=== PATIENT | female | born 1975 | race Caucasian/White ===

== ENCOUNTER 2017-08-27 07:41 | Emergency (ER) | payer SELFPAY ==
--- NOTE | 2017-08-27 08:01 | EDPHYS ---
Physician Documentation [facility] Name: Jessica Kim Age: 41 yrs Sex: Female : 1975 Arrival Date: 08/27/2017 Time: 07:44 Bed 15 Private MD: JOLANTA NAIR ED Physician Pranay Lakhani HPI: 08/27 07:57 This 41 yrs old Female presents to ER via Unassigned with complaints of Leg gs Pain, back pain. 07:57 The patient presents with pain that is acute. The symptoms are located in the low back. gs Onset: The symptoms/episode began/occurred 1 month(s) ago, and became persistent. The pain radiates to the left quadriceps. Associated signs and symptoms: Pertinent negatives: incontinence, numbness, urinary retention. Modifying factors: the patient symptoms are aggravated by any movement, bending. Severity of symptoms: At their worst the symptoms were moderate, in the emergency department the symptoms are unchanged. The patient has experienced similar episodes in the past, a few times. The patient has been recently seen by a physician: with similar presenting complaints, was given a prescription for pain medications. RAMP JOCKEY: 07:59 LMP 08/02/2017 rb1 Historical: - PMHx: 07:59 Depression; gs - Immunization history:: Adult Immunizations up to date. - Social history:: The patient lives at home, Smoking status: Patient uses tobacco products, smokes one pack cigarettes per day. - Ebola Screening: : Patient negative for fever greater than or equal to 101.5 degrees Fahrenheit, and additional compatible Ebola Virus Disease symptoms. ROS: 07:59 All other systems are negative. gs Exam: 07:59 Head/Face: Normocephalic, atraumatic. Eyes: Pupils equal round and reactive to light, gs extra-ocular motions intact. Lids and lashes normal. Conjunctiva and sclera are non-icteric and not injected. Cornea within normal limits. Periorbital areas with no swelling, redness, or edema. ENT: Nares patent. No nasal discharge, no septal abnormalities noted. Tympanic membranes are normal and external auditory canals are clear. Oropharynx with no redness, swelling, or masses, exudates, or evidence of obstruction, uvula midline. Mucous membranes moist. Neck: Trachea midline, no thyromegaly or masses palpated, and no cervical lymphadenopathy. Supple, full range of motion without nuchal rigidity, or vertebral point tenderness. No Meningismus. Chest/axilla: Normal chest wall appearance and motion. Nontender with no deformity. No lesions are appreciated. Cardiovascular: Regular rate and rhythm with a normal S1 and S2. No gallops, murmurs, or rubs. Normal PMI, no JVD. No pulse deficits. Respiratory: Lungs have equal breath sounds bilaterally, clear to auscultation and percussion. No rales, rhonchi or wheezes noted. No increased work of breathing, no retractions or nasal flaring. Abdomen/GI: Soft, non-tender, with normal bowel sounds. No distension or tympany. No guarding or rebound. No evidence of tenderness throughout. Skin: Warm, dry with normal turgor. Normal color with no rashes, no lesions, and no evidence of cellulitis. MS/ Extremity: Pulses equal, no cyanosis. Neurovascular intact. Full, normal range of motion. Neuro: Awake and alert, GCS 15, oriented to person, place, time, and situation. Cranial nerves II-XII grossly intact. Motor strength 5/5 in all extremities. Sensory grossly intact. Cerebellar exam normal. Normal gait. 07:59 Constitutional: The patient appears alert, awake. 07:59 Back: CVA tenderness, is absent, vertebral tenderness, is not appreciated, Straight leg raises: left lower extremity illicits pain, at 30 degrees. Vital Signs: 07:59 BP 125 / 90; Pulse 95; Resp 20; Temp 97.8(O); Pulse Ox 100% on R/A; Weight 92.99 kg rb1 (R); Height 5 ft. 2 in. (157.48 cm) (R); Pain 10/10; 07:59 Body Mass Index 37.49 (92.99 kg, 157.48 cm) rb1 MDM: 07:53 Patient medically screened. snw 07:59 Differential diagnosis: Ligament Injury ruptured disc, sprain. Data reviewed: vital gs signs, nurses notes. Response to treatment: There is no appreciated change of the patient's symptoms at this time, and as a result, I will discharge patient. Administered Medications: No medications were administered Disposition: 08/27/17 08:00 Discharged to Home. Impression: Lumbago with sciatica, left side. - Condition is Stable. - Discharge Instructions: Chronic Back Pain, Back Exercises, [id number]. - Prescriptions for Prednisone 20 mg Oral Tablet - take 1 tablet by ORAL route once daily for 5 days; 5 tablet. Tylenol- Codeine #4 300-60 mg Oral Tablet - take 1 tablet by ORAL route every 6 hours As needed; 6 tablet. Pepcid 20 mg Oral Tablet - take 1 tablet by ORAL route every 12 hours for 10 days; 20 tablet. - Medication Reconciliation Form, Thank You Letter, Antibiotic Education, Prescription Opioid Use form. - Follow up: Private Physician; When: 2 - 3 days; Reason: Re-evaluation by your physician. Signatures: Crystal Sams, ANA CRISTINA-C CONSTRUCTION TEACHER-Csnw Martita Arboleda, RN RN rb1 Pranay Lakhani MD MD gs Corrections: (The following items were deleted from the chart) 08:25 08:00 08/27/2017 08:00 Discharged to Home. Impression: Lumbago with sciatica, left rb1 side. Condition is Stable. Forms are Medication Reconciliation Form, Thank You Letter, Antibiotic Education, Prescription Opioid Use. Follow up: Private Physician; When: 2 - 3 days; Reason: Re-evaluation by your physician. gs
--- NOTE | 2017-08-27 08:25 | ER ---
Nurse's Notes [facility] Name: Jessica Kim Age: 41 yrs Sex: Female : 1975 Arrival Date: 08/27/2017 Time: 07:44 Bed 15 Private MD: JOLANTA NAIR Diagnosis: Lumbago with sciatica, left side Presentation: 08/27 07:59 Presenting complaint: Patient states: pt. c/o of lower back pain that radiates down her rb1 left leg. Transition of care: patient was not received from another setting of care. Onset of symptoms was August 26, 2017. Risk Assessment: Do you want to hurt yourself or someone else? Patient reports no desire to harm self or others. Initial Sepsis Screen: Does the patient meet any 2 criteria? No. Patient's initial sepsis screen is negative. Does the patient have a suspected source of infection? No. Patient's initial sepsis screen is negative. Care prior to arrival: None. 07:59 Method Of Arrival: Wheelchair rb1 07:59 Acuity: HOWARD 3 rb1 Triage Assessment: 07:59 General: Appears uncomfortable, Behavior is calm, cooperative, Denies fever. Pain: rb1 Complains of pain in left low back Pain radiates to left leg Pain currently is 10 out of 10 on a pain scale. Pain began 1 day ago. Neuro: Level of Consciousness is awake, alert, obeys commands, Oriented to person, place, time, situation. Cardiovascular: Capillary refill < 3 seconds is brisk in bilateral fingers. Respiratory: Airway is patent Respiratory effort is even, unlabored, Respiratory pattern is regular, symmetrical. GI: Reports nausea. : No signs and/or symptoms were reported regarding the genitourinary system. Derm: Skin is pink, warm \T\ dry. Musculoskeletal: Range of motion: intact in all extremities. WAGE HAND: 07:59 LMP 08/02/2017 rb1 Historical: - PMHx: 07:59 Depression; gs - Immunization history:: Adult Immunizations up to date. - Social history:: The patient lives at home, Smoking status: Patient uses tobacco products, smokes one pack cigarettes per day. - Ebola Screening: : Patient negative for fever greater than or equal to 101.5 degrees Fahrenheit, and additional compatible Ebola Virus Disease symptoms. Screenin:59 Abuse screen: Denies threats or abuse. Nutritional screening: No deficits noted. rb1 Tuberculosis screening: No symptoms or risk factors identified. Fall Risk None identified. Assessment: 07:59 General: See triage assessment.. rb1 Vital Signs: 07:59 BP 125 / 90; Pulse 95; Resp 20; Temp 97.8(O); Pulse Ox 100% on R/A; Weight 92.99 kg rb1 (R); Height 5 ft. 2 in. (157.48 cm) (R); Pain 10/10; 07:59 Body Mass Index 37.49 (92.99 kg, 157.48 cm) rb1 ED Course: 07:44 Patient arrived in ED. sb2 07:45 JOLANTA NAIR is Private Physician. sb2 07:45 Martita Arboleda, RN is Primary Nurse. rb1 07:53 Crystal Sams FNP-C [facility]. snw 07:53 Pranay Lakhani MD is Attending Physician. snw 07:59 Arm band placed on. rb1 07:59 Patient has correct armband on for positive identification. Bed in low position. Call rb1 light in reach. Side rails up X 1. Pulse ox on. NIBP on. 08:01 Triage completed. rb1 08:22 No provider procedures requiring assistance completed. Patient did not have IV access rb1 during this emergency room visit. Administered Medications: No medications were administered Outcome: 08:00 Discharge ordered by . 08:22 Discharged to home via wheelchair, with family. rb1 08:22 Condition: stable 08:22 Discharge instructions given to patient, Instructed on discharge instructions, follow up and referral plans. medication usage, Demonstrated understanding of instructions, follow-up care, medications, Prescriptions given X 3. 08:25 Patient left the ED. rb1 Signatures: Crystal Sams FNP-C DAYCARE MANAGER-Csnw Martita Arboleda, RN RN rb1 Pranay Lakhani MD MD Rufina Wen sb2
[2017-08-27 08:28] VITALS: BP 125/90; TEMP 97.8; O2SAT 100
== END 2017-08-27 08:25 | disposition home or self-care (01) ==
LOC: ER 07:41
DX: M54.42 Lumbago with sciatica, left side (principal); F17.210 Nicotine dependence, cigarettes, uncomplicated
CPT/HCPCS: 99283

== ENCOUNTER 2018-01-01 17:37 | Emergency (ER) | payer SELFPAY ==
[2018-01-01] MEDS ORDERED: PHENAZOPYRIDINE 100MG TAB PO ONE (18:08)
[2018-01-01] MEDS ORDERED: TRAMADOL HCL 50 MG TAB ONE ×2 (18:08→19:27)
[2018-01-01 18:26] LABS: Urine Bacteria 20-50 /HPF (<20); Urine Culture Reflex Order NOT NEEDED; Urine Mucus 2+ /HPF (NONE SEEN); Urine RBC 20-50 /HPF (NONE SEEN)
[2018-01-01 18:27] LABS: Urine Blood 3+ (NEG); Urine Glucose NEGATIVE (NEG); Urine Protein 2+ (NEG); Urine Specific Gravity 1.015 (1.005-1.030)
--- NOTE | 2018-01-01 18:33 | EDPHYS ---
Physician Documentation [facility] Name: Jessica Kim Age: 42 yrs Sex: Female : 1975 Arrival Date: 01/01/2018 Time: 17:39 Bed 6 Private MD: ED Physician Karlos Barth HPI: 01/01 18:20 This 42 yrs old Female presents to ER via Ambulatory with complaints of snw Urinary Problem. 18:20 Onset: The symptoms/episode began/occurred suddenly, yesterday. Associated signs and snw symptoms: Pertinent positives: dysuria. Modifying factors: The patient symptoms are alleviated by nothing, the patient symptoms are aggravated by urinating. The patient has experienced similar episodes in the past. The patient has not recently seen a physician. 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 - Social history:: Smoking status: Patient uses tobacco products, smokes one pack cigarettes per day. - Ebola Screening: : Patient negative for fever greater than or equal to 101.5 degrees Fahrenheit, and additional compatible Ebola Virus Disease symptoms Patient denies exposure to infectious person Patient denies travel to an Ebola-affected area in the 21 days before illness onset No symptoms or risks identified at this time. ROS: 18:18 Constitutional: Negative for fever, chills, and weight loss, Eyes: Negative for injury, snw pain, redness, and discharge, ENT: Negative for injury, pain, and discharge, Neck: Negative for injury, pain, and swelling, Cardiovascular: Negative for chest pain, palpitations, and edema, Respiratory: Negative for shortness of breath, cough, wheezing, and pleuritic chest pain, Abdomen/GI: Negative for abdominal pain, nausea, vomiting, diarrhea, and constipation, Back: Negative for injury and pain, MS/Extremity: Negative for injury and deformity, Skin: Negative for injury, rash, and discoloration, Neuro: Negative for headache, weakness, numbness, tingling, and seizure. 18:18 : Positive for urinary symptoms, small amounts, hematuria, burning with urination. Exam: 18:18 Constitutional: This is a well developed, well nourished patient who is awake, alert, snw and in no acute distress. Head/Face: Normocephalic, atraumatic. Eyes: Pupils equal round and reactive to light, extra-ocular motions intact. Lids and lashes normal. Conjunctiva and sclera are non-icteric and not injected. Cornea within normal limits. Periorbital areas with no swelling, redness, or edema. ENT: Nares patent. No nasal discharge, no septal abnormalities noted. Tympanic membranes are normal and external auditory canals are clear. Oropharynx with no redness, swelling, or masses, exudates, or evidence of obstruction, uvula midline. Mucous membranes moist. Neck: Trachea midline, no thyromegaly or masses palpated, and no cervical lymphadenopathy. Supple, full range of motion without nuchal rigidity, or vertebral point tenderness. No Meningismus. Chest/axilla: Normal chest wall appearance and motion. Nontender with no deformity. No lesions are appreciated. Cardiovascular: Regular rate and rhythm with a normal S1 and S2. No gallops, murmurs, or rubs. Normal PMI, no JVD. No pulse deficits. Respiratory: Lungs have equal breath sounds bilaterally, clear to auscultation and percussion. No rales, rhonchi or wheezes noted. No increased work of breathing, no retractions or nasal flaring. Abdomen/GI: Soft, non-tender, with normal bowel sounds. No distension or tympany. No guarding or rebound. No evidence of tenderness throughout. Back: No spinal tenderness. No costovertebral tenderness. Full range of motion. Skin: Warm, dry with normal turgor. Normal color with no rashes, no lesions, and no evidence of cellulitis. MS/ Extremity: Pulses equal, no cyanosis. Neurovascular intact. Full, normal range of motion. Neuro: Awake and alert, GCS 15, oriented to person, place, time, and situation. Cranial nerves II-XII grossly intact. Motor strength 5/5 in all extremities. Sensory grossly intact. Cerebellar exam normal. Normal gait. Vital Signs: 17:47 BP 154 / 88; Pulse 106; Resp 20; Temp 97.3; Pulse Ox 100% on R/A; Weight 94.8 kg; aj Height 5 ft. 2 in. (157.48 cm); 18:30 BP 146 / 78; Pulse 88; Resp 15; Pulse Ox 100% on R/A; hb 19:25 BP 139 / 77; Pulse 82; Resp 16; Pulse Ox 99% on R/A; aa1 17:47 Body Mass Index 38.23 (94.80 kg, 157.48 cm) aj MDM: 17:53 Patient medically screened. snw 18:36 Data reviewed: vital signs, nurses notes, lab test result(s), radiologic studies. Data snw interpreted: Pulse oximetry: on room air is 100 %. Interpretation: normal. Counseling: I had a detailed discussion with the patient and/or guardian regarding: the historical points, exam findings, and any diagnostic results supporting the discharge/admit diagnosis, the presence of at least one elevated blood pressure reading (>120/80) during this emergency department visit, lab results, radiology results, the need for outpatient follow up, to return to the emergency department if symptoms worsen or persist or if there are any questions or concerns that arise at home. Special discussion: Based on the patient's Hx, exam, and Dx evaluation, there is no indication for emergent surgery or inpatient Tx. It is understood by the patient/guardian that if the Sx's persist or worsen they need to return immediately for re-evaluation. I have referred the patient to see his PCP for further evaluation of high blood pressure. Based on the history and exam findings, there is no indication for further emergent testing or inpatient evaluation. I discussed with the patient/guardian the need to see the primary care provider for further evaluation of the symptoms. 01/01 17:52 Order name: Urine Culture snw 01/01 17:52 Order name: Urine Microscopic Only; Complete Time: 18:31 snw 01/01 18:16 Order name: Urine Dipstick--Ancillary (enter results); Complete Time: 18:31 bd 01/01 18:16 Order name: Urine --Ancillary (enter results); Complete Time: 18:31 bd 01/01 17:52 Order name: Urine Dipstick-Ancillary (obtain specimen); Complete Time: 18:00 snw 01/01 17:55 Order name: Urine Test (obtain specimen); Complete Time: 18:01 snw Administered Medications: 18:07 Drug: Pyridium 200 mg Route: PO; hb 19:24 Follow up: Response: No adverse reaction aa1 18:07 Drug: UltRAM 25 mg Route: PO; hb 19:17 Follow up: Response: No adverse reaction; Pain is unchanged, physician notified aa1 19:05 Drug: Rocephin (cefTRIAXone) 1 grams Route: IM; Site: right gluteus; ea 19:24 Follow up: Response: No adverse reaction aa1 19:22 Drug: UltRAM 25 mg Route: PO; aa1 19:24 Follow up: Response: No adverse reaction; Medication administered at discharge. aa1 Disposition: 01/02 07:03 Co-signature as Attending Physician, Karlos Barth MD. rn Disposition: 01/01/18 18:32 Discharged to Home. Impression: Dysuria, Urinary tract infection, site not specified. - Condition is Stable. - Discharge Instructions: Back Pain, Adult, Dysuria, Hypertension, Urinary Tract Infection, Adult, Rehydration, Adult. - Prescriptions for Pyridium 200 mg Oral Tablet - take 1 tablet by ORAL route every 8 hours for 3 days; 9 tablet. Macrobid 100 mg Oral Capsule - take 1 capsule by ORAL route every 12 hours for 10 days; 20 capsule. Diclofenac Sodium 75 mg Oral Tablet Sustained Release - take 1 tablet by ORAL route 2 times per day; 30 tablet. - Medication Reconciliation Form, Thank You Letter, Antibiotic Education, Prescription Opioid Use form. - Follow up: Private Physician; When: 2 - 3 days; Reason: Recheck today's complaints, Continuance of care, Re-evaluation by your physician. Follow up: Emergency Department; When: As needed; Reason: Worsening of condition. Signatures: Dispatcher MedHo Nneka Magaña RN RN aa1 Karmen Flores RN RN Crystal No, FAMILY AND CONSUMER SCIENCES PROFESSOR-C FAMILY AND CONSUMER SCIENCES PROFESSOR-Csnw Karlos Barth MD MD rn Baxter, Heather, RN RN hb Antunez, Elena, RN RN ea Corrections: (The following items were deleted from the chart) 01/01 19:26 18:32 01/01/2018 18:32 Discharged to Home. Impression: Dysuria; Urinary tract aa1 infection, site not specified. Condition is Stable. Forms are Medication Reconciliation Form, Thank You Letter, Antibiotic Education, Prescription Opioid Use. Follow up: Private Physician; When: 2 - 3 days; Reason: Recheck today's complaints, Continuance of care, Re-evaluation by your physician. Follow up: Emergency Department; When: As needed; Reason: Worsening of condition. snw
--- NOTE | 2018-01-01 18:33 | ER ---
Nurse's Notes [facility] Name: Jessica Kim Age: 42 yrs Sex: Female : 1975 Arrival Date: 01/01/2018 Time: 17:39 Bed 6 Private MD: Diagnosis: Dysuria;Urinary tract infection, site not specified Presentation: 01/01 17:46 Presenting complaint: Patient states: Burning with urination and blood in urine since aj yesterday. Transition of care: patient was not received from another setting of care. Onset of symptoms was December 31, 2017. Risk Assessment: Do you want to hurt yourself or someone else? Patient reports no desire to harm self or others. Initial Sepsis Screen: Does the patient meet any 2 criteria? No. Patient's initial sepsis screen is negative. Does the patient have a suspected source of infection? No. Patient's initial sepsis screen is negative. Care prior to arrival: None. 17:46 Method Of Arrival: Ambulatory aj 17:46 Acuity: HOWARD 3 aj Triage Assessment: 17:47 General: Appears in no apparent distress. comfortable, Behavior is calm, cooperative, aj appropriate for age. Pain: Complains of pain in pelvis. Neuro: Level of Consciousness is awake, alert, obeys commands, Oriented to person, place, time, situation, Appropriate for age. Respiratory: Airway is patent Respiratory effort is even, unlabored, Respiratory pattern is regular, symmetrical. : Reports burning with urination. Derm: Skin is intact, is healthy with good turgor, Skin is pink, warm \T\ dry. normal. 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 - Social history:: Smoking status: Patient uses tobacco products, smokes one pack cigarettes per day. - Ebola Screening: : Patient negative for fever greater than or equal to 101.5 degrees Fahrenheit, and additional compatible Ebola Virus Disease symptoms Patient denies exposure to infectious person Patient denies travel to an Ebola-affected area in the 21 days before illness onset No symptoms or risks identified at this time. Screenin:02 Abuse screen: Denies threats or abuse. Denies injuries from another. Nutritional hb screening: No deficits noted. Tuberculosis screening: No symptoms or risk factors identified. Fall Risk None identified. Assessment: 18:02 General: Appears in no apparent distress. uncomfortable, Behavior is calm, cooperative. hb Pain: Pain currently is 4 out of 10 on a pain scale. Neuro: Level of Consciousness is awake, alert, obeys commands, Oriented to person, place, time, situation. Cardiovascular: Capillary refill < 3 seconds Patient's skin is warm and dry. Respiratory: Airway is patent Respiratory effort is even, unlabored, Respiratory pattern is regular, symmetrical. GI: No signs and/or symptoms were reported involving the gastrointestinal system. : Reports burning with urination, urgency, urinary frequency. EENT: No signs and/or symptoms were reported regarding the EENT system. Derm: Skin is intact, is healthy with good turgor, Skin is pink, warm \T\ dry. Musculoskeletal: No signs and/or symptoms reported regarding the musculoskeletal system. 19:00 General: Appears uncomfortable, Behavior is calm, cooperative. Pain: Pain currently is ea 4 out of 10 on a pain scale. Neuro: Level of Consciousness is awake, alert, obeys commands, Oriented to person, place, time, situation. Cardiovascular: Patient's skin is warm and dry. Respiratory: Airway is patent Respiratory effort is even, unlabored, Respiratory pattern is regular, symmetrical. : Reports burning with urination, urgency, urinary frequency. 19:00 Derm: Skin is pink, warm \T\ dry. ea 19:25 Reassessment: Patient appears in no apparent distress at this time. Patient is alert, aa1 oriented x 3, equal unlabored respirations, skin warm/dry/pink. Discussed d/c \T\ f/u instructions with pt; denies questions or concerns at this time. Vital Signs: 17:47 BP 154 / 88; Pulse 106; Resp 20; Temp 97.3; Pulse Ox 100% on R/A; Weight 94.8 kg; aj Height 5 ft. 2 in. (157.48 cm); 18:30 BP 146 / 78; Pulse 88; Resp 15; Pulse Ox 100% on R/A; hb 19:25 BP 139 / 77; Pulse 82; Resp 16; Pulse Ox 99% on R/A; aa1 17:47 Body Mass Index 38.23 (94.80 kg, 157.48 cm) ED Course: 17:39 Patient arrived in ED. mr 17:43 Crystal Sams, ANA CRISTINA-C [facility]. snw 17:43 Karlos Barth MD is Attending Physician. snw 17:47 Triage completed. aj 17:47 Arm band placed on right wrist. Patient placed in an exam room. aj 18:01 Acacia Brizuela, RN is Primary Nurse. hb 18:02 Patient has correct armband on for positive identification. Bed in low position. Call hb light in reach. Side rails up X 1. 19:17 No provider procedures requiring assistance completed. Patient did not have IV access ea during this emergency room visit. Administered Medications: 18:07 Drug: Pyridium 200 mg Route: PO; hb 19:24 Follow up: Response: No adverse reaction aa1 18:07 Drug: UltRAM 25 mg Route: PO; hb 19:17 Follow up: Response: No adverse reaction; Pain is unchanged, physician notified aa1 19:05 Drug: Rocephin (cefTRIAXone) 1 grams Route: IM; Site: right gluteus; ea 19:24 Follow up: Response: No adverse reaction aa1 19:22 Drug: UltRAM 25 mg Route: PO; aa1 19:24 Follow up: Response: No adverse reaction; Medication administered at discharge. aa1 Outcome: 18:32 Discharge ordered by MD. snw 19:25 Discharged to home ambulatory. aa1 19:25 Condition: good 19:25 Discharge instructions given to patient, Instructed on discharge instructions, follow up and referral plans. medication usage, Demonstrated understanding of instructions, follow-up care, medications, Prescriptions given X 3. 19:26 Patient left the ED. aa1 Addendum: 01/04/2018 10:05 Addendum: Culture Results: Positive urine culture. No further action required. Bacteria h b sensitive to prescribed antibiotic. Signatures: Nneka Plascencia RN RN aa1 Karmen Flores RN RN Crystal Sams, ANA CRISTINA-C POLICE CHIEF DEPUTY-Csn Malinda Tran mr Acacia Brizuela, RN RICKY Washington, Aileen, RN RN ea
[2018-01-01] MEDS ORDERED: CEFTRIAXONE 1000 MG/VIAL ONE (19:02)
[2018-01-01 19:59] VITALS: TEMP 97.3
[2018-01-01 20:02] VITALS: BP 139/77; O2SAT 99
== END 2018-01-01 19:26 | disposition home or self-care (01) ==
LOC: ER 17:37
DX: N39.0 Urinary tract infection, site not specified (principal); F32.9 Major depressive disorder, single episode, unspecified; F41.9 Anxiety disorder, unspecified; F17.210 Nicotine dependence, cigarettes, uncomplicated; Z79.899 Other long term (current) drug therapy; Z79.3 Long term (current) use of hormonal contraceptives
CPT/HCPCS: 81003; 81015; 81025; 87077; 87086; 87088; 87186; 96372; 99283

== ENCOUNTER 2018-02-08 16:30 | Emergency (ER) | payer SELFPAY ==
[2018-02-08 17:24] LABS: Absolute Monocytes 0.8 K/uL (0.1-1.3); Absolute Neutrophil 7.4 K/uL (1.8-8.0); Basophils % 0.6 % (0-1.3); Hematocrit 38.5 % (36.0-45.0); Lymphocytes % 26.2 % (15.3-44.8); MCH 31.5 pg (27.0-35.0); MCV 93.4 fL (80-100); MPV 7.1 fL (7.6-11.3); Monocytes % 7.3 % (3.3-12.3); RBC Red Blood Cell Count 4.12 M/uL (3.86-4.86)
[2018-02-08] MEDS ORDERED: ONDANSETRON 4 MG/2 ML VIAL ONE ×2 (17:29→18:20)
[2018-02-08] MEDS ORDERED: MORPHINE 4 MG/ML SYR ONE (17:29)
[2018-02-08] MEDS ORDERED: NA CHLORIDE 0.9% 1,000 ML ONE (17:29)
[2018-02-08 17:42] LABS: ALT/SGPT 21 U/L (12-78); AST/SGOT 12 U/L (15-37); Albumin 3.3 g/dL (3.4-5.0); Alkaline Phosphatase 55 U/L (45-117); BUN Blood Urea Nitrogen 3 mg/dL (7-18); Bicarbonate 26 mmol/L (21-32); Bilirubin Direct 0.1 mg/dL (0-0.2); Bilirubin Total 0.4 mg/dL (0.2-1.0); Glucose Level 84 mg/dL (74-106); Lipase 65 U/L (73-393); Potassium 3.5 mmol/L (3.5-5.1); Protein, Total 7.1 g/dL (6.4-8.2); Sodium Level 140 mmol/L (136-145)
--- NOTE | 2018-02-08 18:12 | RAD REPORT ---
EXAM DESCRIPTION: CT - Abdomen Pelvis W Contrast - 02/08/2018 6:03 pm CLINICAL HISTORY: Abdominal pain, right lower quadrant pain COMPARISON: CT September 2015 TECHNIQUE: Biphasic, helical CT imaging of the abdomen and pelvis was performed following 100 ml non -ionic IV contrast. Oral contrast was given. All CT scans are performed using dose optimization technique as appropriate and may include automated exposure control or mA/KV adjustment according to patient size. FINDINGS: No suspicious findings in the lung bases. The liver, spleen, and pancreas show no suspicious findings. Cholecystectomy clips are present. No bi liary tree dilatation. Symmetric renal function is seen with no hydronephrosis or suspicious renal mass. No pyelonephritis o r acute renal parenchymal process. No adrenal gland abnormality. Contracted urinary bladder shows no suspicious findings. Small ovarian cysts are present. No cyst rupture or hemorrhage identifiable. No uterine abnormality seen. No dilated bowel loops or bowel wall thickening. Appendix is normal. The pancolitis findings of 2016 are not evident on the current study. No free air, free fluid or inflammatory stranding. No hernia, mass or bulky lymphadenopathy. The uri nary bladder is without significant finding. No adrenal abnormality. No suspicious bony findings. IMPRESSION: Contrast enhanced CT abdomen and pelvis showing no significant or suspicious finding.
--- NOTE | 2018-02-08 18:57 | ER ---
Nurse's Notes [facility] Name: Jessica Kim Age: 42 yrs Sex: Female : 1975 Arrival Date: 02/08/2018 Time: 16:33 Bed 23 Private MD: Jeramy Chau E Diagnosis: Vomiting;Diarrhea, unspecified;Unspecified abdominal pain;Viral gastroenteritis Presentation: 02/08 16:34 Presenting complaint: Patient states: i have this pain on my lower abdomen just on my hj bladder area and pain on my R lower abd for about a week now; reports diarrhea, nausea; reports chills; pain 9/10;. Transition of care: patient was not received from another setting of care. Onset of symptoms was February 08, 2018. Risk Assessment: Do you want to hurt yourself or someone else? Patient reports no desire to harm self or others. Initial Sepsis Screen: Does the patient meet any 2 criteria? No. Patient's initial sepsis screen is negative. Does the patient have a suspected source of infection? No. Patient's initial sepsis screen is negative. Care prior to arrival: None. 16:34 Method Of Arrival: Ambulatory 16:34 Acuity: HOWARD 3 Triage Assessment: 16:37 General: Appears in no apparent distress. uncomfortable, Behavior is calm, cooperative, hj appropriate for age. Pain: Complains of pain in abdomen Pain currently is 9 out of 10 on a pain scale. GI: Reports lower abdominal pain, diarrhea, nausea. 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 - Social history:: Smoking status: Patient uses tobacco products, Patient/guardian denies using alcohol. - Ebola Screening: : Patient negative for fever greater than or equal to 101.5 degrees Fahrenheit, and additional compatible Ebola Virus Disease symptoms Patient denies exposure to infectious person Patient denies travel to an Ebola-affected area in the 21 days before illness onset. Screenin:36 Abuse screen: Denies threats or abuse. Denies injuries from another. Nutritional hj screening: No deficits noted. Tuberculosis screening: No symptoms or risk factors identified. Fall Risk None identified. Assessment: 16:37 GI: Bowel sounds present X 4 quads. Abd is soft and non tender. hj 17:06 General: Appears uncomfortable, well groomed, well developed, well nourished, Behavior tl3 is calm, cooperative, appropriate for age. Pain: Complains of pain in right low back and abdomen. Neuro: No deficits noted. Level of Consciousness is awake, alert, obeys commands, Oriented to person, place, time, situation, Appropriate for age. Cardiovascular: Patient's skin is warm and dry. Respiratory: Airway is patent Respiratory effort is even, unlabored, Respiratory pattern is regular, symmetrical. : Urine is clear. EENT: No deficits noted. No signs and/or symptoms were reported regarding the EENT system. Derm: No deficits noted. No signs and/or symptoms reported regarding the dermatologic system. 19:59 Reassessment: Patient appears in no apparent distress at this time. No changes from tl3 previously documented assessment. Patient and/or family updated on plan of care and expected duration. Pain level reassessed. Patient is alert, oriented x 3, equal unlabored respirations, skin warm/dry/pink. Vital Signs: 16:37 BP 115 / 92; Pulse 95; Resp 18; Temp 97.8(TE); Pulse Ox 99% on R/A; Weight 94.8 kg; hj Height 5 ft. 2 in. (157.48 cm); Pain 9/10; 17:06 BP 158 / 108; Pulse 101; Resp 18; Pulse Ox 100% on R/A; tl3 18:13 BP 137 / 81; Pulse 92; Resp 18; Pulse Ox 98% on R/A; Pain 4/10; mg2 19:59 BP 122 / 76; Pulse 81; Resp 18; Pulse Ox 97% on R/A; tl3 16:37 Body Mass Index 38.23 (94.80 kg, 157.48 cm) ED Course: 16:33 Patient arrived in ED. mr 16:33 JOLANTA NAIR is Private Physician. mr 16:33 Jeramy Chau MD is Private Physician. mr 16:36 Triage completed. hj 16:37 Arm band placed on right wrist. 16:38 Patient has correct armband on for positive identification. Placed in gown. Bed in low hj position. Call light in reach. Side rails up X 1. Adult w/ patient. 16:59 Cherelle Jolly, RICKY is Primary Nurse. tl3 17:03 Carlos Nolan NP is PHCP. pm1 17:03 Jesus López MD is Attending Physician. pm1 17:06 No provider procedures requiring assistance completed. tl3 17:14 Radiology exam delayed due to lab results not completed at this time. (BUN/Creatinine). nj 17:26 Inserted saline lock: 20 gauge in right antecubital area, using aseptic technique. mg2 Blood collected. 17:[address] via wheelchair. vm2 18:03 CT Abd/Pelvis - W/Contrast: IV contrast only In Process Unspecified. EDMS 18:13 CT completed. Patient tolerated procedure well. Patient moved back from CT. nj 18:55 Jeramy Chau MD is Referral Physician. pm1 19:59 IV discontinued, intact, bleeding controlled, No redness/swelling at site. Pressure tl3 dressing applied. Administered Medications: 17:25 Drug: NS 0.9% 1000 ml Route: IV; Rate: 1000 ml; Site: right forearm; mg2 17:25 Drug: morphine 4 mg Route: IVP; Site: right forearm; mg2 18:12 Follow up: Response: No adverse reaction; Marked relief of symptoms mg2 17:25 Drug: Zofran 4 mg Route: IVP; Site: right forearm; mg2 18:12 Follow up: Response: No adverse reaction; No change in condition mg2 18:13 Drug: Zofran 4 mg Route: IVP; Site: right antecubital; mg2 19:16 Follow up: Response: No adverse reaction tl3 19:15 Drug: Phenergan 12.5 mg Route: IVP; Infused Over: 3 mins; Site: right antecubital; tl3 20:02 Follow up: Response: No adverse reaction; Nausea is decreased tl3 19:15 Drug: morphine 2 mg Route: IVP; Infused Over: 2 mins; Site: right antecubital; tl3 20:02 Follow up: Response: No adverse reaction tl3 Outcome: 18:56 Discharge ordered by . pm1 19:59 Discharged to home ambulatory. tl3 19:59 Condition: stable 19:59 Discharge instructions given to patient, family, Instructed on discharge instructions, follow up and referral plans. medication usage, Demonstrated understanding of instructions, follow-up care, medications, Prescriptions given X 2. 20:00 Patient left the ED. tl3 Signatures: Dispatcher [employer] Malinda SotoJohn, RN RN hj Carlos Nolan NP CRIPPLE CHASER pm1 Richard Prakash Victoria 2 Cherelle Jolly RN RN tl3 Keanu Blakely RN RN mg2 Corrections: (The following items were deleted from the chart) 16:39 16:37 Pulse 95bpm; Resp 18bpm; Pulse Ox 99% RA; Temp 97.8F Temporal; 94.8 kg; Height 5 hj ft. 2 in.; BMI: 38.2; Pain 9/10; hj
--- NOTE | 2018-02-08 18:57 | EDPHYS ---
Physician Documentation [facility] Name: Jessica Kim Age: 42 yrs Sex: Female : 1975 Arrival Date: 02/08/2018 Time: 16:33 Bed 23 Private MD: Jeramy Chau E ED Physician Jesus López HPI: 02/08 17:30 This 42 yrs old Female presents to ER via Ambulatory with complaints of pm1 Abdominal Pain. 17:30 The patient presents with abdominal pain in the lower abdomen, right flank. Onset: The pm1 symptoms/episode began/occurred 1 week(s) ago. The symptoms do not radiate. Associated signs and symptoms: Pertinent positives: nausea, vomiting, and diarrhea, Pertinent negatives: chest pain, dysuria, fever, shortness of breath. The symptoms are described as crampy. Modifying factors: The symptoms are alleviated by nothing, the symptoms are aggravated by nothing. The patient has not recently seen a physician. 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 - Social history:: Smoking status: Patient uses tobacco products, Patient/guardian denies using alcohol. - Ebola Screening: : Patient negative for fever greater than or equal to 101.5 degrees Fahrenheit, and additional compatible Ebola Virus Disease symptoms Patient denies exposure to infectious person Patient denies travel to an Ebola-affected area in the 21 days before illness onset. ROS: 17:30 Eyes: Negative for injury, pain, redness, and discharge, ENT: Negative for injury, pm1 pain, and discharge, Neck: Negative for injury, pain, and swelling, Cardiovascular: Negative for chest pain, palpitations, and edema, Respiratory: Negative for shortness of breath, cough, wheezing, and pleuritic chest pain. 17:30 Back: Negative for injury and pain, : Negative for injury, bleeding, discharge, and swelling, MS/Extremity: Negative for injury and deformity, Skin: Negative for injury, rash, and discoloration, Neuro: Negative for headache, weakness, numbness, tingling, and seizure. 17:30 Constitutional: Positive for chills, Negative for body aches, fever, poor PO intake. 17:30 Abdomen/GI: Positive for abdominal pain, nausea, vomiting, and diarrhea. Exam: 17:30 Constitutional: This is a well developed, well nourished patient who is awake, alert, pm1 and in no acute distress. Head/Face: Normocephalic, atraumatic. Eyes: Pupils equal round and reactive to light, extra-ocular motions intact. Lids and lashes normal. Conjunctiva and sclera are non-icteric and not injected. Cornea within normal limits. Periorbital areas with no swelling, redness, or edema. ENT: Nares patent. No nasal discharge, no septal abnormalities noted. Tympanic membranes are normal and external auditory canals are clear. Oropharynx with no redness, swelling, or masses, exudates, or evidence of obstruction, uvula midline. Mucous membranes moist. Neck: Trachea midline, no thyromegaly or masses palpated, and no cervical lymphadenopathy. Supple, full range of motion without nuchal rigidity, or vertebral point tenderness. No Meningismus. Chest/axilla: Normal chest wall appearance and motion. Nontender with no deformity. No lesions are appreciated. Cardiovascular: Regular rate and rhythm with a normal S1 and S2. No gallops, murmurs, or rubs. Normal PMI, no JVD. No pulse deficits. Respiratory: Lungs have equal breath sounds bilaterally, clear to auscultation and percussion. No rales, rhonchi or wheezes noted. No increased work of breathing, no retractions or nasal flaring. 17:30 Skin: Warm, dry with normal turgor. Normal color with no rashes, no lesions, and no evidence of cellulitis. MS/ Extremity: Pulses equal, no cyanosis. Neurovascular intact. Full, normal range of motion. 17:30 Abdomen/GI: Inspection: abdomen appears normal, Bowel sounds: normal, Palpation: abdomen is soft and non-tender. 17:30 Back: pain, that is mild, of the right mid back, normal spinal alignment noted, vertebral tenderness, is not appreciated. 17:30 Neuro: Orientation: is normal, Motor: is normal, moves all fours. Vital Signs: 16:37 BP 115 / 92; Pulse 95; Resp 18; Temp 97.8(TE); Pulse Ox 99% on R/A; Weight 94.8 kg; hj Height 5 ft. 2 in. (157.48 cm); Pain 9/10; 17:06 BP 158 / 108; Pulse 101; Resp 18; Pulse Ox 100% on R/A; tl3 18:13 BP 137 / 81; Pulse 92; Resp 18; Pulse Ox 98% on R/A; Pain 4/10; mg2 19:59 BP 122 / 76; Pulse 81; Resp 18; Pulse Ox 97% on R/A; tl3 16:37 Body Mass Index 38.23 (94.80 kg, 157.48 cm) hj MDM: 17:04 Patient medically screened. pm1 18:55 Data reviewed: vital signs. Data interpreted: Pulse oximetry: on room air is 98 %. pm1 Interpretation: normal. Counseling: I had a detailed discussion with the patient and/or guardian regarding: the historical points, exam findings, and any diagnostic results supporting the discharge/admit diagnosis, lab results, radiology results, the need for outpatient follow up, to return to the emergency department if symptoms worsen or persist or if there are any questions or concerns that arise at home. 02/08 17:08 Order name: Basic Metabolic Panel; Complete Time: 17:47 pm1 02/08 17:08 Order name: CBC with Diff; Complete Time: 17:47 pm1 02/08 17:08 Order name: Creatinine for Radiology; Complete Time: 17:47 pm1 02/08 17:08 Order name: Hepatic Function; Complete Time: 17:47 pm1 02/08 17:08 Order name: Lipase; Complete Time: 17:47 pm1 02/08 17:36 Order name: Urine Dipstick--Ancillary (enter results); Complete Time: 19:04 02/08 17:08 Order name: CT Abd/Pelvis - W/Contrast: IV contrast only; Complete Time: 18:29 pm1 02/08 17:36 Order name: Urine --Ancillary (enter results); Complete Time: 19:04 02/08 16:40 Order name: Urine Dipstick-Ancillary (obtain specimen); Complete Time: 17:25 02/08 16:40 Order name: Urine Test (obtain specimen); Complete Time: 17:25 hj 02/08 17:08 Order name: IV Saline Lock; Complete Time: 17:25 pm1 02/08 17:08 Order name: Labs collected and sent; Complete Time: 17:25 pm1 Administered Medications: 17:25 Drug: NS 0.9% 1000 ml Route: IV; Rate: 1000 ml; Site: right forearm; mg2 17:25 Drug: morphine 4 mg Route: IVP; Site: right forearm; mg2 18:12 Follow up: Response: No adverse reaction; Marked relief of symptoms mg2 17:25 Drug: Zofran 4 mg Route: IVP; Site: right forearm; mg2 18:12 Follow up: Response: No adverse reaction; No change in condition mg2 18:13 Drug: Zofran 4 mg Route: IVP; Site: right antecubital; mg2 19:16 Follow up: Response: No adverse reaction tl3 19:15 Drug: Phenergan 12.5 mg Route: IVP; Infused Over: 3 mins; Site: right antecubital; tl3 20:02 Follow up: Response: No adverse reaction; Nausea is decreased tl3 19:15 Drug: morphine 2 mg Route: IVP; Infused Over: 2 mins; Site: right antecubital; tl3 20:02 Follow up: Response: No adverse reaction tl3 Disposition: 02/08/18 18:56 Discharged to Home. Impression: Vomiting, Diarrhea, unspecified, Unspecified abdominal pain, Viral gastroenteritis. - Condition is Stable. - Discharge Instructions: Abdominal Pain, Adult, Food Choices to Help Relieve Diarrhea, Adult, Diarrhea, Adult, Nausea and Vomiting, Adult, Viral Gastroenteritis, Adult. - Prescriptions for Bentyl 20 mg Oral Tablet - take 1 tablet by ORAL route every 6 hours As needed; 20 tablet. promethazine 25 mg Oral Tablet - take 1 tablet by ORAL route every 6 hours As needed; 20 tablet. - Medication Reconciliation Form, Thank You Letter, Antibiotic Education, Prescription Opioid Use form. - Follow up: Emergency Department; When: As needed; Reason: Worsening of condition. Follow up: Jeramy Chau MD; When: 2 - 3 days; Reason: Recheck today's complaints, Continuance of care, Re-evaluation by your physician. - Problem is new. - Symptoms have improved. Signatures: Dispatcher [employer] EDMS John Padilla RN RN Carlos Rodrigues NP COKE STILL CLEANER pm1 Cherelle Jolly, RICKY RN tl3 Keanu Blakely, RN RN mg2 Corrections: (The following items were deleted from the chart) 20:00 18:56 02/08/2018 18:56 Discharged to Home. Impression: Vomiting; Diarrhea, unspecified; tl3 Unspecified abdominal pain; Viral gastroenteritis. Condition is Stable. Forms are Medication Reconciliation Form, Thank You Letter, Antibiotic Education, Prescription Opioid Use. Follow up: Emergency Department; When: As needed; Reason: Worsening of condition. Follow up: Jeramy Chau; When: 2 - 3 days; Reason: Recheck today's complaints, Continuance of care, Re-evaluation by your physician. Problem is new. Symptoms have improved. pm1
[2018-02-08 19:03] LABS: Urine Blood 3+ (NEG); Urine Glucose NEGATIVE (NEG); Urine Protein 2+ (NEG)
[2018-02-08] MEDS ORDERED: MORPHINE 2 MG/ML SYR ONE (19:18)
[2018-02-08] MEDS ORDERED: PROMETHAZINE 25 MG/ML VIAL ONE (19:18)
[2018-02-08 20:13] VITALS: TEMP 97.8
[2018-02-08 20:17] VITALS: BP 122/76; O2SAT 97
== END 2018-02-08 20:00 | disposition home or self-care (01) ==
LOC: ER 16:30
DX: A08.4 Viral intestinal infection, unspecified (principal); R11.10 Vomiting, unspecified; F41.9 Anxiety disorder, unspecified; F32.9 Major depressive disorder, single episode, unspecified; Z72.0 Tobacco use
CPT/HCPCS: 36415; 74177; 80048; 80076; 81003; 81025; 83690; 85025; 99284; J2270; J2405; J2550; J7030; Q9967

== ENCOUNTER 2018-05-26 14:56 | Emergency (ER) | payer SELFPAY ==
--- NOTE | 2018-05-26 15:17 | EDPHYS ---
Physician Documentation [facility] Name: Jessica Kim Age: 42 yrs Sex: Female : 1975 Arrival Date: 05/26/2018 Time: 14:58 Bed 20 Private MD: Jeramy Chau E ED Physician Karlos Barth HPI: 05/26 15:31 This 42 yrs old Female presents to ER via Ambulatory with complaints of Ear snw Pain. 15:31 The patient presents with pain, that is acute. The complaints affect the right ear. snw Onset: The symptoms/episode began/occurred suddenly, 1 day(s) ago, and became worse and became persistent. Associated signs and symptoms: The patient has no apparent associated signs or symptoms. Severity of symptoms: At their worst the symptoms were moderate in the emergency department the symptoms are unchanged. The patient has not experienced similar symptoms in the past. The patient has been recently seen by a physician:. just finished oral abx for tooth pain. Historical: - Allergies: 15:08 No Known Allergies; la1 - PMHx: 15:08 Anxiety; Depression; la1 - Immunization history:: Adult Immunizations up to date. - Social history:: Smoking status: Patient/guardian denies using tobacco. - Ebola Screening: : No symptoms or risks identified at this time. ROS: 15:31 Constitutional: Negative for fever, chills, and weight loss, Eyes: Negative for injury, snw pain, redness, and discharge, Neck: Negative for injury, pain, and swelling, Cardiovascular: Negative for chest pain, palpitations, and edema, Respiratory: Negative for shortness of breath, cough, wheezing, and pleuritic chest pain, Abdomen/GI: Negative for abdominal pain, nausea, vomiting, diarrhea, and constipation, Back: Negative for injury and pain, : Negative for injury, bleeding, discharge, and swelling, MS/Extremity: Negative for injury and deformity, Skin: Negative for injury, rash, and discoloration, Neuro: Negative for headache, weakness, numbness, tingling, and seizure. 15:31 ENT: Positive for ear pain. Exam: 15:30 Constitutional: This is a well developed, well nourished patient who is awake, alert, snw and in no acute distress. Head/Face: Normocephalic, atraumatic. Eyes: Pupils equal round and reactive to light, extra-ocular motions intact. Lids and lashes normal. Conjunctiva and sclera are non-icteric and not injected. Cornea within normal limits. Periorbital areas with no swelling, redness, or edema. Neck: Trachea midline, no thyromegaly or masses palpated, and no cervical lymphadenopathy. Supple, full range of motion without nuchal rigidity, or vertebral point tenderness. No Meningismus. Chest/axilla: Normal chest wall appearance and motion. Nontender with no deformity. No lesions are appreciated. Cardiovascular: Regular rate and rhythm with a normal S1 and S2. No gallops, murmurs, or rubs. Normal PMI, no JVD. No pulse deficits. Respiratory: Lungs have equal breath sounds bilaterally, clear to auscultation and percussion. No rales, rhonchi or wheezes noted. No increased work of breathing, no retractions or nasal flaring. Abdomen/GI: Soft, non-tender, with normal bowel sounds. No distension or tympany. No guarding or rebound. No evidence of tenderness throughout. Back: No spinal tenderness. No costovertebral tenderness. Full range of motion. Skin: Warm, dry with normal turgor. Normal color with no rashes, no lesions, and no evidence of cellulitis. MS/ Extremity: Pulses equal, no cyanosis. Neurovascular intact. Full, normal range of motion. Neuro: Awake and alert, GCS 15, oriented to person, place, time, and situation. Cranial nerves II-XII grossly intact. Motor strength 5/5 in all extremities. Sensory grossly intact. Cerebellar exam normal. Normal gait. 15:30 ENT: External ear(s): no acute changes, Ear canal(s): purulent discharge, that is moderate, in the right canal, TM's: not visable, because of discharge, Examination of the other ear shows no obvious abnormality, Nose: is normal, Mouth: is normal, Posterior pharynx: is normal, Voice: is normal. Vital Signs: 15:08 BP 146 / 97; Pulse 67; Resp 18; Temp 98.0; Pulse Ox 98% on R/A; Weight 99.34 kg; Height la1 5 ft. 2 in. (157.48 cm); 15:08 Body Mass Index 40.06 (99.34 kg, 157.48 cm) la1 MDM: 15:09 Patient medically screened. snw 15:29 Data reviewed: vital signs, nurses notes. Data interpreted: Pulse oximetry: on room air snw is 98 %. Interpretation: normal. Counseling: I had a detailed discussion with the patient and/or guardian regarding: the historical points, exam findings, and any diagnostic results supporting the discharge/admit diagnosis, the presence of at least one elevated blood pressure reading (>120/80) during this emergency department visit, radiology results, the need for outpatient follow up, for definitive care, to return to the emergency department if symptoms worsen or persist or if there are any questions or concerns that arise at home, smoking cessation. Special discussion: Based on the history and exam findings, there is no indication for further emergent testing or inpatient evaluation. I discussed with the patient/guardian the need to see the ENT specialist for further evaluation of the symptoms. I discussed with the patient/guardian the need to see the primary care provider for further evaluation of the symptoms. risks of OCP, smoking, and age discussed with patient.. Administered Medications: 15:31 Drug: Cortisporin Drops 4 drops Route: Otic; Site: right ear; em 15:32 Drug: Argyle 5 mg-325 mg 1 tabs Route: PO; em Disposition: 17:13 Co-signature as Attending Physician, Karlos Barth MD. rn Disposition: 05/26/18 15:17 Discharged to Home. Impression: Acute contact otitis externa. - Condition is Stable. - Discharge Instructions: Otitis Externa, Heat Therapy. - Prescriptions for Diclofenac Sodium 75 mg Oral Tablet Sustained Release - take 1 tablet by ORAL route 2 times per day; 30 tablet. Ciprodex 0.3- 0.1 % Otic Drops, Suspension - instill 4 drop by OTIC route every 12 hours for 7 days , for ears ONLY; 1 Container. - Medication Reconciliation Form, Thank You Letter, Antibiotic Education, Prescription Opioid Use form. - Follow up: Jeramy Chau MD; When: 2 - 3 days; Reason: Recheck today's complaints, Continuance of care, Re-evaluation by your physician. Follow up: Emergency Department; When: As needed; Reason: Worsening of condition. - Problem is new. - Symptoms are unchanged. Signatures: Crystal Sams, METER READER INSPECTOR-C METER READER INSPECTOR-Csnw Romain Loo, DEPARTMENTAL SHIPPING CLERK DEPARTMENTAL SHIPPING CLERK em Karlos Barth MD MD rn Attema, Lee, RN RN la1 Corrections: (The following items were deleted from the chart) 15:17 15:17 05/26/2018 15:17 Discharged to Home. Impression: Acute contact otitis externa. snw Condition is Stable. Forms are Medication Reconciliation Form, Thank You Letter, Antibiotic Education, Prescription Opioid Use. Follow up: Jeramy Chau; When: 2 - 3 days; Reason: Recheck today's complaints, Continuance of care, Re-evaluation by your physician. Follow up: Emergency Department; When: As needed; Reason: Worsening of condition. snw 15:40 15:17 05/26/2018 15:17 Discharged to Home. Impression: Acute contact otitis externa. em Condition is Stable. Forms are Medication Reconciliation Form, Thank You Letter, Antibiotic Education, Prescription Opioid Use. Follow up: Jeramy Chau; When: 2 - 3 days; Reason: Recheck today's complaints, Continuance of care, Re-evaluation by your physician. Follow up: Emergency Department; When: As needed; Reason: Worsening of condition. Problem is new. Symptoms are unchanged. snw
--- NOTE | 2018-05-26 15:17 | ER ---
Nurse's Notes [facility] Name: Jessica Kim Age: 42 yrs Sex: Female : 1975 Arrival Date: 05/26/2018 Time: 14:58 Bed 20 Private MD: Jeramy Chau E Diagnosis: Acute contact otitis externa Presentation: 05/26 15:08 Presenting complaint: Patient states: right ear pain for one day. Transition of care: la1 patient was not received from another setting of care. Onset of symptoms was May 26, 2018. Risk Assessment: Do you want to hurt yourself or someone else? Patient reports no desire to harm self or others. Initial Sepsis Screen: Does the patient meet any 2 criteria? No. Patient's initial sepsis screen is negative. Does the patient have a suspected source of infection? No. Patient's initial sepsis screen is negative. Care prior to arrival: None. 15:08 Method Of Arrival: Ambulatory la1 15:08 Acuity: HOWARD 5 la1 Historical: - Allergies: 15:08 No Known Allergies; la1 - PMHx: 15:08 Anxiety; Depression; la1 - Immunization history:: Adult Immunizations up to date. - Social history:: Smoking status: Patient/guardian denies using tobacco. - Ebola Screening: : No symptoms or risks identified at this time. Screenin:17 Abuse screen: Denies threats or abuse. Nutritional screening: No deficits noted. em Tuberculosis screening: No symptoms or risk factors identified. Fall Risk None identified. Assessment: 15:19 General: Appears in no apparent distress. uncomfortable, Behavior is calm, cooperative, em Denies fever. Pain: Complains of pain in right ear Pain currently is 9 out of 10 on a pain scale. Pain began 1 day ago. Neuro: Level of Consciousness is awake, alert, obeys commands, Oriented to person, place, time, situation. Cardiovascular: Capillary refill < 3 seconds Patient's skin is warm and dry. Respiratory: Airway is patent Respiratory effort is even, unlabored, Respiratory pattern is regular, symmetrical, Breath sounds are clear bilaterally. Denies cough. GI: Abdomen is flat, Patient currently denies nausea, vomiting. : No signs and/or symptoms were reported regarding the genitourinary system. EENT: Reports pain in right ear Denies decreased hearing in right ear. Derm: Skin is intact, is healthy with good turgor, Skin is pink, warm \T\ dry. Musculoskeletal: Capillary refill < 3 seconds, Range of motion: intact in all extremities. Vital Signs: 15:08 BP 146 / 97; Pulse 67; Resp 18; Temp 98.0; Pulse Ox 98% on R/A; Weight 99.34 kg; Height la1 5 ft. 2 in. (157.48 cm); 15:08 Body Mass Index 40.06 (99.34 kg, 157.48 cm) la1 ED Course: 14:58 Patient arrived in ED. mr 14:59 Jeramy Chau MD is Private Physician. mr 15:06 [facility]. snw 15:06 Karlos Barth MD is Attending Physician. snw 15:08 Triage completed. la1 15:09 Arm band placed on left wrist. la1 15:14 Romain Loo LVN is Primary Nurse. em 15:16 Jeramy Chau MD is Referral Physician. snw 15:17 Patient has correct armband on for positive identification. Bed in low position. Call em light in reach. 15:38 No provider procedures requiring assistance completed. Patient did not have IV access em during this emergency room visit. Administered Medications: 15:31 Drug: Cortisporin Drops 4 drops Route: Otic; Site: right ear; em 15:32 Drug: [place] 5 mg-325 mg 1 tabs Route: PO; em Outcome: 15:17 Discharge ordered by MD. snw 15:38 Discharged to home ambulatory. em 15:38 Condition: good 15:38 Discharge instructions given to patient, Instructed on discharge instructions, follow up and referral plans. medication usage, Demonstrated understanding of instructions, follow-up care, medications, Prescriptions given X 2. 15:40 Patient left the ED. em Signatures: Crystal Sams FNP-C FNP-Darryl LaddaMalinda mr Romain Loo LVN LVN em Nicola Gutierrez RN RN la1
[2018-05-26] MEDS ORDERED: HYDROCODONE/APAP 5/325 MG TAB ONE (15:33)
[2018-05-26] MEDS ORDERED: NEOMY/POLY/HC 1% OTIC DROPS ONE (15:34)
[2018-05-26 16:36] VITALS: BP 146/97; TEMP 98; O2SAT 98
== END 2018-05-26 15:40 | disposition home or self-care (01) ==
LOC: ER 14:56
DX: H60.531 Acute contact otitis externa, right ear (principal)
CPT/HCPCS: 99283

== ENCOUNTER 2018-06-04 03:03 | Emergency (ER) | payer SELFPAY ==
--- NOTE | 2018-06-04 03:38 | ER ---
Nurse's Notes [facility] Name: Jessica Kim Age: 42 yrs Sex: Female : 1975 Arrival Date: 06/04/2018 Time: 03:05 Bed 13 Private MD: JOLANTA NAIR Diagnosis: Encounter for screening, unspecified Presentation: 06/04 03:06 Presenting complaint: Patient states: I have had a tooth ache on the left upper side of jb4 my mouth for the past 2 days. 03:06 Transition of care: patient was not received from another setting of care. Onset of jb4 symptoms was June 02, 2018. Risk Assessment: Do you want to hurt yourself or someone else? Patient reports no desire to harm self or others. Initial Sepsis Screen: Does the patient meet any 2 criteria? HR > 90 bpm. Yes Does the patient have a suspected source of infection? No. Patient's initial sepsis screen is negative. Care prior to arrival: None. 03:06 Method Of Arrival: Ambulatory jb4 03:06 Acuity: HOWARD 4 jb4 Historical: - Allergies: 03:06 NSAIDS; jb4 - Home Meds: 03:06 control [Active]; Clonazepam Oral [Active]; Xanax Oral [Active]; jb4 - PMHx: 03:06 Anxiety; Depression; jb4 - PSHx: 03:06 Cholecystectomy; ; depression; jb4 - Immunization history:: Adult Immunizations up to date. - Social history:: Smoking status: Patient uses tobacco products, smokes one pack cigarettes per day. Patient/guardian denies using alcohol. - Ebola Screening: : No symptoms or risks identified at this time. Screenin:06 Abuse screen: Denies threats or abuse. Nutritional screening: No deficits noted. jb4 Tuberculosis screening: No symptoms or risk factors identified. Fall Risk None identified. Assessment: 03:06 General: Appears in no apparent distress. uncomfortable, Behavior is calm, cooperative, jb4 appropriate for age. Pain: Complains of pain in upper left first molar (#14) Pain radiates to headache Pain currently is 10 out of 10 on a pain scale. Neuro: Level of Consciousness is awake, alert, obeys commands, Oriented to person, place, time, situation. Cardiovascular: Patient's skin is warm and dry. Respiratory: Airway is patent Respiratory effort is even, unlabored, Respiratory pattern is regular, symmetrical. GI: No signs and/or symptoms were reported involving the gastrointestinal system. : No signs and/or symptoms were reported regarding the genitourinary system. EENT: Dental carries noted.. Derm: Skin is intact, Skin is pink, warm \T\ dry. Musculoskeletal: No signs and/or symptoms reported regarding the musculoskeletal system. Vital Signs: 03:06 BP 150 / 85; Pulse 106; Resp 16; Temp 97.6(O); Pulse Ox 99% on R/A; Weight 99.34 kg jb4 (R); Height 5 ft. 2 in. (157.48 cm) (R); Pain 10/10; 03:06 Body Mass Index 40.06 (99.34 kg, 157.48 cm) jb4 ED Course: 03:05 Patient arrived in ED. es 03:06 JOLANTA NAIR is Private Physician. 03:06 Gabino Yates, RN is Primary Nurse. jb4 03:06 Arm band placed on left wrist. jb4 03:06 Patient has correct armband on for positive identification. Bed in low position. Call jb4 light in reach. Side rails up X 1. Pulse ox on. NIBP on. 03:15 Pranay Lakhani MD is Attending Physician. 03:17 Triage completed. jb4 03:41 No provider procedures requiring assistance completed. Patient did not have IV access jb4 during this emergency room visit. Administered Medications: No medications were administered Outcome: 03:37 Discharge ordered by . 03:41 Discharged to home ambulatory. jb4 03:41 Condition: stable 03:41 Following a medical screening exam, the patient was provided information regarding alternative care sites and resources available per registration personnel. 03:41 Patient left the ED. jb4 Signatures: Carolina Carl James, RN RN jb4 Pranay Lakhani MD MD
--- NOTE | 2018-06-04 03:38 | EDPHYS ---
Physician Documentation [facility] Name: Jessica Kim Age: 42 yrs Sex: Female : 1975 Arrival Date: 06/04/2018 Time: 03:05 Bed 13 Private MD: JOLANTA NAIR ED Physician Pranay Lakhani HPI: 06/04 03:28 This 42 yrs old Female presents to ER via Ambulatory with complaints of gs Toothache. 03:28 The patient presents with broken tooth/teeth, pain. The problem is located in the upper gs left first molar. Onset: The symptoms/episode began/occurred gradually, 1 month(s) ago. Duration: The symptoms are intermittent. Associated signs and symptoms: Pertinent negatives: fever, nausea, swelling. Severity of symptoms: At their worst the symptoms were moderate, in the emergency department the symptoms are unchanged. The patient has experienced similar episodes in the past, multiple times. Historical: - Allergies: 03:06 NSAIDS; jb4 - Home Meds: 03:06 control [Active]; Clonazepam Oral [Active]; Xanax Oral [Active]; jb4 - PMHx: 03:06 Anxiety; Depression; jb4 - PSHx: 03:06 Cholecystectomy; ; depression; jb4 - Immunization history:: Adult Immunizations up to date. - Social history:: Smoking status: Patient uses tobacco products, smokes one pack cigarettes per day. Patient/guardian denies using alcohol. - Ebola Screening: : No symptoms or risks identified at this time. ROS: 03:33 All other systems are negative. gs Exam: 03:33 Head/Face: Normocephalic, atraumatic. Eyes: Pupils equal round and reactive to light, gs extra-ocular motions intact. Lids and lashes normal. Conjunctiva and sclera are non-icteric and not injected. Cornea within normal limits. Periorbital areas with no swelling, redness, or edema. Neck: Trachea midline, no thyromegaly or masses palpated, and no cervical lymphadenopathy. Supple, full range of motion without nuchal rigidity, or vertebral point tenderness. No Meningismus. Cardiovascular: Regular rate and rhythm with a normal S1 and S2. No gallops, murmurs, or rubs. Normal PMI, no JVD. No pulse deficits. Respiratory: Lungs have equal breath sounds bilaterally, clear to auscultation and percussion. No rales, rhonchi or wheezes noted. No increased work of breathing, no retractions or nasal flaring. Abdomen/GI: Soft, non-tender, with normal bowel sounds. No distension or tympany. No guarding or rebound. No evidence of tenderness throughout. Back: No spinal tenderness. No costovertebral tenderness. Full range of motion. Skin: Warm, dry with normal turgor. Normal color with no rashes, no lesions, and no evidence of cellulitis. MS/ Extremity: Pulses equal, no cyanosis. Neurovascular intact. Full, normal range of motion. 03:33 Constitutional: The patient appears alert, awake. 03:33 ENT: Dental exam: dental caries, fractured teeth are noted, specifically the upper left first molar (#14). 03:33 ENT: Dental exam: gum swelling, not appreciated. Vital Signs: 03:06 BP 150 / 85; Pulse 106; Resp 16; Temp 97.6(O); Pulse Ox 99% on R/A; Weight 99.34 kg jb4 (R); Height 5 ft. 2 in. (157.48 cm) (R); Pain 10/10; 03:06 Body Mass Index 40.06 (99.34 kg, 157.48 cm) jb4 MDM: 03:15 Patient medically screened. gs 03:33 Differential diagnosis: dental caries. Data reviewed: vital signs, nurses notes. gs Administered Medications: No medications were administered Disposition: 06/04/18 03:37 Discharged to Home. Impression: Encounter for screening, unspecified. - Condition is Stable. - Medication Reconciliation Form, Thank You Letter, Antibiotic Education, Prescription Opioid Use form. - Follow up: Private Physician; When: 2 - 3 days; Reason: Re-evaluation by your physician. Signatures: Gabino Yates RN RN jb4 Pranay Lakhani MD MD gs Corrections: (The following items were deleted from the chart) 03:41 03:37 06/04/2018 03:37 Discharged to Home. Impression: Encounter for screening, jb4 unspecified. Condition is Stable. Forms are Medication Reconciliation Form, Thank You Letter, Antibiotic Education, Prescription Opioid Use. Follow up: Private Physician; When: 2 - 3 days; Reason: Re-evaluation by your physician. gs
[2018-06-04 05:46] VITALS: BP 150/85; TEMP 97.6; O2SAT 99
== END 2018-06-04 03:41 | disposition home or self-care (01) ==
LOC: ER 03:03
DX: Z13.9 Encounter for screening, unspecified (principal); K02.9 Dental caries, unspecified; F41.9 Anxiety disorder, unspecified; F32.9 Major depressive disorder, single episode, unspecified; F17.210 Nicotine dependence, cigarettes, uncomplicated; Z88.6 Allergy status to analgesic agent
CPT/HCPCS: 99282

== ENCOUNTER 2018-06-24 20:48 | Emergency (ER) | payer SELFPAY ==
[2018-06-24 21:48] LABS: Urine Blood NEGATIVE (NEG); Urine Glucose NEGATIVE (NEG); Urine Protein NEGATIVE (NEG); Urine Specific Gravity >1.030 (1.005-1.030); Urine pH 5.5 (5.0-7.0)
[2018-06-24 21:58] LABS: Absolute Lymphocytes (CBC) 3.1 K/uL (0.7-4.9); Absolute Monocytes 1.3 K/uL (0.1-1.3); Basophils % 0.4 % (0-1.3); Eosinophils % 0.8 % (0-4.4); Hematocrit 37.5 % (36.0-45.0); Lymphocytes % 24.4 % (15.3-44.8); MPV 7.1 fL (7.6-11.3); Monocytes % 10.4 % (3.3-12.3); RBC Red Blood Cell Count 3.98 M/uL (3.86-4.86)
[2018-06-24] MEDS ORDERED: MORPHINE 4 MG/ML SYR ONE ×2 (22:00→23:24)
[2018-06-24] MEDS ORDERED: NA CHLORIDE 0.9% 1,000 ML ONE (22:00)
[2018-06-24] MEDS ORDERED: ONDANSETRON 4 MG/2 ML VIAL ONE (22:00)
[2018-06-24 22:17] LABS: ALT/SGPT 17 U/L (12-78); AST/SGOT 11 U/L (15-37); Albumin 3.4 g/dL (3.4-5.0); Alkaline Phosphatase 44 U/L (45-117); BUN Blood Urea Nitrogen 13 mg/dL (7-18); Bicarbonate 25 mmol/L (21-32); Bilirubin Direct < 0.1 mg/dL (0-0.2); Bilirubin Total 0.2 mg/dL (0.2-1.0); Glucose Level 85 mg/dL (74-106); Lipase 42 U/L (73-393); Potassium 3.6 mmol/L (3.5-5.1); Protein, Total 7.2 g/dL (6.4-8.2); Sodium Level 140 mmol/L (136-145)
--- NOTE | 2018-06-24 23:05 | RAD REPORT ---
EXAM DESCRIPTION: RAD - Chest Pa And Lat (2 Views) - 06/24/2018 9:52 pm CLINICAL HISTORY: COUGH Chest pain. COMPARISON: Chest Single View dated 03/26/2017; Chest Single View dated 09/08/2016 FINDINGS: The lungs are clear. The heart is normal in size. No displaced fractures. IMPRESSION: No acute or concerning finding suspected.
--- NOTE | 2018-06-24 23:51 | ER ---
Nurse's Notes [facility] Name: Jessica Kim Age: 42 yrs Sex: Female : 1975 Arrival Date: 06/24/2018 Time: 20:49 Bed 13 Private MD: Jeramy Chau E Diagnosis: Low back pain Presentation: 06/24 20:53 Presenting complaint: Patient states: left sided back pain that started today that has la1 gotten worse and is exacerbated with deep breaths. Transition of care: patient was not received from another setting of care. Onset of symptoms was June 24, 2018. Risk Assessment: Do you want to hurt yourself or someone else? Patient reports no desire to harm self or others. Initial Sepsis Screen: Does the patient meet any 2 criteria? No. Patient's initial sepsis screen is negative. Does the patient have a suspected source of infection? No. Patient's initial sepsis screen is negative. Care prior to arrival: None. 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 - Social history:: Smoking status: Patient uses tobacco products, smokes one pack cigarettes per day. - Ebola Screening: : No symptoms or risks identified at this time. Screenin/28 21:18 Abuse screen: Denies threats or abuse. Nutritional screening: No deficits noted. jd3 Tuberculosis screening: No symptoms or risk factors identified. Fall Risk Ambulatory Aid- None/Bed Rest/Nurse Assist (0 pts). Gait- Normal/Bed Rest/Wheelchair (0 pts) Mental Status- Oriented to own ability (0 pts). Total Gonzalez Fall Scale indicates No Risk (0-24 pts). Assessment: 21:16 General: Appears in no apparent distress. uncomfortable, Behavior is calm, cooperative, jd3 appropriate for age. Pain: Complains of pain in low back area and mid back area Quality of pain is described as aching, tender. Neuro: Level of Consciousness is awake, alert, obeys commands, Oriented to person, place, time, situation, Appropriate for age. Cardiovascular: Denies chest pain, Capillary refill < 3 seconds Patient's skin is warm and dry. Respiratory: Reports pain with respiration Airway is patent Respiratory effort is even, unlabored, Respiratory pattern is regular, symmetrical, Breath sounds are clear bilaterally. GI: No signs and/or symptoms were reported involving the gastrointestinal system. : No signs and/or symptoms were reported regarding the genitourinary system. EENT: No signs and/or symptoms were reported regarding the EENT system. Derm: Skin is intact, Skin is dry, Skin is normal, Skin temperature is warm. Musculoskeletal: Circulation, motion, and sensation intact. Range of motion: intact in all extremities. 22:34 Reassessment: Patient appears in no apparent distress at this time. Patient and/or jd3 family updated on plan of care and expected duration. Pain level reassessed. Patient is alert, oriented x 3, equal unlabored respirations, skin warm/dry/pink. awaiting CT results. 23:15 Reassessment: Patient appears in no apparent distress at this time. Patient and/or jd3 family updated on plan of care and expected duration. Pain level reassessed. Patient is alert, oriented x 3, equal unlabored respirations, skin warm/dry/pink. 06/25 00:06 Reassessment: Patient appears in no apparent distress at this time. Patient and/or jd3 family updated on plan of care and expected duration. Pain level reassessed. Patient is alert, oriented x 3, equal unlabored respirations, skin warm/dry/pink. Vital Signs: 06/24 20:53 BP 117 / 91; Pulse 111; Resp 16; Temp 97.8; Pulse Ox 100% on R/A; Weight 89.36 kg; la1 Height 5 ft. 2 in. (157.48 cm); 22:33 BP 96 / 78; Pulse 93; Resp 17 S; Pulse Ox 100% on R/A; jd3 23:15 BP 112 / 79; Pulse 90; Resp 18 S; Pulse Ox 98% on R/A; jd3 06/25 00:05 BP 112 / 68; Pulse 89; Resp 17 S; Pulse Ox 97% on R/A; jd3 06/24 20:53 Body Mass Index 36.03 (89.36 kg, 157.48 cm) la1 ED Course: 06/24 20:49 Patient arrived in ED. am2 20:49 Jeramy Chau MD is Private Physician. am2 20:53 Triage completed. la1 20:54 Arm band placed on right wrist. la1 21:01 Carlos Nolan NP is PHCP. pm1 21:01 Osei Vinson MD is Attending Physician. pm1 21:13 Garth Brand RN is Primary Nurse. jd3 21:18 Patient has correct armband on for positive identification. Bed in low position. Call jd3 light in reach. Side rails up X 1. 21:40 Inserted saline lock: 20 gauge in right antecubital area, using aseptic technique. jd3 Blood collected. 21:52 Chest Pa And Lat (2 Views) XRAY In Process Unspecified. EDMS 22:47 CT Abd/Pelvis - W/Contrast: IV contrast only In Process Unspecified. EDMS 06/25 00:04 No provider procedures requiring assistance completed. IV discontinued, intact, jd3 bleeding controlled, No redness/swelling at site. Pressure dressing applied. Administered Medications: 06/24 22:04 Drug: NS 0.9% 1000 ml Route: IV; Rate: 1000 ml; Site: right antecubital; jd3 23:00 Follow up: Response: No adverse reaction; IV Status: Completed infusion; IV Intake: jd3 1000ml 22:04 Drug: Zofran 4 mg Route: IVP; Site: right antecubital; jd3 23:00 Follow up: Response: No adverse reaction jd3 22:05 Drug: morphine 4 mg Route: IVP; Site: right antecubital; jd3 23:05 Follow up: Response: No adverse reaction jd3 23:14 Drug: morphine 4 mg Route: IVP; Site: right antecubital; jd3 06/25 00:10 Follow up: Response: No adverse reaction jd3 Intake: 06/24 23:00 IV: 1000ml; Total: 1000ml. jd3 Outcome: 23:51 Discharge ordered by . pm1 06/25 00:04 Discharged to home ambulatory, with family. jd3 Condition: stable Discharge instructions given to patient, family, Instructed on discharge instructions, follow up and referral plans. medication usage, Demonstrated understanding of instructions, follow-up care, medications, Prescriptions given X 2. 00:11 Patient left the ED. jd3 Signatures: Dispatcher [employer] EDMS Nicola Gutierrez RN RN la1 Carlos Nolan, ESSIE [employer]ER pm1 Karmen Hay am2 Garth Brand RN RN jd3
--- NOTE | 2018-06-24 23:51 | EDPHYS ---
Physician Documentation [facility] Name: Jessica Kim Age: 42 yrs Sex: Female : 1975 Arrival Date: 06/24/2018 Time: 20:49 Bed 13 Private MD: Jeramy Chau E ED Physician Osei Vinson HPI: 06/24 22:05 This 42 yrs old Female presents to ER via Ambulatory with complaints of Back pm1 Pain - when taking a deep breath. 22:05 The patient presents with pain. The symptoms are located in the left low back. Onset: pm1 The symptoms/episode began/occurred yesterday. The pain does not radiate. Associated signs and symptoms: Pertinent positives: cough, Pertinent negatives: abdominal pain, chest pain, dysuria, fever, nausea, numbness, tingling, vomiting. The problem was sustained from unknown cause. Modifying factors: The patient symptoms are alleviated by nothing, the patient symptoms are aggravated by coughing, movement, deep breathing. Severity of symptoms: in the emergency department the symptoms are actually worse. The patient has experienced similar episodes in the past, a few times, UTIs in the past. The patient has not recently seen a physician. 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 - Social history:: Smoking status: Patient uses tobacco products, smokes one pack cigarettes per day. - Ebola Screening: : No symptoms or risks identified at this time. ROS: 06/24 22:05 Constitutional: Negative for fever, chills, and weight loss, Eyes: Negative for injury, pm1 pain, redness, and discharge, ENT: Negative for injury, pain, and discharge, Neck: Negative for injury, pain, and swelling, Cardiovascular: Negative for chest pain, palpitations, and edema. Abdomen/GI: Negative for abdominal pain, nausea, vomiting, diarrhea, and constipation. : Negative for injury, bleeding, discharge, and swelling, MS/Extremity: Negative for injury and deformity, Skin: Negative for injury, rash, and discoloration, Neuro: Negative for headache, weakness, numbness, tingling, and seizure. Respiratory: Positive for cough, Negative for shortness of breath, sputum production, wheezing. Back: Positive for flank pain, on the left. Exam: 22:05 Constitutional: This is a well developed, well nourished patient who is awake, alert, pm1 and in no acute distress. Head/Face: Normocephalic, atraumatic. Eyes: Pupils equal round and reactive to light, extra-ocular motions intact. Lids and lashes normal. Conjunctiva and sclera are non-icteric and not injected. Cornea within normal limits. Periorbital areas with no swelling, redness, or edema. ENT: Nares patent. No nasal discharge, no septal abnormalities noted. Tympanic membranes are normal and external auditory canals are clear. Oropharynx with no redness, swelling, or masses, exudates, or evidence of obstruction, uvula midline. Mucous membranes moist. Neck: Trachea midline, no thyromegaly or masses palpated, and no cervical lymphadenopathy. Supple, full range of motion without nuchal rigidity, or vertebral point tenderness. No Meningismus. Chest/axilla: Normal chest wall appearance and motion. Nontender with no deformity. No lesions are appreciated. Cardiovascular: Regular rate and rhythm with a normal S1 and S2. No gallops, murmurs, or rubs. Normal PMI, no JVD. No pulse deficits. Respiratory: Lungs have equal breath sounds bilaterally, clear to auscultation and percussion. No rales, rhonchi or wheezes noted. No increased work of breathing, no retractions or nasal flaring. Abdomen/GI: Soft, non-tender, with normal bowel sounds. No distension or tympany. No guarding or rebound. No evidence of tenderness throughout. 22:05 Skin: Warm, dry with normal turgor. Normal color with no rashes, no lesions, and no evidence of cellulitis. MS/ Extremity: Pulses equal, no cyanosis. Neurovascular intact. Full, normal range of motion. 22:05 Back: pain, of the lumbar area and left low back, normal spinal alignment noted, vertebral tenderness, is appreciated at L5. 22:05 Neuro: Orientation: is normal, Motor: is normal, moves all fours. Vital Signs: 20:53 BP 117 / 91; Pulse 111; Resp 16; Temp 97.8; Pulse Ox 100% on R/A; Weight 89.36 kg; la1 Height 5 ft. 2 in. (157.48 cm); 22:33 BP 96 / 78; Pulse 93; Resp 17 S; Pulse Ox 100% on R/A; jd3 23:15 BP 112 / 79; Pulse 90; Resp 18 S; Pulse Ox 98% on R/A; jd3 06/25 00:05 BP 112 / 68; Pulse 89; Resp 17 S; Pulse Ox 97% on R/A; jd3 06/24 20:53 Body Mass Index 36.03 (89.36 kg, 157.48 cm) la1 MDM: 06/24 21:02 [facility]. [facility] 23:50 Data reviewed: vital signs. Data interpreted: Pulse oximetry: on room air is 98 %. pm1 Interpretation: normal. Counseling: I had a detailed discussion with the patient and/or guardian regarding: the historical points, exam findings, and any diagnostic results supporting the discharge/admit diagnosis, lab results, radiology results, the need for outpatient follow up, to return to the emergency department if symptoms worsen or persist or if there are any questions or concerns that arise at home. 06/25 00:00 ED course: significant other reports that the patient was moving furniture two days pm1 ago. Likely cause for her current back pain. 06/24 21:14 Order name: Urine Dipstick--Ancillary (enter results); Complete Time: 21:50 [facility] 06/24 21:14 Order name: Urine --Ancillary (enter results); Complete Time: 21:50 [facility] 06/24 21:33 Order name: Basic Metabolic Panel; Complete Time: 22:25 pm06/24 21:33 Order name: CBC with Diff; Complete Time: 22:05 pm06/24 21:33 Order name: Creatinine for Radiology; Complete Time: 22:25 pm06/24 21:33 Order name: Hepatic Function; Complete Time: 22:25 pm06/24 21:33 Order name: Lipase; Complete Time: 22:25 pm1 06/24 21:33 Order name: IV Saline Lock; Complete Time: 21:45 pm1 06/24 21:33 Order name: CT Abd/Pelvis - W/Contrast: IV contrast only pm1 06/24 21:33 Order name: Chest Pa And Lat (2 Views) XRAY; Complete Time: 23:07 pm1 06/24 21:33 Order name: Labs collected and sent; Complete Time: 21:45 pm1 Administered Medications: 06/24 22:04 Drug: NS 0.9% 1000 ml Route: IV; Rate: 1000 ml; Site: right antecubital; jd3 23:00 Follow up: Response: No adverse reaction; IV Status: Completed infusion; IV Intake: jd3 1000ml 22:04 Drug: Zofran 4 mg Route: IVP; Site: right antecubital; jd3 23:00 Follow up: Response: No adverse reaction jd3 22:05 Drug: morphine 4 mg Route: IVP; Site: right antecubital; jd3 23:05 Follow up: Response: No adverse reaction jd3 23:14 Drug: morphine 4 mg Route: IVP; Site: right antecubital; jd3 06/25 00:10 Follow up: Response: No adverse reaction jd3 Disposition: 06/24/18 23:51 Discharged to Home. Impression: Low back pain. - Condition is Stable. - Discharge Instructions: Back Pain, Adult, Musculoskeletal Pain. - Prescriptions for Tylenol- Codeine #3 300-30 mg Oral Tablet - take 2 tablets by ORAL route every 6 hours As needed; 20 tablet. Cyclobenzaprine 10 mg Oral Tablet - take 1 tablet by ORAL route every 8 hours As needed; 30 tablet. - Medication Reconciliation Form, Thank You Letter, Antibiotic Education, Prescription Opioid Use form. - Follow up: Emergency Department; When: As needed; Reason: Worsening of condition. Follow up: Private Physician; When: 2 - 3 days; Reason: Recheck today's complaints, Continuance of care, Re-evaluation by your physician. - Problem is new. - Symptoms have improved. Addendum: 06/26/2018 11:18 Co-signature as Attending Physician, Osei Vinson MD I agree with the assessment and c macedo plan of care. Signatures: Dispatcher [employer] Osei Hernandez MD MD cha Attema, Lee, RN RN la1 Calros Nolan, BASE FILLER OPERATOR BASE FILLER OPERATOR pm1 Garth Brand, RN RN jd3 Corrections: (The following items were deleted from the chart) 06/25 00:11 06/24 23:51 06/24/2018 23:51 Discharged to Home. Impression: Low back pain. Condition jd3 is Stable. Forms are Medication Reconciliation Form, Thank You Letter, Antibiotic Education, Prescription Opioid Use. Follow up: Emergency Department; When: As needed; Reason: Worsening of condition. Follow up: Private Physician; When: 2 - 3 days; Reason: Recheck today's complaints, Continuance of care, Re-evaluation by your physician. Problem is new. Symptoms have improved. pm1
[2018-06-25 00:53] VITALS: TEMP 97.8
[2018-06-25 00:55] VITALS: BP 112/68; O2SAT 97
--- NOTE | 2018-06-25 10:37 | RAD REPORT ---
EXAM DESCRIPTION: Stone Protocol CLINICAL HISTORY: 46 years Male Flank pain;Abd pain COMPARISON: June 24, 2018. TECHNIQUE: Images were obtained in axial, sagittal, and coronal planes. No intravenous contrast was administered. This exam was performed according to our departmental dose-optimization program which includes use of Automated Exposure Control, adjustment of the mA and/or kV according to patient size and/or use of i terative reconstruction technique. FINDINGS: Fatty change involving the liver. Spleen is enlarged measuring 15.6 cm in greatest dimensi on. Suspected varices left upper abdomen. Surgical clips in region of body of pancreas. 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 Mildly contracted gallbladder. No obstructing renal calcifications bilaterally. Atrophic change right kidney. Compensatory enlargeme nt left kidney. Punctate nonobstructing calcification and renal parenchymal scarring again noted on r ight. Mild left hydronephrosis. Peripelvic cysts not excluded. Mucosal thickening involving the bladd er with incomplete distention. Penile pump present with pump reservoir right lower pelvis. Appendix not well identified however no secondary signs for appendicitis. No bowel obstruction, perfo ration, or inflammation. Midline ventral hernia again noted which contains nondilated bowel loops. Ad ditional small periumbilical hernia containing only fatty mesentery. No acute osseous abnormality. Atelectatic change lower lungs bilaterally. IMPRESSION: No obstructing renal calcifications bilaterally. Punctate nonobstructing calcifications right kidney again seen with parenchymal scarring and atrophic change right kidney. Compensatory enlargement left kidney with suspected mild left hydronephrosis and perinephric strandin g. Mucosal thickening involving the bladder. Consider inflammatory process or cystitis/pyelonephritis . Superimposed peripelvic cysts not excluded. Fatty change involving the liver. Enlarged spleen. Electronically signed by: Suzette Rondon MD 06/24/2018 10:40 PM CDT Due to temporary technical issues with the PACS/Fluency reporting system, reports are being signed by the in house radiologist as a courtesy to ensure prompt reporting. The interpreting radiologist is f burtly responsible for the content of the report.
== END 2018-06-25 00:11 | disposition home or self-care (01) ==
LOC: ER 20:48
DX: M54.5 Low back pain (principal); F17.210 Nicotine dependence, cigarettes, uncomplicated; Z88.6 Allergy status to analgesic agent
CPT/HCPCS: 36415; 71046; 74177; 80048; 80076; 81003; 81025; 83690; 85025; J2405; J7030; Q9967

== ENCOUNTER 2018-11-04 19:40 | Emergency (ER) | payer SELFPAY ==
[2018-11-04] MEDS ORDERED: TETANUS & DIPHTHERIA TOX,ADULT 0.5 ML VIAL ONE (21:16)
[2018-11-04] MEDS ORDERED: HYDROCODONE/APAP 7.5/325 MG TAB ONE (21:16)
--- NOTE | 2018-11-04 21:49 | EDPHYS ---
Physician Documentation [facility] Name: Jessica Kim Age: 42 yrs Sex: Female : 1975 Arrival Date: 11/04/2018 Time: 19:44 Bed 17 Private MD: Jeramy Chau E ED Physician Pranay Lakhani HPI: 11/04 22:42 This 42 yrs old Female presents to ER via Wheelchair with complaints of Fall snw Injury, Ankle Injury. 22:42 Details of fall: The patient fell from an upright position, while walking. Onset: The snw symptoms/episode began/occurred acutely, suddenly. Associated injuries: The patient sustained right ankle, abrasion, contusion, painful injury, swelling. Severity of symptoms: At their worst the symptoms were moderate, in the emergency department the symptoms are unchanged. The patient has not experienced similar symptoms in the past. It is unknown whether or not the patient has recently seen a physician. 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 - Social history:: Smoking status: Patient uses tobacco products, smokes one pack cigarettes per day. Patient/guardian denies using alcohol, street drugs. - Ebola Screening: : Patient negative for fever greater than or equal to 101.5 degrees Fahrenheit, and additional compatible Ebola Virus Disease symptoms Patient denies exposure to infectious person Patient denies travel to an Ebola-affected area in the 21 days before illness onset. ROS: 22:42 Constitutional: Negative for fever, chills, and weight loss, Eyes: Negative for injury, snw pain, redness, and discharge, ENT: Negative for injury, pain, and discharge, Neck: Negative for injury, pain, and swelling, Cardiovascular: Negative for chest pain, palpitations, and edema, Respiratory: Negative for shortness of breath, cough, wheezing, and pleuritic chest pain, Abdomen/GI: Negative for abdominal pain, nausea, vomiting, diarrhea, and constipation, Back: Negative for injury and pain, : Negative for injury, bleeding, discharge, and swelling, Skin: Negative for injury, rash, and discoloration, Neuro: Negative for headache, weakness, numbness, tingling, and seizure, Psych: Negative for depression, anxiety, suicide ideation, homicidal ideation, and hallucinations. 22:42 MS/extremity: Positive for injury or acute deformity, abrasion, contusion, pain, swelling, tenderness, of the right ankle. Exam: 22:13 Constitutional: This is a well developed, well nourished patient who is awake, alert, snw and in no acute distress. Head/Face: Normocephalic, atraumatic. Eyes: Pupils equal round and reactive to light, extra-ocular motions intact. Lids and lashes normal. Conjunctiva and sclera are non-icteric and not injected. Cornea within normal limits. Periorbital areas with no swelling, redness, or edema. ENT: Nares patent. No nasal discharge, no septal abnormalities noted. Tympanic membranes are normal and external auditory canals are clear. Oropharynx with no redness, swelling, or masses, exudates, or evidence of obstruction, uvula midline. Mucous membranes moist. Neck: Trachea midline, no thyromegaly or masses palpated, and no cervical lymphadenopathy. Supple, full range of motion without nuchal rigidity, or vertebral point tenderness. No Meningismus. Chest/axilla: Normal chest wall appearance and motion. Nontender with no deformity. No lesions are appreciated. Cardiovascular: Regular rate and rhythm with a normal S1 and S2. No gallops, murmurs, or rubs. Normal PMI, no JVD. No pulse deficits. Respiratory: Lungs have equal breath sounds bilaterally, clear to auscultation and percussion. No rales, rhonchi or wheezes noted. No increased work of breathing, no retractions or nasal flaring. Abdomen/GI: Soft, non-tender, with normal bowel sounds. No distension or tympany. No guarding or rebound. No evidence of tenderness throughout. Back: No spinal tenderness. No costovertebral tenderness. Full range of motion. Neuro: Awake and alert, GCS 15, oriented to person, place, time, and situation. Cranial nerves II-XII grossly intact. Motor strength 5/5 in all extremities. Sensory grossly intact. Cerebellar exam normal. Normal gait. Psych: Awake, alert, with orientation to person, place and time. Behavior, mood, and affect are within normal limits. 22:13 Skin: Appearance: normal except for affected area, injury, abrasion(s), small abrasion noted, of the lateral aspect of right calf and right ankle, contusion(s), that are deep, of the right ankle. Vital Signs: 20:32 BP 134 / 85 LA (auto/lg); Pulse 110; Resp 18; Temp 98.1(O); Pulse Ox 100% on R/A; jp3 Weight 90.72 kg (R); Height 5 ft. 2 in. (157.48 cm) (R); Pain 9/10; 21:15 BP 125 / 79; Pulse 99; Resp 17; Pulse Ox 98% ; rr5 22:00 BP 130 / 75; Pulse 95; Resp 17; Pulse Ox 99% ; rr5 20:32 Body Mass Index 36.58 (90.72 kg, 157.48 cm) jp3 MDM: 20:53 Patient medically screened. snw 22:14 Data reviewed: vital signs, nurses notes, radiologic studies, plain films. Data snw interpreted: Pulse oximetry: on room air is 100 %. Interpretation: normal. Counseling: I had a detailed discussion with the patient and/or guardian regarding: the historical points, exam findings, and any diagnostic results supporting the discharge/admit diagnosis, the presence of at least one elevated blood pressure reading (>120/80) during this emergency department visit, radiology results, the need for outpatient follow up, to return to the emergency department if symptoms worsen or persist or if there are any questions or concerns that arise at home. Special discussion: I have referred the patient to see his PCP for further evaluation of high blood pressure. Based on the history and exam findings, there is no indication for further emergent testing or inpatient evaluation. I discussed with the patient/guardian the need to see the orthopedic surgeon for further evaluation of the symptoms. I discussed with the patient/guardian the need to see the primary care provider for further evaluation of the symptoms. 11/04 20:56 Order name: Ankle Right 3 View XRAY; Complete Time: 22:04 snw 11/04 21:47 Order name: Walking boot; Complete Time: 22:14 snw Administered Medications: 21:25 Drug: Tetanus-Diphtheria Toxoid Adult 0.5 ml {Commissioner Conservation Of Resources: [employer]. Exp: rr5 05/19/2020. Lot #: [id number]. } Route: IM; Site: left deltoid; 22:15 Follow up: Response: No adverse reaction rr5 21:30 Drug: Morton (7.5 mg-325 mg) 1 tabs {Note: rass 0.} Route: PO; rr5 22:15 Follow up: Response: No adverse reaction; RASS: Alert and Calm (0) rr5 21:33 Drug: Hibiclens 4 % 1 application Route: Topical; Site: wound; rr5 22:15 Follow up: Response: No adverse reaction rr5 Disposition: 11/04/18 21:48 Discharged to Home. Impression: Sprain of ankle. - Condition is Stable. - Discharge Instructions: Elastic Bandage and RICE, Ankle Sprain, VIS, Tetanus, Diphtheria (Td) - CDC, Cryotherapy, Heat Therapy, Walking Boot. - Prescriptions for Tylenol- Codeine #3 300-30 mg Oral Tablet - take 2 tablets by ORAL route every 6 hours As needed; 12 tablet. - Work release form, Medication Reconciliation Form, Thank You Letter, Antibiotic Education, Prescription Opioid Use form. - Follow up: Shan Flanagan MD; When: 2 - 3 days; Reason: Recheck today's complaints, Continuance of care, Re-evaluation by your physician. Follow up: Emergency Department; When: As needed; Reason: Worsening of condition. Signatures: Dispatcher [employer] [facility] Crystal Sams, HUMAN RESOURCES EXECUTIVE-C HUMAN RESOURCES EXECUTIVE-Csnw Fahad Bautista, RN RN rr5 Corrections: (The following items were deleted from the chart) 22:16 21:48 11/04/2018 21:48 Discharged to Home. Impression: Sprain of ankle. Condition is rr5 Stable. Forms are Medication Reconciliation Form, Thank You Letter, Antibiotic Education, Prescription Opioid Use. Follow up: Shan Flanagan; When: 2 - 3 days; Reason: Recheck today's complaints, Continuance of care, Re-evaluation by your physician. Follow up: Emergency Department; When: As needed; Reason: Worsening of condition. snw
--- NOTE | 2018-11-04 21:49 | ER ---
Nurse's Notes [facility] Name: Jessica Kim Age: 42 yrs Sex: Female : 1975 Arrival Date: 11/04/2018 Time: 19:44 Bed 17 Private MD: Jeramy Chau E Diagnosis: Sprain of ankle Presentation: 11/04 20:39 Presenting complaint: Patient states: while we were playing softball I got tripped and rr5 fell down twisted my right ankle. now it gets swollen and having pain, pain score 9/10. denies LOC not on blood thinners. Transition of care: patient was not received from another setting of care. Onset of symptoms was November 04, 2018 at 16:00. Risk Assessment: Do you want to hurt yourself or someone else? Patient reports no desire to harm self or others. Initial Sepsis Screen: Does the patient meet any 2 criteria? No. Patient's initial sepsis screen is negative. Does the patient have a suspected source of infection? No. Patient's initial sepsis screen is negative. Care prior to arrival: None. 20:39 Method Of Arrival: Wheelchair rr5 20:39 Acuity: HOWARD 3 rr5 Triage Assessment: 20:35 General: Appears in no apparent distress. uncomfortable, Behavior is calm, cooperative, rr5 appropriate for age. 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 - Social history:: Smoking status: Patient uses tobacco products, smokes one pack cigarettes per day. Patient/guardian denies using alcohol, street drugs. - Ebola Screening: : Patient negative for fever greater than or equal to 101.5 degrees Fahrenheit, and additional compatible Ebola Virus Disease symptoms Patient denies exposure to infectious person Patient denies travel to an Ebola-affected area in the 21 days before illness onset. Screenin:45 Abuse screen: Denies threats or abuse. Denies injuries from another. Nutritional rr5 screening: No deficits noted. Tuberculosis screening: No symptoms or risk factors identified. Fall Risk Fall in past 12 months (25 points). Gait- Impaired (20 pts.). Total Gonzalez Fall Scale indicates Low Risk Score (25-44 pts). Fall prevention measures have been instituted. Side Rails Up X 2 Placed close to Nursing Station Frequent Obs/Assesments occuring As available Patient and Family Educated on Fall Prevention Program and strategies. Assessment: 20:35 General: Appears in no apparent distress. uncomfortable, Behavior is calm, cooperative, rr5 appropriate for age. 20:35 Pain: Complains of pain in right ankle Pain radiates to right leg Pain currently is 9 rr5 out of 10 on a pain scale. Quality of pain is described as aching, Pain began suddenly, Is intermittent. Neuro: Level of Consciousness is awake, alert, obeys commands, Oriented to person, place, time, situation, Appropriate for age. Cardiovascular: Capillary refill < 3 seconds Patient's skin is warm and dry. Respiratory: Airway is patent Respiratory effort is even, unlabored, Respiratory pattern is regular, symmetrical. GI: No signs and/or symptoms were reported involving the gastrointestinal system. : No signs and/or symptoms were reported regarding the genitourinary system. EENT: No signs and/or symptoms were reported regarding the EENT system. Derm: Wound noted right leg Wound is abrasion. Musculoskeletal: Circulation, motion, and sensation intact. Capillary refill < 3 seconds, Swelling present in right ankle Reports pain in right ankle. 21:15 Reassessment: Patient appears in no apparent distress at this time. Patient and/or rr5 family updated on plan of care and expected duration. Pain level reassessed. Patient is alert, oriented x 3, equal unlabored respirations, skin warm/dry/pink. awaiting for result. 22:15 Reassessment: Patient appears in no apparent distress at this time. Patient is alert, rr5 oriented x 3, equal unlabored respirations, skin warm/dry/pink. discharge instruction given and explained without complaints made. Patient states feeling better. Patient states symptoms have improved. Vital Signs: 20:32 BP 134 / 85 LA (auto/lg); Pulse 110; Resp 18; Temp 98.1(O); Pulse Ox 100% on R/A; jp3 Weight 90.72 kg (R); Height 5 ft. 2 in. (157.48 cm) (R); Pain 9/10; 21:15 BP 125 / 79; Pulse 99; Resp 17; Pulse Ox 98% ; rr5 22:00 BP 130 / 75; Pulse 95; Resp 17; Pulse Ox 99% ; rr5 20:32 Body Mass Index 36.58 (90.72 kg, 157.48 cm) 3 ED Course: 19:44 Patient arrived in ED. mr 19:45 Jeraym Chau MD is Private Physician. mr 20:11 [facility] snw 20:11 Pranay Lakhani MD is Attending Physician. snw 20:33 Patient maintains SpO2 saturation greater than 95% on room air. jp3 20:33 Bed in low position. Call light in reach. Side rails up X 1. Warm blanket given. Ice jp3 pack to injury. Verbal reassurance given. Pulse ox on. NIBP on. 20:34 Fahad Bautista, RICKY is Primary Nurse. rr5 20:35 Arm band placed on right wrist. rr5 20:41 Triage completed. rr5 21:09 Ankle Right 3 View XRAY In Process Unspecified. EDMS 21:40 Wound care: to abrasion, located on right leg was cleaned with Hibiclens, ice pack rr5 applied. Patient tolerated well. 21:48 Shan Flanagan MD is Referral Physician. snw 22:10 No provider procedures requiring assistance completed. rr5 22:10 Patient did not have IV access during this emergency room visit. air walk boots right rr5 foot. 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 Exp: rr5 05/19/2020. Lot #: [id number]. } Route: IM; Site: left deltoid; 22:15 Follow up: Response: No adverse reaction rr5 21:30 Drug: Bond (7.5 mg-325 mg) 1 tabs {Note: rass 0.} Route: PO; rr5 22:15 Follow up: Response: No adverse reaction; RASS: Alert and Calm (0) rr5 21:33 Drug: Hibiclens 4 % 1 application Route: Topical; Site: wound; rr5 22:15 Follow up: Response: No adverse reaction rr5 Outcome: 21:48 Discharge ordered by . marika 22:15 Discharged to home ambulatory, with family, on ortho boots. rr5 22:15 Condition: stable 22:15 Discharge instructions given to patient, Instructed on discharge instructions, follow up and referral plans. medication usage, Demonstrated understanding of instructions, follow-up care, medications, Prescriptions given X 1. 22:16 Patient left the ED. rr5 Signatures: Dispatcher [employer] EDMS Crystal Sams, OFFICIAL COURT INTERPRETER-C OFFICIAL COURT INTERPRETER-Vancew Malinda Tran Jacob jp3 Fahad Bautista, RN RN rr5
--- NOTE | 2018-11-04 21:59 | RAD REPORT ---
EXAM DESCRIPTION: RAD - Ankle Right 3 View - 11/04/2018 9:09 pm CLINICAL HISTORY: Pain;Swelling COMPARISON: Ankle Right 3 View dated 04/14/2016 FINDINGS: Mild soft tissue swelling is present. No acute fracture or dislocation. Small calcaneal sp urs.
[2018-11-05 05:53] VITALS: BP 134/85; TEMP 98.1; O2SAT 100
== END 2018-11-04 22:16 | disposition home or self-care (01) ==
LOC: ER 19:40
DX: S93.401A Sprain of unspecified ligament of right ankle, initial encounter (principal); W19.XXXA Unspecified fall, initial encounter; Y93.01 Activity, walking, marching and hiking; Y92.9 Unspecified place or not applicable; Z23 Encounter for immunization; Z88.6 Allergy status to analgesic agent; F41.9 Anxiety disorder, unspecified; F32.9 Major depressive disorder, single episode, unspecified; F17.210 Nicotine dependence, cigarettes, uncomplicated
CPT/HCPCS: 90471; 90714; 99284

== ENCOUNTER 2019-01-14 04:59 | Emergency (ER) | payer SELFPAY ==
--- OUTSIDE RECORDS SUMMARY | 2019-01-14 05:01 | XMS REPORT ---
:1975 [facility] [address] [place] [address] [address] [place] [address] Care Team Providers Name Role Phone Unavailable Unavailable Unavailable Problems This patient has no known problems. Allergies, Adverse Reactions, Alerts This patient has no known allergies or adverse reactions. Medications This patient has no known medications.
[2019-01-14 06:15] LABS: Urine Bacteria <20 /HPF (<20); Urine Culture Reflex Order REFLEXED; Urine RBC <5 /HPF (NONE SEEN)
[2019-01-14] MEDS ORDERED: MORPHINE 4 MG/ML SYR ONE ×2 (06:22→07:13)
[2019-01-14] MEDS ORDERED: NA CHLORIDE 0.9% 1,000 ML ONE (06:23)
[2019-01-14] MEDS ORDERED: ONDANSETRON 4 MG/2 ML VIAL ONE ×2 (06:23→07:13)
[2019-01-14 06:30] LABS: Urine Blood TRACE (NEG); Urine Glucose NEGATIVE (NEG); Urine Protein NEGATIVE (NEG); Urine pH 6.5 (5.0-7.0)
[2019-01-14 06:45] LABS: ALT/SGPT 27 U/L (12-78); AST/SGOT 20 U/L (15-37); Albumin 3.6 g/dL (3.4-5.0); Alkaline Phosphatase 48 U/L (45-117); BUN Blood Urea Nitrogen 10 mg/dL (7-18); Bicarbonate 27 mmol/L (21-32); Bilirubin Direct < 0.1 mg/dL (0-0.2); Bilirubin Total 0.2 mg/dL (0.2-1.0); Glucose Level 106 mg/dL (74-106); Lipase 80 U/L (73-393); Potassium 3.6 mmol/L (3.5-5.1); Protein, Total 7.5 g/dL (6.4-8.2); Sodium Level 140 mmol/L (136-145)
[2019-01-14 06:46] LABS: Absolute Lymphocytes (CBC) 4.4 K/uL (0.7-4.9); Basophils % 0.5 % (0-1.3); Hematocrit 37.6 % (36.0-45.0); Lymphocytes % 33.6 % (15.3-44.8); MPV 7.5 fL (7.6-11.3)
--- NOTE | 2019-01-14 07:23 | RAD REPORT ---
EXAM DESCRIPTION: CT - Abdomen Pelvis W Contrast - 01/14/2019 7:07 am CLINICAL HISTORY: Dysuria;Flank pain COMPARISON: None. TECHNIQUE: Biphasic, helical CT imaging of the abdomen and pelvis was performed following 100 ml non -ionic IV contrast. Oral contrast was given. All CT scans are performed using dose optimization technique as appropriate and may include automated exposure control or mA/KV adjustment according to patient size. FINDINGS: No suspicious findings in the lung bases. The liver, spleen, and pancreas show no suspicious findings. Cholecystectomy clips are present. Bilia ry tree within normal limits. Symmetric renal function is seen with no hydronephrosis or suspicious renal mass. Renal parenchymal e nhancement pattern is not suspicious for pyelonephritis. No abnormal thickening or enhancement of the ureter horne. Bladder horne are mildly prominent for the amount of distention. Cystitis is possible and can be correlated with UA findings. No adrenal abnormalities. Uterus and ovaries show no suspicio us findings. No dilated bowel loops or bowel wall thickening. No appendicitis findings. No free air or pneumatosis . Trace free fluid is well within physiologic limits. No hernia, mass or bulky lymphadenopathy. No suspicious bony findings. Advanced for age degenerative change present at the L5-S1 disc level. Th ere is a questionable small herniation midline and left-side. IMPRESSION: No pyelonephritis findings are seen. Urinary bladder wall thickness may indicate cystiti s and can be correlated with clinical presentation and UA findings. No appendicitis or acute GI finding. 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 Cholecystectomy changes with no biliary tree or pancreatic abnormality. Advanced for age degenerative change at L5-S1 disc level with suspected disc herniation or prominent disc protrusion. Outpatient follow-up MRI imaging can be performed as patient's symptoms warrant.
[2019-01-14] MEDS ORDERED: CEFTRIAXONE/SWI 1gm 1 GM/10 ML SYR ONE (07:29)
--- NOTE | 2019-01-14 07:30 | EDPHYS ---
Physician Documentation [facility] Name: Jessica Kim Age: 43 yrs Sex: Female : 1975 Arrival Date: 01/14/2019 Time: 05:00 Bed 6 Private MD: ED Physician Héctor Abad HPI: 01/14 07:09 This 43 yrs old Female presents to ER via Unassigned with complaints of Pain pm1 With Urination, Sore Throat, Vomiting. 07:09 The patient presents with flank pain, on the right, urinary symptoms, dysuria, pm1 hematuria. Onset: The symptoms/episode began/occurred 1 week(s) ago. Modifying factors: The symptoms are alleviated by nothing, the symptoms are aggravated by urinating. Associated signs and symptoms: Pertinent positives: hematuria, nausea, vomiting, Pertinent negatives: constipation, diarrhea, fever. Severity of symptoms: in the emergency department the symptoms are actually worse. The patient has experienced similar episodes in the past, multiple times, and the symptoms today are exactly the same, to previous UTI. Attempted to treat with cranberry juice at home without improvement. The patient has not recently seen a physician. 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 - Social history:: Smoking status: Patient uses tobacco products, smokes one-half pack cigarettes per day. - Ebola Screening: : Patient negative for fever greater than or equal to 101.5 degrees Fahrenheit, and additional compatible Ebola Virus Disease symptoms Patient denies exposure to infectious person. ROS: 07:09 Positive for flank pain, burning with urination. pm1 07:09 Constitutional: Negative for fever, chills, and weight loss, Eyes: Negative for injury, pain, redness, and discharge. 07:09 ENT: Positive for sore throat. 07:13 Neck: Negative for injury, pain, and swelling, Cardiovascular: Negative for chest pain, pm1 palpitations, and edema. 07:13 Abdomen/GI: Negative for abdominal pain, nausea, vomiting, diarrhea, and constipation, Back: Negative for injury and pain, MS/Extremity: Negative for injury and deformity, Skin: Negative for injury, rash, and discoloration, Neuro: Negative for headache, weakness, numbness, tingling, and seizure. 07:13 Respiratory: Positive for cough, Negative for dyspnea on exertion, shortness of breath, wheezing. Exam: 07:13 Constitutional: This is a well developed, well nourished patient who is awake, alert, pm1 and in no acute distress. Head/Face: Normocephalic, atraumatic. Eyes: Pupils equal round and reactive to light, extra-ocular motions intact. Lids and lashes normal. Conjunctiva and sclera are non-icteric and not injected. Cornea within normal limits. Periorbital areas with no swelling, redness, or edema. ENT: Nares patent. No nasal discharge, no septal abnormalities noted. Tympanic membranes are normal and external auditory canals are clear. Oropharynx with no redness, swelling, or masses, exudates, or evidence of obstruction, uvula midline. Mucous membranes moist. Neck: Trachea midline, no thyromegaly or masses palpated, and no cervical lymphadenopathy. Supple, full range of motion without nuchal rigidity, or vertebral point tenderness. No Meningismus. Chest/axilla: Normal chest wall appearance and motion. Nontender with no deformity. No lesions are appreciated. Cardiovascular: Regular rate and rhythm with a normal S1 and S2. No gallops, murmurs, or rubs. Normal PMI, no JVD. No pulse deficits. Respiratory: Lungs have equal breath sounds bilaterally, clear to auscultation and percussion. No rales, rhonchi or wheezes noted. No increased work of breathing, no retractions or nasal flaring. 07:13 Skin: Warm, dry with normal turgor. Normal color with no rashes, no lesions, and no evidence of cellulitis. MS/ Extremity: Pulses equal, no cyanosis. Neurovascular intact. Full, normal range of motion. 07:13 Abdomen/GI: Inspection: abdomen appears normal, Bowel sounds: normal, Palpation: abdomen is soft and non-tender, in all quadrants. 07:13 Back: CVA tenderness, that is mild, is noted on the right, vertebral tenderness, is not appreciated. 07:13 Neuro: Orientation: is normal, Motor: is normal, moves all fours, Sensation: is normal, no obvious gross deficits. Vital Signs: 05:44 BP 118 / 77 LA Sitting (auto/reg); Pulse 112 MON; Resp 18; Temp 98.4(O); Pulse Ox 98% ds4 on R/A; 07:56 BP 123 / 67; Pulse 86; Resp 17; Pulse Ox 98% on R/A; tw2 MDM: 06:04 Patient medically screened. pm1 07:14 Data reviewed: vital signs. Data interpreted: Pulse oximetry: on room air is 98 %. pm1 Interpretation: normal. 07:26 Counseling: I had a detailed discussion with the patient and/or guardian regarding: the pm1 historical points, exam findings, and any diagnostic results supporting the discharge/admit diagnosis, lab results, radiology results, the need for outpatient follow up, to return to the emergency department if symptoms worsen or persist or if there are any questions or concerns that arise at home. 01/14 05:55 Order name: Urine Dipstick--Ancillary (enter results) ds4 01/14 05:56 Order name: Urine --Ancillary (enter results); Complete Time: 06:55 ds4 01/14 05:56 Order name: Urine Dipstick-Ancillary; Complete Time: 06:55 EDMS 01/14 05:56 Order name: Urine Microscopic Only; Complete Time: 06:55 ds4 01/14 06:11 Order name: Basic Metabolic Panel; Complete Time: 06:55 pm1 01/14 06:11 Order name: CBC with Diff; Complete Time: 06:55 pm1 01/14 06:11 Order name: Creatinine for Radiology; Complete Time: 06:55 pm1 01/14 06:11 Order name: Hepatic Function; Complete Time: 06:55 pm1 01/14 06:11 Order name: Lipase; Complete Time: 06:55 pm1 01/14 06:11 Order name: CT Abd/Pelvis - IV Contrast Only; Complete Time: 07:25 pm1 01/14 06:11 Order name: Strep; Complete Time: 06:55 pm1 01/14 06:11 Order name: Flu; Complete Time: 06:55 pm1 01/14 06:17 Order name: Urine Culture EDMS 01/14 06:39 Order name: Throat Culture [facility] 01/14 06:11 Order name: IV Saline Lock; Complete Time: 06:28 pm1 01/14 06:11 Order name: Labs collected and sent; Complete Time: 06:28 pm1 Administered Medications: 06:22 Drug: NS 0.9% 1000 ml Route: IV; Rate: 1000 ml; Site: right antecubital; 07:56 Follow up: Response: No adverse reaction; IV Status: Completed infusion; IV Intake: tw2 1000ml 06:24 Drug: morphine 4 mg Route: IVP; Site: right antecubital; 07:11 Follow up: Response: No adverse reaction; Pain is unchanged, physician notified; RASS: tw2 Alert and Calm (0) 06:26 Drug: Zofran 4 mg Route: IVP; Site: right antecubital; 07:12 Follow up: Response: No adverse reaction; Nausea unchanged tw2 07:17 Drug: Zofran 4 mg Route: IVP; Site: right antecubital; sg 07:34 Follow up: Response: No adverse reaction; Nausea is decreased sg 07:17 Drug: morphine 4 mg Route: IVP; Site: right antecubital; sg 07:35 Follow up: Response: No adverse reaction; Pain is decreased sg 07:30 Drug: Rocephin 1 grams Route: IV; Rate: calculated rate; Site: right antecubital; sg 07:45 Follow up: Response: No adverse reaction; IV Status: Completed infusion sg 07:42 Drug: Phenergan 12.5 mg Route: IVP; Site: right antecubital; sg 07:55 Follow up: Response: No adverse reaction; Nausea is decreased tw2 Disposition: 01/15 06:58 Co-signature as Attending Physician, Héctor Abad MD Did not see or evaluate patient. ps1 Signing chart for administrative purposes. Not an endorsement of care. . Disposition: 01/14/19 07:29 Discharged to Home. Impression: Cystitis, unspecified. - Condition is Stable. - Discharge Instructions: Urinary Tract Infection, Adult. - Prescriptions for Pyridium 200 mg Oral Tablet - take 1 tablet by ORAL route every 8 hours for 3 days; 9 tablet. Tylenol- Codeine #3 300-30 mg Oral Tablet - take 2 tablets by ORAL route every 6 hours As needed; 20 tablet. Macrobid 100 mg Oral Capsule - take 1 capsule by ORAL route every 12 hours for 10 days; 20 capsule. promethazine 25 mg Oral Tablet - take 1 tablet by ORAL route every 6 hours As needed; 20 tablet. - Medication Reconciliation Form, Thank You Letter, Antibiotic Education, Prescription Opioid Use, Work release form form. - Follow up: Emergency Department; When: As needed; Reason: Worsening of condition. Follow up: Private Physician; When: 2 - 3 days; Reason: Recheck today's complaints, Continuance of care, Re-evaluation by your physician. - Problem is new. - Symptoms have improved. Signatures: Dispatcher [employer] EDMS Ryder Perdomo RN RN sg Carlos Nolan NP SEEDLING SORTER pm1 Sara Pelaez RN RN tw2 David Alan Phillip, MD MD ps1 Corrections: (The following items were deleted from the chart) 01/14 07:57 07:29 01/14/2019 07:29 Discharged to Home. Impression: Cystitis, unspecified. Condition tw2 is Stable. Forms are Work release form, Medication Reconciliation Form, Thank You Letter, Antibiotic Education, Prescription Opioid Use. Follow up: Emergency Department; When: As needed; Reason: Worsening of condition. Follow up: Private Physician; When: 2 - 3 days; Reason: Recheck today's complaints, Continuance of care, Re-evaluation by your physician. Problem is new. Symptoms have improved. pm1
--- NOTE | 2019-01-14 07:30 | ER ---
Nurse's Notes [facility] Name: Jessica Kim Age: 43 yrs Sex: Female : 1975 Arrival Date: 01/14/2019 Time: 05:00 Bed 6 Private MD: Diagnosis: Cystitis, unspecified Presentation: 01/14 05:50 Presenting complaint: Patient states: Pt C/O abdominal pain, nausea and vomiting that wh just started, Pt also C/O pain with urination and sore throat. Transition of care: patient was not received from another setting of care. Onset of symptoms was January 14, 2019. Risk Assessment: Do you want to hurt yourself or someone else? Patient reports no desire to harm self or others. Initial Sepsis Screen: Does the patient meet any 2 criteria? No. Patient's initial sepsis screen is negative. Does the patient have a suspected source of infection? Yes: Acute abdominal pain. Care prior to arrival: None. 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 - Social history:: Smoking status: Patient uses tobacco products, smokes one-half pack cigarettes per day. - Ebola Screening: : Patient negative for fever greater than or equal to 101.5 degrees Fahrenheit, and additional compatible Ebola Virus Disease symptoms Patient denies exposure to infectious person. Screenin:15 Abuse screen: Denies threats or abuse. Nutritional screening: No deficits noted. tw2 Tuberculosis screening: No symptoms or risk factors identified. Fall Risk None identified. Assessment: 06:20 Respiratory: Breath sounds are clear bilaterally. wh 06:25 General: Appears in no apparent distress. Behavior is calm, cooperative, appropriate for age. Pain: Complains of pain in abdomen Pain does not radiate. Pain currently is 8 out of 10 on a pain scale. Quality of pain is described as sharp. Neuro: Level of Consciousness is awake, alert, obeys commands, Oriented to person, place, time, situation, Appropriate for age. Cardiovascular: Heart tones S1 S2. Respiratory: Airway is patent Respiratory effort is even, unlabored, Respiratory pattern is regular, symmetrical. GI: Abdomen is flat, non-distended, Bowel sounds present X 4 quads. Abd is soft and non tender X 4 quads. : Reports burning with urination. EENT: Throat is pink. Derm: Skin is intact, is healthy with good turgor, Skin is pink, warm \T\ dry. normal. Musculoskeletal: Circulation, motion, and sensation intact. 07:39 Reassessment: Patient appears in no apparent distress at this time. awaiting changes to discharge instructions and new prescriptions at this time, will continue to monitor. 07:56 Reassessment: Patient appears in no apparent distress at this time. Patient and/or tw2 family updated on plan of care and expected duration. Pain level reassessed. Patient is alert, oriented x 3, equal unlabored respirations, skin warm/dry/pink. Vital Signs: 05:44 BP 118 / 77 LA Sitting (auto/reg); Pulse 112 MON; Resp 18; Temp 98.4(O); Pulse Ox 98% ds4 on R/A; 07:56 BP 123 / 67; Pulse 86; Resp 17; Pulse Ox 98% on R/A; tw2 ED Course: 05:00 Patient arrived in ED. ds1 06:03 Carlos Nolan NP is PHCP. pm1 06:03 Karlos Barth MD is Attending Physician. pm1 06:10 David Alan is Primary Nurse. wh 06:30 Arm band placed on right wrist. wh 06:30 Patient has correct armband on for positive identification. Placed in gown. Bed in low wh position. Call light in reach. Side rails up X 1. Pulse ox on. NIBP on. 06:30 Inserted saline lock: 22 gauge in right antecubital area, using aseptic technique. wh Blood collected. 06:38 Radiology exam delayed due to lab results not completed at this time. (BUN/Creatinine) kw1 test not completed at this time. 07:07 CT Abd/Pelvis - IV Contrast Only In Process Unspecified. EDMS 07:09 Primary Nurse role handed off by David Alan sg 07:09 Ryder Perdomo, RN is Primary Nurse. sg 07:16 Triage completed. wh 07:35 Awaiting: completion of IV fluids PRIOR to discharge. tw2 07:37 Attending Physician role handed off by Karlos Barth MD ps1 07:37 Héctor Abad MD is Attending Physician. ps1 07:56 No provider procedures requiring assistance completed. IV discontinued, intact, tw2 bleeding controlled, No redness/swelling at site. Pressure dressing applied. Administered Medications: 06:22 Drug: NS 0.9% 1000 ml Route: IV; Rate: 1000 ml; Site: right antecubital; 07:56 Follow up: Response: No adverse reaction; IV Status: Completed infusion; IV Intake: tw2 1000ml 06:24 Drug: morphine 4 mg Route: IVP; Site: right antecubital; wh 07:11 Follow up: Response: No adverse reaction; Pain is unchanged, physician notified; RASS: tw2 Alert and Calm (0) 06:26 Drug: Zofran 4 mg Route: IVP; Site: right antecubital; wh 07:12 Follow up: Response: No adverse reaction; Nausea unchanged tw2 07:17 Drug: Zofran 4 mg Route: IVP; Site: right antecubital; sg 07:34 Follow up: Response: No adverse reaction; Nausea is decreased sg 07:17 Drug: morphine 4 mg Route: IVP; Site: right antecubital; sg 07:35 Follow up: Response: No adverse reaction; Pain is decreased sg 07:30 Drug: Rocephin 1 grams Route: IV; Rate: calculated rate; Site: right antecubital; sg 07:45 Follow up: Response: No adverse reaction; IV Status: Completed infusion sg 07:42 Drug: Phenergan 12.5 mg Route: IVP; Site: right antecubital; sg 07:55 Follow up: Response: No adverse reaction; Nausea is decreased tw2 Intake: 07:56 IV: 1000ml; Total: 1000ml. tw2 Outcome: 07:29 Discharge ordered by . pm1 07:56 Discharged to home ambulatory. tw2 07:56 Condition: stable 07:56 Discharge instructions given to patient, Instructed on discharge instructions, follow up and referral plans. no drinking with medication, no driving heavy equipment, medication usage, Demonstrated understanding of instructions, follow-up care, medications, Prescriptions given X 4. 07:57 Patient left the ED. tw2 Signatures: Dispatcher [employer] EDMS Ryder Perdomo, RN RN Brigitte Mckeon ds1 Americo Momin ds4 Carlos Nolan NP GREASE REMOVER pm1 Sara Pelaez RN RN tw2 David Alan wh Héctor Abad MD MD ps1 Odette Mcgarry kw1 Corrections: (The following items were deleted from the chart) 07:16 05:50 Presenting complaint: Patient states: Pt C/O abdominal pain, nausea and vomiting wh that just started wh
[2019-01-14] MEDS ORDERED: PROMETHAZINE 25 MG/ML VIAL ONE (07:42)
[2019-01-14 08:12] VITALS: BP 123/67; O2SAT 98
[2019-01-14 08:13] VITALS: TEMP 98.4
== END 2019-01-14 07:57 | disposition home or self-care (01) ==
LOC: ER 04:59
DX: N30.90 Cystitis, unspecified without hematuria (principal); F17.210 Nicotine dependence, cigarettes, uncomplicated; F41.9 Anxiety disorder, unspecified; F32.9 Major depressive disorder, single episode, unspecified; Z88.6 Allergy status to analgesic agent
CPT/HCPCS: 36415; 74177; 80048; 80076; 81003; 81015; 81025; 83690; 85025; 87070; 87081; 87086; 87088; 87804; 96361; 96374; 96375; 99284; J0696; J2405; J2550; J7030; Q9967

== ENCOUNTER 2019-01-20 03:42 | Emergency (ER) | payer SELFPAY ==
--- OUTSIDE RECORDS SUMMARY | 2019-01-20 03:45 | XMS REPORT ---
:1975 [facility] Address [address] [place] [address] [address] [place] [address] Care Team Providers Name Role Phone Unavailable Unavailable Unavailable Problems This patient has no known problems. Allergies, Adverse Reactions, Alerts This patient has no known allergies or adverse reactions. Medications This patient has no known medications.
[2019-01-20] MEDS ORDERED: NA CHLORIDE 0.9% 1,000 ML ONE (04:10)
[2019-01-20] MEDS ORDERED: ONDANSETRON 4 MG/2 ML VIAL ONE ×2 (04:22→06:00)
[2019-01-20] MEDS ORDERED: MORPHINE 4 MG/ML SYR ONE ×2 (04:22→05:33)
[2019-01-20 04:39] LABS: Absolute Lymphocytes (CBC) 4.5 K/uL (0.7-4.9); Basophils % 1.1 % (0-1.3); Hematocrit 37.4 % (36.0-45.0); Lymphocytes % 37.1 % (15.3-44.8); RBC Red Blood Cell Count 3.97 M/uL (3.86-4.86)
[2019-01-20 04:45] LABS: Urine Blood NEGATIVE (NEG); Urine Glucose NEGATIVE (NEG); Urine Protein NEGATIVE (NEG); Urine pH 6.5 (5.0-7.0)
[2019-01-20 04:46] LABS: Albumin 3.6 g/dL (3.4-5.0); Bilirubin Total 0.2 mg/dL (0.2-1.0); Potassium 3.4 mmol/L (3.5-5.1)
--- NOTE | 2019-01-20 05:45 | EDPHYS ---
Physician Documentation [facility] Name: Jessica Kim Age: 43 yrs Sex: Female : 1975 Arrival Date: 01/20/2019 Time: 03:46 Bed 5 Private MD: Jeramy Chau E ED Physician Osei Vinson HPI: 01/20 04:03 This 43 yrs old Female presents to ER via Ambulatory with complaints of ekta Headache, Cough, Ear Pain, Shortness Of Breath. 04:03 The patient complains of pain to the top of head, forehead, left frontal area, left ekta side of the back of head, left occipital area, left base of the skull, right frontal area, right side of the back of head, right occipital area and right base of the skull. The patient describes the headache as constant. Onset: The symptoms/episode began/occurred 3 day(s) ago. Associated signs and symptoms: The patient has no apparent associated signs or symptoms. Severity of symptoms: At its worst the pain was moderate, in the emergency department the pain is unchanged. Headache History: Denies prior headaches. The patient has not experienced similar symptoms in the past. 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 - Social history:: Smoking status: Patient uses tobacco products, smokes one pack cigarettes per day. - Ebola Screening: : Patient negative for fever greater than or equal to 101.5 degrees Fahrenheit, and additional compatible Ebola Virus Disease symptoms. - Family history:: not pertinent. ROS: 04:03 Constitutional: Negative for fever, chills, and weight loss, Eyes: Negative for injury, ekta pain, redness, and discharge, Neck: Negative for injury, pain, and swelling, Cardiovascular: Negative for chest pain, palpitations, and edema, Abdomen/GI: Negative for abdominal pain, nausea, vomiting, diarrhea, and constipation, Back: Negative for injury and pain, : Negative for injury, bleeding, discharge, and swelling, MS/Extremity: Negative for injury and deformity, Skin: Negative for injury, rash, and discoloration, Psych: Negative for depression, anxiety, suicide ideation, homicidal ideation, and hallucinations, Allergy/Immunology: Negative for hives, rash, and allergies, Endocrine: Negative for neck swelling, polydipsia, polyuria, polyphagia, and marked weight changes, Hematologic/Lymphatic: Negative for swollen nodes, abnormal bleeding, and unusual bruising. 04:03 ENT: Positive for ear pain. 04:03 Respiratory: Positive for cough, shortness of breath. 04:03 Neuro: Positive for headache. Exam: 04:03 Constitutional: This is a well developed, well nourished patient who is awake, alert, ekta and in no acute distress. Head/Face: Normocephalic, atraumatic. Eyes: Pupils equal round and reactive to light, extra-ocular motions intact. Lids and lashes normal. Conjunctiva and sclera are non-icteric and not injected. Cornea within normal limits. Periorbital areas with no swelling, redness, or edema. ENT: Nares patent. No nasal discharge, no septal abnormalities noted. Tympanic membranes are normal and external auditory canals are clear. Oropharynx with no redness, swelling, or masses, exudates, or evidence of obstruction, uvula midline. Mucous membranes moist. Neck: Trachea midline, no thyromegaly or masses palpated, and no cervical lymphadenopathy. Supple, full range of motion without nuchal rigidity, or vertebral point tenderness. No Meningismus. Chest/axilla: Normal chest wall appearance and motion. Nontender with no deformity. No lesions are appreciated. Cardiovascular: Regular rate and rhythm with a normal S1 and S2. No gallops, murmurs, or rubs. Normal PMI, no JVD. No pulse deficits. Abdomen/GI: Soft, non-tender, with normal bowel sounds. No distension or tympany. No guarding or rebound. No evidence of tenderness throughout. Back: No spinal tenderness. No costovertebral tenderness. Full range of motion. Female : Normal external genitalia. Skin: Warm, dry with normal turgor. Normal color with no rashes, no lesions, and no evidence of cellulitis. MS/ Extremity: Pulses equal, no cyanosis. Neurovascular intact. Full, normal range of motion. Neuro: Awake and alert, GCS 15, oriented to person, place, time, and situation. Cranial nerves II-XII grossly intact. Motor strength 5/5 in all extremities. Sensory grossly intact. Cerebellar exam normal. Normal gait. Psych: Awake, alert, with orientation to person, place and time. Behavior, mood, and affect are within normal limits. 04:03 Neck: ROM/movement: is normal, no acute changes, Meningeal signs: are not present, Kernig's sign is negative, Brudzinski's sign is negative. 04:03 Respiratory: Exam negative for Vital Signs: 04:04 BP 146 / 103; Pulse 118; Resp 19 S; Temp 97.9(O); Pulse Ox 100% on R/A; Weight 90.72 kg jd3 (R); Height 5 ft. 2 in. (157.48 cm) (R); Pain 10/10; 05:10 BP 113 / 83; Pulse 88; Resp 16; Pulse Ox 99% on R/A; rr5 06:10 BP 123 / 80; Pulse 85; Resp 17; Temp 97.5; Pulse Ox 99% ; Pain 8/10; rr5 04:04 Body Mass Index 36.58 (90.72 kg, 157.48 cm) jd3 MDM: 03:55 Patient medically screened. [facility] 04:06 Data reviewed: vital signs, nurses notes, lab test result(s), EKG, radiologic studies, [facility] CT scan, plain films. 01/20 04:03 Order name: CBC with Diff; Complete Time: 05:38 [facility] 01/20 04:03 Order name: Flu; Complete Time: 05:38 [facility] 01/20 04:03 Order name: CT Head Brain wo Cont [facility] 01/20 04:03 Order name: Comprehensive Metabolic Panel; Complete Time: 05:38 [facility] 01/20 04:34 Order name: Urine Dipstick--Ancillary (enter results); Complete Time: 05:38 or 01/20 04:34 Order name: Urine --Ancillary (enter results); Complete Time: 05:38 or 01/20 04:07 Order name: Chest Pa And Lat (2 Views) XRAY [facility] 01/20 04:03 Order name: Urine Dipstick-Ancillary (obtain specimen); Complete Time: 04:43 [facility] 01/20 04:03 Order name: Urine Test (obtain specimen); Complete Time: :43 [facility] Administered Medications: 04:18 Drug: NS 0.9% 1000 ml Route: IV; Rate: 1 bolus; Site: right antecubital; rr5 05:35 Follow up: IV Status: Completed infusion rv 04:20 Drug: Zofran 4 mg Route: IVP; Site: right antecubital; rr5 05:00 Follow up: Response: No adverse reaction rr5 04:22 Drug: morphine 4 mg {Note: rass 0.} Route: IVP; Site: right antecubital; rr5 05:00 Follow up: Response: No adverse reaction; Pain is decreased; RASS: Alert and Calm (0) rr5 05:31 Drug: Zofran 4 mg Route: IVP; Site: right antecubital; rr5 06:17 Follow up: Response: No adverse reaction; Nausea is decreased rr5 05:34 Drug: morphine 4 mg {Note: rass 0.} Route: IVP; Site: right antecubital; rv 06:13 Follow up: Response: No adverse reaction; Pain is decreased; RASS: Alert and Calm (0) rr5 05:34 CANCELLED (Duplicate Order): morphine 4 mg IVP once; RASS on ADMIN: Combtv4, Very rv Agttd3, Agttd2, Rstlss1, AlertClm0, Drwsy-1, Lt Sdtn-2, Mod Sdtn-3, Dp Sdtn-4, UnArsble-5 05:50 Drug: Rocephin 1 grams Route: IV; Rate: per protocol; Site: right antecubital; rr5 06:17 Follow up: Response: No adverse reaction; IV Status: Completed infusion; IV Intake: 77dgws2 05:54 Drug: Potassium Effervescent Tablet 25 mEq Route: PO; rr5 06:17 Follow up: Response: No adverse reaction rr5 Disposition: 01/20/19 05:44 Discharged to Home. Impression: Headache, Cough, Acute upper respiratory infection, unspecified, Hypokalemia. - Condition is Stable. - Discharge Instructions: General Headache Without Cause, Upper Respiratory Infection, Adult, Cool Mist Vaporizer, Upper Respiratory Infection, Adult, Xwvl-ov-Hvek, Cough, Adult, Fudm-lq-Xmkm, General Headache Without Cause, Ejqd-qg-Fljs, Cough, Adult. - Prescriptions for Brenda- D 12 Hour 60-120 mg Oral Tablet Sustained Release 12 hr - take 1 tablet by ORAL route every 12 hours As needed; 20 tablet. Medrol (Adrian) 4 mg Oral Tablets, Dose Pack - take 1 tablet by ORAL route as directed - follow package instructions; 1 packet. Zithromax 500 mg Oral Tablet - take 1 tablet by ORAL route once daily for 5 days; 5 tablet. Zofran 4 mg Oral Tablet - take 1 tablet by ORAL route every 12 hours As needed; 14 tablet. - Medication Reconciliation Form, Thank You Letter, Antibiotic Education, Prescription Opioid Use form. - Follow up: Jeramy Chau; When: 2 - 3 days; Reason: Recheck today's complaints, Continuance of care, Re-evaluation by your physician. - Problem is new. - Symptoms have improved. Signatures: Dispatcher [employer] Osei Fajardo MD MD cha Davies, Jonathon RN RN jd3 Magdi Wilder RN Fahad Ren RN RN rr5 Corrections: (The following items were deleted from the chart) 05:34 05:34 morphine 4 mg IVP once; RASS on ADMIN: Combtv4, Very Agttd3, Agttd2, Rstlss1, rv AlertClm0, Drwsy-1, Lt Sdtn-2, Mod Sdtn-3, Dp Sdtn-4, UnArsble-5 ordered. rv 05:48 05:44 01/20/2019 05:44 Discharged to Home. Impression: Headache; Cough; Acute upper ekta respiratory infection, unspecified. Condition is Stable. Discharge Instructions: General Headache Without Cause, Upper Respiratory Infection, Adult, Ldgv-ae-Dnyj. Prescriptions for Brenda-D 12 Hour 60-120 mg Oral Tablet Sustained Release 12 hr - take 1 tablet by ORAL route every 12 hours As needed; 20 tablet, Medrol (Adrian) 4 mg Oral Tablets, Dose Pack - take 1 tablet by ORAL route as directed - follow package instructions; 1 packet, Zithromax 500 mg Oral Tablet - take 1 tablet by ORAL route once daily for 5 days; 5 tablet. and Forms are Medication Reconciliation Form, Thank You Letter, Antibiotic Education, Prescription Opioid Use. Follow up: Jeramy Chau; When: 2 - 3 days; Reason: Recheck today's complaints, Continuance of care, Re-evaluation by your physician. Problem is new. Symptoms have improved. [facility] 06:17 05:48 01/20/2019 05:44 Discharged to Home. Impression: Headache; Cough; Acute upper rr5 respiratory infection, unspecified; Hypokalemia. Condition is Stable. Discharge Instructions: General Headache Without Cause, Upper Respiratory Infection, Adult, Reih-wz-Laft, Upper Respiratory Infection, Adult, Cool Mist Vaporizer, Cough, Adult, Sotr-rf-Tdsa, General Headache Without Cause, Wqdk-ca-Ojcz, Cough, Adult. Prescriptions for Brenda-D 12 Hour 60-120 mg Oral Tablet Sustained Release 12 hr - take 1 tablet by ORAL route every 12 hours As needed; 20 tablet, Medrol (Adrian) 4 mg Oral Tablets, Dose Pack - take 1 tablet by ORAL route as directed - follow package instructions; 1 packet, Zithromax 500 mg Oral Tablet - take 1 tablet by ORAL route once daily for 5 days; 5 tablet. and Forms are Medication Reconciliation Form, Thank You Letter, Antibiotic Education, Prescription Opioid Use. Follow up: Jeramy Chau; When: 2 - 3 days; Reason: Recheck today's complaints, Continuance of care, Re-evaluation by your physician. Problem is new. Symptoms have improved. [facility]
--- NOTE | 2019-01-20 05:45 | ER ---
Nurse's Notes [facility] Name: Jessica Kim Age: 43 yrs Sex: Female : 1975 Arrival Date: 01/20/2019 Time: 03:46 Bed 5 Private MD: Jeramy Chau E Diagnosis: Headache;Cough;Acute upper respiratory infection, unspecified;Hypokalemia Presentation: 01/20 04:02 Presenting complaint: Patient states: "I have been having a splitting headache. I have jd3 also been cough and having ear pain.". Transition of care: patient was not received from another setting of care. Onset of symptoms was January 20, 2019. Risk Assessment: Do you want to hurt yourself or someone else? Patient reports no desire to harm self or others. Initial Sepsis Screen: Does the patient meet any 2 criteria? No. Patient's initial sepsis screen is negative. Does the patient have a suspected source of infection? No. Patient's initial sepsis screen is negative. Care prior to arrival: None. 04:02 Method Of Arrival: Ambulatory jd3 04:02 Acuity: HOWARD 3 jd3 Triage Assessment: 04:04 Headache History: The patient has had previous headaches and this one is similar to rr5 previous episodes. General: Appears in no apparent distress. uncomfortable. General: Behavior is calm, cooperative, appropriate for age. Pain: Also complains of nausea. 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 - Social history:: Smoking status: Patient uses tobacco products, smokes one pack cigarettes per day. - Ebola Screening: : Patient negative for fever greater than or equal to 101.5 degrees Fahrenheit, and additional compatible Ebola Virus Disease symptoms. - Family history:: not pertinent. Screenin:27 Abuse screen: Denies threats or abuse. Denies injuries from another. Nutritional rr5 screening: No deficits noted. Tuberculosis screening: No symptoms or risk factors identified. Fall Risk IV access (20 points). Total Gonzalez Fall Scale indicates No Risk (0-24 pts). Assessment: 04:10 General: Appears in no apparent distress. uncomfortable, Behavior is calm, cooperative, rr5 appropriate for age. Pain: Complains of pain in head and ear Pain does not radiate. Pain currently is 10 out of 10 on a pain scale. Quality of pain is described as aching, Pain began gradually, Is intermittent. 04:10 Neuro: Level of Consciousness is awake, alert, obeys commands, Oriented to person, rr5 place, time, situation, Reports headache. Cardiovascular: Capillary refill < 3 seconds Patient's skin is warm and dry. Respiratory: Reports shortness of breath cough that is Airway is patent Respiratory effort is even, unlabored, Respiratory pattern is regular, symmetrical. GI: No signs and/or symptoms were reported involving the gastrointestinal system. : No signs and/or symptoms were reported regarding the genitourinary system. EENT: Reports pain in left ear and right ear. Derm: Skin is intact, is healthy with good turgor, Skin temperature is warm. Musculoskeletal: Circulation, motion, and sensation intact. Capillary refill < 3 seconds. 05:00 Reassessment: Patient appears in no apparent distress at this time. Patient is alert, rr5 oriented x 3, equal unlabored respirations, skin warm/dry/pink. resting eyes closed, awaiting for results. Patient states symptoms have improved. 05:30 Reassessment: patient complaints of nausea. ED provider aware with order made and rr5 carried out. 06:11 Reassessment: Patient appears in no apparent distress at this time. Patient is alert, rr5 oriented x 3, equal unlabored respirations, skin warm/dry/pink. discharge instruction given and explained without complaints made, verbalized understanding. Patient states symptoms have improved. Vital Signs: 04:04 BP 146 / 103; Pulse 118; Resp 19 S; Temp 97.9(O); Pulse Ox 100% on R/A; Weight 90.72 kg jd3 (R); Height 5 ft. 2 in. (157.48 cm) (R); Pain 10/10; 05:10 BP 113 / 83; Pulse 88; Resp 16; Pulse Ox 99% on R/A; rr5 06:10 BP 123 / 80; Pulse 85; Resp 17; Temp 97.5; Pulse Ox 99% ; Pain 8/10; rr5 04:04 Body Mass Index 36.58 (90.72 kg, 157.48 cm) j ED Course: 03:46 Patient arrived in ED. es 03:46 Jeramy Chau MD is Private Physician. es 03:55 Osei Vinson MD is Attending Physician. ekta 04:03 Triage completed. jd3 04:04 Fahad Bautista RN is Primary Nurse. rr5 04:05 Arm band placed on. jd3 04:05 Patient has correct armband on for positive identification. Placed in gown. Bed in low rr5 position. Call light in reach. Side rails up X2. Pulse ox on. NIBP on. 04:15 Inserted saline lock: 20 gauge in right antecubital area, using aseptic technique. rr5 ,using aseptic technique. inserted by Critical access hospital tech Blood collected. 04:45 Chest Pa And Lat (2 Views) XRAY In Process Unspecified. EDMS 05:06 CT Head Brain wo Cont In Process Unspecified. EDMS 05:14 No provider procedures requiring assistance completed. rr5 05:43 Jeramy Chau MD is Referral Physician. ekta 06:16 IV discontinued, intact, bleeding controlled, No redness/swelling at site. Pressure rr5 dressing applied. Administered Medications: 04:18 Drug: NS 0.9% 1000 ml Route: IV; Rate: 1 bolus; Site: right antecubital; rr5 05:35 Follow up: IV Status: Completed infusion rv 04:20 Drug: Zofran 4 mg Route: IVP; Site: right antecubital; rr5 05:00 Follow up: Response: No adverse reaction rr5 04:22 Drug: morphine 4 mg {Note: rass 0.} Route: IVP; Site: right antecubital; rr5 05:00 Follow up: Response: No adverse reaction; Pain is decreased; RASS: Alert and Calm (0) rr5 05:31 Drug: Zofran 4 mg Route: IVP; Site: right antecubital; rr5 06:17 Follow up: Response: No adverse reaction; Nausea is decreased rr5 05:34 Drug: morphine 4 mg {Note: rass 0.} Route: IVP; Site: right antecubital; rv 06:13 Follow up: Response: No adverse reaction; Pain is decreased; RASS: Alert and Calm (0) rr5 05:34 CANCELLED (Duplicate Order): morphine 4 mg IVP once; RASS on ADMIN: Combtv4, Very rv Agttd3, Agttd2, Rstlss1, AlertClm0, Drwsy-1, Lt Sdtn-2, Mod Sdtn-3, Dp Sdtn-4, UnArsble-5 05:50 Drug: Rocephin 1 grams Route: IV; Rate: per protocol; Site: right antecubital; rr5 06:17 Follow up: Response: No adverse reaction; IV Status: Completed infusion; IV Intake: [id number] 05:54 Drug: Potassium Effervescent Tablet 25 mEq Route: PO; rr5 06:17 Follow up: Response: No adverse reaction rr5 Intake: 06:17 IV: 10ml; Total: 10ml. rr5 Outcome: 05:44 Discharge ordered by MD. dash 06:16 Discharged to home ambulatory, with family. rr5 06:16 Condition: stable 06:16 Discharge instructions given to patient, Instructed on discharge instructions, follow up and referral plans. medication usage, Demonstrated understanding of instructions, follow-up care, medications, Prescriptions given X 3. 06:17 Patient left the ED. rr5 Signatures: Dispatcher [employer] Osei Fajardo MD MD cha Salyer, Garth Sotomayor RN RN jd3 Magdi Wilder RN RN rv Roque, Raymond, RN RN rr5
[2019-01-20] MEDS ORDERED: CEFTRIAXONE/SWI 1gm 1 GM/10 ML SYR ONE (05:47)
[2019-01-20] MEDS ORDERED: POTASSIUM 25 MEQ EFFERV TAB ONE (05:47)
[2019-01-20 07:07] VITALS: O2SAT 99
[2019-01-20 07:08] VITALS: BP 123/80; TEMP 97.5
--- NOTE | 2019-01-20 08:14 | RAD REPORT ---
EXAM DESCRIPTION: RAD - Chest Pa And Lat (2 Views) - 01/20/2019 4:44 am CLINICAL HISTORY: COUGH COMPARISON: June 24 TECHNIQUE: PA and lateral views of the chest were obtained. FINDINGS: The lungs are clear of focal abnormality. No significant interstitial edema or infiltrate findings. Interstitial pattern matches comparison. Heart size is normal and central vasculature is within normal limits. No pleural effusion or pneumothorax seen. No acute bony finding noted. No ao rtic abnormality. IMPRESSION: No acute cardiopulmonary process.
--- NOTE | 2019-01-21 13:24 | RAD REPORT ---
EXAM DESCRIPTION: CT - Head Brain Wo Cont - 01/20/2019 5:51 am CLINICAL HISTORY: The patient is 43 years old and is Female; Dizziness;Headache TECHNIQUE: Axial computed tomography images of the head/brain without intravenous contrast. Sagitt al and coronal reformatted images were created and reviewed. This CT exam was performed using one o r more of the following dose reduction techniques: automated exposure control, adjustment of the mA and/or kV according to patient size, and/or use of iterative reconstruction technique. COMPARISON: No relevant prior studies available. FINDINGS: BRAIN: Unremarkable. The batista-white matter differentiation is preserved . No hemorrhag e. No significant white matter disease. No edema. No extra-axial fluid collections. VENTRICLES: Unremarkable. No ventriculomegaly. BONES/JOINTS: No acute fracture. SOFT TISSUES: Unremarkable. SINUSES: Unremarkable as visualized. No acute sinusitis. MASTOID AIR CELLS: Unremarkable as visualized. No mastoid effusion. ORBITS: Unremarkable as visualized. IMPRESSION: No acute intracranial findings. 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 The interpreting radiologist is f ully responsible for the content of the report.
== END 2019-01-20 06:17 | disposition home or self-care (01) ==
LOC: ER 03:42
DX: J06.9 Acute upper respiratory infection, unspecified (principal); R05 Cough; E87.6 Hypokalemia; F41.9 Anxiety disorder, unspecified; F32.9 Major depressive disorder, single episode, unspecified; F17.210 Nicotine dependence, cigarettes, uncomplicated; Z88.6 Allergy status to analgesic agent
CPT/HCPCS: 36415; 70450; 71046; 80053; 81003; 81025; 85025; 87804; 96361; 96365; 96375; 99284; J0696; J2405; J7030

== ENCOUNTER 2019-02-21 02:54 | Emergency (ER) | payer SELFPAY ==
--- OUTSIDE RECORDS SUMMARY | 2019-02-21 02:55 | XMS REPORT ---
:1975 [facility] Address [address] [place] [address] [address] [place] [address] Care Team Providers Name Role Phone Unavailable Unavailable Unavailable Problems This patient has no known problems. Allergies, Adverse Reactions, Alerts This patient has no known allergies or adverse reactions. Medications This patient has no known medications.
[2019-02-21] MEDS ORDERED: FAMOTIDINE 20 MG/2 ML VIAL IV ONE (03:57)
[2019-02-21] MEDS ORDERED: NA CHLORIDE 0.9% 1,000 ML ONE (03:57)
[2019-02-21] MEDS ORDERED: MORPHINE 2 MG/ML SYR ONE ×2 (03:57→05:13)
[2019-02-21] MEDS ORDERED: ONDANSETRON 4 MG/2 ML VIAL ONE ×2 (03:58→07:12)
[2019-02-21 04:32] LABS: Absolute Lymphocytes (CBC) 3.9 K/uL (0.7-4.9); Basophils % 0.4 % (0-1.3); Lymphocytes % 32.5 % (15.3-44.8); MPV 7.2 fL (7.6-11.3); RBC Red Blood Cell Count 3.97 M/uL (3.86-4.86)
[2019-02-21 04:33] LABS: Protime INR 1.03
[2019-02-21 05:02] LABS: Urine Blood NEGATIVE (NEG); Urine Glucose NEGATIVE (NEG); Urine Protein NEGATIVE (NEG); Urine Specific Gravity 1.015 (1.005-1.030)
[2019-02-21 05:04] LABS: ALT/SGPT 23 U/L (12-78); AST/SGOT 16 U/L (15-37); Albumin 3.5 g/dL (3.4-5.0); Alkaline Phosphatase 50 U/L (45-117); BUN Blood Urea Nitrogen 7 mg/dL (7-18); Bicarbonate 26 mmol/L (21-32); Bilirubin Direct < 0.1 mg/dL (0-0.2); Bilirubin Total 0.2 mg/dL (0.2-1.0); Glucose Level 87 mg/dL (74-106); Lipase 83 U/L (73-393); NT PRO-BNP 10 pg/mL (<125); Potassium 3.6 mmol/L (3.5-5.1); Protein, Total 7.3 g/dL (6.4-8.2); Sodium Level 142 mmol/L (136-145); Troponin (Emerg Dept Use Only) < 0.02 ng/mL (0.0-0.045)
--- NOTE | 2019-02-21 06:31 | ER ---
Nurse's Notes [facility] Name: Jessica Kim Age: 43 yrs Sex: Female : 1975 Arrival Date: 02/21/2019 Time: 02:55 Bed 4 Private MD: Diagnosis: Abdominal tenderness;Functional dyspepsia;Chest pain, unspecified Presentation: 02/21 03:25 Presenting complaint: Patient states: she has been having generalized abdominal pain bb all day with intermittent flank pain which seems to be getting worse has nausea but denies vomiting, diarrhea, she also has some chest pain. Transition of care: patient was not received from another setting of care. Onset of symptoms was February 20, 2019. Risk Assessment: Do you want to hurt yourself or someone else? Patient reports no desire to harm self or others. Initial Sepsis Screen: Does the patient meet any 2 criteria? No. Patient's initial sepsis screen is negative. Does the patient have a suspected source of infection? No. Patient's initial sepsis screen is negative. Care prior to arrival: None. 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 - Social history:: Smoking status: Patient uses tobacco products, smokes one-half pack cigarettes per day. - Ebola Screening: : No symptoms or risks identified at this time. - Family history:: not pertinent. Screenin:45 Abuse screen: Denies threats or abuse. Denies injuries from another. Nutritional aa1 screening: No deficits noted. Tuberculosis screening: No symptoms or risk factors identified. Fall Risk None identified. Assessment: 03:45 General: Appears in no apparent distress. comfortable, Behavior is calm, cooperative, aa1 appropriate for age. Pain: Complains of pain in abdomen Is continuous. Neuro: Level of Consciousness is awake, alert, obeys commands, Oriented to person, place, time, situation, Moves all extremities. Full function Gait is steady, Speech is normal. Cardiovascular: Reports chest pain, nausea, Denies diaphoresis, palpitations, shortness of breath, Heart tones S1 S2 present Capillary refill < 3 seconds Patient's skin is warm and dry. Rhythm is regular. Respiratory: Airway is patent Respiratory effort is even, unlabored, Respiratory pattern is regular, symmetrical. GI: Abdomen is non-distended, Bowel sounds present X 4 quads. Abd is soft X 4 quads Reports lower abdominal pain, upper abdominal pain, nausea. : No signs and/or symptoms were reported regarding the genitourinary system. EENT: No signs and/or symptoms were reported regarding the EENT system. Derm: Skin is intact, is healthy with good turgor, Skin is pink, warm \T\ dry. Musculoskeletal: Circulation, motion, and sensation intact. Capillary refill < 3 seconds. 05:13 Reassessment: Patient appears in no apparent distress at this time. Patient and/or aa1 family updated on plan of care and expected duration. Pain level reassessed. Patient is alert, oriented x 3, equal unlabored respirations, skin warm/dry/pink. Awaiting CT scan. 06:19 Reassessment: Patient appears in no apparent distress at this time. Patient and/or aa1 family updated on plan of care and expected duration. Pain level reassessed. Patient is alert, oriented x 3, equal unlabored respirations, skin warm/dry/pink. Awaiting CT results. 07:00 Reassessment: Patient is alert, oriented x 3, equal unlabored respirations, skin aa5 warm/dry/pink. Pt c/o pain 8/10 on a pain scale. MD was notified. . 07:04 Reassessment: MD at bedside . aa5 07:10 Reassessment: Patient is alert, oriented x 3, equal unlabored respirations, skin aa5 warm/dry/pink. Pt contacted family for ride home for d/c. . 07:30 Reassessment: Patient is alert, oriented x 3, equal unlabored respirations, skin aa5 warm/dry/pink. Patient states feeling better. Awaiting ride home. . 07:42 Reassessment: Patient is alert, oriented x 3, equal unlabored respirations, skin aa5 warm/dry/pink. Vital Signs: 03:28 BP 151 / 69; Pulse 111; Resp 16 S; Temp 98.4(O); Pulse Ox 98% on R/A; Weight 90.72 kg bb (R); Height 5 ft. 2 in. (157.48 cm) (R); Pain 8/10; 04:16 BP 113 / 80; Pulse 98; Resp 16; Pulse Ox 100% on R/A; aa1 05:13 BP 113 / 72; Pulse 82; Resp 16; Pulse Ox 100% on R/A; aa1 06:19 BP 127 / 81; Pulse 82; Resp 18; Pulse Ox 99% on R/A; aa1 07:00 BP 122 / 80; Pulse 84; Resp 18 S; Temp 98.0(TE); Pulse Ox 98% on R/A; Pain 8/10; aa5 07:30 BP 110 / 75; Pulse 80; Resp 16 S; Pulse Ox 98% on R/A; Pain 5/10; aa5 03:28 Body Mass Index 36.58 (90.72 kg, 157.48 cm) ED Course: 02:55 Patient arrived in ED. ds1 03:19 Osei Vinson MD is Attending Physician. ekta 03:27 Triage completed. bb 03:28 Arm band placed on Patient placed in an exam room, on a stretcher, on pulse oximetry. bb 03:45 Patient has correct armband on for positive identification. Placed in gown. Bed in low aa1 position. Call light in reach. Pulse ox on. NIBP on. Warm blanket given. 04:00 Urine collected: clean catch specimen, cloudy, EKG done, by ED staff, reviewed by Osei Vinson MD. 04:05 Initial lab(s) drawn, by sc, sent to lab. Inserted saline lock: 20 gauge in right aa1 antecubital area, using aseptic technique. Blood collected. 04:12 Nneka Pavon, RICKY is Primary Nurse. aa1 04:25 XRAY Chest (1 view) In Process Unspecified. EDMS 05:32 CT Abd/Pelvis - IV Contrast Only In Process Unspecified. EDMS 06:28 Juan Vo MD is Referral Physician. ekta 06:29 Gianfranco Costa MD is Referral Physician. ekta 07:42 IV discontinued, intact, bleeding controlled, No redness/swelling at site. Pressure aa5 dressing applied. 07:42 No provider procedures requiring assistance completed. aa5 Administered Medications: 04:07 Drug: Zofran 4 mg Route: IVP; Site: right antecubital; aa1 04:07 Drug: NS 0.9% 1000 ml Route: IV; Rate: 1 bolus; Site: right antecubital; aa1 04:09 Drug: Pepcid 20 mg Route: IVP; Site: right antecubital; aa1 04:09 Drug: morphine 2 mg Route: IVP; Site: right antecubital; aa1 05:13 Drug: morphine 2 mg Route: IVP; Site: right antecubital; aa1 07:10 Drug: morphine 4 mg Route: IVP; Site: left antecubital; aa5 07:10 Drug: Zofran 4 mg Route: IVP; Site: left antecubital; aa5 Outcome: 06:29 Discharge ordered by . [facility] 07:43 Discharged to home ambulatory, with family. aa5 07:43 Condition: stable 07:43 Discharge instructions given to patient, Instructed on discharge instructions, follow up and referral plans. medication usage, Demonstrated understanding of instructions, follow-up care, medications, Prescriptions given X 3. 07:44 Patient left the ED. aa5 Signatures: Dispatcher [employer] EDNneka Quinones RN RN aa1 Osei Vinson MD MD cha Sanford, Demi ds1 Fay Lott RN RN bb Calderon, Audri, RN RN aa5
--- NOTE | 2019-02-21 06:31 | EDPHYS ---
Physician Documentation [facility] Name: Jessica Kim Age: 43 yrs Sex: Female : 1975 Arrival Date: 02/21/2019 Time: 02:55 Bed 4 Private MD: ED Physician Osei Vinson HPI: 02/21 03:48 This 43 yrs old Female presents to ER via Ambulatory with complaints of ekta Abdominal Pain, Chest Burning. 03:48 The patient presents with abdominal pain in the epigastric area, in the upper abdomen, ekta abdominal distention in the upper abdomen, in the lower abdomen. Onset: The symptoms/episode began/occurred 1 day(s) ago. The symptoms do not radiate. Associated signs and symptoms: none. Modifying factors: The symptoms are alleviated by nothing, the symptoms are aggravated by. Severity of pain: At its worst the pain was mild moderate in the emergency department the pain is unchanged. 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 - Social history:: Smoking status: Patient uses tobacco products, smokes one-half pack cigarettes per day. - Ebola Screening: : No symptoms or risks identified at this time. - Family history:: not pertinent. ROS: 03:48 Constitutional: Negative for fever, chills, and weight loss, Eyes: Negative for injury, ekta pain, redness, and discharge, ENT: Negative for injury, pain, and discharge, Neck: Negative for injury, pain, and swelling, Respiratory: Negative for shortness of breath, cough, wheezing, and pleuritic chest pain, Back: Negative for injury and pain, : Negative for injury, bleeding, discharge, and swelling, MS/Extremity: Negative for injury and deformity, Skin: Negative for injury, rash, and discoloration, Neuro: Negative for headache, weakness, numbness, tingling, and seizure, Psych: Negative for depression, anxiety, suicide ideation, homicidal ideation, and hallucinations, Allergy/Immunology: Negative for hives, rash, and allergies, Endocrine: Negative for neck swelling, polydipsia, polyuria, polyphagia, and marked weight changes, Hematologic/Lymphatic: Negative for swollen nodes, abnormal bleeding, and unusual bruising. 03:48 Cardiovascular: Positive for 03:48 Abdomen/GI: Positive for abdominal pain, of the right upper quadrant, left upper quadrant, right lower quadrant and left lower quadrant. Exam: 03:48 Constitutional: This is a well developed, well nourished patient who is awake, alert, ekta and in no acute distress. Head/Face: Normocephalic, atraumatic. Eyes: Pupils equal round and reactive to light, extra-ocular motions intact. Lids and lashes normal. Conjunctiva and sclera are non-icteric and not injected. Cornea within normal limits. Periorbital areas with no swelling, redness, or edema. ENT: Nares patent. No nasal discharge, no septal abnormalities noted. Tympanic membranes are normal and external auditory canals are clear. Oropharynx with no redness, swelling, or masses, exudates, or evidence of obstruction, uvula midline. Mucous membranes moist. Neck: Trachea midline, no thyromegaly or masses palpated, and no cervical lymphadenopathy. Supple, full range of motion without nuchal rigidity, or vertebral point tenderness. No Meningismus. Chest/axilla: Normal chest wall appearance and motion. Nontender with no deformity. No lesions are appreciated. Cardiovascular: Regular rate and rhythm with a normal S1 and S2. No gallops, murmurs, or rubs. Normal PMI, no JVD. No pulse deficits. Respiratory: Lungs have equal breath sounds bilaterally, clear to auscultation and percussion. No rales, rhonchi or wheezes noted. No increased work of breathing, no retractions or nasal flaring. Back: No spinal tenderness. No costovertebral tenderness. Full range of motion. Skin: Warm, dry with normal turgor. Normal color with no rashes, no lesions, and no evidence of cellulitis. MS/ Extremity: Pulses equal, no cyanosis. Neurovascular intact. Full, normal range of motion. Neuro: Awake and alert, GCS 15, oriented to person, place, time, and situation. Cranial nerves II-XII grossly intact. Motor strength 5/5 in all extremities. Sensory grossly intact. Cerebellar exam normal. Normal gait. Psych: Awake, alert, with orientation to person, place and time. Behavior, mood, and affect are within normal limits. 03:48 Abdomen/GI: Inspection: distension, Bowel sounds: normal, Palpation: mild abdominal tenderness, in the right upper quadrant, left upper quadrant, right lower quadrant and left lower quadrant, Liver: no appreciated palpable abnormalities, Hernia: not appreciated. Vital Signs: 03:28 BP 151 / 69; Pulse 111; Resp 16 S; Temp 98.4(O); Pulse Ox 98% on R/A; Weight 90.72 kg bb (R); Height 5 ft. 2 in. (157.48 cm) (R); Pain 8/10; 04:16 BP 113 / 80; Pulse 98; Resp 16; Pulse Ox 100% on R/A; aa1 05:13 BP 113 / 72; Pulse 82; Resp 16; Pulse Ox 100% on R/A; aa1 06:19 BP 127 / 81; Pulse 82; Resp 18; Pulse Ox 99% on R/A; aa1 07:00 BP 122 / 80; Pulse 84; Resp 18 S; Temp 98.0(TE); Pulse Ox 98% on R/A; Pain 8/10; aa5 07:30 BP 110 / 75; Pulse 80; Resp 16 S; Pulse Ox 98% on R/A; Pain 5/10; aa5 03:28 Body Mass Index 36.58 (90.72 kg, 157.48 cm) MDM: 03:19 Patient medically screened. [facility] 03:51 Data reviewed: vital signs, nurses notes, lab test result(s), EKG, radiologic studies, [facility] CT scan, plain films. 02/21 03:48 Order name: Basic Metabolic Panel; Complete Time: 05:27 [facility] 02/21 03:48 Order name: CBC with Diff; Complete Time: 04:56 [facility] 02/21 03:48 Order name: LFT's; Complete Time: 05:27 [facility] 02/21 03:48 Order name: Magnesium; Complete Time: 05:27 [facility] 02/21 03:48 Order name: NT PRO-BNP; Complete Time: 05:27 [facility] 02/21 03:48 Order name: PT-INR; Complete Time: 04:56 [facility] 02/21 03:48 Order name: Troponin (emerg Dept Use Only); Complete Time: 05:27 [facility] 02/21 03:48 Order name: XRAY Chest (1 view) [facility] 02/21 03:48 Order name: Lipase; Complete Time: 05:27 [facility] 02/21 03:48 Order name: CT Abd/Pelvis - IV Contrast Only [facility] 02/21 04:09 Order name: Urine Dipstick--Ancillary (enter results); Complete Time: 05:27 [facility] 02/21 04:09 Order name: Urine --Ancillary (enter results); Complete Time: 05:27 [facility] 02/21 03:48 Order name: EKG; Complete Time: 03:50 [facility] 02/21 03:48 Order name: Cardiac monitoring; Complete Time: 04:14 [facility] 02/21 03:48 Order name: EKG - Nurse/Tech; Complete Time: 04:14 [facility] 02/21 03:48 Order name: IV Saline Lock; Complete Time: 04:14 [facility] 02/21 03:48 Order name: Labs collected and sent; Complete Time: 04:14 [facility] 02/21 03:48 Order name: O2 Per Protocol; Complete Time: 04:14 [facility] 02/21 03:48 Order name: O2 Sat Monitoring; Complete Time: 04:20 [facility] 02/21 03:56 Order name: Urine Dipstick-Ancillary (obtain specimen); Complete Time: 04:06 [facility] 02/21 03:56 Order name: Urine Test (obtain specimen); Complete Time: 04:06 [facility] Administered Medications: 04:07 Drug: Zofran 4 mg Route: IVP; Site: right antecubital; aa1 04:07 Drug: NS 0.9% 1000 ml Route: IV; Rate: 1 bolus; Site: right antecubital; aa1 04:09 Drug: Pepcid 20 mg Route: IVP; Site: right antecubital; aa1 04:09 Drug: morphine 2 mg Route: IVP; Site: right antecubital; aa1 05:13 Drug: morphine 2 mg Route: IVP; Site: right antecubital; aa1 07:10 Drug: morphine 4 mg Route: IVP; Site: left antecubital; aa5 07:10 Drug: Zofran 4 mg Route: IVP; Site: left antecubital; aa5 Disposition: 02/21/19 06:29 Discharged to Home. Impression: Abdominal tenderness, Functional dyspepsia, Chest pain, unspecified. - Condition is Stable. - Discharge Instructions: Abdominal Pain, Adult, Abdominal Pain, Adult, [id number], Aspirin and Your Heart. - Prescriptions for Bentyl 20 mg Oral Tablet - take 1 tablet by ORAL route every 6 hours As needed; 20 tablet. Pepcid 20 mg Oral Tablet - take 1 tablet by ORAL route every 12 hours for 10 days; 20 tablet. Zofran 4 mg Oral Tablet - take 1 tablet by ORAL route every 12 hours As needed; 20 tablet. - Medication Reconciliation Form, Thank You Letter, Antibiotic Education, Prescription Opioid Use form. - Follow up: Private Physician; When: 2 - 3 days; Reason: Recheck today's complaints, Continuance of care, Re-evaluation by your physician. Follow up: Juan Vo; When: 2 - 3 days; Reason: Recheck today's complaints, Re-evaluation by your physician. Follow up: Gianfranco Costa MD; When: 2 - 3 days; Reason: Recheck today's complaints, Re-evaluation by your physician. - Problem is new. - Symptoms have improved. Signatures: Dispatcher [employer] EDMS Nneka Pavon RN RN aa1 Osei Vinson MD MD cha Ballard, Brenda, RN RN bb Caren Fletcher RN RN aa5 Corrections: (The following items were deleted from the chart) 07:44 06:29 02/21/2019 06:29 Discharged to Home. Impression: Abdominal tenderness; Functional aa5 dyspepsia; Chest pain, unspecified. Condition is Stable. Discharge Instructions: Abdominal Pain, Adult, Abdominal Pain, Adult, [place], Aspirin and Your Heart. Prescriptions for Bentyl 20 mg Oral Tablet - take 1 tablet by ORAL route every 6 hours As needed; 20 tablet, Pepcid 20 mg Oral Tablet - take 1 tablet by ORAL route every 12 hours for 10 days; 20 tablet, Zofran 4 mg Oral Tablet - take 1 tablet by ORAL route every 12 hours As needed; 20 tablet. and Forms are Medication Reconciliation Form, Thank You Letter, Antibiotic Education, Prescription Opioid Use. Follow up: Private Physician; When: 2 - 3 days; Reason: Recheck today's complaints, Continuance of care, Re-evaluation by your physician. Follow up: Juan Vo; When: 2 - 3 days; Reason: Recheck today's complaints, Re-evaluation by your physician. Follow up: Gianfranco Costa; When: 2 - 3 days; Reason: Recheck today's complaints, Re-evaluation by your physician. Problem is new. Symptoms have improved. ekta
[2019-02-21] MEDS ORDERED: MORPHINE 4 MG/ML SYR ONE (07:11)
[2019-02-21 07:58] VITALS: TEMP 98.4
[2019-02-21 08:01] VITALS: BP 127/81; O2SAT 99
--- NOTE | 2019-02-21 08:09 | EKG ---
Test Date: 2019-02-21 Test Time: 03:57:08 Fudger: VIKI MEASUREMENT RESULTS: Intervals: Rate: 82 ID: [id number] QRSD: 84 QT: 354 QTc: 413 Lorane: P: 60 ID: [id number] QRS: 66 T: 57 INTERPRETIVE STATEMENTS: Normal sinus rhythm with sinus arrhythmia Normal ECG Compared to ECG 09/08/2016 21:22:27 No significant changes Electronically Signed On 02-21-19 08:08:07 INNER TUBE CUTTER by Gianfranco Costa
--- NOTE | 2019-02-21 08:25 | RAD REPORT ---
EXAM DESCRIPTION: RAD - Chest Single View - 02/21/2019 4:24 am CLINICAL HISTORY: Cough;Chest pain;Abdominal distention Chest pain. COMPARISON: Chest Pa And Lat (2 Views) dated 01/20/2019; Chest Pa And Lat (2 Views) dated 06/24/2018; Chest Single View dated 03/26/2017; Chest Single View dated 09/08/2016 FINDINGS: Portable technique limits examination quality. The lungs are grossly clear. The heart is normal in size. No displaced fractures. IMPRESSION: No acute intrathoracic process suspected.
--- NOTE | 2019-02-21 10:17 | RAD REPORT ---
EXAM DESCRIPTION: Abdomen Pelvis W Contrast CLINICAL HISTORY: 43-year-old female with abdominal pain TECHNIQUE: Axial CT imaging of the abdomen and pelvis was performed following the administration of intravenous contrast.. Sagittal and coronal reconstructed images were then performed. The CT stud y is performed according to ALARA (as low as reasonably achievable) or ALARA/IMAGE GENTLY, with autom atic adjustment of mA and/or kV according to patient size. Performed on: 02/21/2019 at 5:32 AM. COMPARISON: Prior CT abdomen and pelvis with contrast performed on 06/24/2018 FINDINGS: Lung bases: The lung bases are clear. Liver: The liver is normal in size and configuration. No focal hepatic abnormalities are identified. Liver attenuation is within normal limits. Spleen: The spleen is normal is size, configuration and attenuation. Gallbladder and bile duct: The gallbladder is surgically absent. There is no biliary ductal dilatat ion. Pancreas: The pancreas is grossly normal in size and configuration. Adrenal Glands: The adrenal glands are normal in size and configuration. Kidneys: The kidneys are normal in size and configuration. There is no evidence of hydronephrosis. Th ere is no evidence of nephrolithiasis. No definite solid or cystic renal mass lesions are identified. Stomach: The stomach is grossly normal. There is no definite hiatal hernia. Bowel: The bowel gas pattern is non specific and non obstructive. Appendix: The appendix is normal. Free air: There is no evidence of free air. Free fluid: There is no evidence of free fluid. Vasculature: The aorta is normal in caliber and contour. The inferior vena cava is grossly unremarkab le. Lymphadenopathy: No pathologic lymphadenopathy is identified. Bladder: The bladder is well distended and smooth in contour. Reproductive: The uterus is grossly within normal limits. Bones: No acute osseous abnormalities are identified. There is moderate degenerative disc disease at L5-S1. Soft tissues: No focal soft tissue abnormalities are identified. IMPRESSION: 1. No evidence of acute intra-abdominal or intrapelvic pathology. 2. No significant interval change when compared to the prior study. Electronically signed by: Karen Hubbard DO 02/21/2019 6:01 AM CHIEF RADIATION THERAPIST Due to temporary technical issues with the PACS/Fluency reporting system, reports are being signed by the in house radiologist as a courtesy to ensure prompt reporting. The interpreting radiologist is f ully responsible for the content of the report.
== END 2019-02-21 07:44 | disposition home or self-care (01) ==
LOC: ER 02:54
DX: K30 Functional dyspepsia (principal); R07.9 Chest pain, unspecified; F41.9 Anxiety disorder, unspecified; F32.9 Major depressive disorder, single episode, unspecified
CPT/HCPCS: 36415; 71045; 74177; 80048; 80076; 81003; 81025; 83690; 83735; 83880; 84484; 85025; 85610; 93005; 99284; J2270; J2405; J7030; Q9967

== ENCOUNTER 2019-08-23 13:10 | Emergency (ER) | payer SELFPAY ==
[2019-08-23 14:10] LABS: Urine Blood NEGATIVE (NEG); Urine Glucose NEGATIVE (NEG)
[2019-08-23 14:11] LABS: Urine Protein NEGATIVE (NEG); Urine pH 6.5 (5.0-7.0)
--- NOTE | 2019-08-23 14:27 | RAD REPORT ---
EXAM DESCRIPTION: CT - Stone Protocol - 08/23/2019 2:05 pm CLINICAL HISTORY: Abdominal pain. COMPARISON: 2018 TECHNIQUE: Computed axial tomography of the abdomen pelvis was obtained without oral or IV contrast. Lack of IV and oral contrast limits evaluation of solid organs, bowel, and vessels. Coronal reformat harley images were obtained and reviewed. All CT scans are performed using dose optimization technique as appropriate and may include automated exposure control or mA/KV adjustment according to patient size. FINDINGS: A renal calculus is not seen. An ureteral calculus is not noted. A bladder calculus is not present. The liver, spleen, pancreas and adrenals appear grossly normal There is no evidence of diverticulitis. The appendix appears normal Cholecystectomy . Calcified granuloma left lower lobe IMPRESSION: Negative for a genitourinary calculus
[2019-08-23 15:03] LABS: Urine Amorphous Sediment 1+ /HPF (NONE SEEN); Urine Bacteria <20 /HPF (<20); Urine Culture Reflex Order NOT NEEDED; Urine Mucus HEAVY /HPF (NONE SEEN); Urine RBC NONE SEEN /HPF (NONE SEEN)
[2019-08-23] MEDS ORDERED: PROMETHAZINE 25 MG TABLET ONE (15:13)
[2019-08-23] MEDS ORDERED: DICYCLOMINE HCL 10 MG CAP ONE (15:13)
--- NOTE | 2019-08-23 15:43 | EDPHYS ---
Physician Documentation [facility] Name: Jessica Kim Age: 43 yrs Sex: Female : 1975 Arrival Date: 08/23/2019 Time: 13:13 Bed 15 Private MD: ED Physician Osei Vinson HPI: 08/22 13:54 This 43 yrs old Female presents to ER via Ambulatory with complaints of snw Decreased Appetite, Diarrhea, Body Aches. 13:54 Onset: The symptoms/episode began/occurred gradually, 2 day(s) ago, and became worse snw and became persistent. Associated signs and symptoms: Pertinent positives: abdominal pain, diarrhea, nausea, malaise. Modifying factors: The patient symptoms are alleviated by nothing, the patient symptoms are aggravated by pressure. The patient has not experienced similar symptoms in the past. It is unknown whether or not the patient has recently seen a physician. 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 - Social history:: Smoking status: Patient reports the use of cigarette tobacco products, smokes one pack cigarettes per day. ROS: 13:50 Constitutional: Negative for fever, chills, and weight loss, Positive for malaise Eyes: snw Negative for injury, pain, redness, and discharge, ENT: Negative for injury, pain, and discharge, Neck: Negative for injury, pain, and swelling, Cardiovascular: Negative for chest pain, palpitations, and edema, Respiratory: Negative for shortness of breath, cough, wheezing, and pleuritic chest pain, Back: Negative for injury and pain. 13:50 : Negative for injury, bleeding, discharge, and swelling, MS/Extremity: Negative for injury and deformity, Skin: Negative for injury, rash, and discoloration, Neuro: Negative for headache, weakness, numbness, tingling, and seizure, Psych: Negative for depression, anxiety, suicide ideation, homicidal ideation, and hallucinations. 13:50 Abdomen/GI: Positive for abdominal pain, nausea and vomiting, diarrhea. Exam: 13:49 Head/Face: Normocephalic, atraumatic. Eyes: Pupils equal round and reactive to light, snw extra-ocular motions intact. Lids and lashes normal. Conjunctiva and sclera are non-icteric and not injected. Cornea within normal limits. Periorbital areas with no swelling, redness, or edema. ENT: Nares patent. No nasal discharge, no septal abnormalities noted. Tympanic membranes are normal and external auditory canals are clear. Oropharynx with no redness, swelling, or masses, exudates, or evidence of obstruction, uvula midline. Mucous membranes moist. Neck: Trachea midline, no thyromegaly or masses palpated, and no cervical lymphadenopathy. Supple, full range of motion without nuchal rigidity, or vertebral point tenderness. No Meningismus. Chest/axilla: Normal chest wall appearance and motion. Nontender with no deformity. No lesions are appreciated. Cardiovascular: Tachycardic rate and rhythm with a normal S1 and S2. No gallops, murmurs, or rubs. Normal PMI, no JVD. No pulse deficits. Respiratory: Lungs have equal breath sounds bilaterally, clear to auscultation and percussion. No rales, rhonchi or wheezes noted. No increased work of breathing, no retractions or nasal flaring. Back: No spinal tenderness. No costovertebral tenderness. Full range of motion. Skin: Warm, dry with normal turgor. Normal color with no rashes, no lesions, and no evidence of cellulitis. MS/ Extremity: Pulses equal, no cyanosis. Neurovascular intact. Full, normal range of motion. Neuro: Awake and alert, GCS 15, oriented to person, place, time, and situation. Cranial nerves II-XII grossly intact. Motor strength 5/5 in all extremities. Sensory grossly intact. Cerebellar exam normal. Normal gait. Psych: Awake, alert, with orientation to person, place and time. Behavior, mood, and affect are within normal limits. 13:49 Constitutional: The patient appears alert, awake, anxious, obese, uncomfortable. 13:49 Abdomen/GI: Inspection: abdomen appears normal, obese Bowel sounds: normal, Palpation: moderate abdominal tenderness, in the suprapubic area, right lower quadrant and left lower quadrant. Vital Signs: 13:16 BP 131 / 90; Pulse 103; Resp 15 S; Temp 98.5(TE); Pulse Ox 97% on R/A; Weight 102.06 kg ca1 (R); Height 5 ft. 2 in. (157.48 cm) (R); 15:59 BP 129 / 83; Pulse 70; Resp 16 S; Pulse Ox 100% on R/A; jl7 13:16 Body Mass Index 41.15 (102.06 kg, 157.48 cm) ca1 MDM: 13:40 Patient medically screened. ekta 15:46 Data reviewed: vital signs, nurses notes. Data interpreted: Pulse oximetry: is not snw applicable for this patient encounter. on room air is 97 %. Interpretation: normal. Counseling: I had a detailed discussion with the patient and/or guardian regarding: the historical points, exam findings, and any diagnostic results supporting the discharge/admit diagnosis, lab results, radiology results, the need for outpatient follow up, to return to the emergency department if symptoms worsen or persist or if there are any questions or concerns that arise at home. Response to treatment: the patient's symptoms have mildly improved after treatment. Special discussion: Based on the patient's Hx, exam, and Dx evaluation, there is no indication for emergent surgery or inpatient Tx. It is understood by the patient/guardian that if the Sx's persist or worsen they need to return immediately for re-evaluation. Based on the history and exam findings, there is no indication for further emergent testing or inpatient evaluation. I discussed with the patient/guardian the need to see the primary care provider for further evaluation of the symptoms. 08/22 13:34 Order name: COVID-[address] [facility] 08/22 13:34 Order name: Flu; Complete Time: 14:[address] [facility] 08/22 13:34 Order name: Strep; Complete Time: 14:[address] [facility] 08/22 13:47 Order name: Urine Microscopic Only; Complete Time: 15:04 snw 08/22 14:02 Order name: Throat Culture [facility] 08/22 14:07 Order name: Urine Dipstick--Ancillary (enter results); Complete Time: 14:13 eb 08/22 13:34 Order name: Droplet/Contact Precautions; Complete Time: 13:[address] [facility] 08/22 13:34 Order name: Labs collected and sent; Complete Time: 14:[address] [facility] 08/22 13:47 Order name: CT Stone Protocol; Complete Time: 14:30 [facility] 08/22 14:07 Order name: Urine --Ancillary (enter results); Complete Time: 14:13 eb 08/22 13:34 Order name: O2 Per Protocol; Complete Time: 13:[address] [facility] 08/22 13:47 Order name: Urine Test (obtain specimen); Complete Time: 14:04 [facility] 08/22 13:47 Order name: Urine Dipstick-Ancillary (obtain specimen); Complete Time: 14:04 snw Administered Medications: 15:07 Drug: Phenergan 25 mg Route: PO; [facility] 15:59 Follow up: Response: Nausea is decreased 15:07 Drug: Bentyl 20 mg Route: PO; 15:59 Follow up: Response: No adverse reaction; Pain is decreased Disposition: 18:47 Co-signature as Attending Physician, Osei Vinson MD I agree with the assessment and ekta plan of care. Disposition: 08/23/19 15:42 Discharged to Home. Impression: Lower abdominal pain, unspecified. - Condition is Stable. - Discharge Instructions: Abdominal Pain, Adult, Rehydration, Adult. - Prescriptions for Bentyl 20 mg Oral Tablet - take 1 tablet by ORAL route every 6 hours As needed; 20 tablet. promethazine 25 mg Oral Tablet - take 1 tablet by ORAL route every 6 hours As needed; 20 tablet. - Medication Reconciliation Form, Thank You Letter, Antibiotic Education, Prescription Opioid Use form. - Follow up: Emergency Department; When: As needed; Reason: Worsening of condition. Follow up: Private Physician; When: 2 - 3 days; Reason: Recheck today's complaints, Continuance of care, Re-evaluation by your physician. - Notes: You will be notified of CoVid 19 results when they return Addendum: 08/25/2019 08:58 Addendum: Contacted pt at [phone], notified of positive COVID test, answered questions, r n told health department will contact them with further instructions, patient feeling better. . Signatures: Dispatcher [employer] Osei Fajardo MD MD cha Therrien, Shelly, SALES REPRESENTATIVES-C SALES REPRESENTATIVES-Csnw Karlos Barth MD MD rn Leal, Jahala, RN RN jl7 Leny Stringer RN RN ca1 Corrections: (The following items were deleted from the chart) 08/22 16:01 15:42 08/23/2019 15:42 Discharged to Home. Impression: Lower abdominal pain, jl7 unspecified. Condition is Stable. Forms are Medication Reconciliation Form, Thank You Letter, Antibiotic Education, Prescription Opioid Use. Follow up: Emergency Department; When: As needed; Reason: Worsening of condition. Follow up: Private Physician; When: 2 - 3 days; Reason: Recheck today's complaints, Continuance of care, Re-evaluation by your physician. snw
--- NOTE | 2019-08-23 15:43 | ER ---
Nurse's Notes [facility] Name: Jessica Kim Age: 43 yrs Sex: Female : 1975 Arrival Date: 08/23/2019 Time: 13:13 Bed 15 Private MD: Diagnosis: Lower abdominal pain, unspecified Presentation: 08/22 13:16 Chief complaint: Patient states: For 2 days, no appetite and body aches. This morning, ca1 woke up with diarrhea and I feel so drained. Denies cough, SOB and fever. Reports chest pressure x 3 days, off and on, non-radiating, last a few seconds. Coronavirus screen: Proceed with normal triage. Patient denies a cough. Patient denies shortness of breath or difficulty breathing. Patient denies measured and/or subjective temperature greater than 100.4F prior to today's visit. Patient denies travel on a cruise ship or to a country the [facility] currently lists as an affected area. Patient denies contact with known and/or suspected case of COVID-19. Ebola Screen: Patient negative for fever greater than or equal to 101.5 degrees Fahrenheit, and additional compatible Ebola Virus Disease symptoms Patient denies exposure to infectious person. Patient denies travel to an Ebola-affected area in the 21 days before illness onset. No symptoms or risks identified at this time. Initial Sepsis Screen: Does the patient meet any 2 criteria? No. Patient's initial sepsis screen is negative. Does the patient have a suspected source of infection? No. Patient's initial sepsis screen is negative. Risk Assessment: Do you want to hurt yourself or someone else? Patient reports no desire to harm self or others. Onset of symptoms was August 23, 2019. 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 - Social history:: Smoking status: Patient reports the use of cigarette tobacco products, smokes one pack cigarettes per day. Screenin:00 Abuse screen: Denies threats or abuse. Denies injuries from another. Nutritional jl7 screening: No deficits noted. Tuberculosis screening: No symptoms or risk factors identified. Fall Risk None identified. Assessment: 13:30 General: Appears in no apparent distress. uncomfortable, Behavior is calm, cooperative, jl7 appropriate for age. Pain: Complains of pain in left lower quadrant and right lower quadrant Pain currently is 8 out of 10 on a pain scale. Quality of pain is described as crampy, Is intermittent. Neuro: Level of Consciousness is awake, alert, obeys commands, Oriented to person, place, time, situation. Cardiovascular: Patient's skin is warm and dry. Respiratory: Airway is patent Respiratory effort is even, unlabored, Respiratory pattern is regular, symmetrical. GI: Reports diarrhea, nausea. Derm: Skin is pink, warm \T\ dry. Vital Signs: 13:16 BP 131 / 90; Pulse 103; Resp 15 S; Temp 98.5(TE); Pulse Ox 97% on R/A; Weight 102.06 kg ca1 (R); Height 5 ft. 2 in. (157.48 cm) (R); 15:59 BP 129 / 83; Pulse 70; Resp 16 S; Pulse Ox 100% on R/A; jl7 13:16 Body Mass Index 41.15 (102.06 kg, 157.48 cm) ca1 ED Course: 13:13 Patient arrived in ED. ag5 13:19 Triage completed. ca1 13:20 Allyson Higgins RN is Primary Nurse. jl7 13:20 Arm band placed on right wrist. ca1 13:26 Crystal Sams [facility]-C [facility]. snw 13:26 Osei Vinson MD is Attending Physician. snw 14:00 Patient has correct armband on for positive identification. Bed in low position. Call jl7 light in reach. Side rails up X 1. 14:00 Flu and/or RSV swab sent to lab. Strep swab sent to lab. COVID-19 swab sent to lab. jl7 14:05 CT Stone Protocol In Process Unspecified. EDMS 14:46 Health Dept notified/ PUI # [id number]/ Roxana from lab notified. eb 16:00 No provider procedures requiring assistance completed. Patient did not have IV access jl7 during this emergency room visit. Administered Medications: 15:07 Drug: Phenergan 25 mg Route: PO; jl7 15:59 Follow up: Response: Nausea is decreased jl7 15:07 Drug: Bentyl 20 mg Route: PO; jl7 15:59 Follow up: Response: No adverse reaction; Pain is decreased jl7 Outcome: 15:42 Discharge ordered by MD. hairston 16:00 Discharged to home ambulatory. jl7 16:00 Condition: stable 16:00 Discharge instructions given to patient, Instructed on discharge instructions, follow up and referral plans. medication usage, Demonstrated understanding of instructions, follow-up care, medications, Prescriptions given X 2. 16:01 Patient left the ED. jl7 Signatures: Dispatcher [employer] EDMS Crystal Sams, [employer]NA[employer]-Allyson Cordova RN RN jl7 Tiffany Gonzalez Cheryl, RN RN [facility] Meng Simon [facility]
[2019-08-23 16:16] VITALS: TEMP 98.5
[2019-08-23 16:25] VITALS: BP 129/83; O2SAT 100
--- OUTSIDE RECORDS SUMMARY | 2019-08-23 17:09 | XMS REPORT | Continuity of Care Document ---
:1975 Author Organization [facility] t Address [address] [place] [address] Care Team Providers Name Role Phone Visit, Nurse Attending Clinician Unavailable Care, 6 Adult Urgent Attending Clinician Unavailable Tate DE LA PAZ, R Attending Clinician Lawrence DE LA PAZ N Attending Clinician Problems This patient has no known problems. Allergies, Adverse Reactions, Alerts This patient has no known allergies or adverse reactions. Medications This patient has no known medications. Procedures This patient has no known procedures. Encounters Start End Encounter Admission Attending Care Care Encounter Source Date/Time Date/Time Type Type Clinicians Facility Department ID 2019-07-11 2019-07-11 Nurse Visit, [facility] [id number] 15:28:40 16:15:25 Visit [facility] LINE DEPARTMENT SUPERVISOR [id number] Nurse [facility] [id number] MATERNAL [phone] & CHILD [address] [place] [address] 2019-05-20 2019-05-20 Telemedici Care, [facility] [id number] 12:50:40 13:05:40 ne Visit Provider 6 SPECIALTY [id number] Adult CARE [id number] Urgent CENTER AT [phone] BRITTANY [address] [place] [address] 2019-04-30 2019-04-30 [facility] [id number] 06:26:00 23:59:00 Encounter Eric Moore SPECIALTY [id number] [facility] [id number] CENTER AT [id number] BRITTANY Abdul [facility] 2019-04-18 2019-04-18 Office CARITO Bravo [id number] 2020 15:20:28 16:14:26 Visit Nallely Espinosa LINE DEPARTMENT SUPERVISOR [id number] REGIONAL [id number] MATERNAL [phone] & CHILD [address] [place] [address] - [place] Results This patient has no known results.
--- OUTSIDE RECORDS SUMMARY | 2019-08-23 17:10 | XMS REPORT | Summary of Care ---
:1975 Author Organization [facility] Address [address] [place] [address] Care Team Providers Name Role Phone Krystyna Garcia Primary Care Provider Reason for Visit Reason Comments DEPO PROVERA Encounter Details Date Type Department Care Team Description 07/11/2019 Nurse Visit [facility] Andrea Prince, [facility] [address] [facility] [place] [address] Encounter for [place] Visit, Merged With [facility] Nurse surveillance of [address] contraceptives, [place] [id number] contraceptive (Primary [phone] Dx) Allergies Active Allergy Reactions Severity Noted Date Comments Nsaids (Non-Steroidal Anti-Inflammatory Drug) Swelling Medium 12/20/2018 documented as of this encounter (statuses as of 07/11/2019) Medications Medication Sig Dispensed Refills Start Date End Date Status ALPRAZolam 2 mg Take 2 mg by mouth 0 Active tabletIndications: at bedtime as Anxiety needed for Sleep. Hospital, Clinic, or Other Ordered Dose Route Frequency Start Date End Date Status Facility Administered Medication medroxyPROGESTERone 150 mg IM [id number] 12/20/2018 0 Active (DEPO-PROVERA) injection 150 mgIndications: Irregular menstrual cycle medroxyPROGESTERone 150 mg IM [id number] 07/11/2019 1 Active (DEPO-PROVERA) injection 150 mg documented as of this encounter (statuses as of 07/11/2019) Active Problems Problem Noted Date Encounter for immunization 12/20/2018 Encounter for surveillance of contraceptives, unspecif ied contraceptive 12/20/2018 History of bilateral tubal ligation 12/20/2018 Tobacco use disorder 12/20/2018 Anxiety 12/20/2018 Depression, unspecified depression type 12/20/2018 Irregular menstrual cycle 12/20/2018 Morbid obesity 12/20/2018 BMI 37.0-37.9, adult 02/04/2016 documented as of this encounter (statuses as of 07/11/2019) Immunizations Name Administration Dates Next Due Influenza Virus Vaccine Quad .5 mL IM 6+ MO 12/20/2018 documented as of this encounter Social History Tobacco Use Types Packs/Day Years Used Date Current Every Day Smoker Cigarettes 1 Sta rted: 12/20/2018 Smokeless Tobacco: Never Used Alcohol Use Drinks/Week oz/Week Comments Not Currently Sex Assigned at Date Recorded Not on file Job Start Date Occupation Industry Not on file Not on file Not on file Travel History Travel Start Travel End No recent travel history available. documented as of this encounter Last Filed Vital Signs Vital Sign Reading Time Taken Comments Blood Pressure - - Pulse - - Temperature - - Respiratory Rate - - Oxygen Saturation - - Inhaled Oxygen Concentration - - Weight 102.3 kg (225 lb 8 oz) 07/11/2019 4:16 PM CDT Height - - Body Mass Index 41.24 04/18/2019 3:44 PM MEDICAL SERVICE REPRESENTATIVE documented in this encounter Patient Instructions Patient InstructionsJennifer Long RN - 07/11/2019 3:30 PM CDT Patient Education Medroxyprogesterone injection [Contraceptive] Brand Names: Depo-Provera, Depo-subQ Provera 104 What is this medicine? MEDROXYPROGESTERONE (me DROX ee proe MORE te hiram) contraceptive injections prevent . They provide effective control for 3 months. Depo-subQ Provera 104 is also used for treating pain related to endometriosis. How should I use this medicine? Depo-Provera Contraceptive injection is given into a muscle. Depo-subQ Provera 104 injection is given under the skin. These injections are given by a health rn critical care. You must not be before getting an injection. The injection is usually given during the first 5 days after the start of a menstrual period or 6 weeks after delivery of a baby. Talk to your scalemaker regarding the use of this medicine in children. Special care may be needed. These injections have been used in female children who have started having menstrual periods. What side effects may I notice from receiving this medicine? Side effects that you should report to your doctor or health rn critical care as soon as possible: allergic reactions like skin rash, itching or hives, swelling of the face, lips, or tongue breast tenderness or discharge breathing problems changes in vision depression feeling faint or lightheaded, falls fever pain in the abdomen, chest, groin, or leg problems with balance, talking, walking unusually weak or tired yellowing of the eyes or skin Side effects that usually do not require medical attention (report to your doctor or health rn critical care if they continue or are bothersome): acne fluid retention and swelling headache irregular periods, spotting, or absent periods temporary pain, itching, or skin reaction at site where injected weight gain What may interact with this medicine? Do not take this medicine with any of the following medications: bosentan This medicine may also interact with the following medications: aminoglutethimide antibiotics or medicines for infections, especially rifampin, rifabutin, rifapentine, and griseofulvin aprepitant barbiturate medicines such as phenobarbital or primidone bexarotene carbamazepine medicines for seizures like ethotoin, felbamate, oxcarbazepine, phenytoin, topiramate modafinil Rik's wort What if I miss a dose? Try not to miss a dose. You must get an injection once every 3 months to maintain control. If you cannot keep an appointment, call and reschedule it. If you wait longer than 13 weeks between Depo-Provera contraceptive injections or longer than 14 weeks between Depo-subQ Provera 104 injections, you could get . Use another method for control if you miss your appointment. You may also need a test before receiving another injection. Where should I keep my medicine? This does not apply. The injection will be given to you by a health rn critical care. What should I tell my health care provider before I take this medicine? They need to know if you have any of these conditions: frequently drink alcohol asthma blood vessel disease or a history of a blood clot in the lungs or legs bone disease such as osteoporosis breast cancer diabetes eating disorder (anorexia nervosa or bulimia) high blood pressure HIV infection or AIDS kidney disease liver disease mental depression migraine seizures (convulsions) stroke tobacco smoker vaginal bleeding an unusual or allergic reaction to medroxyprogesterone, other hormones, medicines, foods, dyes, or preservatives or trying to get breast-feeding What should I watch for while using this medicine? This drug does not protect you against HIV infection (AIDS) or other sexually transmitted diseases. Use of this product may cause you to lose calcium from your bones. Loss of calcium may cause weak bones (osteoporosis). Only use this product for more than 2 years if other forms of control are not right for you. The longer you use this product for control the more likely you will be at risk for weak bones. Ask your health rn critical care how you can keep strong bones. You may have a change in bleeding pattern or irregular periods. Many females stop having periods while taking this drug. If you have received your injections on time, your chance of being is very low. If you think you may be , see your health rn critical care as soon as possible. Tell your health rn critical care if you want to get within the next year. The effect of this medicine may last a long time after you get your last injection. NOTE:This sheet is a summary. It may not cover all possible information. If you have questions aboutthis medicine, talk to your doctor, pharmacist, or health care provider. Copyright 2018 Elsevier documented in this encounter Progress Notes Jennifer Long RN - 07/11/2019 3:30 PM CDTPatient desires to continue with depo provera for contraception. Depo provera was given by drive through method without obtaining vital signs per institutional guidelines for patients with no significant medical history or risk factors due to weather (COVID-19). Patient denies headaches, visual disturbances, or SOB. I have also reviewed use, side effects and effectiveness of this control method. Patient verbalized no side effects at this time and desires to continue with method. Constitutional: Alert and no distress Respiratory: Breathing comfortably Neurology: Answers questions appropriately Psychological: Affect Normal 43 year old female has been identified by and name. Verbal consent has been obtained by patientto have an injection of Depo Provera, as ordered by the provider. Date of last Depo Provera injection: 04/18/2019 Last WWE: 04/18/2019 Encounter Diagnosis: v25.49 The site was cleaned with an alcohol swab and given intramuscularly (IM) in the right deltoid. A band aid dressing was then applied to the injection site. The patient tolerated the procedure well. Advised patient on Calcium intake 500-1200 mg daily. ED warnings given. Patient to return to clinic in 12 weeks for next Depo. Patient verbalized understanding. Jennifer Long RN 07/11/2019 4:17 PM documented in this encounter Plan of Treatment Date Type Specialty Care Team Description 10/03/2019 Nurse Visit OB Satellites Visit, [facility] Nurse Health Maintenance Due Date Last Done Comments Breast Cancer Screening 2015 (MAMMOGRAM) DTaP,Tdap,and Td Vaccines (1 12/21/2019 Pos tponed from - Tdap) 12/27/1986 ([place] Guidelines) PAP SMEAR 12/20/2021 12/20/2018, 10/27/2006, 09/27/2005 INFLUENZA VACCINE Completed 12/20/2018 PNEUMOCOCCAL 0-64 YEARS Discontinued COMBINED SERIES documented as of this encounter Results Not on filedocumented in this encounter Visit Diagnoses Diagnosis Encounter for surveillance of contracept giovanna, unspecified contraceptive - Primary documented in this encounter Administered Medications Medication Order MAR Action Action Date Dose Rate Site medroxyPROGESTERone Given 07/11/2019 4:18 150 mg Right (DEPO-PROVERA) injection 150 PM CDT Deltoid-IM mg 150 mg, Intramuscular, [id number], 3 doses, First dose on Emelia 07/11/19 at 1630, Last dose on Emelia 12/26/19 at 1630, Routine documented in this encounter Insurance Payer Benefit Plan Subscriber ID Effective Phone Address Typ e / Group Dates [facility] xxxxxxxxx 2018-Pres [phone] Medicaid WOMEN [address] [place] [address] documented as of this encounter
== END 2019-08-23 16:01 | disposition home or self-care (01) ==
LOC: ER 13:10
DX: U07.1 COVID-19 (principal); R19.7 Diarrhea, unspecified; F17.210 Nicotine dependence, cigarettes, uncomplicated; F34.1 Dysthymic disorder; Z88.6 Allergy status to analgesic agent
CPT/HCPCS: 74176; 76377; 81003; 81015; 81025; 87070; 87081; 87804; 99284; Q0169; U0001

== ENCOUNTER 2020-01-18 14:27 | Emergency (ER) | payer SELFPAY ==
--- OUTSIDE RECORDS SUMMARY | 2020-01-18 14:30 | XMS REPORT | Continuity of Care Document ---
:1975 Author Organization [facility] t Address [address] [place] [address] Care Team Providers Name Role Phone Visit, Nurse Attending Clinician Unavailable Care, 6 Adult Urgent Attending Clinician Unavailable Tate PRESIDENT & CEO, R Attending Clinician Lawrence PRESIDENT & CEO, N Attending Clinician Problems This patient has no known problems. Allergies, Adverse Reactions, Alerts This patient has no known allergies or adverse reactions. Medications This patient has no known medications. Procedures This patient has no known procedures. Encounters Start End Encounter Admission Attending Care Care Encounter Source Date/Time Date/Time Type Type Clinicians Facility Department ID 2019-10-03 2019-10-03 Nurse Visit, [facility] [id number] 15:41:00 16:02:[facility] ASS[facility] [id number] Nurse [facility] [id number] MATERNAL [id number] & CHILD [address] [facility] 2019-07-11 2019-07-11 Nurse Visit, [facility] [id number] 15:28:40 16:15:25 Visit [facility] HEALTHCARE ADMINISTRATIVE ASSISTANT [id number] Nurse [facility] [id number] MATERNAL [phone] & CHILD 107 [facility] 2019-05-20 2019-05-20 Telemedici Care, [facility] [id number] 12:50:40 13:05:40 ne Visit Provider 6 SPECIALTY [id number] Adult CARE [id number] Urgent CENTER AT [id number] BRITTANY [address] [facility] 2019-04-30 2019-04-30 [facility] [id number] 06:26:00 23:59:00 Encounter Carylrachelesudha Moore SPECIALTY [id number] CARE [id number] CENTER AT [id number] BRITTANY [address] [facility] 2019-04-18 2019-04-18 Office Lawrence [facility] [id number] 2020 15:20:28 16:14:26 Visit Nallely Espinosa HEALTHCARE ADMINISTRATIVE ASSISTANT [id number] REGIONAL [id number] MATERNAL [phone] & CHILD [address] [place] [address] - [place] Results This patient has no known results.
--- NOTE | 2020-01-18 16:26 | RAD REPORT ---
EXAM DESCRIPTION: Bonnie Single View01/18/2020 4:16 pm CLINICAL HISTORY: Chest pain COMPARISON: 2018 FINDINGS: The lungs appear clear of acute infiltrate. The heart is normal size IMPRESSION: No acute abnormalities displayed
--- NOTE | 2020-01-18 16:29 | RAD REPORT ---
EXAM DESCRIPTION: RAD - Humerus Right - 01/18/2020 4:16 pm CLINICAL HISTORY: Right arm pain FINDINGS: No fracture is seen. No bony abnormality noted
[2020-01-18] MEDS ORDERED: FENTANYL CITR 100 MCG/2 ML ONE (16:42)
[2020-01-18] MEDS ORDERED: DIAZEPAM 10 MG/2 ML INJ SYRINGE ONE (16:43)
[2020-01-18 17:32] LABS: Absolute Lymphocytes (CBC) 3.5 K/uL (0.7-4.9); Basophils % 0.8 % (0-1.3); Hematocrit 38.2 % (36.0-45.0); Lymphocytes % 26.9 % (15.3-44.8); RBC Red Blood Cell Count 4.03 M/uL (3.86-4.86)
[2020-01-18 17:33] LABS: Protime INR 0.99
--- NOTE | 2020-01-18 17:34 | RAD REPORT ---
EXAM DESCRIPTION: USExtremity Venous Uni Ltd01/18/2020 5:11 pm CLINICAL HISTORY: Right arm pain COMPARISON: None FINDINGS: The right internal jugular, right subclavian, right cephalic, right axillary, right brach ial, right basilic, veins are generally compressible and demonstrate augmentation. Doppler demonstra fany good flow. IMPRESSION: No evidence of thrombus within the veins of the right upper extremity
[2020-01-18 17:47] LABS: ALT/SGPT 23 U/L (12-78); AST/SGOT 16 U/L (15-37); Albumin 3.7 g/dL (3.4-5.0); Alkaline Phosphatase 57 U/L (45-117); BUN Blood Urea Nitrogen 7 mg/dL (7-18); Bicarbonate 26 mmol/L (21-32); Bilirubin Direct < 0.1 mg/dL (0-0.2); Bilirubin Total 0.3 mg/dL (0.2-1.0); Glucose Level 81 mg/dL (74-106); Magnesium 2.3 mg/dL (1.8-2.4); Potassium 3.7 mmol/L (3.5-5.1); Protein, Total 7.6 g/dL (6.4-8.2); Sodium Level 140 mmol/L (136-145); Troponin (Emerg Dept Use Only) < 0.02 ng/mL (0.0-0.045)
--- NOTE | 2020-01-18 18:30 | ER ---
Nurse's Notes [facility] Name: Jessica Kim Age: 44 yrs Sex: Female : 1975 Arrival Date: 01/18/2020 Time: 14:28 Bed 18 Private MD: Diagnosis: Pain in right upper arm;Pain in right shoulder;Other chest pain;Dorsalgia Presentation: 01/17 14:36 Chief complaint: Patient states: Neck stiffness for 3 days. Upper chest pain off/on for ll1 2 days. Right arm pain today. No fever. Coronavirus screen: Client denies travel out of the [place] in the last 14 days. At this time, the client does not indicate any symptoms associated with coronavirus-19. Ebola Screen: Patient denies travel to an Ebola-affected area in the 21 days before illness onset. Initial Sepsis Screen: Does the patient meet any 2 criteria? HR > 90 bpm. No. Patient's initial sepsis screen is negative. Does the patient have a suspected source of infection? No. Patient's initial sepsis screen is negative. Risk Assessment: Do you want to hurt yourself or someone else? Patient reports no desire to harm self or others. Onset of symptoms was January 16, 2020. 14:36 Method Of Arrival: Ambulatory ll1 14:36 Acuity: HOWARD 3 ll1 Historical: - Allergies: 14:39 NSAIDS; ll1 - PMHx: 14:39 Anxiety; Depression; endomitriosis; tendenitis; ll1 - PSHx: 14:39 Cholecystectomy; ; Tubal ligation; ll1 - Immunization history:: Flu vaccine is not up to date. - Social history:: Smoking status: Patient reports the use of cigarette tobacco products, smokes one-half pack cigarettes per day. Assessment: 16:34 Reassessment: US at bedside. ae4 18:34 Reassessment: Patient c/o increased pain to right arm, provider notified, new orders ae4 received. Vital Signs: 14:36 BP 129 / 87; Pulse 98; Resp 18; Temp 98.1; Pulse Ox 100% ; Weight 100.7 kg; Height 5 ll1 ft. 2 in. (157.48 cm); Pain 9/10; 14:36 Body Mass Index 40.60 (100.70 kg, 157.48 cm) ll1 ED Course: 14:28 Patient arrived in ED. ds1 14:38 Triage completed. ll1 14:39 Arm band placed on. EKG completed in triage. Results shown to MD. ll1 15:15 Osei Hale PA is PHCP. cp 15:15 Jesus López MD is Attending Physician. cp 15:23 Reid Ramos, RN is Primary Nurse. ae4 16:17 XRAY Chest (1 view) In Process Unspecified. EDMS 16:17 XRAY Humerus RIGHT In Process Unspecified. EDMS 17:12 US Extremity Venous Unilateral Ltd In Process Unspecified. EDMS 17:19 Initial lab(s) drawn, by nm, sent to lab. Inserted saline lock: 20 gauge in left 3 antecubital area, using aseptic technique. Blood collected. 17:55 Basic Metabolic Panel Sent. sv 18:29 Ramirez Bear MD is Referral Physician. cp Administered Medications: 17:30 Drug: Diazepam 2 mg Route: IVP; Site: left antecubital; ae4 18:43 Follow up: Response: No adverse reaction; Pain is decreased; RASS: Alert and Calm (0) ae4 17:34 Drug: fentaNYL (PF) 25 mcg Route: IVP; Site: left antecubital; ae4 18:43 Follow up: Response: No adverse reaction; Pain is decreased ae4 18:30 Drug: fentaNYL (PF) 25 mcg Route: IVP; Site: left antecubital; ae4 18:43 Follow up: Response: Pain is decreased ae4 18:30 Drug: Diazepam 2 mg Route: IVP; Site: left antecubital; ae4 18:44 Follow up: Response: Pain is decreased; RASS: Alert and Calm (0) ae4 Outcome: 18:30 Discharge ordered by MD. cp 18:49 Patient left the ED. ae4 Signatures: Dispatcher [employer] EDMS Jyothi Payne, RN RN Brigitte Chowdary ds1 Osei Hale PA [place] [id number] Reid Ramos, RN RN ae4 Crys Menendez RN RN ll1
--- NOTE | 2020-01-18 18:31 | EDPHYS ---
Physician Documentation [facility] Name: Jessica Kim Age: 44 yrs Sex: Female : 1975 Arrival Date: 01/18/2020 Time: 14:28 Bed 18 Private MD: ED Physician Jesus López HPI: 01/17 15:40 This 44 yrs old Female presents to ER via Ambulatory with complaints of Chest cp Pain, Numbness in Arm. 15:40 The patient or guardian complains of pain, that is acute, tenderness. cp 15:40 The complaints affect the right shoulder and right upper arm. Onset: The cp symptoms/episode began/occurred this morning. Associated signs and symptoms: Pertinent negatives: deformity, fever, injury. Patient reports having right upper back pain that started 2 days ago and episode of chest pain yesterday. Historical: - Allergies: 14:39 NSAIDS; ll1 - PMHx: 14:39 Anxiety; Depression; endomitriosis; tendenitis; ll1 - PSHx: 14:39 Cholecystectomy; ; Tubal ligation; ll1 - Immunization history:: Flu vaccine is not up to date. - Social history:: Smoking status: Patient reports the use of cigarette tobacco products, smokes one-half pack cigarettes per day. ROS: 15:45 Constitutional: Negative for body aches, chills, fever, poor PO intake. cp 15:45 Eyes: Negative for injury, pain, redness, and discharge. cp 15:45 ENT: Negative for ear pain, sore throat, difficulty swallowing, difficulty handling cp secretions. 15:45 Neck: Positive for pain with movement, pain at rest, tenderness, of the right lateral neck. 15:45 Cardiovascular: Positive for edema, palpitations. 15:45 Respiratory: Negative for cough, wheezing. 15:45 Abdomen/GI: Negative for abdominal pain, nausea, vomiting, and diarrhea. 15:45 Back: Positive for pain at rest, pain with movement, of the right scapular area. cp 15:45 Skin: Negative for rash. 15:45 Neuro: Positive for numbness, of the right arm, Negative for altered mental status, headache, weakness. 15:45 All other systems are negative. Exam: 14:45 ECG was reviewed by the Attending Physician. cp 15:50 Constitutional: The patient appears in no acute distress, alert, awake, cp non-diaphoretic, non-toxic, well developed, well nourished, uncomfortable. 15:50 Head/Face: Normocephalic, atraumatic. cp 15:50 Eyes: Periorbital structures: appear normal, Conjunctiva: normal, no exudate, no injection, Lids and lashes: appear normal, bilaterally. 15:50 ENT: External ear(s): are unremarkable, Nose: is normal, Mouth: Lips: moist, Oral mucosa: moist, Posterior pharynx: Airway: no evidence of obstruction, patent. 15:50 Neck: External neck: tenderness, that is moderate, right lateral neck. 15:50 Chest/axilla: Inspection: normal, Palpation: crepitus, is not appreciated, tenderness, that is mild, of the right clavicle and anterior aspect of right upper chest. 15:50 Cardiovascular: Rate: normal, Rhythm: regular. 15:50 Respiratory: the patient does not display signs of respiratory distress, Respirations: normal, no use of accessory muscles, no retractions, labored breathing, is not present, Breath sounds: are clear throughout, no decreased breath sounds, no stridor, no wheezing. 15:50 Abdomen/GI: Exam negative for discomfort, distension, guarding, Inspection: abdomen appears normal. 15:50 Back: pain, that is mild, of the right scapular area, vertebral tenderness, is not appreciated. 15:50 Musculoskeletal/extremity: Extremities: grossly normal except: noted in the right upper arm: pain, tenderness, ROM: limited passive range of motion due to pain, in the right shoulder, Pulses: noted to be 2+ in the right radial artery and left radial artery, Sensation intact. 15:50 Skin: no rash present. 15:50 Neuro: Orientation: to person, place \T\ time. Mentation: is normal. Vital Signs: 14:36 BP 129 / 87; Pulse 98; Resp 18; Temp 98.1; Pulse Ox 100% ; Weight 100.7 kg; Height 5 ll1 ft. 2 in. (157.48 cm); Pain 9/10; 14:36 Body Mass Index 40.60 (100.70 kg, 157.48 cm) ll1 MDM: 15:35 Patient medically screened. cp 16:00 Differential diagnosis: dislocation, closed fracture, tendonitis, DVT, acute LA, cp pulmonary embolism. 18:30 Data reviewed: vital signs, nurses notes, lab test result(s), EKG, radiologic studies, cp plain films. 18:30 Counseling: I had a detailed discussion with the patient and/or guardian regarding: the cp historical points, exam findings, and any diagnostic results supporting the discharge/admit diagnosis, lab results, radiology results, the need for outpatient follow up, a orthopedic surgeon, to return to the emergency department if symptoms worsen or persist or if there are any questions or concerns that arise at home. Response to treatment: the patient's symptoms have markedly improved after treatment, and as a result, I will discharge patient. ED course: VSS. Pain improved with meds. Labs, EKG negative for cardiac cause of pain. Will discharge to home for continued monitoring. 01/17 15:38 Order name: Basic Metabolic Panel 01/17 15:38 Order name: CBC with Diff; Complete Time: 17:58 cp 01/17 17:58 Interpretation: Normal except: WBC 13.0; MPV 7.0; NEUT A 8.1. cp 01/17 15:38 Order name: LFT's; Complete Time: 17:58 cp 01/17 17:58 Interpretation: Normal except: GLOB 3.9; A/G 0.9. cp 01/17 15:38 Order name: Magnesium; Complete Time: 17:58 cp 01/17 15:38 Order name: PT-INR; Complete Time: 17:58 cp 01/17 15:38 Order name: Troponin (emerg Dept Use Only); Complete Time: 17:58 cp 01/17 15:38 Order name: XRAY Chest (1 view); Complete Time: 17:11 cp 01/17 15:38 Order name: XRAY Humerus RIGHT; Complete Time: 17:11 cp 01/17 15:38 Order name: US Extremity Venous Unilateral Ltd; Complete Time: 17:58 cp 01/17 15:38 Order name: Basic Metabolic Panel; Complete Time: 17:58 EDMS 01/17 17:59 Interpretation: Normal except: CL 109. 01/17 17:46 Order name: Urine Dipstick--Ancillary (enter results) eb 01/17 17:46 Order name: Urine --Ancillary (enter results) eb 01/17 15:00 Order name: EKG - Nurse/Tech; Complete Time: 15:00 ll1 01/17 15:38 Order name: EKG; Complete Time: 15:39 cp 01/17 15:38 Order name: Cardiac monitoring; Complete Time: 17:36 cp 01/17 15:38 Order name: IV Saline Lock; Complete Time: 17:24 cp 01/17 15:38 Order name: Labs collected and sent; Complete Time: 17:24 cp 01/17 15:38 Order name: O2 Per Protocol; Complete Time: 17:11 cp 01/17 15:38 Order name: O2 Sat Monitoring; Complete Time: 17:11 cp 01/17 15:39 Order name: Urine Dipstick-Ancillary (obtain specimen); Complete Time: 17:37 cp 01/17 15:39 Order name: Urine Test (obtain specimen); Complete Time: 17:37 cp 01/17 18:33 Order name: Sling; Complete Time: 18:44 cp EC:45 Rate is 94 beats/min. Rhythm is regular. SD interval is normal. QRS interval is normal. cp QT interval is normal. T waves are Inverted in lead aVR. Interpreted by me. Reviewed by me. Administered Medications: 17:30 Drug: Diazepam 2 mg Route: IVP; Site: left antecubital; ae4 18:43 Follow up: Response: No adverse reaction; Pain is decreased; RASS: Alert and Calm (0) ae4 17:34 Drug: fentaNYL (PF) 25 mcg Route: IVP; Site: left antecubital; ae4 18:43 Follow up: Response: No adverse reaction; Pain is decreased ae4 18:30 Drug: fentaNYL (PF) 25 mcg Route: IVP; Site: left antecubital; ae4 18:43 Follow up: Response: Pain is decreased ae4 18:30 Drug: Diazepam 2 mg Route: IVP; Site: left antecubital; ae4 18:44 Follow up: Response: Pain is decreased; RASS: Alert and Calm (0) ae4 Disposition: 01/18 07:03 Co-signature as Attending Physician, Jesus López MD I agree with the assessment and kdr plan of care. Disposition: 01/18/20 18:30 Discharged to Home. Impression: Pain in right upper arm, Pain in right shoulder, Other chest pain, Dorsalgia. - Condition is Stable. - Discharge Instructions: Back Pain, Adult, Nonspecific Chest Pain, Shoulder Pain. - Prescriptions for Tylenol- Codeine #3 300-30 mg Oral Tablet - take 2 tablets by ORAL route every 8 hours As needed; 15 tablet. Baclofen 10 mg Oral Tablet - take 1 tablet by ORAL route 3 times per day; 20 tablet. - Medication Reconciliation Form, Thank You Letter, Antibiotic Education, Prescription Opioid Use form. - Follow up: Ramriez Bear MD; When: 2 - 3 days; Reason: Recheck today's complaints. - Problem is new. - Symptoms have improved. Signatures: Dispatcher [employer] EDMS Jesus López MD MD kdr Osei Hale PA PA cp Reid Ramos RN RN ae4 Crys Menendez RN RN ll1 Corrections: (The following items were deleted from the chart) 01/17 16:07 16:06 ECG was reviewed by the Attending Physician. cp cp 16:07 16:06 Rate is 94 beats/min. Rhythm is regular. SD interval is normal. QRS interval is cp normal. QT interval is normal. T waves are Inverted in lead aVR. Interpreted by me. Reviewed by me. cp 17:58 17:58 Normal except: WBC 13.0; MPV 7.0. cp cp 18:32 18:30 01/18/2020 18:30 Discharged to Home. Impression: Pain in right upper arm; Pain in cp right shoulder; Other chest pain. Condition is Stable. Forms are Medication Reconciliation Form, Thank You Letter, Antibiotic Education, Prescription Opioid Use. Follow up: Ramirez Bear; When: 2 - 3 days; Reason: Recheck today's complaints. Problem is new. Symptoms have improved. cp 18:49 18:32 01/18/2020 18:30 Discharged to Home. Impression: Pain in right upper arm; Pain in ae4 right shoulder; Other chest pain; Dorsalgia. Condition is Stable. Discharge Instructions: Shoulder Pain, Back Pain, Adult, Nonspecific Chest Pain. Prescriptions for Tylenol-Codeine #3 300-30 mg Oral Tablet - take 2 tablets by ORAL route every 8 hours As needed; 15 tablet, Baclofen 10 mg Oral Tablet - take 1 tablet by ORAL route 3 times per day; 20 tablet. and Forms are Medication Reconciliation Form, Thank You Letter, Antibiotic Education, Prescription Opioid Use. Follow up: Ramirez Bear; When: 2 - 3 days; Reason: Recheck today's complaints. Problem is new. Symptoms have improved. cp
[2020-01-18 18:35] LABS: Urine Blood NEGATIVE (NEG); Urine Glucose NEGATIVE (NEG); Urine Protein NEGATIVE (NEG); Urine Specific Gravity 1.015 (1.005-1.030); Urine pH 6.5 (5.0-7.0)
[2020-01-19 01:23] VITALS: BP 129/87; TEMP 98.1; O2SAT 100
== END 2020-01-18 18:49 | disposition home or self-care (01) ==
LOC: ER 14:27
DX: R07.89 Other chest pain (principal); M25.511 Pain in right shoulder; M54.9 Dorsalgia, unspecified; F17.210 Nicotine dependence, cigarettes, uncomplicated; Z88.6 Allergy status to analgesic agent
CPT/HCPCS: 36415; 71045; 80048; 80076; 81003; 81025; 83735; 84484; 85025; 85610; 93005; 93971; 96374; 96375; 99284; J3010; J3360

== ENCOUNTER 2020-04-21 02:53 | Emergency (ER) | payer SELFPAY ==
--- OUTSIDE RECORDS SUMMARY | 2020-04-21 02:56 | XMS REPORT | Continuity of Care Document ---
:1975 Author Organization [facility] t Address [address] [place] [place] [address] Care Team Providers Name Role Phone Visit, Nurse Attending Clinician Unavailable Care, 6 Adult Urgent Attending Clinician Unavailable Tate SNAGGER, R Attending Clinician Lawrence SNAGGER, N Attending Clinician Problems This patient has no known problems. Allergies, Adverse Reactions, Alerts This patient has no known allergies or adverse reactions. Medications This patient has no known medications. Procedures This patient has no known procedures. Encounters Start End Encounter Admission Attending Care Care Encounter Source Date/Time Date/Time Type Type Clinicians Facility Department ID 2019-10-03 2019-10-03 Nurse Visit, [facility] [id number] 18 15:41:00 16:02:[id number] [facility] [id number] MATERNAL [id number] & CHILD 107 [facility] 2019-07-11 2019-07-11 Nurse Visit, [facility] [id number] 15:28:40 16:15:25 Visit [facility] [id number] [facility] [id number] MATERNAL [id number] & CHILD 107 [facility] 2019-05-20 2019-05-20 [facility] Care, [facility] [id number] 12:50:40 13:05:40 ne Visit Provider 6 SPECIALTY [id number] Adult CARE [id number] Urgent CENTER AT [phone] BRITTANY [address] [facility] 2019-04-30 2019-04-30 [facility] [id number] 06:26:00 23:59:00 Encounter Eric Moore SPECIALTY [id number] CARE [id number] CENTER AT [id number] BRITTANY 815 [facility] 2019-04-18 2019-04-[address] [facility] [id number] 2020 15:20:28 16:14:26 Visit Nallely Espinosa MOT[employer] KEEPER [id number] REGIONAL [id number] MATERNAL [phone] & CHILD [address] [place] [address] [facility]INIC - [place] Results This patient has no known results.
[2020-04-21] MEDS ORDERED: NA CHLORIDE 0.9% 1,000 ML ONE (03:39)
[2020-04-21] MEDS ORDERED: ONDANSETRON 4 MG/2 ML VIAL ONE (03:39)
[2020-04-21 04:03] LABS: Absolute Lymphocytes (CBC) 1.6 K/uL (0.7-4.9); Basophils % 0.2 % (0-1.3); Hematocrit 40.9 % (36.0-45.0); Lymphocytes % 9.7 % (15.3-44.8); MPV 7.7 fL (7.6-11.3); RBC Red Blood Cell Count 4.23 M/uL (3.86-4.86)
[2020-04-21 04:10] LABS: ALT/SGPT 32 U/L (12-78); Albumin 3.4 g/dL (3.4-5.0); Alkaline Phosphatase 61 U/L (45-117); BUN Blood Urea Nitrogen 9 mg/dL (7-18); Bicarbonate 24 mmol/L (21-32); Bilirubin Direct < 0.1 mg/dL (0-0.2); Bilirubin Total 0.2 mg/dL (0.2-1.0); Glucose Level 104 mg/dL (74-106); Lipase 49 U/L (73-393); Protein, Total 7.6 g/dL (6.4-8.2); Sodium Level 137 mmol/L (136-145)
[2020-04-21 04:15] LABS: AST/SGOT 24 U/L (15-37)
[2020-04-21] MEDS ORDERED: PROMETHAZINE INJ 25 MG/ML AMP ONE (04:32)
[2020-04-21] MEDS ORDERED: DICYCLOMINE HCL 10 MG CAP ONE (04:32)
--- NOTE | 2020-04-21 05:03 | ER ---
Nurse's Notes [facility] Name: Jessica Kim Age: 44 yrs Sex: Female : 1975 Arrival Date: 04/21/2020 Time: 02:56 Bed 6 Private MD: Diagnosis: Other viral enteritis Presentation: 04/21 03:20 Method Of Arrival: Ambulatory mg2 03:20 Chief complaint: Patient states: i have sore throat and nasal congestion for 2 days. mg2 today started to have abdominal pain, diarrhea and vomiting. Coronavirus screen: Client presents with at least one sign or symptom that may indicate coronavirus-19. Provider contacted for isolation considerations. Ebola Screen: No symptoms or risks identified at this time. Initial Sepsis Screen: Does the patient meet any 2 criteria? No. Patient's initial sepsis screen is negative. Does the patient have a suspected source of infection? No. Patient's initial sepsis screen is negative. Risk Assessment: Do you want to hurt yourself or someone else? Patient reports no desire to harm self or others. Onset of symptoms was April 19, 2020. 03:20 Acuity: HOWARD 3 mg2 Triage Assessment: 03:29 General: Appears in no apparent distress. comfortable, Behavior is calm, cooperative. mg2 Pain: Complains of pain in abdomen. EENT: Reports sore throat. Neuro: Level of Consciousness is awake, alert, obeys commands, Oriented to person, place, time, situation. Cardiovascular: Capillary refill < 3 seconds Patient's skin is warm and dry. Respiratory: Airway is patent Respiratory effort is even, unlabored, Respiratory pattern is regular, symmetrical. GI: Reports lower abdominal pain, upper abdominal pain, diarrhea, nausea, vomiting. : No signs and/or symptoms were reported regarding the genitourinary system. Derm: Skin is intact, is healthy with good turgor, Skin is pink, warm \T\ dry. normal. Musculoskeletal: Circulation, motion, and sensation intact. Capillary refill < 3 seconds. 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 - Social history:: Smoking status: Patient reports the use of cigarette tobacco products, smokes one-half pack cigarettes per day, Patient/guardian denies using alcohol, street drugs. Screenin:31 Abuse screen: Denies threats or abuse. Denies injuries from another. Nutritional mg2 screening: No deficits noted. Tuberculosis screening: No symptoms or risk factors identified. Fall Risk IV access (20 points). Assessment: 03:31 General: see triage note. mg2 Vital Signs: 03:20 BP 130 / 100; Pulse 102; Resp 18; Temp 98.3; Pulse Ox 97% on R/A; Weight 100.7 kg; mg2 Height 5 ft. 2 in. (157.48 cm); 04:25 BP 127 / 81; Pulse 103; Resp 16; Pulse Ox 99% on R/A; em 05:25 BP 120 / 80; Pulse 99; Resp 18; Pulse Ox 98% on R/A; mg2 03:20 Body Mass Index 40.60 (100.70 kg, 157.48 cm) mg2 ED Course: 02:56 Patient arrived in ED. cl3 03:01 Mane Goddard MD is Attending Physician. tw4 03:14 Keanu Blakely, RICKY is Primary Nurse. mg2 03:25 Inserted saline lock: 20 gauge in right antecubital area, using aseptic technique. mg2 Blood collected. 03:26 Triage completed. mg2 03:31 No provider procedures requiring assistance completed. mg2 03:31 Patient has correct armband on for positive identification. Door closed. Warm blanket mg2 given. 03:32 Arm band placed on. mg2 05:25 IV discontinued, intact, bleeding controlled, No redness/swelling at site. Pressure mg2 dressing applied. Administered Medications: 03:23 Drug: NS 0.9% 1000 ml Route: IV; Rate: 1 bolus; Site: right antecubital; mg2 04:13 Follow up: IV Status: Completed infusion; IV Intake: 1000ml em 03:23 Drug: Zofran (Ondansetron) 4 mg Route: IVP; Site: right antecubital; mg2 04:13 Follow up: Response: No adverse reaction; No change in condition; Nausea unchanged em 04:24 Drug: Phenergan 25 mg Route: IVP; Site: right antecubital; em 04:53 Drug: Bentyl 20 mg Route: PO; em Intake: 04:13 IV: 1000ml; Total: 1000ml. em Outcome: 05:02 Discharge ordered by . tw4 05:26 Discharged to home ambulatory. mg2 05:26 Condition: stable 05:26 Discharge instructions given to patient, Instructed on discharge instructions, follow up and referral plans. medication usage, Demonstrated understanding of instructions, follow-up care, medications, Prescriptions given X 3. 05:27 Patient left the ED. mg2 Signatures: Romain Loo, RN RN Mane Rios MD MD tw4 Keanu Blakely RN RN mg2 Tyshawn Menendez cl3
--- NOTE | 2020-04-21 05:03 | EDPHYS ---
Physician Documentation [facility] Name: Jessica Kim Age: 44 yrs Sex: Female : 1975 Arrival Date: 04/21/2020 Time: 02:56 Bed 6 Private MD: ED Physician Mane Goddard HPI: 04/21 04:20 This 44 yrs old Female presents to ER via Ambulatory with complaints of tw4 Vomiting/Diarrhea. 04:20 The patient presents to the emergency department with nausea, that is moderate, tw4 vomiting, that is continuous, diarrhea, that is continuous. Onset: The symptoms/episode began/occurred today. Possible causes: unknown. The symptoms are aggravated by nothing. The symptoms are alleviated by nothing. Associated signs and symptoms: The patient has no apparent associated signs or symptoms. Severity of symptoms: At their worst the symptoms were moderate in the emergency department the symptoms are unchanged. The patient has not experienced similar symptoms in the past. 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 - Social history:: Smoking status: Patient reports the use of cigarette tobacco products, smokes one-half pack cigarettes per day, Patient/guardian denies using alcohol, street drugs. ROS: 04:20 Constitutional: Negative for fever, chills, and weight loss, Eyes: Negative for injury, tw4 pain, redness, and discharge, Cardiovascular: Negative for chest pain, palpitations, and edema, Respiratory: Negative for shortness of breath, cough, wheezing, and pleuritic chest pain, Back: Negative for injury and pain, MS/Extremity: Negative for injury and deformity, Skin: Negative for injury, rash, and discoloration, Neuro: Negative for headache, weakness, numbness, tingling, and seizure. 04:20 Abdomen/GI: Positive for abdominal pain, nausea and vomiting, nausea, vomiting, and diarrhea, nausea, vomiting, diarrhea, Negative for constipation, abdominal cramps, abdominal distension, anorexia, dysphagia, hematemesis, black/tarry stool, rectal pain, rectal bleeding, bowel incontinence, flatulence. Exam: 04:20 Constitutional: This is a well developed, well nourished patient who is awake, alert, tw4 and in no acute distress. Head/Face: Normocephalic, atraumatic. Chest/axilla: Normal chest wall appearance and motion. Nontender with no deformity. No lesions are appreciated. Cardiovascular: Regular rate and rhythm with a normal S1 and S2. No gallops, murmurs, or rubs. Normal PMI, no JVD. No pulse deficits. Respiratory: Lungs have equal breath sounds bilaterally, clear to auscultation and percussion. No rales, rhonchi or wheezes noted. No increased work of breathing, no retractions or nasal flaring. Abdomen/GI: Soft, non-tender, with normal bowel sounds. No distension or tympany. No guarding or rebound. No evidence of tenderness throughout. Back: No spinal tenderness. No costovertebral tenderness. Full range of motion. Skin: Warm, dry with normal turgor. Normal color with no rashes, no lesions, and no evidence of cellulitis. MS/ Extremity: Pulses equal, no cyanosis. Neurovascular intact. Full, normal range of motion. Neuro: Awake and alert, GCS 15, oriented to person, place, time, and situation. Cranial nerves II-XII grossly intact. Motor strength 5/5 in all extremities. Sensory grossly intact. Cerebellar exam normal. Normal gait. Vital Signs: 03:20 BP 130 / 100; Pulse 102; Resp 18; Temp 98.3; Pulse Ox 97% on R/A; Weight 100.7 kg; mg2 Height 5 ft. 2 in. (157.48 cm); 04:25 BP 127 / 81; Pulse 103; Resp 16; Pulse Ox 99% on R/A; em 05:25 BP 120 / 80; Pulse 99; Resp 18; Pulse Ox 98% on R/A; mg2 03:20 Body Mass Index 40.60 (100.70 kg, 157.48 cm) mg2 MDM: 03:30 Patient medically screened. tw4 04:20 Differential diagnosis: Nonspecific abd pain, gastritis, cholecystitis, pancreatitis, tw4 appendicitis. Data reviewed: vital signs, nurses notes. Data interpreted: Pulse oximetry: Interpretation: normal. Counseling: I had a detailed discussion with the patient and/or guardian regarding: the historical points, exam findings, and any diagnostic results supporting the discharge/admit diagnosis, lab results. 04/21 03:01 Order name: Basic Metabolic Panel; Complete Time: 04:22 4 04/21 04:22 Interpretation: Normal except: CRE 0.54. 04/21 03:01 Order name: CBC with Diff; Complete Time: 04:22 4 04/21 04:22 Interpretation: Normal except: WBC 16.00; LYM% 9.7; ANNIE% 81.7; PLT 429. 04/21 03:01 Order name: Hepatic Function; Complete Time: 04:22 4 04/21 04:22 Interpretation: Normal except: A/G 0.8; GLOB 4.2. 04/21 03:01 Order name: Lipase; Complete Time: 04:22 4 04/21 04:22 Interpretation: Abnormal: LIP 49. 04/21 03:01 Order name: IV Saline Lock; Complete Time: 03:23 4 04/21 03:01 Order name: Labs collected and sent; Complete Time: 03:33 tw4 Administered Medications: 03:23 Drug: NS 0.9% 1000 ml Route: IV; Rate: 1 bolus; Site: right antecubital; mg2 04:13 Follow up: IV Status: Completed infusion; IV Intake: 1000ml em 03:23 Drug: Zofran (Ondansetron) 4 mg Route: IVP; Site: right antecubital; mg2 04:13 Follow up: Response: No adverse reaction; No change in condition; Nausea unchanged em 04:24 Drug: Phenergan 25 mg Route: IVP; Site: right antecubital; em 04:53 Drug: Bentyl 20 mg Route: PO; em Disposition: 04/21/20 05:02 Discharged to Home. Impression: Other viral enteritis. - Condition is Stable. - Discharge Instructions: Food Choices to Help Relieve Diarrhea, Adult, Viral Gastroenteritis, Adult. - Prescriptions for Bentyl 20 mg Oral Tablet - take 1 tablet by ORAL route every 6 hours As needed; 20 tablet. Lomotil 2.5- 0.025 mg Oral Tablet - take 2 tablet by ORAL route once daily As needed; 20 tablet. promethazine 25 mg Oral Tablet - take 1 tablet by ORAL route every 6 hours As needed; 20 tablet. - Medication Reconciliation Form, Thank You Letter, Antibiotic Education, Prescription Opioid Use form. - Follow up: Private Physician; When: Upon discharge from the Emergency Department; Reason: Recheck today's complaints, Continuance of care, Re-evaluation by your physician. - Problem is new. - Symptoms have improved. Signatures: Dispatcher [employer] EDRomain Bhardwaj, RN RN Mane Goddard MD MD tw4 Keanu Blakely RN RN mg2 Corrections: (The following items were deleted from the chart) 05:27 05:02 04/21/2020 05:02 Discharged to Home. Impression: Other viral enteritis. Condition mg2 is Stable. Forms are Medication Reconciliation Form, Thank You Letter, Antibiotic Education, Prescription Opioid Use. Follow up: Private Physician; When: Upon discharge from the Emergency Department; Reason: Recheck today's complaints, Continuance of care, Re-evaluation by your physician. Problem is new. Symptoms have improved. tw4
[2020-04-21 06:17] VITALS: TEMP 98.3
[2020-04-21 06:20] VITALS: BP 120/80; O2SAT 98
== END 2020-04-21 05:27 | disposition home or self-care (01) ==
LOC: ER 02:53
DX: A08.39 Other viral enteritis (principal); F17.210 Nicotine dependence, cigarettes, uncomplicated; F41.8 Other specified anxiety disorders; Z88.6 Allergy status to analgesic agent
CPT/HCPCS: 36415; 80048; 80076; 83690; 85025; 96361; 96374; 96375; 99284; J2405; J2550; J7030

== ENCOUNTER 2020-08-26 00:20 | Emergency (ER) | payer SELFPAY ==
--- OUTSIDE RECORDS SUMMARY | 2020-08-26 00:21 | XMS REPORT | Continuity of Care Document ---
:[address] [facility] t Address [address] [place] [address] Care Team Providers Name Role Phone Devaughn Shukla DO Attending Clinician Visit, Nurse Attending Clinician Unavailable Care, 6 Adult Urgent Attending Clinician Unavailable Tate JIMENEZP, R Attending Clinician Lawrence JIMENEZP, N Attending Clinician Problems This patient has no known problems. Allergies, Adverse Reactions, Alerts This patient has no known allergies or adverse reactions. Medications This patient has no known medications. Procedures This patient has no known procedures. Encounters Start End Encounter Admission Attending Care Care Encounter Source Date/Time Date/Time Type Type Clinicians Facility Department ID 2020-05-14 2020-05-14 Patient CARITO Shukla [id number] 00:00:00 00:00:00 Outreach [facility] [id number] Devaughn [facility] [id number] PAVILLION [id number] 2019-10-03 2019-10-03 Nurse Visit, [facility] [id number] 18 15:41:00 16:02:48 Visit Morisjolly POWDER CUTTING OPERATOR [id number] Nurse REGIONAL [id number] MATERNAL [phone] & CHILD [address] [place] [address] 2019-07-11 2019-07-11 Nurse Visit, [facility] [id number] 15:28:40 16:15:25 Visit Annelise POWDER CUTTING OPERATOR [id number] Nurse REGIONAL [id number] MATERNAL [id number] & CHILD 107 [facility] 2019-05-20 2019-05-20 Telemedici [facility] [id number] 12:50:40 13:05:40 ne Visit Provider 6 SPECIALTY [id number] Adult CARE [id number] Urgent CENTER AT [phone] [address] 2019-04-30 2019-04-30 [facility] [id number] 06:26:00 23:59:00 Encounter Eric Moore SPECIALTY [id number] CARE [id number] CENTER AT [phone] [address] 2019-04-18 2019-04-18 Office [facility] [id number] 2020 15:20:28 16:14:26 Visit Nallely Espinosa POWDER CUTTING OPERATOR [id number] REGIONAL [id number] MATERNAL [phone] & CHILD 107 [facility] Results This patient has no known results.
[2020-08-26 02:10] LABS: Urine Blood 3+ (Negative); Urine Glucose Negative (Negative); Urine Protein 1+ (Negative); Urine Specific Gravity 1.015 (1.005-1.030)
[2020-08-26] MEDS ORDERED: PROMETHAZINE INJ 25 MG/ML AMP ONE ×2 (02:15→03:54)
[2020-08-26] MEDS ORDERED: FAMOTIDINE 20 MG/2 ML VIAL IV ONE (02:16)
[2020-08-26] MEDS ORDERED: NA CHLORIDE 0.9% 1,000 ML ONE (02:16)
[2020-08-26] MEDS ORDERED: MORPHINE 4 MG/ML SYR ONE (02:16)
[2020-08-26 02:42] LABS: Urine Specific Gravity/Preg 1.015 (1.005-1.030)
[2020-08-26 03:06] LABS: Absolute Lymphocytes (CBC) 2.6 K/uL (0.7-4.9); Basophils % 0.4 % (0-1.3); Hematocrit 37.1 % (36.0-45.0); Lymphocytes % 22.8 % (15.3-44.8); MPV 6.9 fL (7.6-11.3); RBC Red Blood Cell Count 3.89 M/uL (3.86-4.86)
[2020-08-26 03:15] LABS: ALT/SGPT 27 U/L (12-78); AST/SGOT 24 U/L (15-37); Albumin 3.5 g/dL (3.4-5.0); Alkaline Phosphatase 57 U/L (45-117); BUN Blood Urea Nitrogen 7 mg/dL (7-18); Bicarbonate 27 mmol/L (21-32); Bilirubin Direct < 0.1 mg/dL (0-0.2); Bilirubin Total 0.3 mg/dL (0.2-1.0); Glucose Level 77 mg/dL (74-106); Lipase 24 U/L (73-393); Potassium 3.5 mmol/L (3.5-5.1); Protein, Total 7.2 g/dL (6.4-8.2); Sodium Level 142 mmol/L (136-145)
--- NOTE | 2020-08-26 03:48 | ER ---
Nurse's Notes [facility] Name: Jessica Kim Age: 44 yrs Sex: Female : 1975 Arrival Date: 08/26/2020 Time: 00:23 Bed 7 Private MD: Diagnosis: Nausea with vomiting, unspecified Presentation: 08/26 00:45 Chief complaint: Patient states: upper abdominal pain and N/V since this morning, em states throwing up all day, denies fever. Coronavirus screen: Client denies travel out of the [place] in the last 14 days. Ebola Screen: Patient negative for fever greater than or equal to 101.5 degrees Fahrenheit, and additional compatible Ebola Virus Disease symptoms Patient denies exposure to infectious person. Patient denies travel to an Ebola-affected area in the 21 days before illness onset. No symptoms or risks identified at this time. Initial Sepsis Screen: Does the patient meet any 2 criteria? HR > 90 bpm. No. Patient's initial sepsis screen is negative. Does the patient have a suspected source of infection? No. Patient's initial sepsis screen is negative. Risk Assessment: Do you want to hurt yourself or someone else? Patient reports no desire to harm self or others. Onset of symptoms was August 26, 2020. 00:45 Method Of Arrival: Ambulatory em 00:45 Acuity: [place] 3 em CANCER REGISTRY COORDINATOR: 00:46 LMP 08/26/2020 em Historical: - Allergies: 00:46 NSAIDS; em - PMHx: 00:46 Anxiety; endomitriosis; Depression; tendenitis; em - PSHx: 00:46 section; Cholecystectomy; em - Immunization history:: Client reports having NOT received the Covid vaccine. Flu vaccine is not up to date. - Social history:: Smoking status: Patient reports the use of cigarette tobacco products, smokes one pack cigarettes per day. - Family history:: not pertinent. Screenin:50 Abuse screen: Denies threats or abuse. Nutritional screening: No deficits noted. bb Tuberculosis screening: No symptoms or risk factors identified. Fall Risk None identified. Assessment: 01:50 General: Appears in no apparent distress. uncomfortable, Behavior is calm, cooperative. bb Pain: Complains of pain in abdomen. Neuro: Oriented to person, place, time, situation. Cardiovascular: Capillary refill < 3 seconds Patient's skin is warm and dry. Respiratory: Airway is patent Respiratory effort is even, unlabored, Respiratory pattern is regular. GI: Abdomen is non-distended, obese, Reports upper abdominal pain. Derm: Skin is pink, warm \T\ dry. Musculoskeletal: Circulation, motion, and sensation intact. 02:52 Reassessment: Patient is alert, oriented x 3, equal unlabored respirations, skin bb warm/dry/pink. pt states her pain has improved a little. IV site intact, patent, no erythema or edema noted, family at bedside. 03:38 Reassessment: Patient is alert, oriented x 3, equal unlabored respirations, skin bb warm/dry/pink. pt states she is still feeling nauseous Dr Farris notified new orders received pt medicated see APR. 04:04 Reassessment: Patient is alert, oriented x 3, equal unlabored respirations, skin bb warm/dry/pink. pt asking for more pain medication prior to discharge Dr Farris notified new orders received pt medicated see APR. Pt verbalized understanding of and agrees to plan of care discharge instructions given pt ambulated with steady gait to exit accompanied by family. Vital Signs: 00:45 BP 142 / 87; Pulse 94; Resp 18; Temp 97.3; Pulse Ox 100% on R/A; Weight 104.78 kg; em Height 5 ft. 2 in. (157.48 cm); Pain 9/10; 02:14 BP 136 / 90; Pulse 93; Resp 16 S; Pulse Ox 100% ; bb 02:53 BP 127 / 89; Pulse 86; Resp 16 S; Pulse Ox 99% on R/A; Pain 9/10; bb 03:39 BP 147 / 94; Pulse 87; Resp 16 S; Pulse Ox 99% on R/A; bb 00:45 Body Mass Index 42.25 (104.78 kg, 157.48 cm) em ED Course: 00:23 Patient arrived in ED. cf2 00:46 Triage completed. em 00:46 Arm band placed on. em 01:00 Ada Cornejo MD is Attending Physician. ma2 01:50 Patient has correct armband on for positive identification. Bed in low position. Call bb light in reach. Side rails up X 1. Adult w/ patient. Pulse ox on. NIBP on. 01:55 Initial lab(s) drawn, by me, sent to lab. Urine collected: clean catch specimen, blood bb tinged. Inserted saline lock: 20 gauge in right forearm, using aseptic technique. Blood collected. 02:14 Fay Lott, RN is Primary Nurse. bb 02:54 Lab(s) recollected, by me, sent to lab. bb 04:06 No provider procedures requiring assistance completed. IV discontinued, intact, bb bleeding controlled, No redness/swelling at site. Pressure dressing applied. Administered Medications: 01:06 CANCELLED (na): Zofran (Ondansetron) 4 mg IVP once; over 2 minutes ma2 01:55 Drug: NS 0.9% 1000 ml Route: IV; Rate: 1 bolus; Site: right forearm; bb 02:52 Follow up: IV Status: Completed infusion; IV Intake: 950ml bb 01:55 Drug: Pepcid (famotidine) 10 mg Route: IVP; Site: right forearm; bb 02:52 Follow up: Response: No adverse reaction bb 01:58 Drug: Phenergan (promethazine) 25 mg Route: IVP; Site: right forearm; bb 02:52 Follow up: Response: No adverse reaction bb 01:59 Drug: morphine 4 mg {Note: RASS 0.} Route: IVP; Site: right forearm; bb 02:52 Follow up: Response: No adverse reaction; Pain is decreased bb 02:52 Follow up: Response: RASS: Alert and Calm (0) bb 03:38 Drug: Phenergan (promethazine) 25 mg Route: IVP; Site: right forearm; bb 04:04 Follow up: Response: No adverse reaction bb 04:04 Drug: [place] (HYDROcodone-acetaminophen) 10 mg-325 mg 1 tabs {Note: RASS 0.} Route: PO; bb 04:04 Follow up: Response: Medication administered at discharge. bb Intake: 02:52 IV: 950ml; Total: 950ml. bb Outcome: 03:48 Discharge ordered by . ma2 04:06 Discharged to home ambulatory, with family. bb 04:06 Condition: stable 04:06 Discharge instructions given to patient, Instructed on discharge instructions, follow up and referral plans. medication usage, Demonstrated understanding of instructions, follow-up care, medications, Prescriptions given X 2. 04:07 Patient left the ED. bb Signatures: Romain Loo, RN RN Fay Azevedo RN RN Ada Pradhan MD MD sd2 Alan Verdugo 2 Corrections: (The following items were deleted from the chart) 02:11 01:30 NS 0.9% 1000 ml IV at 1 bolus in right antecubital bb bb
--- NOTE | 2020-08-26 03:49 | EDPHYS ---
Physician Documentation [facility] Name: Jessica Kim Age: 44 yrs Sex: Female : 1975 Arrival Date: 08/26/2020 Time: 00:23 Bed 7 Private MD: ED Physician Ada Cornejo HPI: 08/26 01:07 This 44 yrs old Female presents to ER via Ambulatory with complaints of ma2 Vomiting/Diarrhea, Abdominal Pain. 01:07 The patient presents to the emergency department with nausea, vomiting, diarrhea. ma2 Associated signs and symptoms: Pertinent negatives: constipation, dysuria, flatulence, hematuria. Severity of symptoms: At their worst the symptoms were very mild in the emergency department the symptoms are unchanged. The patient has experienced similar episodes in the past. HOME COORDINATOR: 00:46 LMP 08/26/2020 em Historical: - Allergies: 00:46 NSAIDS; em - PMHx: 00:46 Anxiety; endomitriosis; Depression; tendenitis; em - PSHx: 00:46 section; Cholecystectomy; em - Immunization history:: Client reports having NOT received the Covid vaccine. Flu vaccine is not up to date. - Social history:: Smoking status: Patient reports the use of cigarette tobacco products, smokes one pack cigarettes per day. - Family history:: not pertinent. ROS: 01:07 Constitutional: Negative for fever, chills, and weight loss. ma2 01:07 All other systems are negative. Exam: 01:07 Constitutional: This is a well developed, well nourished patient who is awake, alert, ma2 and in no acute distress. Chest/axilla: Normal chest wall appearance and motion. Nontender with no deformity. No lesions are appreciated. Cardiovascular: Regular rate and rhythm with a normal S1 and S2. No gallops, murmurs, or rubs. Normal PMI, no JVD. No pulse deficits. Respiratory: Lungs have equal breath sounds bilaterally, clear to auscultation and percussion. No rales, rhonchi or wheezes noted. No increased work of breathing, no retractions or nasal flaring. Abdomen/GI: Soft, non-tender, with normal bowel sounds. No distension or tympany. No guarding or rebound. No evidence of tenderness throughout. Skin: Warm, dry with normal turgor. Normal color with no rashes, no lesions, and no evidence of cellulitis. MS/ Extremity: Pulses equal, no cyanosis. Neurovascular intact. Full, normal range of motion. Neuro: Awake and alert, GCS 15, oriented to person, place, time, and situation. Cranial nerves II-XII grossly intact. Motor strength 5/5 in all extremities. Sensory grossly intact. Cerebellar exam normal. Normal gait. Vital Signs: 00:45 BP 142 / 87; Pulse 94; Resp 18; Temp 97.3; Pulse Ox 100% on R/A; Weight 104.78 kg; em Height 5 ft. 2 in. (157.48 cm); Pain 9/10; 02:14 BP 136 / 90; Pulse 93; Resp 16 S; Pulse Ox 100% ; bb 02:53 BP 127 / 89; Pulse 86; Resp 16 S; Pulse Ox 99% on R/A; Pain 9/10; bb 03:39 BP 147 / 94; Pulse 87; Resp 16 S; Pulse Ox 99% on R/A; bb 00:45 Body Mass Index 42.25 (104.78 kg, 157.48 cm) em MDM: 01:00 Patient medically screened. [facility] 01:07 Differential diagnosis: Nonspecific abd pain, gastritis, viral gastroenteritis, ma2 gastroenteritis. 03:47 Data reviewed: vital signs, nurses notes. Counseling: I had a detailed discussion with ma the patient and/or guardian regarding: the historical points, exam findings, and any diagnostic results supporting the discharge/admit diagnosis, the presence of at least one elevated blood pressure reading (>120/80) during this emergency department visit, the need for outpatient follow up. Response to treatment: the patient's symptoms have markedly improved after treatment. 08/26 01:06 Order name: Basic Metabolic Panel [facility] 08/26 01:06 Order name: CBC with Diff; Complete Time: 03:32 [facility] 08/26 01:06 Order name: Hepatic Function; Complete Time: 03:32 [facility] 08/26 01:06 Order name: Lipase; Complete Time: 03:32 [facility] 08/26 01:07 Order name: Basic Metabolic Panel; Complete Time: 03:32 EDMS 08/26 02:10 Order name: Urine Dipstick-Ancillary; Complete Time: 02:46 EDMS 08/26 02:10 Order name: Urine --Ancillary (enter results); Complete Time: 02:46 tt3 08/26 01:01 Order name: Urine Dipstick-Ancillary (obtain specimen); Complete Time: 02:12 ma2 08/26 01:01 Order name: Urine Test (obtain specimen); Complete Time: 02:12 ma2 08/26 01:06 Order name: IV Saline Lock; Complete Time: 01:51 ma2 08/26 01:06 Order name: Labs collected and sent; Complete Time: 01:51 ma2 Administered Medications: 01:06 CANCELLED (na): Zofran (Ondansetron) 4 mg IVP once; over 2 minutes ma2 01:55 Drug: NS 0.9% 1000 ml Route: IV; Rate: 1 bolus; Site: right forearm; bb 02:52 Follow up: IV Status: Completed infusion; IV Intake: 950ml bb 01:55 Drug: Pepcid (famotidine) 10 mg Route: IVP; Site: right forearm; bb 02:52 Follow up: Response: No adverse reaction bb 01:58 Drug: Phenergan (promethazine) 25 mg Route: IVP; Site: right forearm; bb 02:52 Follow up: Response: No adverse reaction bb 01:59 Drug: morphine 4 mg {Note: RASS 0.} Route: IVP; Site: right forearm; bb 02:52 Follow up: Response: No adverse reaction; Pain is decreased bb 02:52 Follow up: Response: RASS: Alert and Calm (0) bb 03:38 Drug: Phenergan (promethazine) 25 mg Route: IVP; Site: right forearm; bb 04:04 Follow up: Response: No adverse reaction bb 04:04 Drug: [place] (HYDROcodone-acetaminophen) 10 mg-325 mg 1 tabs {Note: RASS 0.} Route: PO; bb 04:04 Follow up: Response: Medication administered at discharge. bb Disposition Summary: 08/26/20 03:48 Discharge Ordered Location: Home ma2 Condition: Stable ma2 Diagnosis - Nausea with vomiting, unspecified ma2 Followup: ma2 - With: Private Physician - When: Tomorrow - Reason: If symptoms return, Continuance of care Discharge Instructions: - Discharge Summary Sheet ma2 - Nausea and Vomiting, Adult ma2 Forms: - Medication Reconciliation Form ma2 - Thank You Letter ma2 - Antibiotic Education ma2 - Prescription Opioid Use ma2 Prescriptions: - Pepcid 20 mg Oral Tablet - take 1 tablet by ORAL route once daily for 10 days; 10 tablet; Refills: 0, ma2 Product Selection Permitted - promethazine 25 mg Oral Tablet - take 1 tablet by ORAL route every 6 hours As needed; 20 tablet; Refills: 0, ma2 Product Selection Permitted Signatures: Dispatcher [employer] Romain Thomas RN RN em Ballard, Brenda, RN RN bb Alzahri, Mohammad, MD MD ma2 Corrections: (The following items were deleted from the chart) 01:06 01:01 Zofran (Ondansetron) 4 mg IVP once; over 2 minutes ordered. ma2 ma2
[2020-08-26 04:15] VITALS: TEMP 97.3
[2020-08-26 04:18] VITALS: O2SAT 99
[2020-08-26] MEDS ORDERED: HYDROCODONE/APAP 10/325 TAB ONE (04:21)
[2020-08-26 04:22] VITALS: BP 147/94
== END 2020-08-26 04:07 | disposition home or self-care (01) ==
LOC: ER 00:20
DX: R11.2 Nausea with vomiting, unspecified (principal); F17.210 Nicotine dependence, cigarettes, uncomplicated; Z88.6 Allergy status to analgesic agent
CPT/HCPCS: 36415; 80048; 80076; 81003; 81025; 83690; 85025; J2550; J7030

== ENCOUNTER 2021-04-12 22:18 | Emergency (ER) | payer SELFPAY ==
--- OUTSIDE RECORDS SUMMARY | 2021-04-12 22:21 | XMS REPORT | Continuity of Care Document ---
:1975 Author Organization [facility] t Address [address] [place] [address] Care Team Providers Name Role Phone Devaughn Shukla DO Attending Clinician Yani SNYDER Attending Clinician Unavailable Visit, Nurse Attending Clinician Unavailable TRISTEN LONG Attending Clinician Unavailable Care, 6 Adult Urgent Attending Clinician Unavailable Kayden DE LA PAZ, R Attending Clinician Teresa MONIQUE Attending Clinician Unavailable Lawrence RAIL CAR REPAIRMAN, N Attending Clinician Payers Payer Name Policy Type Policy Number Effective Date Expiration Date Alice soto [id number] 2018 00:00:00 Problems This patient has no known problems. Allergies, Adverse Reactions, Alerts Allergy Allergy Status Severity Reaction(s) Onset Inactive Treating Comm ents Source Name Type Date Date Clinician NSAIDS Drug Active Med Swelling 2018-02 [facility] (NON-MERISSA Class 0-24 ity of [place] 00:00: [place] ANTI-INF 00 Medical LAMMATOR [facility] DRUG) Medications This patient has no known medications. Procedures This patient has no known procedures. Encounters Start End Encounter Admission Attending Care Care Encounter Source Date/Time Date/Time Type Type Clinicians Facility Department ID 2020-05-14 2020-05-14 Patient Vazquez ILBHARGAV [id number] 00:00:00 00:00:00 Outreach [facility] 350.1.13.10 Devaughn [facility] [id number] [facility] [id number] 2019-12-26 2019-12-26 Outpatient R [facility] [id number] Univers 15:30:00 15:30:00 [id number] [facility] 2019-12-26 2019-12-26 Outpatient R [facility] [id number] Univers 15:30:00 15:30:00 [facility] 2019-11-25 2019-11-25 Outpatient R AKINSIPE, [facility] [id number] Univers 12:45:00 12:45:00 PÉREZ [id number] ity o [facility] 2019-11-25 2019-11-25 Outpatient R AKINSIPE, [facility] [id number] Univers 12:45:00 12:45:[address]y [address] [facility] 2019-11-20 2019-11-20 Outpatient R AKINSIPE, [facility] [id number] Univers 12:45:00 12:45:00 PÉREZ [id number] ity o [facility] 2019-11-20 2019-11-20 Outpatient R AKINSIPE, [facility] [id number] Univers 12:45:00 12:45:[address] [facility] 2019-10-03 2019-10-03 Nurse Visit, [facility] [id number] 15:41:00 16:02:48 Visit Ang-Rmchp SYSTEMS CHECKOUT MECHANIC 350.1.13.10 Nurse [facility] [id number] MATERNAL [id number] & CHILD 107 [facility] 2019-10-03 2019-10-03 Outpatient R [facility] [id number] Univers 15:30:00 15:30:00 [facility] 2019-10-03 2019-10-03 Outpatient R [facility] [id number] Univers 15:30:00 15:30:00 [facility] 2019-07-11 2019-07-11 Nurse Visit, [facility] [id number] 15:28:40 16:15:25 Visit Ang-Rmchp SYSTEMS CHECKOUT MECHANIC [id number] Nurse REGIONAL [id number] MATERNAL [id number] & CHILD 107 [facility] 2019-07-11 2019-07-11 [facility] [id number] Univers 15:30:00 15:30:00 PÉREZ laneesme gallego f [facility] 2019-05-20 2019-05-20 Outpatient R [facility] [id number] Univers 14:00:00 14:00:00 [id number] [facility] 2019-05-20 2019-05-20 [facility] [id number] Univers 14:00:00 14:00:00 TANISHA [facility] 2019-05-20 2019-05-20 Telemedici [facility] [id number] 12:50:40 13:05:40 ne Visit Provider 6 SPECIALTY 350.1.13.10 Adult CARE [id number] Urgent CENTER AT [id number] CHELLE [address] [facility] 2019-04-30 2019-04-30 Hospital [facility] [id number] 06:26:00 23:59:00 Encounter Eric Moore SPECIALTY [id number] CARE [id number] CENTER AT [id number] [address] 2019-04-30 2019-04-30 [facility] [id number] Univers 00:00:00 00:00:00 MIJOSEPH gallego anh [facility] 2019-04-18 2019-04-18 Office [facility] [id number] 2020 15:20:28 16:14:26 Visit Nallely Espinosa SYSTEMS CHECKOUT MECHANIC 350.1.13.10 REGIONAL [id number] MATERNAL [id number] & CHILD 107 [facility] Results This patient has no known results.
[2021-04-12] MEDS ORDERED: ACETAMINOPHEN 325 MG TABLET ONE (22:57)
[2021-04-12] MEDS ORDERED: NA CHLORIDE 0.9% 1,000 ML ONE (22:57)
[2021-04-12] MEDS ORDERED: ONDANSETRON 4 MG/2 ML VIAL ONE (22:57)
[2021-04-12 23:13] LABS: Urine Blood 3+ (Negative); Urine Glucose Negative (Negative); Urine Protein 2+ (Negative)
[2021-04-12 23:23] LABS: Absolute Lymphocytes (CBC) 1.5 K/uL (0.7-4.9); Hematocrit 41.3 % (36.0-45.0); Lymphocytes % 21.4 % (15.3-44.8); MPV 7.1 fL (7.6-11.3); RBC Red Blood Cell Count 4.42 M/uL (3.86-4.86)
[2021-04-12 23:31] LABS: Albumin 3.7 g/dL (3.4-5.0); Bilirubin Total 0.1 mg/dL (0.2-1.0); Potassium 3.3 mmol/L (3.5-5.1); Protein, Total 7.9 g/dL (6.4-8.2)
[2021-04-13 00:01] LABS: Urine Bacteria <20 /HPF (<20); Urine RBC >50 /HPF (NONE SEEN)
[2021-04-13 00:04] LABS: SARS-COV-2 RT PCR POSITIVE (NEGATIVE)
[2021-04-13 00:23] LABS: Blood Morphology Comment NOT SEEN (NOT SEEN); Platelet Estimate ADEQ
--- NOTE | 2021-04-13 00:23 | EDPHYS ---
Physician Documentation [facility] Name: Jessica Kim Age: 45 yrs Sex: Female : 1975 Arrival Date: 04/12/2021 Time: 22:20 Bed 17 Private MD: ED Physician Osei Vinson HPI: 04/12 23:15 This 45 yrs old Female presents to ER via Ambulatory with complaints of Sore Throat, pm1 Nausea, Headache, Diarrhea. 23:15 The patient presents with sore throat. pm1 23:15 Onset: The symptoms/episode began/occurred 1 week(s) ago. Severity of symptoms: in the pm1 emergency department the symptoms are actually worse. Modifying factors: unaware of sick contact. Associated signs and symptoms: Pertinent positives: cough, diarrhea, fever, nausea, bodyaches, Pertinent negatives chest pain, vomiting. The patient has not experienced similar symptoms in the past. The patient has not recently seen a physician. 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 - Social history:: Smoking status: Patient reports the use of cigarette tobacco products, smokes one pack cigarettes per day. Patient/guardian denies using alcohol, street drugs, IV drugs. ROS: 23:15 Cardiovascular: Negative for chest pain, palpitations, and edema. pm1 23:15 Back: Negative for injury and pain, : Negative for injury, bleeding, discharge, and swelling, MS/Extremity: Negative for injury and deformity, Skin: Negative for injury, rash, and discoloration, Neuro: Negative for headache, weakness, numbness, tingling, and seizure. 23:15 Constitutional: Positive for body aches, fever. 23:15 ENT: Positive for sore throat, Negative for ear pain. 23:15 Respiratory: Positive for cough, Negative for shortness of breath. 23:15 Abdomen/GI: Positive for nausea, diarrhea, Negative for abdominal pain, vomiting. 23:15 All other systems are negative. Exam: 23:15 Constitutional: This is a well developed, well nourished patient who is awake, alert, pm1 and in no acute distress. Head/Face: Normocephalic, atraumatic. 23:15 Skin: Warm, dry with normal turgor. Normal color with no rashes, no lesions, and no evidence of cellulitis. MS/ Extremity: Pulses equal, no cyanosis. Neurovascular intact. Full, normal range of motion. 23:15 Eyes: Exam is negative for acute changes, Periorbital structures: appear normal, Extraocular movements: no acute changes. 23:15 ENT: Exam is negative for acute changes, Mouth: no acute changes, Lips: normal, moist, Oral mucosa: normal, pink and intact, moist. 23:15 Cardiovascular: Exam negative for acute changes, Rate: normal, Rhythm: regular, Pulses: no pulse deficits are appreciated. 23:15 Respiratory: Exam negative for acute changes, respiratory distress, shortness of breath, Breath sounds: are clear throughout. 23:15 Abdomen/GI: Exam negative for acute changes, Inspection: abdomen appears normal, Palpation: abdomen is soft and non-tender, in all quadrants. 23:15 Neuro: Exam negative for acute changes, Orientation: is normal, Mentation: is normal, Motor: is normal, moves all fours. Vital Signs: 22:31 BP 141 / 86; Pulse 122; Resp 20; Temp 100.1; Pulse Ox 99% on R/A; Weight 97.52 kg; st1 Height 5 ft. 2 in. (157.48 cm); Pain 10/10; 23:17 BP 123 / 83 LA Supine (auto/reg); Pulse 98 MON; Resp 18 S; Temp 100.5(O); Pulse Ox 98% tk1 on R/A; 04/13 00:23 BP 114 / 85 LA Supine (auto/reg); Pulse 93 MON; Resp 16 S; Temp 98.3(O); Pulse Ox 98% tk1 on R/A; Pain 6/10; 04/12 22:31 Body Mass Index 39.32 (97.52 kg, 157.48 cm) st1 MDM: 04/12 22:39 Patient medically screened. [facility] 04/13 00:19 Data reviewed: vital signs. Data interpreted: Pulse oximetry: on room air is 98 %. pm1 Interpretation: normal. Counseling: I had a detailed discussion with the patient and/or guardian regarding: the historical points, exam findings, and any diagnostic results supporting the discharge/admit diagnosis, lab results, the need for outpatient follow up, to return to the emergency department if symptoms worsen or persist or if there are any questions or concerns that arise at home. 00:37 ED course: [place]MP[place] reviewed. pm1 04/12 22:49 Order name: CBC with Diff; Complete Time: 00:25 [facility] 04/12 22:49 Order name: Comprehensive Metabolic Panel; Complete Time: 23:54 [facility] 04/12 22:49 Order name: COVID-19/FLU A+B (Document "Date of Onset" if Symptomatic); Complete Time: [facility] 00:10 04/12 23:13 Order name: Urine Dipstick-Ancillary; Complete Time: 23:15 [facility] 04/12 23:19 Order name: Urine --Ancillary (enter results); Complete Time: 00:10 [facility] 04/12 23:20 Order name: Urine Microscopic Only; Complete Time: 00:10 pm1 04/12 22:49 Order name: Chest Single View XRAY [facility] 04/12 22:49 Order name: Urine Dipstick-Ancillary (obtain specimen); Complete Time: 23:02 [facility] 04/12 23:20 Order name: Strep; Complete Time: 03:57 pm 04/12 23:28 Order name: Manual Differential; Complete Time: 00:25 [facility] 04/12 22:49 Order name: Urine Test (obtain specimen); Complete Time: 23:02 [facility] Administered Medications: 04/12 23:03 Drug: Tylenol 650 mg Route: PO; tk1 04/13 00:22 Follow up: Response: Temperature is decreased 04/12 23:05 Drug: Zofran (Ondansetron) 4 mg Route: IVP; Rate: bolus; Infused Over: 2 mins; Site: tk1 right antecubital; 04/13 00:20 Follow up: Response: Nausea is decreased [facility] 04/12 23:10 Drug: NS 0.9% 1000 ml Route: IV; Rate: 1 bolus; Infused Over: 1 hrs; Site: right tk1 antecubital; Delivery: Primary tubing; 04/13 00:22 Follow up: IV Status: Completed infusion; IV Intake: 1000ml tk1 00:22 Follow up: Response: No adverse reaction tk1 00:40 Not Given (Patient Refused): Phenergan (promethazine) 12.5 mg IVP once tk1 Disposition: 09:00 Co-signature as Attending Physician, Osei Vinson MD I agree with the assessment and ekta plan of care. Disposition Summary: 04/13/21 00:22 Discharge Ordered Location: Home pm1 Problem: new pm1 Symptoms: have improved pm1 Condition: Stable pm1 Diagnosis - Coronavirus infection, unspecified pm1 Followup: pm1 - With: Emergency Department - When: As needed - Reason: Worsening of condition Followup: pm1 - With: Private Physician - When: 2 - 3 days - Reason: Recheck today's complaints, Continuance of care, Re-evaluation by your physician Discharge Instructions: - Discharge Summary Sheet pm1 - COVID-19 pm1 - COVID-19 Frequently Asked Questions pm1 - 10 Things You Can Do to Manage Your COVID-19 Symptoms at Home - [facility] pm1 - COVID-19: Quarantine vs. Isolation - [facility] pm1 Forms: - Medication Reconciliation Form pm1 - Thank You Letter pm1 - Antibiotic Education pm1 - Prescription Opioid Use pm1 Prescriptions: - promethazine 25 mg Oral Tablet - take 1 tablet by ORAL route every 6 hours As needed; 20 tablet; Refills: 0, pm1 Product Selection Permitted - Guaifenesin AC 10-100 mg/5 mL Oral Liquid - take 10 milliliters by ORAL route every 4 hours As needed; 240 milliliter; pm1 Refills: 0, Product Selection Permitted Signatures: Dispatcher [employer] Osei Fajardo MD MD cha Marinas, Patrick, LIGHTING ENGINEERING TECHNICIAN LIGHTING ENGINEERING TECHNICIAN pm1 Anjelica Chowdhury tk1 Haylee Nogueira RN RN st1
--- NOTE | 2021-04-13 00:23 | ER ---
Nurse's Notes [facility] Name: Jessica Kim Age: 45 yrs Sex: Female : 1975 Arrival Date: 04/12/2021 Time: 22:20 Bed 17 Private MD: Diagnosis: Coronavirus infection, unspecified Presentation: 04/12 22:30 Chief complaint: Patient states: fever, body aches, headache and diarrhea x1 week st1 patient took advil x2 tablets at noon today. Coronavirus screen: Vaccine status: Patient reports being unvaccinated. At this time, unable to obtain information related to travel outside the [place] Ebola Screen: No symptoms or risks identified at this time. Risk Assessment: Do you want to hurt yourself or someone else? Patient reports no desire to harm self or others. 22:30 Method Of Arrival: Ambulatory st1 22:31 Acuity: HOWARD 3 st1 Triage Assessment: 22:34 General: Appears in no apparent distress. uncomfortable, Behavior is calm, cooperative. 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 - Social history:: Smoking status: Patient reports the use of cigarette tobacco products, smokes one pack cigarettes per day. Patient/guardian denies using alcohol, street drugs, IV drugs. Screenin:17 Abuse screen: Denies threats or abuse. Denies injuries from another. Nutritional tk1 screening: No deficits noted. Tuberculosis screening: No symptoms or risk factors identified. Fall Risk None identified. Assessment: 22:40 Reassessment: Ambulated to ED RM 17. Steady gait. Placed on monitor. tk1 23:17 General: Appears comfortable, unkempt, well developed, well nourished, Behavior is tk1 calm, cooperative, appropriate for age. Pain: Complains of pain in generalized aches Pain does not radiate. Pain currently is 10 out of 10 on a pain scale. Quality of pain is described as aching, Pain began gradually, 1 day ago. Is continuous. Neuro: Level of Consciousness is awake, alert, obeys commands, Oriented to person, place, time, situation, Appropriate for age [place] are equal bilaterally Moves all extremities. Full function Gait is steady, Speech is normal, Facial symmetry appears normal, Pupils are PERRLA. Cardiovascular: Reports None Heart tones S1 S2 present Capillary refill < 3 seconds is brisk in bilateral fingers Rhythm is sinus rhythm. Respiratory: Airway is patent Respiratory effort is even, unlabored, Respiratory pattern is regular, symmetrical, Sputum is Breath sounds are clear bilaterally. GI: Abdomen is round non-distended, Bowel sounds present X 4 quads. Reports diarrhea. GI: : Urine is blood tinged. EENT: Throat is reddened. Derm: No deficits noted. No signs and/or symptoms reported regarding the dermatologic system. Musculoskeletal: No deficits noted. No signs and/or symptoms reported regarding the musculoskeletal system. 04/13 00:10 Reassessment: No changes from previously documented assessment. Patient and/or family tk1 updated on plan of care and expected duration. Pain level reassessed. Patient is alert, oriented x 3, equal unlabored respirations, skin warm/dry/pink. Pain: Complains of pain in generalized Pain does not radiate. Pain currently is 10 out of 10 on a pain scale. Quality of pain is described as aching. 00:38 Reassessment: D/C per MD order. Discharge/Prescription instructions given to patient. tk1 Verbalized understanding. Vital Signs: 04/12 22:31 BP 141 / 86; Pulse 122; Resp 20; Temp 100.1; Pulse Ox 99% on R/A; Weight 97.52 kg; st1 Height 5 ft. 2 in. (157.48 cm); Pain 1010; 23:17 BP 123 / 83 LA Supine (auto/reg); Pulse 98 MON; Resp 18 S; Temp 100.5(O); Pulse Ox 98% tk1 on R/A; 04/13 00:23 BP 114 / 85 LA Supine (auto/reg); Pulse 93 MON; Resp 16 S; Temp 98.3(O); Pulse Ox 98% tk1 on R/A; Pain 6/10; 04/12 22:31 Body Mass Index 39.32 (97.52 kg, 157.48 cm) st1 Vitals: 04/12 23:17 Cardiac Rhythm Assessment Regular Sinus rhythm. tk1 ED Course: 22:20 Patient arrived in ED. es 22:31 Triage completed. st1 22:35 Arm band placed on left wrist. st1 22:38 Osei Vinson MD is Attending Physician. ekta 22:40 Anjelica Chowdhury is Primary Nurse. tk1 22:48 Carlos Nolan NP is PHCP. pm1 22:52 COVID-19/FLU A+B (Document "Date of Onset" if Symptomatic) Sent. tk1 22:56 Chest Single View XRAY In Process Unspecified. EDMS 23:02 Comprehensive Metabolic Panel Sent. tk1 23:02 CBC with Diff Sent. tk1 23:05 Inserted saline lock: 20 gauge in right antecubital area, using aseptic technique. tk1 23:17 Patient has correct armband on for positive identification. Bed in low position. Call tk1 light in reach. Side rails up X2. lunchroom monitor on. Pulse ox on. NIBP on. Warm blanket given. 23:17 No provider procedures requiring assistance completed. tk1 02 00:23 IV discontinued, intact, bleeding controlled, No redness/swelling at site. Pressure tk1 dressing applied. Administered Medications: 04/12 23:03 Drug: Tylenol 650 mg Route: PO; tk1 04/13 00:22 Follow up: Response: Temperature is decreased tk1 04/12 23:05 Drug: Zofran (Ondansetron) 4 mg Route: IVP; Rate: bolus; Infused Over: 2 mins; Site: tk1 right antecubital; 04/13 00:20 Follow up: Response: Nausea is decreased tk1 04/12 23:10 Drug: NS 0.9% 1000 ml Route: IV; Rate: 1 bolus; Infused Over: 1 hrs; Site: right tk1 antecubital; Delivery: Primary tubing; 04/13 00:22 Follow up: IV Status: Completed infusion; IV Intake: 1000ml tk1 00:22 Follow up: Response: No adverse reaction tk1 00:40 Not Given (Patient Refused): Phenergan (promethazine) 12.5 mg IVP once tk1 Intake: 00:22 IV: 1000ml; Total: 1000ml. tk1 Outcome: 00:22 Discharge ordered by . pm1 00:38 Discharged to home ambulatory. tk1 00:38 Condition: stable 00:38 Discharge instructions given to patient, Instructed on discharge instructions, follow up and referral plans. medication usage, Demonstrated understanding of instructions, follow-up care, medications, Prescriptions given X 2. 00:39 Patient left the ED. tk1 Signatures: Dispatcher [employer] EDCA Osei Vinson MD MD cha Salyer, Edna es Marinas, Patrick SECURITY ADMINISTRATOR SECURITY ADMINISTRATOR pm1 Anjelica Chowdhury tk1 Haylee Nogueira, RN RN st1 Corrections: (The following items were deleted from the chart) 04/12 22:35 22:31 Pulse 122bpm; Resp 20bpm; Pulse Ox 99% RA; Temp 100.1F; 97.52 kg; Height 5 ft. 2 st1 in.; BMI: 39.3; Pain 10/10; st1 22:37 22:30 Chief complaint: Patient states: fever, body aches, headache and diarrhea x1 week st1 st1
[2021-04-13 01:27] VITALS: O2SAT 98
[2021-04-13 01:29] VITALS: BP 114/85; TEMP 98.3
--- NOTE | 2021-04-13 08:49 | RAD REPORT ---
EXAM DESCRIPTION: RAD - Chest Single View - 04/12/2021 10:56 pm CLINICAL HISTORY: PAIN COMPARISON: Portable 01/18/2020 TECHNIQUE: AP portable chest image was obtained 04/12/2021 10:56 pm . FINDINGS: Lungs are clear. Heart and vasculature are normal. No measurable pleural effusion and no p neumothorax. No acute bony abnormality seen. No acute aortic findings suspected. IMPRESSION: No acute cardiopulmonary process. No significant change from comparison study.
== END 2021-04-13 00:39 | disposition home or self-care (01) ==
LOC: ER 22:18
DX: U07.1 COVID-19 (principal)
CPT/HCPCS: 0240U; 36415; 71045; 80053; 81003; 81015; 81025; 85025; 87070; 87081; 96361; 96374; 99284; J2405; J7030

== ENCOUNTER 2023-09-04 23:28 | Emergency (ER) | payer OTHER ==
--- OUTSIDE RECORDS SUMMARY | 2023-09-04 23:31 | XMS REPORT | Continuity of Care Document ---
Author Name Unknown Address [address] [facility] [address] [place] [address] [facility] Address [address] [facility] [address] [place] [address] Care Team Providers Care Child Welfare Consultant Name Role Phone Pcp, Patient Does Not Have A Primary Care Physic augustus ROBBY PATEL Attending Clinician Unavailable Robby Patel MD Attending Clinician [phone] PÉREZ SNYDER Attending Clinician Unavail able ADONIS REYES Attending Clinician Unav ailBRUCE Daley Attending Clinician Unavailable Jackson Diamond MD Attending Clinician + [phone] Bruce Jordan MD Attending Clinician [phone] Doctor Unassigned, [place] Attending Clinician U Bran Parks DO Attending Clinician [phone] Visit, [facility] Nurse Attending Clinician Unava ilTANISHA Starr Attending Clinician Unava ildavid Care, Provider 6 Adult Urgent Attending Vibha serrato Unavailable Eric Mills Attending Clinician + [phone] ERIC MONIQUE Attending Clinician UnavailNallely Acosta Attending Clinician [phone] ADONIS REYES Admitting Clinician JACKSON Ji Admitting Clinician Unavailabl e Payers Payer Name Policy Type Policy Number Effective Date Expirati on Date Source [facility] [id number] 2023 00:00[facility]00 [id number] 00:00:00 Problems Condition Name Condition Details Condition Category Status Onset Date Resolution Date Last Treatment Date Treating Clinician Comments Source Encounter for immunizati on Encounter for immunizati on Disease Active 2018-02 00:00: 00 [facility] Encounter for surveillan ce of contracept giovanna, unspecifie d contracept mirtha Encounter for surveillan ce of contracept giovanna, unspecifie d contracept mirtha Disease Active 2018-02 00:00: 00 [facility] History of bilateral tubal ligation History of bilateral tubal ligation Disease Active 2018-02 00:00: 00 [facility] Tobacco use disorder Tobacco use disorder Disease Active 2018-02 00:00: 00 [facility] Anxiety Anxiety Disease Active 2018-02 00:00: 00 [facility] Depression , unspecifie d depression type Depression , unspecifie d depression type Disease Active 2018-02 00:00: 00 [facility] Irregular menstrual cycle Irregular menstrual cycle Disease Active 2018-02 00:00: 00 [facility] Morbid obesity Morbid obesity Disease Active 2018-02 00:00: 00 [facility] BMI 37.0-37.9, adult BMI 37.0-37.9, adult Disease Active 2015-02 00:00: 00 [facility] Allergies, Adverse Reactions, Alerts Allergy Name Allergy Type Status Severity Reaction(s) Onset Date Inactive Date Treating Clinician Comments Source Nsaids (Non-Joce roidal Anti-Inf lammator y Drug) Propensi ty to adverse reaction s to drug Active Swelling 2018-02 00:00: 00 [facility] NSAIDS (NON-JOCE ROIDAL ANTI-INF LAMMATOR Y DRUG) Drug Class Active Med Swelling 2018-02 00:00: 00 [facility] Social History Social Habit Start Date Stop Date Quantity Comments Source History of tobacco use 2018-12-20 00:00:00 Cigarette Smoker [facility] intake 2023-04-28 00:00:00 2023-04-28 00:00:00 Ex-drinker (finding) [facility] History of Social function 2019-09-29 00:00:00 2019-09-29 00:00:00 [facility] Cigarettes smoked current (pack per day) - Reported 2018-12-20 00:00:00 2018-12-20 00:00:00 [facility] Tobacco use and exposure 2018-12-20 00:00:00 2018-12-20 00:00:00 Smokeless tobacco non-user [facility] Sex Assigned At 1975 00:00:00 1975 00:00:00 [facility] Smoking Status Start Date Stop Date Source Smokes tobacco daily 2018-12-20 00:00:00 [facility] Medications Ordered Medication Name Filled Medication Name Start Date Stop Date Current Medication? Ordering Clinician Indication Dosage Frequency Signature (SIG) Comments Components Source ketorolac (TORADOL) injection 30 mg 04-27 06:45: 00 04-27 05:46 :00 No 30mg 30 mg, Slow IV Push, ONCE, 1 dose, On Mon04/28/23 at 0045, Routine [facility] NaCl 0.9% (NS) IV infusion 1,000 mL 04-27 06:15: 00 Yes 1000mL at 999 mL/hr, Intravenou s, CONTINUOUS , Starting on Mon04/28/23 at 0015, Until Discontinu ed, Routine [facility] diphenhydrA MINE (BENADRYL) injection 25 mg 04-27 05:15: 00 04-27 05:16 :00 No 25mg 25 mg, Slow IV Push, ONCE, 1 dose, On Emelia 04/27/23 at 2315, STAT [facility] metoclopram harsha HCl (REGLAN) injection 10 mg 04-27 05:15: 00 04-27 05:16 :00 No 10mg 10 mg, Slow IV Push, ONCE, 1 dose, On Emelia 04/27/23 at 2315, [facility] butalbital- acetaminoph en-caff (ESGIC) 50-325-40 mg tablet 2 tablet 04-27 05:15: 00 04-27 05:15 :00 No 2{tbl} 2 tablet, Oral, ONCE, 1 dose, On Emelia 04/27/23 at 2315, [facility] butalbital- acetaminoph en-caff 50-325-40 mg tablet 04-27 00:00: 00 Yes [id number] 1{tbl} Take 1 tablet by mouth every 6 (six) hours as needed (Headache) . [facility] morpHINE (4 mg/mL) injection 4 mg 08-24 08:15: 00 08-24 08:13 :00 No 4mg 4 mg, Slow IV Push, ONCE, 1 dose, On Mon08/24/22 at 0315, STAT [facility] ondansetron (ZOFRAN (PF)) injection 4 mg 08-24 08:15: 00 08-24 08:13 :00 No 4mg 4 mg, Slow IV Push, ONCE, 1 dose, On Mon08/24/22 at 0315, [facility] iopamidol (ISOVUE 370-500 mL) injection 100 mL 08-24 07:00: 00 08-24 06:12 :00 No [id number] 100mL 100 mL, Intravenou s, ONCE, 1 dose, On Mon08/24/22 at 0200, Routine [facility] morpHINE (4 mg/mL) injection 4 mg 08-24 05:45: 00 08-24 05:28 :00 No 4mg 4 mg, Slow IV Push, ONCE, 1 dose, On Mon08/24/22 at 0045, [facility] NaCl 0.9% (NS) bolus infusion 1,000 mL 08-24 04:45: 00 08-24 06:51 :00 No 1000mL at 999 mL/hr, 1,000 mL, IV Infusion, ONCE, 1 dose, On Mon08/23/22 at 2345, [facility] famotidine (PEPCID (PF)) injection 20 mg 08-24 04:00: 00 08-24 05:27 :00 No 20mg 20 mg, Slow IV Push, ONCE, 1 dose, On Mon08/23/22 at 2300, [facility] ondansetron (ZOFRAN (PF)) injection 8 mg 08-24 04:00: 00 08-24 05:25 :00 No 8mg 8 mg, Slow IV Push, ONCE, 1 dose, On Mon08/23/22 at 2300, [facility] dicyclomine 20 mg tablet 08-24 00:00: 00 Yes [id number] 20mg Take 1 tablet by mouth 4 (four) times daily. [facility] ondansetron 4 mg disintegrat ing tablet 08-24 00:00: 00 Yes [id number] 4mg Take 1 tablet by mouth every 4 (four) hours as needed for Nausea and Vomiting (N/V). [facility] ALPRAZolam 2 mg tablet 2018-02 10:57: 36 Yes [id number] 2mg Take 2 mg by mouth at bedtime as needed for Sleep. [facility] Immunizations Ordered Immunization Name Filled Immunization Name Date Status Comments Source Influenza Virus Vaccine Quad .5 mL IM 6+ MO 2018-12-20 00:00:00 Completed [facility] Influenza Virus Vaccine Quad .5 mL IM 6+ MO 2018-12-20 00:00:00 Completed [facility] Influenza Virus Vaccine Quad .5 mL IM 6+ MO (FLUZONE/FLULAVAL/F LUARIX) Unknown Completed [facility] Vital Signs Vital Name Observation Time Observation Value Comments S ource Heart rate 2023-04-28 06:45:00 79 /min [facility] Oxygen saturation in Arterial blood by Pulse oximetry 2023-04-28 06:45:00 97 /min [facility] Systolic blood pressure 2023-04-28 06:00:00 136 mm[Hg] [facility] Diastolic blood pressure 2023-04-28 06:00:00 88 mm[Hg] [facility] Respiratory rate 2023-04-28 06:00:00 16 /min [facility] Body temperature 2023-04-28 02:51:00 36.89 [place] [facility] Body height 2023-04-28 02:51:00 157.5 cm [facility] Body weight 2023-04-28 02:51:00 92.987 kg [facility] BMI 2023-04-28 02:51:00 37.49 kg/m2 [facility] Systolic blood pressure 2022-08-24 09:00:00 121 mm[Hg] [facility] Diastolic blood pressure 2022-08-24 09:00:00 81 mm[Hg] [facility] Heart rate 2022-08-24 09:00:00 72 /min [facility] Respiratory rate 2022-08-24 09:00:00 10 /min [facility] Oxygen saturation in Arterial blood by Pulse oximetry 2022-08-24 09:00:00 97 /min [facility] Body temperature 2022-08-24 02:50:00 36.72 [place] [facility] Body height 2022-08-24 02:50:00 157.5 cm [facility] Body weight 2022-08-24 02:50:00 88.451 kg [facility] BMI 2022-08-24 02:50:00 35.67 kg/m2 [facility] Procedures Procedure Date / Time Performed Performing Clinicia n Source CONSENT/REFUSAL FOR DIAGNOSIS AND TREATMENT 2023-04-28 02:38:26 Doctor Unassigned, [place] [facility] URINALYSIS 2022-08-24 08:12:00 Bruce Jordan [facility] TROPONIN I 2022-08-24 08:06:00 Bruce Jordan [facility] LIPASE 2022-08-24 05:10:00 Jackson Diamond [facility] TEST, SERUM 2022-08-24 05:10:00 Tony Diamond [facility] TROPONIN I 2022-08-24 05:10:00 Jackson Diamond [facility] COMP. METABOLIC PANEL (61126) 2022-08-24 05:10:00 Jackson Diamond [facility] CBC WITH DIFF 2022-08-24 05:10:00 Jackson Diamond [facility] COVID-19 (ID NOW RAPID TESTING) 2022-08-24 05:10:00 Jackson Diamond [facility] EKG-12 LEAD 2022-08-24 05:01:48 Jackson Diamond [facility] XR CHEST 2 VW 2022-08-24 04:29:00 Jackson Diamond [facility] NOTICE OF PRIVACY PRACTICES 2022-08-24 02:49:52 Doctor Unassigned, [place] [facility] CONSENT/REFUSAL FOR DIAGNOSIS AND TREATMENT 2022-08-24 02:48:59 Doctor Unassigned, [place] [facility] Encounters Start Date/Time End Date/Time Encounter Type Admission Type Attending Clinicians Care Facility Care Department Encounter ID Source 2023-04-27 20:54:00 2023-04-28 00:49:00 Emergency X VINICIOJAYNEROBBY [facility] ERT [id number] [facility] 2023-04-27 20:54:00 2023-04-28 00:49:00 Emergency Ashley Patelmyke [facility] 1.2.840.114 350.1.13.10 4.2.7.2.686 [id number] [facility] 2022-12-05 14:30:00 2022-12-05 14:30:00 Outpatient R PÉREZ SNYDER [facility] [id number] [facility] 2022-11-20 17:28:00 2022-11-20 19:18:00 Emergency X ADONIS REYES [facility] ERT [id number] [facility] 2022-10-13 09:15:00 2022-10-13 09:15:00 Outpatient R PÉREZ SNYDER [facility] [id number] [facility] 2022-10-12 11:44:04 2022-10-12 11:44:04 Outpatient SFA SFA [id number] Jass Marie 2022-08-23 22:04:00 2022-08-24 04:55:00 Emergency X BRUCE JORDAN [facility] ERT [id number] [facility] 2022-08-23 22:04:00 2022-08-24 04:55:00 Emergency Jackson Diamond Donnell [facility] 1.2840.114 350.1.13.10 4.2.7.2.686 [id number] [facility] 2022-08-23 00:00:00 2022-08-23 00:00:00 Orders Only Doctor Unassigned, [place] [facility] 1.2840.114 350.1.13.10 4.2.7.2.686 [id number] [facility] 2020-05-14 00:00:00 2020-05-14 00:00:00 Patient Outreach Bran Shukla [facility] 1.840.114 350.1.13.10 4.2.7.2.686 [id number] 2019-12-26 15:30:00 2019-12-26 15:30:00 Outpatient R [facility] [id number] [facility] 2019-11-25 12:45:00 2019-11-25 12:45:00 Outpatient R AKINPÉREZ CROCKER [facility] [id number] [facility] 2019-11-20 12:45:00 2019-11-20 12:45:00 Outpatient R PÉREZ SNYDER [facility] [id number] [facility] 2019-10-03 15:41:00 2019-10-03 16:02:48 Nurse Visit Visit, Ang-Rmchp Nurse [facility] VICTORIAN LITERATURE PROFESSOR [facility] MATERNAL & CHILD [facility] 1.2.840.114 350.1.13.10 4.2.7.2.686 [id number] 2019-10-03 15:30:00 2019-10-03 15:30:00 Outpatient R [facility] [id number] [facility] 2019-07-11 15:28:40 2019-07-11 16:15:25 Nurse Visit Visit, Rylan-Rmchp Nurse [facility] VICTORIAN LITERATURE PROFESSOR [facility] CHILD [facility] 1.2.840.114 350.1.13.10 4.2.7.2.686 [id number] 2019-07-11 15:30:00 2019-07-11 15:30:00 Outpatient R ARTOBI PÉREZ [facility] [id number] [facility] 2019-05-20 14:00:00 2019-05-20 14:00:00 Outpatient R TANISHA LONG [facility] [id number] [facility] 2019-05-20 12:50:40 2019-05-20 13:05:40 Telemedici ne Visit Care, Provider [address] [facility] 1.2.840.114 350.1.13.10 4.2.7.2.686 [id number] 2019-04-30 06:26:00 2019-04-30 23:59:00 Hospital Encounter Eric Monique [facility] 1.2.840.114 350.1.13.10 4.2.7.2.686 [id number] 2019-04-30 00:00:00 2019-04-30 00:00:00 Outpatient R ERIC MONIQUE [facility] [id number] [facility] 2019-04-18 15:20:28 2019-04-18 16:14:26 Office Visit Nallely Bravo [facility] VICTORIAN LITERATURE PROFESSOR [facility] MATERNAL & [facility]ILD [facility] 1.2.840.114 350.1.13.10 4.2.7.2.686 [id number] Results Test Description Test Time Test Comments Results Result Co mments Source [facility] K[facility]491-[facility]12 06:03:40* Test Item Value Reference Range Interpretation Comme nts TROPONIN I (test code = 4533050850) 0.000 ng/mL <=0.034 MC (test code = MC) Reference (Normal) Range (defined by the 99th percentile reference limit): <= 0.034 ng/mL Note: Cardiac troponin begins to rise 3-4 hours after the onset of ischemia. Repeat in 4-6 hours if the sample was drawn within 3-4 hours of the onset of the symptom and found normal. Diagnosis of myocardial injury is made with acute changes in cTn concentrations with at least one serial sample above the 99th percentile upper reference limit (URL), taken together with the patient's clinical presentation. Biotin has been reported to cause a negative bias, interpret results relative to patient's use of biotin. Lab Interpretation (test code = 49312-1) [facility] PAN[facility] (49742)2022-08-24 05:52:39* Test Item Value Reference Range Interpretation Comme nts NA (test code = 9573930171) 136 mmol/L 135-145 K (test code = 1196421305) 3.9 mmol/L 3.5-5.0 CL (test code = 7746004444) 102 mmol/L 98-108 CO2 TOTAL (test code = 2713178027) 25 mmol/L 23-31 AGAP (test code = 0263434059) 9 2-16 BUN (test code = 2870847107) 5 mg/dL 7-23 L GLUCOSE (test code = 9642934653) 91 mg/dL 70-110 CREATININE (test code = 1963529176) 0.54 mg/dL 0.50-1.04 TOTAL BILI (test code = 7768119538) 0.8 mg/dL 0.1-1.1 CALCIUM (test code = 9746537539) 9.5 mg/dL 8.6-10.6 T PROTEIN (test code = 8432842043) 7.7 g/dL 6.3-8.2 ALBUMIN (test code = 6678656052) 4.5 g/dL 3.5-5.0 ALK PHOS (test code = 3228700498) 52 U/L 34-122 ALTv (test code = 1742-6) 12 U/L 5-35 AST(SGOT) (test code = 5299063176) 21 U/L 13-40 eGFR (test code = 1129346970) 121.5 mL/min/1.73m2 MC (test code = MC) Association of Glomerular Filtration Rate (GFR) and Staging of Kidney Disease* + --+ --+ ------+| GFR (mL/min/1.73 m2) ?| With Kidney Damage ?| ?Without Kidney Damage+ --------+ --------+ +| ?>90 ?| ?Stage one ?| ? Normal ?+ ---+ ---+ -------+| ?60-89 ?| ?Stage two ?| ? Decreased GFR ? + --+ --+ ------+| ?30-59 ?| ?Stage three ?| ? Stage three ? + --+ --+ ------+| ?15-29 ?| ?Stage four ? | ? Stage four ?+ ---+ ---+ -------+| ?<15 (or dialysis) ? ?| ?Stage five ? | ? Stage five ?+ ---+ ---+ -------+ *Each stage assumes the associated GFR level has been in effect for at least three months. ?Stages 1 to 5, with or without kidney disease, indicate chronic kidney disease. Notes: Determination of stages one and two (with eGFR >59mL/min/1.73 m2) requires estimation of kidney damage for at least three months as defined by structural or functional abnormalities of the kidney, manifested by either:Pathological abnormalities or Markers of kidney damage (including abnormalities in the composition of the blood or urine or abnormalities in imaging tests). Lab Interpretation (test code = 49830-3) [facility]normal [facility] 05[facility]52:18* Test Item Value Reference Range Interpretation Comme nts LIPASE (test code = 5108377419) 25 U/L 0-220 Lab Interpretation (test cod e = 01310-1) Normal [facility], [id number] 05:50:02* Test Item Value Reference Range Interpretation Comme nts PREG SERUM (test code = 2629870873) Negative MC (test code = MC) Less than 10 IU/L. ?If low titer or ectopic is suspected, resubmit specimen in 48-72 hours. [facility] WITH [id number] 05:38:57* Test Item Value Reference Range Interpretation Comme nts WBC (test code = 6690-2) 16.36 See_Comment H [Automated message] The system which generated this result transmitted reference range: 4.30 - 11.10 10*3/?L. The reference range was not used to interpret this result as normal/abnormal. RBC (test code = 789-8) 4.09 See_Comment [Automated message] The system which generated this result transmitted reference range: 3.93 - 5.25 10*6/?L. The reference range was not used to interpret this result as normal/abnormal. HGB (test code = 718-7) 13.5 g/dL 11.6-15.0 HCT (test code = 4544-3) 38.9 % 35.7-45.2 MCV (test code = 787-2) 95.1 fL 80.6-95.5 MCH (test code = 785-6) 33.0 pg 25.9-32.8 H MCHC (test code = 786-4) 34.7 g/dL 31.6-35.1 RDW-SD (test code = 67648-2) 46.4 fL 39.0-49.9 RDW-CV (test code = 788-0) 13.2 % 12.0-15.5 PLT (test code = 777-3) 449 See_Comment H [Automated message] The system which generated this result transmitted reference range: 166 - 358 10*3/?L. The reference range was not used to interpret this result as normal/abnormal. MPV (test code = 66342-1) 9.2 fL 9.5-12.9 L NRBC/100 WBC (test code = 7089276030) 0.0 See_Comment [Automated message] The system which generated this result transmitted reference range: 0.0 - 10.0 /100 WBCs. The reference range was not used to interpret this result as normal/abnormal. NRBC x10^3 (test code = 6687279866) See_Comment [Automated message] The system which generated this result transmitted reference range: 10*3/?L. The reference range was not used to interpret this result as normal/abnormal. GRAN MAT (NEUT) % (test code = 770-8) 73.0 % IMM GRAN % (test code = 6588305043) 0.30 % LYMPH % (test code = 736-9) 17.9 % MONO % (test code = 5905-5) 7.6 % EOS % (test code = 713-8) 0.8 % BASO % (test code = 706-2) 0.4 % GRAN MAT x10^3(ANC) (test code = 3871370642) 11.94 10*3/uL 1.88-7.09 H IMM GRAN x10^3 (test code = 5263594695) 0.05 10*3/uL 0.00-0.06 LYMPH x10^3 (test code = 731-0) 2.93 10*3/uL 1.32-3.29 MONO x10^3 (test code = 742-7) 1.24 10*3/uL 0.33-0.92 H EOS x10^3 (test code = 711-2) 0.13 10*3/uL 0.03-0.39 BASO x10^3 (test code = 704-7) 0.07 10*3/uL 0.01-0.07 Lab Interpretation (test code = 73404-3) Abnormal [facility] Notes Date/Time Note Provider Source 2023-04-28 00:48:16 9868-46-09C42:48:16F ormatting of this note might be different from the original.Pt given printed and verbal discharge instructions regarding headache disorder.Encouraged hydration,Prescriptions provided:ESGICDiscussed ibuprofen and to take with food to avoid GI distress.Discussed tramadol/phenergan/Tylenol # 3 side affects and to avoid driving/operating machinery/or engaging in activities requiring alertness while taking.Pt verbalized understanding of instructions, pt awake alert oriented, resp reg unlabored, skin w/d, color appropriate for race, moves all ext well,pt encouraged to follow up with pcp.Advised to seek medical attention for new/prolonged/worsening of symptoms,Symptoms IMPROVEDNo adverse reaction to meds given in ER noted upon dischargePIV d'cd, dressing to site, catheter in tact.Awake, alert oriented, resp reg unlabored, skin w/d, pt leaving amb with steady gait, in no apparent distress, accompanied by SIGNIFICANT OTHER. [address] FrwyGI1144-82-19M51:49:24[facility] NoteTXT1.2.840.996546.1.13.104.2.7. 2.543681|[id number] for patient psqz79908-7CuppJGCBGJKAFSJXcdwoswju C-CDA narrative [id number] Schultz RNUT[address] [id number] 4PUGYPNVTRZBJPNETNWYBQY4969-63-91X7 0:49:241.2.840.628993.1.72.3.15|1.2 .840.173825.1.13.104.2.7.2.727879_2 [id number] Stephanie Schultz RN [facility] 2023-04-27 23:29:22 8464-61-79Z37:29:22F ormatting of this note might be different from the original.Pt ambulatory to bathroom and back to room steady gait. Significant other at bedside. 37085-9Zlppdleme department IexcNM9933-08-81V14:30:01[facility] NoteTXT1.2.840.524844.1.13.104.2.7. 2.251136|[id number] for patient eqri33317-8AjrcEMFSHATDOIZHjzdgsyyi C-CDA narrative text42 Young [id number] 2OTCUWPUHEAQRUPNDULNHFT7890-15-06W7 3:30:011.2.840.811869.1.72.3.15|1.2 .840.781098.1.13.104.2.7.2.727879_2 [id number] [facility] 2023-04-27 20:55:23 9499-60-28I18:55:23F ormatting of this note might be different from the original.Pt given urine cup and placed in the lobby, pt advice to notify nurse with any other concerns or if symptoms worsen. 13934-8Bxricbfml department IrjwGX7610-09-39V66:55:33[facility] NoteTXT1.2.840.365125.1.13.104.2.7. 2.758591|[id number] for patient uosx70309-6UkxrNOSLUAVBMSLLyyxydpva C-CDA narrative text[address] Jy[id number] 3DEWEWPLNMGSEJMVVXTDOKM3305-69-11D6 0:55:331.2.840.048887.1.72.3.15|1.2 .840.246970.1.13.104.2.7.2.727879_2 [id number] [facility] 2023-04-27 20:50:22 8396-07-79J04:50:22F ormatting of this note might be different from the original.C/O headache for 1 wk and nausea. Pt states she has tried tylenol and motrin has not given any relief. 34164-7Ymaerbego department Triage vhzvQQ4119-78-99G97:51:41[facility] department Triage noteTXT1.2.840.995862.1.13.104.2.7. 2.292559|[id number] for patient ckba94286-8Mcgehtaoa department NoteLNNARRATIVEFormatted C-CDA narrative [id number] J Hoot RN[address] OhipMoxhyofdaIsiurndvvWUIY781858360 7BSILYLCPBUUQTUGEGZJXNK4956-79-28G3 0:51:411.2.840.884173.1.72.3.15|1.2 .840.739541.1.13.104.2.7.2.727879_2 [id number] Tabatha Erik Parish RN [facility] 2023-04-27 20:38:00 5196-08-27H66:38:00F ormatting of this note is different from the original.[facility] Emergency Department NotePatient Name: Essence KimDate of : 1975 47 year old femaleTreatment Room: [place] [address]Medical Record Number: [id number] Care Physician: PATIENT DOES NOT HAVE A PCPPatient Escorted by: Family [5]Mode of Arrival: Personal means [1]EMS Treatment Prior to ED Arrival:UNDERWEAR FINISHER treatment: NoneTravel and Exposure Screening:SymptomsDoes patient have any of these symptoms?: (not recorded)Exposure ScreeningHas patient had contact with someone with a communicable disease in the last month?: (not recorded)Diseases exposed to:: (not recorded)Is Patient ?: (not recorded)Exposure Date: (not recorded)Chief Complaint:Chief ComplaintPatient presents withHeadacheNauseaHistory of Present Illness:Essence Kim is a 47 year old female with hx of Migraine who presents to the ED for evaluation of a headache that is consistent with her usual migrainous episodes/attacks. No trauma. No fever or chills. No neck pain.. No rash. No focal weakness. HUERTA is same in quality and character as her usual migrainous episodesHistory provided by: Medical records, patient and significant otherLanguage forging press lever tender used: NoHeadachePain location: Frontal and occipitalRadiates to: Does not radiateSeverity currently: 11/06Severity at highest: 11/06Onset quality: GradualDuration: 1 weekTiming: SporadicProgression: UnchangedChronicity: ChronicSimilar to prior headaches: yesContext: bright light and loud noiseRelieved by: NothingWorsened by: NothingIneffective treatments: NSAIDs and acetaminophenAssociated symptoms: nausea, photophobia and vomitingAssociated symptoms: no back pain, no blurred vision, no congestion, no cough, no dizziness, no drainage, no ear pain, no fatigue, no fever, no focal weakness, no hearing loss, no loss of balance, no near-syncope, no neck pain, no neck stiffness, no numbness, no paresthesias, no seizures, no sinus pressure, no sore throat, no swollen glands, no syncope, no tingling, no URI, no visual change and no weaknessPast Medical History/Immunizations:Past Medical History:Diagnosis DateAbnormal uterine bleedingAnxiety 2017on medication, managed by PCPBreast disorderpain in breastDepression 2017not on medication, managed by PCP, no si/hiTetanus received in last 5 years: UnknownChildhood immunizations: Tv-ew-djdfLsvhretoh:AllergiesAllerg en ReactionsNsaids (Non-Steroidal Anti-Inflammatory Drug) SwellingPast Social History:Tobacco UseEvery Day; Cigarettes: Started 12/20/2018; 1.00 packs/daySmokeless Tobacco: Never used smokeless tobacco.Alcohol UseNot Currently.Drug UseNot Currently.Sexual ActivitySexually active; Partners: Male; Control/Protection: Surgical, Pill.Comments: last sexual intercourse 12/16/2018Past Surgical History:Past Surgical History:Procedure Laterality DateCESAREAN SECTIONCHOLECYSTECTOMY 1997TUBAL LIGATION 2000Review of Systems:Review of SystemsConstitutional: Negative. Negative for chills, diaphoresis, fatigue and fever.HENT: Negative. Negative for congestion, ear pain, hearing loss, postnasal drip, sinus pressure and sore throat.Eyes: Positive for photophobia. Negative for blurred vision.Respiratory: Negative. Negative for cough.Breasts: Negative.Cardiovascular: Negative. Negative for syncope and near-syncope.Gastrointestinal: Positive for nausea and vomiting.Genitourinary: Negative.Musculoskeletal: Negative. Negative for back pain, neck pain and neck stiffness.Skin: Negative.Neurological: Positive for headaches. Negative for dizziness, focal weakness, seizures, weakness, numbness, paresthesias and loss of balance.Psychiatric/Behavioral: Negative.All other systems reviewed and are negative.Endocrine: Endocrine negativePhysical Exam:ED Triage Vitals [04/27/232050]Weight 93 kg (205 lb)Actual or estimatedHeight 1.575 m (5' 2")BP (!) 162/102Pulse 94Resp 18Temp 36.9 ?C (98.4 ?F)Temp source OralSpO2 98 %Measured on Room airPhysical ExamVitals and nursing note reviewed.Constitutional:General: She is not in acute distress.Appearance: Normal appearance. She is well-developed and normal weight. She is not ill-appearing or toxic-appearing.HENT:Head: Normocephalic and atraumatic.Left Ear: Ear canal and external ear normal.Nose: Nose normal. No congestion or rhinorrhea.Mouth/Throat:Mouth: Mucous membranes are moist.Pharynx: Oropharynx is clear. No oropharyngeal exudate or posterior oropharyngeal erythema.Eyes:General: No scleral icterus.Right eye: No discharge.Left eye: No discharge.Extraocular Movements: Extraocular movements intact.Conjunctiva/sclera: Conjunctivae normal.Pupils: Pupils are equal, round, and reactive to light.Neck:Thyroid: No thyromegaly.Cardiovascular:Rate and Rhythm: Normal rate and regular rhythm.Pulses: Normal pulses.Heart sounds: Normal heart sounds. No murmur heard.Pulmonary:Effort: Pulmonary effort is normal. No respiratory distress.Breath sounds: Normal breath sounds. No stridor. No wheezing, rhonchi or rales.Chest:Chest wall: No tenderness.Abdominal:General: Bowel sounds are normal. There is no distension.Palpations: Abdomen is soft. There is no mass.Tenderness: There is no abdominal tenderness. There is no right CVA tenderness, left CVA tenderness, guarding or rebound.Hernia: No hernia is present.Musculoskeletal:General: No swelling, tenderness, deformity or signs of injury. Normal range of motion.Cervical back: Normal range of motion and neck supple. No rigidity or tenderness.Right lower leg: No edema.Left lower leg: No edema.Lymphadenopathy:Cervical: No cervical adenopathy.Skin:General: Skin is warm and dry.Capillary Refill: Capillary refill takes less than 2 seconds.Coloration: Skin is not jaundiced or pale.Findings: No bruising, erythema, lesion or rash.Neurological:General: No focal deficit present.Mental Status: She is alert and oriented to person, place, and time.Cranial Nerves: No cranial nerve deficit.Sensory: No sensory deficit.Motor: No weakness or abnormal muscle tone.Coordination: Coordination normal.Gait: Gait normal.Deep Tendon Reflexes: Reflexes normal.Psychiatric:Behavior: Behavior normal.Thought Content: Thought content normal.Judgment: Judgment normal.Radiology:No orders to displayLab Results:Lab Results - No data to displayOrders and Treatments:No orders of the defined types were placed in this encounter.Orders Placed This EncounterMedicationsbutalbital-acet aminophen-caff (ESGIC) 50-325-40 mg tablet 2 tabletNaCl 0.9% (NS) IV infusion 1,000 mLmetoclopramide HCl (REGLAN) injection 10 mgdiphenhydrAMINE (BENADRYL) injection 25 mgketorolac (TORADOL) injection 30 ykqmcizqfagc-jnukttwcbvywb-niry 50-325-40 mg tabletFirst Provider Eval:ED EventsNoneED COURSEDiagnosis/Impression as of 04/28/23 0046Headache disorderProcedures:ProceduresMDM:La dical Decision MakingMisty Nicole Kim is a 47 year old female who presents to the ED with a headacheProblems Addressed:Headache disorder: acute illness or injuryRiskOTC drugs.Prescription drug management.Risk Details: Will refer to PCP/Neurology for further evaluation and managementFlowsheet Documentation:Scoring Tools:No data recordedDisposition/Condition:ED DispositionED DispositionDisch - HomeConditionStableComment--Dischar Medications:Patient's MedicationsSTART taking these medicationsBUTALBITAL-ACETAMINOPHEN -CAFF 50-325-40 MG TABLET Take 1 tablet by mouth every 6 (six) hours as needed (Headache).CONTINUE taking these medications which have NOT CHANGEDALPRAZOLAM 2 MG TABLET Take 2 mg by mouth at bedtime as needed for Sleep.DICYCLOMINE 20 MG TABLET Take 1 tablet by mouth 4 (four) times daily.ONDANSETRON 4 MG DISINTEGRATING TABLET Take 1 tablet by mouth every 4 (four) hours as needed for Nausea and Vomiting (N/V).START taking Modified Medications as PrescribedNo medications on fileSTOP taking these medicationsNo medications on fileFollow-up:Contact information for follow-Yannick Maurice MDSpecialty: -[facility] AND [address] [id number]: [phone] signed by:Robby Patel MD04/28/23 0046 [id number] Emergency department [id number]:46:39Physician Emergency department [id number] for patient [id number] department NoteLNNARRATIVEFormatted C-CDA narrative textUT75 Jackson [id number] 0:46:[id number] [id number] [facility]
[2023-09-05] MEDS ORDERED: KETOROLAC 30 MG/ML INJ ONE (00:20)
[2023-09-05] MEDS ORDERED: IPRATROPIUM BROM 0.5MG/2.5ML ONE (00:30)
[2023-09-05] MEDS ORDERED: ALBUTEROL 2.5 MG/3 ML NEB SOL ONE (00:30)
[2023-09-05] MEDS ORDERED: HYDROCODONE/CHLORPHEN 5 ML/OSYR ONE (01:13)
[2023-09-05 02:14] LABS: SARS-CoV-2 Antigen CONTROL BLUE LINE VIS/BG OK; SARS-CoV-2 Antigen Rapid Res Negative (Negative)
--- NOTE | 2023-09-05 02:41 | EDPHYS ---
Physician Documentation [facility] Name: Jessica Kim Age: 47 yrs Sex: Female : 1975 Arrival Date: 09/04/2023 Time: 23:28 Bed DX1 Private MD: ED Physician Getachew Verdugo HPI: 09/04 00:13 This 47 yrs old Female presents to ER via Unassigned with complaints of Cough. sb4 00:13 cough, congestion, wheezing, nasal congestion, headache x 1 week. no GI symptoms. no sb4 sick contacts. . Historical: - Allergies: 00:14 NSAIDS; kb3 - PMHx: 00:14 Anxiety; Depression; endomitriosis; tendenitis; kb3 - PSHx: 00:14 section; Cholecystectomy; kb3 - Immunization history:: Adult Immunizations up to date, Client reports having NOT received the Covid vaccine. Last tetanus immunization: unknown. - Infectious Disease History:: Denies. - Social history:: Smoking status: Patient reports the use of cigarette tobacco products, smokes one pack cigarettes per day. ROS: 00:13 Cardiovascular: Negative for chest pain, palpitations, and edema, sb4 00:13 Constitutional: Positive for malaise, 00:13 ENT: Positive for sinus congestion, 00:13 Respiratory: Positive for cough, shortness of breath, wheezing, 00:13 All other systems are negative, Exam: 00:13 Constitutional: This is a well developed, well nourished patient who is awake, alert, sb4 and in no acute distress. Head/Face: Normocephalic, atraumatic. Eyes: Extra-ocular motions intact. Periorbital areas with no swelling, redness, or edema. ENT: Mucous membranes moist. Cardiovascular: Regular rate and rhythm with a normal S1 and S2. Respiratory: Lungs have equal breath sounds bilaterally, clear to auscultation and percussion. No rales, rhonchi or wheezes noted. No increased work of breathing, no retractions or nasal flaring. Abdomen/GI: Soft, non-tender, no distension. Skin: Warm, dry with normal turgor. Normal color with no rashes, no lesions, and no evidence of cellulitis. MS/ Extremity: Pulses equal, no cyanosis. Neurovascular intact. Full, normal range of motion. Vital Signs: 00:13 Weight 82.55 kg; Height 5 ft. 2 in. ; Pain 8/10; kb3 00:16 BP 176 / 88; Pulse 88; Resp 19; Temp 97.9; Pulse Ox 97% on R/A; vk 00:13 Body Mass Index 33.29 (82.55 kg, 157.48 cm) kb3 00:13 Pain Scale: Adult kb3 MDM: 09/03 23:59 Patient medically screened. sb4 09/04 02:41 Data reviewed: vital signs, nurses notes, lab test result(s), radiologic studies, and sb4 as a result, I will discharge patient. Counseling: I had a detailed discussion with the patient and/or guardian regarding the historical points, exam findings, and any diagnostic results supporting the discharge/admit diagnosis, lab results, radiology results, to return to the emergency department if symptoms worsen or persist or if there are any questions or concerns that arise at home. 09/04 00:11 Order name: SARS RAPID; Complete Time: 02:16 sb4 09/04 00:11 Order name: Flu sb4 09/04 00:11 Order name: Chest Pa And Lat (2 Views) XRAY sb4 Administered Medications: 00:32 Drug: Ketorolac IM 30 mg IM once Route: IM; Site: left deltoid; bm8 01:15 Follow up: Response: Pain is decreased rg5 00:33 Drug: DuoNeb Nebulize (3:1) (2.5 mg - 0.5 mg) 3 ml Nebulizer once Route: Nebulizer; bm8 01:15 Follow up: Response: No adverse reaction rg5 01:15 Drug: Tussionex Pennkinetic ER PO Suspension 5 ml PO once Route: PO; rg5 02:59 Drug: Tessalon Perle PO 200 mg PO once Route: PO; jb4 Disposition Summary: 09/05/23 02:41 Discharge Ordered Notes: Location: Home sb4 Problem: an ongoing problem sb4 Symptoms: have improved sb4 Condition: Stable sb4 Diagnosis - Acute bronchitis, unspecified sb4 Followup: sb4 - With: Emergency Department - When: As needed - Reason: Trouble breathing, Worsening of condition Discharge Instructions: - Discharge Summary Sheet sb4 - Acute Bronchitis, Adult sb4 Forms: - Patient Portal Instructions sb4 - Leadership Thank You Letter sb4 Prescriptions: - Tessalon Perles 100 mg Oral Capsule - take 1 capsule ORAL route every 8 hours As needed; 15 capsule; Refills: 0, sb4 Product Selection Permitted - Prednisone 20 mg Oral Tablet - take 1 tablet ORAL route every 12 hours for 5 days; 10 tablet; Refills: 0, sb4 Product Selection Permitted Signatures: Dispatcher [employer] Gabino Clay, RN RN jb4 Tanna Mcdowell, RN RN kb3 Keke Chance PA-C PABria sb4 Iván Gutierrez, RN RN bm8 Michele Barker, RN RN rg5 Corrections: (The following items were deleted from the chart) 00:16 00:13 cough, congestion, wheezing, nasal congestion x 1 week. no GI symptoms. no sick sb4 contacts. . sb4
--- NOTE | 2023-09-05 02:41 | ER ---
Nurse's Notes [facility] Name: Jessica Kim Age: 47 yrs Sex: Female : 1975 Arrival Date: 09/04/2023 Time: 23:28 Bed DX1 Private MD: Diagnosis: Acute bronchitis, unspecified Presentation: 09/04 00:13 Chief complaint: Patient states: dry cough x1 week with an intermittent HUERTA. Denies kb3 fever. Coronavirus screen: Vaccine status: Patient reports being unvaccinated. Client denies travel out of the [place] in the last 14 days. Ebola Screen: Patient negative for fever greater than or equal to 101.5 degrees Fahrenheit, and additional compatible Ebola Virus Disease symptoms Patient denies exposure to infectious person. Patient denies travel to an Ebola-affected area in the 21 days before illness onset. Initial Sepsis Screen: Does the patient meet any 2 criteria? No. Patient's initial sepsis screen is negative. Does the patient have a suspected source of infection? No. Patient's initial sepsis screen is negative. Risk Assessment: Do you want to hurt yourself or someone else? Patient reports no desire to harm self or others. Onset of symptoms was August 30, 2023. 00:13 Method Of Arrival: Ambulatory kb3 00:13 Acuity: HOWARD 3 kb3 Triage Assessment: 00:14 General: Appears in no apparent distress. Behavior is calm, cooperative. Pain: kb3 Complains of pain in chest Pain does not radiate. Pain currently is 10 out of 10 on a pain scale. Quality of pain is described as burning. Respiratory: Reports cough that is non-productive, Airway is patent Respiratory effort is even, unlabored, Respiratory pattern is regular. Historical: - Allergies: 00:14 NSAIDS; kb3 - PMHx: 00:14 Anxiety; Depression; endomitriosis; tendenitis; kb3 - PSHx: 00:14 section; Cholecystectomy; kb3 - Immunization history:: Adult Immunizations up to date, Client reports having NOT received the Covid vaccine. Last tetanus immunization: unknown. - Infectious Disease History:: Denies. - Social history:: Smoking status: Patient reports the use of cigarette tobacco products, smokes one pack cigarettes per day. Screenin:59 [facility] ED Fall Risk Assessment (Adult) History of falling in the last 3 months, jb4 including since admission No falls in past 3 months (0 pts) Confusion or Disorientation No (0 pts) Intoxicated or Sedated No (0 pts) Impaired Gait No (0 pts) Mobility Assist Device Used No (0 pt) Altered Elimination No (0 pt) Score/Fall Risk Level 0 - 2 = Low Risk Oriented to surroundings, Maintained a safe environment. Abuse screen: Denies threats or abuse. Nutritional screening: No deficits noted. Tuberculosis screening: No symptoms or risk factors identified. Assessment: 02:59 Reassessment: Patient appears in no apparent distress at this time. Patient and/or jb4 family updated on plan of care and expected duration. Pain level reassessed. Patient is alert, oriented x 3, equal unlabored respirations, skin warm/dry/pink. Vital Signs: 00:13 Weight 82.55 kg; Height 5 ft. 2 in. ; Pain 8/10; kb3 00:16 BP 176 / 88; Pulse 88; Resp 19; Temp 97.9; Pulse Ox 97% on R/A; vk 00:13 Body Mass Index 33.29 (82.55 kg, 157.48 cm) kb3 00:13 Pain Scale: Adult kb3 ED Course: 09/03 23:31 Patient arrived in ED. rg4 23:46 Keke Chance [facility] sb4 23:46 Getachew Verdugo MD is Attending Physician. sb4 07 00:14 Triage completed. kb3 00:24 COVID swab sent to lab. Flu and/or RSV swab sent to lab. vk 00:24 Flu Sent. vk 00:24 SARS RAPID Sent. vk 00:44 Chest Pa And Lat (2 Views) XRAY In Process Unspecified. EDMS 02:59 No provider procedures requiring assistance completed. Patient did not have IV access jb4 during this emergency room visit. 02:59 Patient has correct armband on for positive identification. Bed in low position. Call jb4 light in reach. Side rails up X 1. Provided Education on: discharge instructions.. Administered Medications: 00:32 Drug: Ketorolac IM 30 mg IM once Route: IM; Site: left deltoid; bm8 01:15 Follow up: Response: Pain is decreased rg5 00:33 Drug: DuoNeb Nebulize (3:1) (2.5 mg - 0.5 mg) 3 ml Nebulizer once Route: Nebulizer; bm8 01:15 Follow up: Response: No adverse reaction rg5 01:15 Drug: Tussionex Pennkinetic ER PO Suspension 5 ml PO once Route: PO; rg5 02:59 Drug: Tessalon Perle PO 200 mg PO once Route: PO; jb4 Medication: 02:59 VIS not applicable for this client. jb4 Outcome: 02:41 Discharge ordered by . sb4 02:59 Discharged to home ambulatory, jb4 02:59 Condition: stable 02:59 Discharge instructions given to patient, Instructed on discharge instructions, follow up and referral plans. medication usage, Demonstrated understanding of instructions, follow-up care, medications, Prescriptions given X 2, 03:03 Patient left the ED. jb4 Signatures: Dispatcher [employer] EDSandra Carrillo rg4 Gabino Yates, RN RN jb4 Tanna Mcdowell, RN RN kb3 Keke Chance, PABria PA-C sb4 Maeve Sanchez Brad, RN RN bm8 Michele Barker, RN RN rg5
[2023-09-05] MEDS ORDERED: BENZONATATE 100 MG CAP PO ONE (02:49)
[2023-09-05 03:32] VITALS: BP 176/88; TEMP 97.9; O2SAT 97
--- NOTE | 2023-09-05 12:20 | RAD REPORT ---
EXAM DESCRIPTION: RAD - Chest Pa And Lat (2 Views) - 09/05/2023 12:42 am CLINICAL HISTORY: Cough; shortness of breath COMPARISON: None FINDINGS: LUNGS/PLEURAL SPACES: The lungs are clear. No pleural effusion. No pneumothorax. HEART/MEDIASTINUM: Within normal range. BONES/UPPER ABDOMEN/SOFT TISSUES: Unremarkable. IMPRESSION: Negative chest exam. Electronically signed by: Shantal Gordon MD 09/05/2023 01:54 AM CDT RP Due to temporary technical issues with the PACS/Fluency reporting system, reports are being signed by the in house radiologist without review as a courtesy to ensure prompt reporting. The interpreting r adiologist is fully responsible for the content of the report.
== END 2023-09-05 03:03 | disposition home or self-care (01) ==
LOC: ER 23:28
DX: J20.9 Acute bronchitis, unspecified (principal); F17.210 Nicotine dependence, cigarettes, uncomplicated; Z11.52 Encounter for screening for COVID-19
CPT/HCPCS: 36415; 87804 ×2; 71046; 94640; 96372; 99284; 87811; J7613; J7644

== ENCOUNTER 2024-03-13 19:48 | Emergency (ER) | payer OTHER ==
--- OUTSIDE RECORDS SUMMARY | 2024-03-13 19:53 | XMS REPORT | Continuity of Care Document ---
Author Name Unknown Address [address] [facility] [place] [address] [facility] Address [address] [facility] [address] [place] [address] Care Team Providers Care Lead Fire Protection Engineer Name Role Phone PCP, PATIENT DOES NOT HAVE A Primary Care Physic augustus Unavailable Samina Aguirre Attending Clinician Unavailable JOCELYN ARCHULETA Attending Clinician Unavailable JOCELYN ARCHULETA Attending Clinician Unavailable Jocelyn Becker Attending Clinician + [phone] ROBBY PATEL Attending Clinician Unavailable Robby Patel MD Attending Clinician + [phone] PÉREZ SNYDER Attending Clinician Unavail able ADONIS REYES Attending Clinician Unav BRUCE Santillan Attending Clinician Unavailable Jackson Diamond MD Attending Clinician + [phone] Bruce Jordan MD Attending Clinician +[phone] Doctor Unassigned, [place] Attending Clinician U Bran Parks DO Attending Clinician [phone] Visit, [facility] Nurse Attending Clinician TANISHA Dalton Attending Clinician Samia hoffman Care, Provider 6 Adult Urgent Attending Clinicia n Unavailable Eric Mills Attending Clinician + [phone] ERIC MONIQUE Attending Clinician Unavailab Hargrove, Nallely Espinosa Attending Clinician [phone] JOCELYN ARCHULETA Admitting Clinician Unavailable ADONIS REYES Admitting Clinician UnaJACKSON Ludwig Admitting Clinician Unavailabl e Payers Payer Name Policy Type Policy Number Effective Date Expirati on Date Source [facility] 53 [id number] [facility] O [id number] 2023 00:00:00 [facility] BLUE ADVANTAGE HMO [id number] 2023 00:00:00 [facility] [id number] 2018 00:00:00 Problems Condition Name Condition Details Condition Category Status Onset Date Resolution Date Last Treatment Date Treating Clinician Comments Source Encounter for immunizati on Encounter for immunizati on Disease Active 2018-02 00:00: 00 [facility] Encounter for surveillan ce of contracept giovanna, unspecifie d contracept mirtha Encounter for surveillan ce of contracept giovanna, unspecifie d contracept mirtha Disease Active 2018-02 00:00: 00 [facility] History of bilateral tubal ligation History of bilateral tubal ligation Disease Active 2018-02 00:00: 00 [facility] Tobacco use disorder Tobacco use disorder Disease Active 2018-02 00:00: 00 [facility] Anxiety Anxiety Disease Active 2018-02 00:00: 00 [facility] Depression , unspecifie d depression type Depression , unspecifie d depression type Disease Active 2018-02 00:00: 00 [facility] Irregular menstrual cycle Irregular menstrual cycle Disease Active 2018-02 00:00: 00 [facility] Morbid obesity Morbid obesity Disease Active 2018-02 00:00: 00 [facility] BMI 37.0-37.9, adult BMI 37.0-37.9, adult Disease Active 2015-02 00:00: 00 [facility] [id number] Smokes 1 pack of cigarettes per day Problem [facility] [id number] Mixed hyperlipid emia Problem [facility] [id number] MDD (major depressive disorder), severe Problem [facility] Chronic anemia Chronic anemia Problem [facility] [id number] Hypothyroi dism (acquired) Problem [facility] Allergies, Adverse Reactions, Alerts Allergy Name Allergy Type Status Severity Reaction(s) Onset Date Inactive Date Treating Clinician Comments Source Nsaids (Non-Joce roidal Anti-Inf lammator y Drug) Propensi ty to adverse reaction s to drug Active Swelling 2018-02 00:00: 00 [facility] NSAIDS (NON-JOCE ROIDAL ANTI-INF LAMMATOR Y DRUG) Drug Class Active Med Swelling 2018-02 00:00: 00 [facility] 0 Drug allergy Active Unknown [facility] Social History Social Habit Start Date Stop Date Quantity Comments Source History of Tobacco Use Current Smoker [facility] Sex Assigned At [facility] intake 2024-01-30 00:00:00 2024-01-30 00:00:00 Ex-drinker (finding) [facility] Alcohol intake 2023-04-28 00:00:00 2023-04-28 00:00:00 Ex-drinker (finding) [facility] History of Social function 2019-09-29 00:00:00 2019-09-29 00:00:00 [facility] Cigarette pack-years 2018-12-20 00:00:00 2018-12-20 00:00:00 [facility] Cigarettes smoked current (pack per day) - Reported 2018-12-20 00:00:00 2018-12-20 00:00:00 [facility] Tobacco use and exposure 2018-12-20 00:00:00 2018-12-20 00:00:00 Smokeless tobacco non-user [facility] Smoking Status Start Date Stop Date Source Smokes tobacco daily 2018-12-20 00:00:00 [facility] Medications Ordered Medication Name Filled Medication Name Start Date Stop Date Current Medication? Ordering Clinician Indication Dosage Frequency Signature (SIG) Comments Components Source Azithromyci n 250 MG Azithromyci n 250 MG 03-12 00:00: 00 No QD Azithromyc in 250 MG Rosuvastati n Calcium 5 MG Rosuvastati n Calcium 5 MG 03-12 00:00: 00 No 1{table t} QD Rosuvastat in Calcium 5 MG Benzonatate 100 MG Benzonatate 100 MG 03-12 00:00: 00 No 1{capsu le} TID Benzonatat e 100 MG predniSONE 20 MG predniSONE 20 MG 03-12 00:00: 00 No 2{table t} QD predniSONE 20 MG predniSONE (DELTASONE) tablet 30 mg 2023-02 03:00: 00 01-30 04:14 :00 No 30mg 30 mg, Oral, ONCE, 1 dose, On Mon01/30/24 at 2100, [facility] HYDROcodone -acetaminop hen (NORCO 5) tablet 1 tablet 2023-02 03:00: 00 01-30 04:13 :00 No 1{tbl} 1 tablet, Oral, ONCE, 1 dose, On Mon01/30/24 at 2100, [facility] methocarbam oL (ROBAXIN) tablet 500 mg 2023-02 02:55: 00 01-30 04:14 :00 No 500mg 500 mg, Oral, ONCE, 1 dose, On Mon01/30/24 at 2100, [facility] methocarbam oL 500 mg tablet 2023-02 00:00: 00 Yes [id number] 500mg Take 1 tablet by mouth 3 (three) times daily as needed for Pain (scale 7-10). [facility] acetaminoph en-codeine 300-30 mg tablet 2023-02 00:00: 02-06 05:59 :00 Yes [id number] 1{tbl} Take 1 tablet by mouth every 8 (eight) hours as needed for Pain (scale 4-6) for up to 7 days. Indication s: acute pain [facility] predniSONE 10 mg tablet 2023-02 00:00: 00 02-03 05:59 :00 Yes [id number] 30mg Take 3 tablets by mouth in the morning for 4 days. [facility] Albuterol Sulfate HFA 108 (90 Base) MCG/ACT Albuterol Sulfate HFA 108 (90 Base) MCG/ACT 30 00:00: 00 No 1{puff_ as_need ed} 6xD Albuterol Sulfate HFA 108 (90 Base) MCG/ACT Ferrous Sulfate 325 (65 Fe) MG Ferrous Sulfate 325 (65 Fe) MG 10-08 00:00: 00 No 1{table t} QD Ferrous Sulfate 325 (65 Fe) MG ketorolac (TORADOL) injection 30 mg 04-27 06:45: 00 04-27 05:46 :00 No 30mg 30 mg, Slow IV Push, ONCE, 1 dose, On Mon04/28/23 at 0045, Routine [facility] NaCl 0.9% (NS) IV infusion 1,000 mL 04-27 06:15: 00 Yes 1000mL at 999 mL/hr, Intravenou s, CONTINUOUS , Starting on Mon04/28/23 at 0015, Until Discontinu ed, Routine [facility] diphenhydrA MINE (BENADRYL) injection 25 mg 04-27 05:15: 00 04-27 05:16 :00 No 25mg 25 mg, Slow IV Push, ONCE, 1 dose, On Emelia 04/27/23 at 2315, STAT [facility] metoclopram harsha HCl (REGLAN) injection 10 mg 04-27 05:15: 00 04-27 05:16 :00 No 10mg 10 mg, Slow IV Push, ONCE, 1 dose, On Emelia 04/27/23 at 2315, POLINA [facility] butalbital- acetaminoph en-caff (ESGIC) 50-325-40 mg tablet 2 tablet 3 05:15: 00 04-27 05:15 :00 No 2{tbl} 2 tablet, Oral, ONCE, 1 dose, On Emelia 04/27/23 at 2315, [facility] butalbital- acetaminoph en-caff 50-325-40 mg tablet 04-27 00:00: 00 Yes [id number] 1{tbl} Take 1 tablet by mouth every 6 (six) hours as needed (Headache) . [facility] morpHINE (4 mg/mL) injection 4 mg 08-24 08:15: 00 08-24 08:13 :00 No 4mg 4 mg, Slow IV Push, ONCE, 1 dose, On Mon08/24/22 at 0315, STAT [facility] ondansetron (ZOFRAN (PF)) injection 4 mg 08-24 08:15: 00 08-24 08:13 :00 No 4mg 4 mg, Slow IV Push, ONCE, 1 dose, On Mon08/24/22 at 0315, [facility] iopamidol (ISOVUE 370-500 mL) injection 100 mL 08-24 07:00: 00 08-24 06:12 :00 No [id number] 100mL 100 mL, Intravenou s, ONCE, 1 dose, On Mon08/24/22 at 0200, Routine [facility] morpHINE (4 mg/mL) injection 4 mg 08-24 05:45: 00 08-24 05:28 :00 No 4mg 4 mg, Slow IV Push, ONCE, 1 dose, On Mon08/24/22 at 0045, [facility] NaCl 0.9% (NS) bolus infusion 1,000 mL 08-24 04:45: 00 08-24 06:51 :00 No 1000mL at 999 mL/hr, 1,000 mL, IV Infusion, ONCE, 1 dose, On 6/27/23 at 2345, [facility] famotidine (PEPCID (PF)) injection 20 mg 08-24 04:00: 00 08-24 05:27 :00 No 20mg 20 mg, Slow IV Push, ONCE, 1 dose, On Mon08/23/22 at 2300, [facility] ondansetron (ZOFRAN (PF)) injection 8 mg 08-24 04:00: 00 08-24 05:25 :00 No 8mg 8 mg, Slow IV Push, ONCE, 1 dose, On Mon08/23/22 at 2300, [facility] dicyclomine 20 mg tablet 08-24 00:00: 00 Yes [id number] 20mg Take 1 tablet by mouth 4 (four) times daily. [facility] ondansetron 4 mg disintegrat ing tablet 08-24 00:00: 00 Yes [id number] 4mg Take 1 tablet by mouth every 4 (four) hours as needed for Nausea and Vomiting (N/V). [facility] ALPRAZolam 2 mg tablet 2018-02 10:57: 36 Yes [id number] 2mg Take 2 mg by mouth at bedtime as needed for Sleep. [facility] ALPRAZolam 1 MG ALPRAZolam 1 MG No 1{table t} ALPRAZolam 1 MG Vraylar 1.5 MG Vraylar 1.5 MG No 1{capsu le} QD Vraylar 1.5 MG Mirtazapine 15 MG Mirtazapine 15 MG No 1{table t_at_be dtime} QD Mirtazapin e 15 MG Sertraline HCl 100 MG Sertraline HCl 100 MG No 1{table t} QD Sertraline HCl 100 MG Levothyroxi ne Sodium 150 MCG Levothyroxi ne Sodium 150 MCG No QD Levothyrox ine Sodium 150 MCG Immunizations Ordered Immunization Name Filled Immunization Name Date Status Comments Source Influenza Virus Vaccine Quad .5 mL IM 6+ MO (FLUZONE/FLULAVAL/F LUARIX) 2018-12-20 00:00:[address] [facility] Influenza Virus Vaccine Quad .5 mL IM 6+ MO 2018-12-20 00:00:[address] [facility] Influenza Virus Vaccine Quad .5 mL IM 6+ MO 2018-12-20 00:00:[address] [facility] Influenza Virus Vaccine Quad .5 mL IM 6+ MO (FLUZONE/FLULAVAL/F LUARIX) Unknown Completed [facility] Vital Signs Vital Name Observation Time Observation Value Comments S ource height 2024-03-12 11:00:00 63 [in_i] Commo n [facility] weight 2024-03-12 11:00:00 207 [lb_av] Comm on [facility] bmi 2024-03-12 11:00:00 36.66 kg/m2 Comm on [facility] Systolic blood pressure 2024-01-31 05:49:00 128 mm[Hg] [facility] Diastolic blood pressure 2024-01-31 05:49:00 94 mm[Hg] [facility] Heart rate 2024-01-31 05:49:00 83 /min [facility] Body temperature 2024-01-31 05:49:[address] [facility] Respiratory rate 2024-01-31 05:49:00 20 /min [facility] Oxygen saturation in Arterial blood by Pulse oximetry 2024-01-31 05:49:00 97 /min [facility] Body height 2024-01-31 02:25:00 157.5 cm [facility] Body weight 2024-01-31 02:25:00 99.791 kg [facility] BMI 2024-01-31 02:25:00 40.24 kg/m2 [facility] height 2023-11-27 13:00:00 63 [in_i] Commo n [facility] weight 2023-11-27 13:00:00 207 [lb_av] Comm on [facility] temperature 2023-11-27 13:00:00 97.4 [degF] Com mon [facility] bmi 2023-11-27 13:00:00 36.66 kg/m2 Comm on [facility] oximetry 2023-11-27 13:00:00 98 % Commo n [facility] respiratory rate 2023-11-27 13:00:00 16 /min Common [facility] blood pressure systolic 2023-11-27 13:00:00 120 mm[Hg] [facility] blood pressure diastolic 2023-11-27 13:00:00 74 mm[Hg] [facility] height 2023-11-27 13:00:00 63 [in_i] Commo n [facility] weight 2023-11-27 13:00:00 207 [lb_av] Comm on [facility] temperature 2023-11-27 13:00:00 97.4 [degF] Com [facility] bmi 2023-11-27 13:00:00 36.66 kg/m2 Comm on [facility] oximetry 2023-11-27 13:00:00 98 % Commo n [facility] respiratory rate 2023-11-27 13:00:00 16 /min Common [facility] blood pressure systolic 2023-11-27 13:00:00 120 mm[Hg] [facility] blood pressure diastolic 2023-11-27 13:00:00 74 mm[Hg] [facility] temperature 2023-10-09 14:20:00 97.4 [degF] Com [facility] bmi 2023-10-09 14:20:00 33.48 kg/m2 Comm on [facility] oximetry 2023-10-09 14:20:00 98 % Commo n [facility] respiratory rate 2023-10-09 14:20:00 16 /min Common [facility] blood pressure systolic 2023-10-09 14:20:00 122 mm[Hg] [facility] blood pressure diastolic 2023-10-09 14:20:00 70 mm[Hg] Common [facility] height 2023-10-09 14:20:00 63 [in_i] Commo n [facility] weight 2023-10-09 14:20:00 189 [lb_av] Comm on [facility] height 2023-09-19 15:20:00 63 [in_i] Commo n [facility] weight 2023-09-19 15:20:00 188 [lb_av] Comm on [facility] temperature 2023-09-19 15:20:00 97.3 [degF] Com mon [facility] bmi 2023-09-19 15:20:00 33.3 kg/m2 [facility] oximetry 2023-09-19 15:20:00 99 % [facility] respiratory rate 2023-09-19 15:20:00 16 /min [facility] blood pressure systolic 2023-09-19 15:20:00 126 mm[Hg] [facility] blood pressure diastolic 2023-09-19 15:20:00 72 mm[Hg] [facility] Heart rate 2023-04-28 06:45:00 79 /min [facility] Oxygen saturation in Arterial blood by Pulse oximetry 2023-04-28 06:45:00 97 /min [facility] Systolic blood pressure 2023-04-28 06:00:00 136 mm[Hg] [facility] Diastolic blood pressure 2023-04-28 06:00:00 88 mm[Hg] [facility] Respiratory rate 2023-04-28 06:00:00 16 /min [facility] Body temperature 2023-04-28 02:51:[address] [facility] Body height 2023-04-28 02:51:00 157.5 cm [facility] Body weight 2023-04-28 02:51:00 92.987 kg [facility] BMI 2023-04-28 02:51:00 37.49 kg/m2 [facility] Systolic blood pressure 2022-08-24 09:00:00 121 mm[Hg] [facility] Diastolic blood pressure 2022-08-24 09:00:00 81 mm[Hg] [facility] Heart rate 2022-08-24 09:00:00 72 /min [facility] Respiratory rate 2022-08-24 09:00:00 10 /min [facility] Oxygen saturation in Arterial blood by Pulse oximetry 2022-08-24 09:00:00 97 /min [facility] Body temperature 2022-08-24 02:50:[address] [facility] Body height 2022-08-24 02:50:00 157.5 cm [facility] Body weight 2022-08-24 02:50:00 88.451 kg [facility] BMI 2022-08-24 02:50:00 35.67 kg/m2 [facility] Procedures Procedure Date / Time Performed Performing Clinicia n Source POCT TEST 2024-01-31 03:51:[address] [facility] BASIC METABOLIC PANEL (NA, K, CL, CO2, GLUCOSE, BUN, CREATININE, CA) 2024-01-31 03:50:[address] [facility] CBC WITH DIFF 2024-01-31 03:50:00 Jocelyn Archuleta [facility] URINALYSIS 2024-01-31 03:50:00 [facility] CONSENT/REFUSAL FOR DIAGNOSIS AND TREATMENT 2023-04-28 02:38:26 Doctor Unassigned, [place] [facility] URINALYSIS 2022-08-24 08:12:00 Bruce [facility] TROPONIN I 2022-08-24 08:06:00 Bruce Jordan [facility] LIPASE 2022-08-24 05:10:00 Jackson Diamond [facility] TEST, SERUM 2022-08-24 05:10:[address] [facility] TROPONIN I 2022-08-24 05:10:00 Jackson Diamond [facility] COMP. METABOLIC PANEL ([id number]) 2022-08-24 05:10:[address] [facility] CBC WITH DIFF 2022-08-24 05:10:00 Jackson Diamond Un [facility] COVID-19 (ID NOW RAPID TESTING) 2022-08-24 05:10:[address] [facility] EKG-12 LEAD 2022-08-24 05:01:48 Jackson Diamond [facility] XR CHEST 2 VW 2022-08-24 04:29:00 Jackson Diamond [facility] NOTICE OF PRIVACY PRACTICES 2022-08-24 02:49:52 Doctor Unassigned, [place] [facility] CONSENT/REFUSAL FOR DIAGNOSIS AND TREATMENT 2022-08-24 02:48:59 Doctor Unassigned, [place] [facility] Encounters Start Date/Time End Date/Time Encounter Type Admission Type Attending [facility] Care Facility Care Department Encounter ID Source 2023-10-05 09:32:[address] [facility] [id number] [facility] 2023-09-19 14:25:[address] [facility] [id number] [facility] 2024-03-12 00:00:00 2024-03-12 00:00:00 OFFICE VISIT [facility]AB [facility] [id number] 2024-03-11 00:00:00 2024-03-11 00:00:00 [facility]EL[facility] [id number] [facility] 2024-03-04 00:00:00 2024-03-04 00:00:00 (TEL) [facility] [id number] [facility] 2024-01-30 20:29:00 2024-01-30 23:53:00 Emergency JOCELYN WALKER SHINTA [facility] ERT [id number] [facility] 2024-01-30 20:29:00 2024-01-30 23:53:00 Emergency Jocelyn Archuleta [facility] [id number] [id number] [id number] [id number] [facility] 2024-01-12 00:00:00 2024-01-12 00:00:00 (TEL) [facility] [id number] [facility] 2023-11-29 00:00:00 2023-11-29 00:00:00 (TEL) [facility]LMLC [facility] [id number] [facility] 2023-11-27 00:00:00 2023-11-27 00:00:00 OFFICE VISIT ESTAB PT LEVEL [id number] [facility] 2023-10-09 00:00:00 2023-10-09 00:00:00 OFFICE VISIT ESTAB PT LEVEL [id number] [facility] 2023-09-19 00:00:00 2023-09-19 00:00:00 OFFICE VISIT NEW PT LEVEL [id number] [facility] 2023-04-27 20:54:00 2023-04-28 00:49:00 Emergency X KARISHMADIETERJAYNEROBBY [facility] ERT [id number] [facility] 2023-04-27 20:54:00 2023-04-28 00:49:00 Emergency Ashley Patelmyke S [facility] [id number] 350.1.13.10 4.2.7.2.686 [id number] [facility] 2022-12-05 14:30:00 2022-12-05 14:30:00 Outpatient R PÉREZ SNYDER [facility] [id number] [facility] 2022-11-20 17:28:00 2022-11-20 19:18:00 Emergency X ADONIS REYES [facility] ERT [id number] [facility] 2022-10-13 09:15:00 2022-10-13 09:15:00 Outpatient R PÉREZ SNYDER [facility] [id number] [facility] 2022-10-12 11:44:04 2022-10-12 11:44:[address] [facility] [id number] Jass Marie 2022-08-23 22:04:00 2022-08-24 04:55:00 Emergency X BRUCE JORDAN [facility] ERT [id number] [facility] 2022-08-23 22:04:00 2022-08-24 04:55:00 Emergency Jackson Diamond Donnell [facility] [id number] 350.1.13.10 4.2.7.2.686 [id number] [facility] 2022-08-23 00:00:00 2022-08-23 00:00:00 Orders Only Doctor Unassigned, [place] [facility] [id number] 350.1.13.10 4.2.7.2.686 [id number] [facility] 2020-05-14 00:00:00 2020-05-14 00:00:00 Patient Outreach Bran Shukla [facility] 1.0.114 350.1.13.10 4.2.7.2.686 [id number] 2019-12-26 15:30:00 2019-12-26 15:30:00 Outpatient R [facility] [id number] [facility] 2019-11-25 12:45:00 2019-11-25 12:45:00 Outpatient R PÉREZ SNYDER [facility] [id number] [facility] 2019-11-20 12:45:00 2019-11-20 12:45:00 Outpatient R PÉREZ SNYDER [facility] [id number] [facility] 2019-10-03 15:41:00 2019-10-03 16:02:48 [facility] 1.2.840.114 350.1.13.10 4.2.7.2.686 [id number] 2019-10-03 15:30:00 2019-10-03 15:30:00 Outpatient R [facility] [id number] [facility] 2019-07-11 15:28:40 2019-07-11 16:15:25 Nurse Visit Visit, [facility] 1.2.840.114 350.1.13.10 4.2.7.2.686 [id number] 2019-07-11 15:30:00 2019-07-11 15:30:00 Outpatient R PÉREZ SNYDER [facility] [id number] [facility] 2019-05-20 14:00:00 2019-05-20 14:00:00 Outpatient R TANISHA LONG [facility] [id number] [facility] 2019-05-20 12:50:40 2019-05-20 13:05:40 Telemedici ne Visit Care, Provider 6 Adult Urgent [facility] [id number] 350.1.13.10 4.2.7.2.686 [id number] 2019-04-30 06:26:00 2019-04-30 23:59:00 Hospital Encounter Eric Monique [facility] [id number] 350.1.13.10 4.2.7.2.686 [id number] 2019-04-30 00:00:00 2019-04-30 00:00:00 Outpatient R ERIC MONIQUE [facility] [id number] [facility] 2019-04-18 15:20:28 2019-04-18 16:14:26 Office Visit Nallely Bravo [facility] [employer] [facility] 1.2.840.114 350.1.13.10 4.2.7.2.686 [id number] Results Test Description Test Time Test Comments Results Result Co mments Source Basic Metabolic Panel (NA, K, CL, CO2, GLUCOSE, BUN, CREATININE, CA)2024-01-31 04:22:25* Test Item Value Reference Range Interpretation Comme nts NA (test code = 7320010839) 138 mmol/L 135-145 K (test code = 0225324379) 3.8 mmol/L 3.5-5.0 CL (test code = 1991294479) 105 mmol/L 98-108 CO2 TOTAL (test code = 3489474935) 27 mmol/L 23-31 AGAP (test code = 1324518315) 6 2-16 BUN (test code = 3696850388) 14 mg/dL 7-23 GLUCOSE (test code = 1497553942) 91 mg/dL 70-110 CREATININE (test code = 2160-0) 0.81 mg/dL 0.50-1.04 CALCIUM (test code = 8009062820) 9.3 mg/dL 8.6-10.6 eGFR (test code = 49705-8) 89.7 mL/min/1.73m2 [facility] with [id number] 04:09:38* Test Item Value Reference Range Interpretation Comme nts WBC (test code = 6690-2) 10.06 4.30-11.10 RBC (test code = 789-8) 3.90 3.93-5.25 L HGB (test code = 718-7) 12.9 g/dL 11.6-15.0 HCT (test code = 4544-3) 38.6 % 35.7-45.2 MCV (test code = 787-2) 99.0 fL 80.6-95.5 H MCH (test code = 785-6) 33.1 pg 25.9-32.8 H MCHC (test code = 786-4) 33.4 g/dL 31.6-35.1 RDW-SD (test code = 36300-5) 48.1 fL 39.0-49.9 RDW-CV (test code = 788-0) 13.2 % 12.0-15.5 PLT (test code = 777-3) 365 166-358 H MPV (test code = 88941-9) 8.9 fL 9.5-12.9 L NRBC/100 WBC (test code = 7302613609) 0.0 0.0-10.0 NRBC x10^3 (test code = 2782999485) See_Comment [Automated messa ge] The system which generated this result transmitted reference range: 10*3/?L. The reference range was not used to interpret this result as normal/abnormal. GRAN MAT (NEUT) % (test code = 770-8) 58.9 % IMM GRAN % (test code = 1562695812) 0.40 % LYMPH % (test code = 736-9) 28.2 % MONO % (test code = 5905-5) 8.8 % EOS % (test code = 713-8) 3.3 % BASO % (test code = 706-2) 0.4 % GRAN MAT x10^3(ANC) (test code = 7621373998) 5.92 10*3/uL 1.88-7.09 IMM GRAN x10^3 (test code = 4612218680) 0.04 10*3/uL 0.00-0.06 LYMPH x10^3 (test code = 731-0) 2.84 10*3/uL 1.32-3.29 MONO x10^3 (test code = 742-7) 0.89 10*3/uL 0.33-0.92 EOS x10^3 (test code = 711-2) 0.33 10*3/uL 0.03-0.39 BASO x10^3 (test code = 704-7) 0.04 10*3/uL 0.01-0.07 Lab Interpretation (test code = 37415-1) [facility]normal [id number] 03:51:00* Test Item Value Reference Range Interpretation Comme nts POCT PREG (test code = 1605) Negative On board controls acceptable with C Line (test code = 3574) No POCT PREG LOT # (test code = 3575 057778 POCT PREG TEST DATE ( test code = 3576) [id number] Lab Interpretation (test cod e = 46071-3) Normal [facility] T4 [id number] 00:00:00* Test Item Value Reference Range Interpretation Comme nts FREE T4 (THYROXINE) (test code = 3024-7) 1.10 NG/DL See_Comment [Automated message] The system which generated this result transmitted reference range: 0.80-1.90 NG/DL. The reference range was not used to interpret this result as normal/abnormal. TSH, THIRD GENERATION (test code = 23569-9) 19.800 UIU/ML See_Comment H [Automated messa ge] The system which generated this result transmitted reference range: 0.400-4.100 UIU/ML. The reference range was not used to interpret this result as normal/abnormal. CBC W/AUTO [id number] 00:00:00* Test Item Value Reference Range Interpretation Comme nts NUCLEATED RBCS (test code = 86604-1) 0.0 /100 WBC'S See_Comment [Automated messa ge] The system which generated this result transmitted reference range: 0.0 /100 WBC'S. The reference range was not used to interpret this result as normal/abnormal. ABSOLUTE EOSINOPHILS (test code = 46908-2) 0.23 K/UL See_Comment [Automated messa ge] The system which generated this result transmitted reference range: 0.00-0.50 K/UL. The reference range was not used to interpret this result as normal/abnormal. ABSOLUTE LYMPHOCYTES (test code = 76214-4) 2.50 K/UL See_Comment [Automated messa ge] The system which generated this result transmitted reference range: 1.00-4.00 K/UL. The reference range was not used to interpret this result as normal/abnormal. ABSOLUTE MONOCYTES (test code = 93099-2) 0.72 K/UL See_Comment [Automated messa ge] The system which generated this result transmitted reference range: 0.20-1.00 K/UL. The reference range was not used to interpret this result as normal/abnormal. ABSOLUTE NEUTROPHILS (test code = 06794-6) 6.29 K/UL See_Comment [Automated messa ge] The system which generated this result transmitted reference range: 1.50-7.50 K/UL. The reference range was not used to interpret this result as normal/abnormal. BASOPHILS (test code = 11917-2) 0.4 % EOSINOPHILS (test code = 57907-5) 2.3 % HEMATOCRIT (test code = 77171-7) 33.2 % See_Comment L [Automated messa ge] The system which generated this result transmitted reference range: 34.0-45.0 %. The reference range was not used to interpret this result as normal/abnormal. HEMOGLOBIN (test code = 718-7) 10.7 G/DL See_Comment L [Automated messa ge] The system which generated this result transmitted reference range: 11.5-15.5 G/DL. The reference range was not used to interpret this result as normal/abnormal. LYMPHOCYTES (test code = 78786-3) 25.4 % MCH (test code = 97516-2) 29.7 PG See_Comment [Automated messa ge] The system which generated this result transmitted reference range: 25.0-33.0 PG. The reference range was not used to interpret this result as normal/abnormal. MCHC (test code = 42597-6) 32.2 G/DL See_Comment [Automated messa ge] The system which generated this result transmitted reference range: 31.0-36.0 G/DL. The reference range was not used to interpret this result as normal/abnormal. MCV (test code = 24077-4) 92.2 fL See_Comment [Automated messa ge] The system which generated this result transmitted reference range: 80.0-99.0 fL. The reference range was not used to interpret this result as normal/abnormal. MONOCYTES (test code = 84468-6) 7.3 % NEUTROPHILS (test code = 96617-8) 64.1 % PLATELET COUNT (test code = 32672-2) 602 K/UL See_Comment H [Automated messa ge] The system which generated this result transmitted reference range: 130-400 K/UL. The reference range was not used to interpret this result as normal/abnormal. RBC (test code = 86345-3) 3.60 M/UL See_Comment L [Automated messa ge] The system which generated this result transmitted reference range: 3.80-5.40 M/UL. The reference range was not used to interpret this result as normal/abnormal. RDW (test code = 08067-5) 14.5 % See_Comment [Automated [employer]] The system which generated this result transmitted reference range: 11.5-15.0 %. The reference range was not used to interpret this result as normal/abnormal. WBC (test code = 56658-0) 9.8 K/UL See_Comment [Automated [employer]] The system which generated this result transmitted reference range: 3.5-11.0 K/UL. The reference range was not used to interpret this result as normal/abnormal. TROPONIN [id number] 09:14:23* Test Item Value Reference Range Interpretation Comme nts TROPONIN I (test code = 9502200619) 0.001 ng/mL <=0.034 MC (test code = MC) [...] of biotin. Lab Interpretation (test code = 00210-3) Normal [facility] [id number] 06:03:40* Test Item Value Reference Range Interpretation Comme nts TROPONIN I (test code = 3027039405) 0.000 ng/mL <=0.034 MC (test code = [...] of biotin. Lab Interpretation (test code = 38476-3) Normal [facility]. METABOLIC PANEL (28513)2022-08-24 05:52:39* Test Item Value Reference Range Interpretation Comme nts NA (test code = 4915649720) 136 mmol/L 135-145 K (test code = 7762028218) 3.9 mmol/L 3.5-5.0 CL (test code = 5403727444) 102 mmol/L 98-108 CO2 TOTAL (test code = 2369950450) 25 mmol/L 23-31 AGAP (test code = 2841600811) 9 2-16 BUN (test code = 5949308170) 5 mg/dL 7-23 L GLUCOSE (test code = 1775282868) 91 mg/dL 70-110 CREATININE (test code = 2985040684) 0.54 mg/dL 0.50-1.04 TOTAL BILI (test code = 2576895051) 0.8 mg/dL 0.1-1.1 CALCIUM (test code = 6094513887) 9.5 mg/dL 8.6-10.6 T PROTEIN (test code = 0168051522) 7.7 g/dL 6.3-8.2 ALBUMIN (test code = 5409095180) 4.5 g/dL 3.5-5.0 ALK PHOS (test code = 1541007366) 52 U/L 34-122 ALTv (test code = 1742-6) 12 U/L 5-35 AST(SGOT) (test code = 8724031652) 21 U/L 13-40 eGFR (test code = 3052277171) 121.5 mL/min/1.73m2 MC (test code = MC) [...] imaging tests). Lab Interpretation (test code = 74574-3) [facility]normal [facility] 05:52:18* Test Item Value Reference Range Interpretation Comme nts LIPASE (test code = 3386466170) 25 U/L 0-220 Lab Interpretation (test cod e = 83210-4) Normal [facility], [id number] 05:50:02* Test Item Value Reference Range Interpretation Comme nts PREG SERUM (test code = 1493717886) Negative MC (test code = MC) Less than 10 IU/L. ?If low titer or ectopic is suspected, resubmit specimen in 48-[address] [facility] WITH [id number] 05:38:57* Test Item Value Reference Range Interpretation [...] 34.7 g/dL 31.6-35.1 RDW-SD (test code = 05083-3) 46.4 fL 39.0-49.9 RDW-CV (test code = 788-0) 13.2 % 12.0-15.5 PLT (test code = 777-3) 449 See_Comment H [Automated message] The system which generated this result transmitted reference range: 166 - 358 10*3/?L. The reference range was not used to interpret this result as normal/abnormal. MPV (test code = 60655-2) 9.2 fL 9.5-12.9 L NRBC/100 WBC (test code = 4760910587) 0.0 See_Comment [Automated message] The system which generated this result transmitted reference range: 0.0 - 10.0 /100 WBCs. The reference range was not used to interpret this result as normal/abnormal. NRBC x10^3 (test code = 7809220678) See_Comment [Automated message] The system which generated this result transmitted reference range: 10*3/?L. The reference range was not used to interpret this result as normal/abnormal. GRAN MAT (NEUT) % (test code = 770-8) 73.0 % IMM GRAN % (test code = 1713263042) 0.30 % LYMPH % (test code = 736-9) 17.9 % MONO % (test code = 5905-5) 7.6 % EOS % (test code = 713-8) 0.8 % BASO % (test code = 706-2) 0.4 % GRAN MAT x10^3(ANC) (test code = 3649492988) 11.94 10*3/uL 1.88-7.09 H IMM GRAN x10^3 (test code = 8954470456) 0.05 10*3/uL 0.00-0.06 LYMPH x10^3 (test code = 731-0) 2.93 10*3/uL 1.32-3.29 MONO x10^3 (test code = 742-7) 1.24 10*3/uL 0.33-0.92 H EOS x10^3 (test code = 711-2) 0.13 10*3/uL 0.03-0.39 BASO x10^3 (test code = 704-7) 0.07 10*3/uL 0.01-0.07 Lab Interpretation (test code = 31078-8) Abnormal [facility]"
[2024-03-13] MEDS ORDERED: ONDANSETRON 4 MG/2 ML VIAL ONE (20:37)
[2024-03-13] MEDS ORDERED: PROMETHAZINE INJ 25 MG/ML AMP ONE (20:37)
[2024-03-13] MEDS ORDERED: DIPHENHYDRAMINE 25 MG TAB/CAP ONE (20:37)
[2024-03-13] MEDS ORDERED: GUAIFENESIN/DM 5 ML UCUP ONE (20:38)
[2024-03-13] MEDS ORDERED: BENZONATATE 100 MG CAP PO ONE (20:38)
[2024-03-13] MEDS ORDERED: HYDROCODONE/APAP 5/325 MG TAB ONE (20:38)
[2024-03-13] MEDS ORDERED: NA CHLORIDE 0.9% 1,000 ML ONE (20:39)
[2024-03-13 20:43] LABS: Absolute Basophils 0.1 K/uL (0-0.5); Absolute Eosinophils 0.1 K/uL (0-0.5); Absolute Lymphocytes (CBC) 2.8 K/uL (0.7-4.9); Absolute Monocytes 1.1 K/uL (0.1-1.3); Absolute Neutrophil 9.2 K/uL (1.8-8.0); Basophils % 0.7 % (0-1.3); Eosinophils % 0.6 % (0-4.4); Hemoglobin 13.7 g/dL (12.0-15.0); Lymphocytes % 21.1 % (15.3-44.8); MCH 32.7 pg (27.0-35.0); MCHC 34.2 g/dL (32.0-36.0); MCV 95.7 fL (80-100); Monocytes % 8.1 % (3.3-12.3); Neutrophils % 69.5 % (41.7-73.7); Platelets 469 thou/uL (152-406); RBC Red Blood Cell Count 4.18 M/uL (3.86-4.86); Red Cell Distribution Width 13.4 % (12.1-15.2)
[2024-03-13 20:47] LABS: Specific Gravity 1.017 (1.005-1.030); Sqamous Epithelial <5 /HPF (None Seen); Urine Bacteria <20 /HPF (<20); Urine Bilirubin NEGATIVE (Negative); Urine Blood Negative (Negative); Urine Clarity Extremely Turbid (Clear); Urine Color Light-Yellow (Yellow); Urine Crystals Unidentified Few /HPF (None Seen); Urine Culture Reflex Order NOT NEEDED; Urine Glucose NEGATIVE (Negative); Urine Ketones 1+ (Negative); Urine Micro Reflex YN NO BILL MICROSCOPIC; Urine Mucus Slight /HPF (None Seen); Urine Nitrite NEGATIVE (Negative); Urine Protein NEGATIVE (Negative); Urine RBC <5 /HPF (None Seen); Urine Urobilinogen Normal (Normal); Urine WBC <5 /HPF (<5); Urine WBC Clump Rare /HPF (None Seen); Urine Yeast (Budding) Trace /HPF (None Seen); Urine pH 6.5 (5.0-7.0)
[2024-03-13 20:49] LABS: Specific Gravity 1.017 (1.005-1.030)
[2024-03-13 20:58] LABS: AST/SGOT 14 U/L (15-37); Albumin 3.5 g/dL (3.4-5.0); Albumin/Globulin Ratio 0.9 (1.1-1.8); Alkaline Phosphatase 50 U/L (45-117); Anion Gap 10.3 mEq/L (5.0-15.0); BUN Blood Urea Nitrogen 8 mg/dL (7-18); Bicarbonate 23 mEq/L (21-32); Bilirubin Total 0.3 mg/dL (0.2-1.0); Globulin 4.1 g/dL (2.3-3.5); Glomerular Filtration Rate 88 ml/min (=/>90); Glucose Level 99 mg/dL (74-106); Lipase 21 U/L (13-75); Potassium 3.3 mEq/L (3.5-5.1); Protein, Total 7.6 g/dL (6.4-8.2); Sodium Level 136 mEq/L (136-145)
[2024-03-13 20:59] LABS: ALT/SGPT < 14 U/L (13-56)
[2024-03-13 21:15] LABS: Monoscreen NEG (NEG)
--- NOTE | 2024-03-13 21:29 | RAD REPORT ---
EXAM: Chest Single View HISTORY: CHEST PAIN COMPARISON: 09/05/2023 FINDINGS: LUNGS/PLEURA: The lungs are clear. No pleural effusions or pneumothorax. No pulmonary edema. MEDIASTINUM: The mediastinal silhouette is within normal limits. CARDIAC: The cardiac silhouette is within normal limits. UPPER ABDOMEN: No significant abnormality. BONES: No acute abnormality. LINES/TUBES/OTHER: N/A IMPRESSION: No evidence of acute cardiopulmonary disease.
[2024-03-13 21:31] LABS: Thyroid Stimulating Hormone 15.4 uIU/mL (0.358-3.740)
--- NOTE | 2024-03-13 21:52 | EDPHYS ---
Physician Documentation [facility] Name: Jessica Kim Age: 48 yrs Sex: Female : 1975 Arrival Date: 03/13/2024 Time: 19:48 Bed 4 Private MD: ED Physician Thomas Emery HPI: 03/13 20:03 This 48 yrs old Female presents to ER via Ambulatory with complaints of sp4 Nausea/Vomiting, Cough, Flu Symptoms. 20:20 48-year-old female with past medical history of depression, anxiety, endometriosis, sp4 tendinitis, hypothyroidism, anemia with low iron, presents with 2 weeks of nausea, fevers, headache, body aches, dry cough. Patient's medications include levothyroxine 125 mcg daily, ferrous sulfate daily, venlafaxine ER 75 mg daily, alprazolam 1 mg daily, doxepin 25 mg at bedtime, temazepam 30 mg at bedtime.. 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 - Infectious Disease History:: Denies. - Social history:: Smoking status: Patient reports the use of cigarette tobacco products. ROS: 20:24 Constitutional: Negative for chills, and weight loss, positive for cough congestion sp4 fevers headache body aches. Positive for dry cough 20:24 All other systems are negative, Exam: 20:24 Constitutional: This is a well developed, well nourished patient who is awake, alert, sp4 and in no acute distress. Head/Face: Normocephalic, atraumatic. Eyes: Pupils equal round and reactive to light, extra-ocular motions intact. Lids and lashes normal. Conjunctiva and sclera are not injected. Cornea within normal limits. Periorbital areas with no swelling, redness, or edema. ENT: Nares patent. No nasal discharge, no septal abnormalities noted. Tympanic membranes are normal and external auditory canals are clear. Oropharynx with no redness, swelling, or masses, exudates, or evidence of obstruction, uvula midline. Mucous membranes moist. Neck: Trachea midline, no thyromegaly or masses palpated, and no cervical lymphadenopathy. Supple, full range of motion without nuchal rigidity, or vertebral point tenderness. Chest/axilla: Normal chest wall appearance and motion. Nontender with no deformity. No lesions are appreciated. Cardiovascular: Regular rate and rhythm with a normal S1 and S2. No gallops, murmurs, or rubs. Normal PMI, no JVD. No pulse deficits. Respiratory: Lungs have equal breath sounds bilaterally, clear to auscultation and percussion. No rales, rhonchi or wheezes noted. No increased work of breathing, no retractions or nasal flaring. Abdomen/GI: Soft, with normal bowel sounds. No distension or tympany. No guarding or rebound. No evidence of tenderness throughout. Back: No spinal tenderness. No costovertebral tenderness. Skin: Warm, dry with normal turgor. Normal color with no rashes, no lesions, and no evidence of cellulitis. MS/ Extremity: Pulses equal, no cyanosis. Neurovascular intact. Full, normal range of motion. Neuro: Awake and alert, GCS 15, oriented to person, place, time, and situation. Cranial nerves II-XII grossly intact. Motor strength 5/5 in all extremities. Sensory grossly intact. Psych: Awake, alert, with orientation to person, place and time. Behavior, mood, and affect are within normal limits Vital Signs: 19:58 BP 155 / 86; Pulse 98; Resp 18 S; Temp 98.4(O); Pulse Ox 100% on R/A; Weight 97.52 kg aa5 (R); Height 5 ft. 2 in. (R); 19:58 Body Mass Index 39.32 (97.52 kg, 157.48 cm) aa5 Jase Coma Score: 20:24 Eye Response: spontaneous(4). Motor Response: obeys commands(6). Verbal Response: sp4 oriented(5). Total: 15. 20:35 Eye Response: spontaneous(4). Motor Response: obeys commands(6). Verbal Response: dd2 oriented(5). Total: 15. MDM: 20:04 Medical Screening Exam initiated sp4 22:14 Differential diagnosis: Nonspecific abd pain, gastritis, viral gastroenteritis, sp4 gastroenteritis. Data reviewed: vital signs, nurses notes, lab test result(s), radiologic studies. Consideration of Admission/Observation Escalation of care including admission/observation considered. ED course: Patient improved in the ER. Patient will need p.o. Phenergan p.o. Zithromax and also some p.o. dextromethorphan for cough control.. 03/13 20:04 Order name: Influenza Screen (a \T\ B); Complete Time: 21:42 [facility] 03/13 20:04 Order name: Urinalysis W/Microscopic; Complete Time: 21:03 4 03/13 20:04 Order name: Test, Urine; Complete Time: 21:03 [facility] 03/13 20:04 Order name: CBC with Diff; Complete Time: 21:03 [facility] 03/13 20:04 Order name: CMP; Complete Time: 21:03 [facility] 03/13 20:04 Order name: Lipase; Complete Time: 21:03 [facility] 03/13 20:19 Order name: T4 Free; Complete Time: 21:42 [facility] 03/13 20:19 Order name: TSH; Complete Time: 21:42 4 03/13 20:25 Order name: Barton Screen Profile; Complete Time: 21:42 [facility] 03/13 20:19 Order name: Chest Single View XRAY; Complete Time: 21:42 [facility] 03/13 20:04 Order name: IV Saline Lock; Complete Time: 22:27 [facility] 03/13 20:04 Order name: Labs collected and sent; Complete Time: 22:27 sp4 Administered Medications: 20:51 Drug: Ondansetron IVP 8 mg IVP once; over 2 minutes Route: IVP; Site: right antecubital;dd2 21:06 Follow up: Response: No adverse reaction dd2 20:51 Drug: NS 0.9% IV 1000 ml IV at 1 bolus Per protocol; to be given as a bolus over 60 dd2 minutes Route: IV; Rate: 1 bolus; Site: right antecubital; 21:51 Follow up: IV Status: Completed infusion; IV Intake: 1000ml dd2 20:51 Drug: HYDROcodone-acetaminophen PO 5 mg-325 mg 2 tabs PO once Route: PO; dd2 21:21 Follow up: Response: No adverse reaction dd2 20:51 Drug: Dextromethorphan-Guaifenesin PO Liquid 10 mg-100 mg/5 mL 20 ml PO once Route: PO; dd2 21:21 Follow up: Response: No adverse reaction dd2 20:51 Drug: diphenhydrAMINE PO 50 mg PO once Route: PO; dd2 21:21 Follow up: Response: No adverse reaction dd2 20:51 Drug: Tessalon Perle PO 200 mg PO once Route: PO; dd2 21:21 Follow up: Response: No adverse reaction dd2 20:51 Drug: Promethazine IM 25 mg IM once Route: IM; Site: right deltoid; dd2 21:06 Follow up: Response: No adverse reaction dd2 22:14 Drug: AZITHromycin PO 500 mg PO once Route: PO; vc1 22:47 Follow up: Response: Medication administered at discharge. dd2 Disposition Summary: 03/13/24 21:51 Discharge Ordered Notes: Location: Home sp4 Problem: new sp4 Symptoms: have improved sp4 Condition: Stable sp4 Diagnosis - Cough sp4 - Upper respiratory tract infection, Pharyngitis sp4 - Acute Nausea without vomiting sp4 Followup: sp4 - With: Private Physician - When: 7 - 10 days - Reason: Recheck today's complaints Discharge Instructions: - Discharge Summary Sheet sp4 - Cough, Adult sp4 Forms: - Patient Portal Instructions sp4 Prescriptions: - dextromethorphan-guaifenesin 20-400 mg Oral tablet - take 1 tablet ORAL route every 6 hours PRN cough; 50 tablet; Refills: 0, sp4 Product Selection Permitted - Zithromax Z-Adrian 250 mg Oral Tablet - take 1 tablet ORAL route as directed for 5 days Day 1 - take two (2) tablets sp4 one time. Day 2, 3, 4 , 5 take one (1) tablet once daily.; 6 tablet; Refills: 0, Product Selection Permitted - promethazine 25 mg Oral tablet - take 1 tablet ORAL route every 6 hours As needed PRN nausea; 30 tablet; sp4 Refills: 0, Product Selection Permitted Signatures: Dispatcher [employer] EDCaren Meredith RN RN aa5 Juany Bryan RN RN vc1 Thomas Emery MD MD sp4 TAISHA MILLER RN RN dd2 Corrections: (The following items were deleted from the chart) 20:26 20:26 MONO SCREEN PROFILE+[id number].LAB.BRZ ordered. EDMS EDMS
--- NOTE | 2024-03-13 21:52 | ER ---
Nurse's Notes [facility] Name: Jessica Kim Age: 48 yrs Sex: Female : 1975 Arrival Date: 03/13/2024 Time: 19:48 Bed 4 Private MD: Diagnosis: Cough;Upper respiratory tract infection, Pharyngitis;Acute Nausea without vomiting Presentation: 03/13 19:58 Chief complaint: Patient states: Reports nausea, dry heaving, feeling lightheaded, aa5 fatigue, chills, diarrhea and sore throat. Coronavirus screen: fatigue, muscle pain. Ebola Screen: Patient denies travel to an Ebola-affected area in the 21 days before illness onset. Initial Sepsis Screen: Does the patient meet any 2 criteria? HR > 90 bpm. Does the patient have a suspected source of infection? No. Patient's initial sepsis screen is negative. Risk Assessment: Do you want to hurt yourself or someone else? Patient reports no desire to harm self or others. Onset of symptoms was February 2024. 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 - Infectious Disease History:: Denies. - Social history:: Smoking status: Patient reports the use of cigarette tobacco products. Screenin:35 [facility] ED Fall Risk Assessment (Adult) History of falling in the last 3 months, dd2 including since admission No falls in past 3 months (0 pts) Confusion or Disorientation No (0 pts) Intoxicated or Sedated No (0 pts) Impaired Gait No (0 pts) Mobility Assist Device Used No (0 pt) Altered Elimination No (0 pt) Score/Fall Risk Level 0 - 2 = Low Risk Oriented to surroundings, Maintained a safe environment, Educated pt \T\ family on fall prevention, incl call for assistance when getting out of bed, Assessed \T\ reinforced patient's understanding of fall precautions, Hourly rounding (assess needs \T\ fall precautionary measures) done. Abuse screen: Denies threats or abuse. Nutritional screening: No deficits noted. Tuberculosis screening: No symptoms or risk factors identified. Assessment: 20:35 General: Appears in no apparent distress. uncomfortable, Behavior is calm, cooperative, dd2 appropriate for age. Pain: Complains of pain in HEAD Pain does not radiate. Pain currently is 7 out of 10 on a pain scale. Neuro: Level of Consciousness is awake, alert, obeys commands, Oriented to person, place, time, situation, Appropriate for age Reports headache in entire. Cardiovascular: No deficits noted. Respiratory: Reports cough that is non-productive, persistent Airway is patent Respiratory effort is even, unlabored, Respiratory pattern is regular, symmetrical, Breath sounds are clear bilaterally. Onset: The symptoms/episode began/occurred X2 WEEKS. GI: Abdomen is non-distended, Bowel sounds present X 4 quads. Abd is soft and non tender Reports nausea. : No deficits noted. No signs and/or symptoms were reported regarding the genitourinary system. EENT: No deficits noted. No signs and/or symptoms were reported regarding the EENT system. EENT:. Derm: No deficits noted. No signs and/or symptoms reported regarding the dermatologic system. Musculoskeletal: No deficits noted. No signs and/or symptoms reported regarding the musculoskeletal system. Circulation, motion, and sensation intact. Range of motion: intact in all extremities. Vital Signs: 19:58 BP 155 / 86; Pulse 98; Resp 18 S; Temp 98.4(O); Pulse Ox 100% on R/A; Weight 97.52 kg aa5 (R); Height 5 ft. 2 in. (R); 19:58 Body Mass Index 39.32 (97.52 kg, 157.48 cm) aa5 Jase Coma Score: 20:24 Eye Response: spontaneous(4). Motor Response: obeys commands(6). Verbal Response: sp4 oriented(5). Total: 15. 20:35 Eye Response: spontaneous(4). Motor Response: obeys commands(6). Verbal Response: dd2 oriented(5). Total: 15. ED Course: 19:54 Patient arrived in ED. gm2 19:58 Arm band placed on. aa5 19:59 Triage completed. aa5 20:03 Thomas Emery MD is Attending Physician. sp4 20:18 TAISHA MILLER, RN is Primary Nurse. dd2 20:35 Patient has correct armband on for positive identification. Bed in low position. Call dd2 light in reach. Side rails up X 1. Provided Education on: CALL LIGHT, MEDICATIONS, LABS/RADIOLOGY, RESULT TIMES. Client placed on continuous cardiac and pulse oximetry monitoring. NIBP monitoring applied. Door closed. Noise minimized. Warm blanket given. Pillow given. Verbal reassurance given. 20:52 No provider procedures requiring assistance completed. Initial lab(s) drawn, by me, dd2 sent to lab. Urine collected: clean catch specimen, clear, Flu and/or RSV swab sent to lab. X-ray(s) taken. Inserted saline lock: 20 gauge in right antecubital area, using aseptic technique. Blood collected. Flushed with 10 mL NS. Patient maintains SpO2 saturation greater than 95% on room air. 21:17 Chest Single View XRAY In Process Unspecified. EDMS 22:22 IV discontinued, intact, bleeding controlled, No redness/swelling at site. Pressure dd2 dressing applied. Administered Medications: 20:51 Drug: Ondansetron IVP 8 mg IVP once; over 2 minutes Route: IVP; Site: right antecubital;dd2 21:06 Follow up: Response: No adverse reaction dd2 20:51 Drug: NS 0.9% IV 1000 ml IV at 1 bolus Per protocol; to be given as a bolus over 60 dd2 minutes Route: IV; Rate: 1 bolus; Site: right antecubital; 21:51 Follow up: IV Status: Completed infusion; IV Intake: 1000ml dd2 20:51 Drug: HYDROcodone-acetaminophen PO 5 mg-325 mg 2 tabs PO once Route: PO; dd2 21:21 Follow up: Response: No adverse reaction dd2 20:51 Drug: Dextromethorphan-Guaifenesin PO Liquid 10 mg-100 mg/5 mL 20 ml PO once Route: PO; dd2 21:21 Follow up: Response: No adverse reaction dd2 20:51 Drug: diphenhydrAMINE PO 50 mg PO once Route: PO; dd2 21:21 Follow up: Response: No adverse reaction dd2 20:51 Drug: Tessalon Perle PO 200 mg PO once Route: PO; dd2 21:21 Follow up: Response: No adverse reaction dd2 20:51 Drug: Promethazine IM 25 mg IM once Route: IM; Site: right deltoid; dd2 21:06 Follow up: Response: No adverse reaction dd2 22:14 Drug: AZITHromycin PO 500 mg PO once Route: PO; vc1 22:47 Follow up: Response: Medication administered at discharge. dd2 Medication: 20:35 VIS not applicable for this client. dd2 Intake: 21:51 IV: 1000ml; Total: 1000ml. dd2 Outcome: 21:51 Discharge ordered by MD. [place] 22:22 Patient left the ED. bm8 22:22 Discharged to home ambulatory, dd2 22:22 Condition: improved 22:22 Discharge instructions given to patient, Instructed on discharge instructions, follow up and referral plans. medication usage, Demonstrated understanding of instructions, follow-up care, medications, Prescriptions given X 3, Signatures: Dispatcher [employer] EDMS Caren Fletcher RN RN aa5 Juany Bryan RN RN vc1 Thomas Emery MD MD sp4 Dorene Amaro 2 Iván Gutierrez RN RN bm8 TAISHA MILLER RN RN dd2 Corrections: (The following items were deleted from the chart) 20:01 19:58 Pulse 98bpm; Resp 18bpm; Spontaneous; Pulse Ox 100% RA; Temp 98.4F Oral; 97.52 kg aa5 Reported; Height 5 ft. 2 in. Reported; BMI: 39.3; aa5
[2024-03-13] MEDS ORDERED: AZITHROMYCIN 250 MG TAB ONE (22:17)
[2024-03-15 02:31] VITALS: BP 155/86; TEMP 98.4; O2SAT 100
== END 2024-03-13 22:22 | disposition home or self-care (01) ==
LOC: ER 19:48
DX: J06.9 Acute upper respiratory infection, unspecified (principal); J02.9 Acute pharyngitis, unspecified; R11.2 Nausea with vomiting, unspecified; R05.9 Cough, unspecified; F32.A Depression, unspecified; F41.9 Anxiety disorder, unspecified; E03.9 Hypothyroidism, unspecified; D50.9 Iron deficiency anemia, unspecified; F17.210 Nicotine dependence, cigarettes, uncomplicated
CPT/HCPCS: 96361; 85025; 81001; 36415; 86308; 81025; 84443; 84439; 83690; 80053; 87804 ×2; 71045; 96372; 96374; 99284; J2550; J2405; J7030

== ENCOUNTER 2024-10-14 19:10 | Emergency (ER) | payer OTHER ==
--- OUTSIDE RECORDS SUMMARY | 2024-10-14 19:14 | XMS REPORT | Continuity of Care Document ---
Author Name Unknown Address [address] [facility]. [address] [place] [address] [facility] Address [address] [facility] [address] [place] [address] Care Team Providers [employer] Team Member Name Role Phone PCP, PATIENT DOES NOT HAVE A Primary Care Physic augustus Unavailable Samina Aguirre Attending Clinician Unavailable JOCELYN ARCHULETA Attending Clinician Unavailable JOCELYN ARCHULETA Attending Clinician Unavailable Jocelyn Becker Attending Clinician + [phone] ROBBY PATEL Attending Clinician Unavailable Robby Patel MD Attending Clinician + [phone] PÉREZ SNYDER Attending Clinician Unavail able ADONIS REYES Attending Clinician Unav BRUCE Santillan Attending Clinician Unavailable Jackson Diamond MD Attending Clinician + [phone] Bruce Jordan MD Attending Clinician + [phone] Doctor Unassigned, [place] Attending Clinician U Bran Parks DO Attending Clinician [phone] Visit, [facility] Nurse Attending Clinician TANISHA Dalton Attending Clinician Samia hoffman Care, Provider 6 Adult Urgent Attending Clinicia n Unavailable Eric Mills Attending Clinician + [phone] ERIC MONIQUE Attending Clinician Unavailab Hargrove, Nallely Espinosa Attending Clinician [phone] JOCELYN ARCHULETA Admitting Clinician Unavailable ADONIS REYES Admitting Clinician UnaJACKSON Ludwig Admitting Clinician Unavailabl e Payers Payer Name Policy Type Policy Number Effective Date Expirati on Date Source [facility] 53 [id number] [facility] O [id number] 2023 00:00:00 [facility] BLUE ADVANTAGE O [id number] 2023 00:00:00 [facility] [id number] 2018 00:00:00 Problems Condition Name Condition Details Condition Category Status Onset Date Resolution Date Last Treatment Date Treating Clinician Comments Source Encounter for immunizati on Encounter for immunizati on Disease Active 2018-02 00:00: 00 [facility] Encounter for surveillan ce of contracept giovanna, unspecifie d contracept mirtha Encounter for surveillan ce of contracept giovanna, unspecifie d contracept mirtha Disease Active 2018-02 00:00: 00 [facility] History of bilateral tubal ligation History of bilateral tubal ligation Disease Active 2018-02 00:00: 00 [facility] Tobacco use disorder Tobacco use disorder Disease Active 2018-02 00:00: 00 [facility] Anxiety Anxiety Disease Active 2018-02 00:00: 00 [facility] Depression , unspecifie d depression type Depression , unspecifie d depression type Disease Active 2018-02 00:00: 00 [facility] Irregular menstrual cycle Irregular menstrual cycle Disease Active 2018-02 00:00: 00 [facility] Morbid obesity Morbid obesity Disease Active 2018-02 00:00: 00 [facility] BMI 37.0-37.9, adult BMI 37.0-37.9, adult Disease Active 2015-02 00:00: 00 [facility] [id number] Smokes 1 pack of cigarettes per day Problem [facility] [id number] Mixed hyperlipid emia Problem [facility] [id number] MDD (major depressive disorder), severe Problem [facility] Chronic anemia Chronic anemia Problem [facility] [id number] Hypothyroi dism (acquired) Problem [facility] Allergies, Adverse Reactions, Alerts Allergy Name Allergy Type Status Severity Reaction(s) Onset Date Inactive Date Treating Clinician Comments Source Nsaids (Non-Jcoe roidal Anti-Inf lammator y Drug) Propensi ty to adverse reaction s to drug Active Swelling 2018-02 00:00: 00 [facility] NSAIDS (NON-JOCE ROIDAL ANTI-INF LAMMATOR Y DRUG) Drug Class Active Med Swelling 2018-02 00:00: 00 [facility] 0 Drug allergy Active Unknown [facility] Social History Social Habit Start Date Stop Date Quantity Comments Source History of Tobacco Use Current Smoker [facility] Sex Assigned At [facility] Alcoholic beverage intake 2024-01-30 00:00:00 2024-01-30 00:00:00 Ex-drinker (finding) [facility] Alcohol intake 2023-04-28 00:00:00 2023-04-28 00:00:00 Ex-drinker (finding) [facility] History of Social function 2019-09-29 00:00:00 2019-09-29 00:00:00 [facility] Cigarette pack-years 2018-12-20 00:00:00 2018-12-20 00:00:00 [facility] Cigarettes smoked current (pack per day) - Reported 2018-12-20 00:00:00 2018-12-20 00:00:00 [facility] Tobacco use and exposure 2018-12-20 00:00:00 2018-12-20 00:00:00 Smokeless tobacco non-user [facility] Smoking Status Start Date Stop Date Source Smokes tobacco daily 2018-12-20 00:00:00 [facility] Medications Ordered Medication Name Filled Medication Name Start Date Stop Date Current Medication? Ordering Clinician Indication Dosage Frequency Signature (SIG) Comments Components Source Rosuvastati n Calcium 5 MG Rosuvastati n Calcium 5 MG -14 00:00: 00 No 1{table t} QD Rosuvastat in Calcium 5 MG predniSONE (DELTASONE) tablet 30 mg 2023-02 2- 03:00: 00 01-30 04:14 :00 No 30mg 30 mg, Oral, ONCE, 1 dose, On Mon01/30/24 at 2100, [facility] HYDROcodone -acetaminop hen (NORCO 5) tablet 1 tablet 2023-02 2- 03:00: 00 01-30 04:13 :00 No 1{tbl} 1 tablet, Oral, ONCE, 1 dose, On Mon01/30/24 at 2100, [facility] methocarbam oL (ROBAXIN) tablet 500 mg 2023-02 2- 02:55: 00 01-30 04:14 :00 No 500mg 500 mg, Oral, ONCE, 1 dose, On Mon01/30/24 at 2100, [facility] methocarbam oL 500 mg tablet 2023-02 2- 00:00: 00 Yes [id number] 500mg Take 1 tablet by mouth 3 (three) times daily as needed for Pain (scale 7-10). [facility] acetaminoph en-codeine 300-30 mg tablet 2023-02 2- 00:00: 00 02-06 05:59 :00 No [id number] 1{tbl} Take 1 tablet by mouth every 8 (eight) hours as needed for Pain (scale 4-6) for up to 7 days. Indication s: acute pain [facility] predniSONE 10 mg tablet 2023-02 2-03 00:00: 00 02-03 05:59 :00 No [id number] 30mg Take 3 tablets by mouth in the morning for 4 days. [facility] Albuterol Sulfate HFA 108 (90 Base) MCG/ACT Albuterol Sulfate HFA 108 (90 Base) MCG/ACT 9-30 00:00: 00 No 1{puff_ as_need ed} 6xD Albuterol Sulfate HFA 108 (90 Base) MCG/ACT Ferrous Sulfate 325 (65 Fe) MG Ferrous Sulfate 325 (65 Fe) MG 8-12 00:00: 00 No 1{table t} QD Ferrous Sulfate 325 (65 Fe) MG ketorolac (TORADOL) injection 30 mg 04-27 06:45: 00 04-27 05:46 :00 No 30mg 30 mg, Slow IV Push, ONCE, 1 dose, On Mon04/28/23 at 0045, Routine [facility] NaCl 0.9% (NS) IV infusion 1,000 mL 04-27 06:15: 00 Yes 1000mL at 999 mL/hr, Intravenou s, CONTINUOUS , Starting on Mon04/28/23 at 0015, Until Discontinu ed, Routine [facility] diphenhydrA MINE (BENADRYL) injection 25 mg 04-27 05:15: 00 04-27 05:16 :00 No 25mg 25 mg, Slow IV Push, ONCE, 1 dose, On Mon04/27/23 at 2315, STAT [facility] metoclopram harsha HCl (REGLAN) injection 10 mg 04-27 05:15: 00 04-27 05:16 :00 No 10mg 10 mg, Slow IV Push, ONCE, 1 dose, On Emelia 04/27/23 at 2315, POLINA [facility] butalbital- acetaminoph en-caff (ESGIC) 50-325-40 mg tablet 2 tablet 04-27 05:15: 00 04-27 05:15 :00 No 2{tbl} 2 tablet, Oral, ONCE, 1 dose, On Emelia 04/27/23 at 2315, POLINA [facility] butalbital- acetaminoph en-caff 50-325-40 mg tablet 04-27 00:00: 00 Yes [id number] 1{tbl} Take 1 tablet by mouth every 6 (six) hours as needed (Headache) . [facility] morpHINE (4 mg/mL) injection 4 mg 08-24 08:15: 00 08-24 08:13 :00 No 4mg 4 mg, Slow IV Push, ONCE, 1 dose, On Mon08/24/22 at 0315, STAT [facility] ondansetron (ZOFRAN (PF)) injection 4 mg 08-24 08:15: 00 08-24 08:13 :00 No 4mg 4 mg, Slow IV Push, ONCE, 1 dose, On Mon08/24/22 at 0315, [facility] iopamidol (ISOVUE 370-500 mL) injection 100 mL 08-24 07:00: 00 08-24 06:12 :00 No [id number] 100mL 100 mL, Intravenou s, ONCE, 1 dose, On Mon08/24/22 at 0200, Routine [facility] morpHINE (4 mg/mL) injection 4 mg 08-24 05:45: 00 08-24 05:28 :00 No 4mg 4 mg, Slow IV Push, ONCE, 1 dose, On Mon08/24/22 at 0045, [facility] NaCl 0.9% (NS) bolus infusion 1,000 mL 08-24 04:45: 00 08-24 06:51 :00 No 1000mL at 999 mL/hr, 1,000 mL, IV Infusion, ONCE, 1 dose, On Mon08/23/22 at 2345, [facility] famotidine (PEPCID (PF)) injection 20 mg 08-24 04:00: 00 08-24 05:27 :00 No 20mg 20 mg, Slow IV Push, ONCE, 1 dose, On Mon08/23/22 at 2300, [facility] ondansetron (ZOFRAN (PF)) injection 8 mg 08-24 04:00: 00 08-24 05:25 :00 No 8mg 8 mg, Slow IV Push, ONCE, 1 dose, On Mon08/23/22 at 2300, POLINA [facility] dicyclomine 20 mg tablet 08-24 00:00: 00 Yes [id number] 20mg Take 1 tablet by mouth 4 (four) times daily. [facility] ondansetron 4 mg disintegrat ing tablet 08-24 00:00: 00 Yes [id number] 4mg Take 1 tablet by mouth every 4 (four) hours as needed for Nausea and Vomiting (N/V). [facility] ALPRAZolam 2 mg tablet 2018-02 10:57: 36 Yes [id number] 2mg Take 2 mg by mouth at bedtime as needed for Sleep. [facility] Venlafaxine HCl 25 MG Venlafaxine HCl 25 MG No 1{table t_with_ food} BID Venlafaxin e HCl 25 MG Venlafaxine HCl 75 MG Venlafaxine HCl 75 MG No 1{table t_with_ food} QD Venlafaxin e HCl 75 MG Doxepin HCl 25 MG Doxepin HCl 25 MG No Doxepin HCl 25 MG ALPRAZolam 1 MG ALPRAZolam 1 MG No 1{table t} ALPRAZolam 1 MG Levothyroxi ne Sodium 150 MCG Levothyroxi ne Sodium 150 MCG No QD Levothyrox ine Sodium 150 MCG Immunizations Ordered Immunization Name Filled Immunization Name Date Status Comments Source Influenza Virus Vaccine Quad .5 mL IM 6+ MO (FLUZONE/FLULAVAL/F LUARIX) 2018-12-20 00:00:00 Completed [facility] Influenza Virus Vaccine Quad .5 mL IM 6+ MO 2018-12-20 00:00:00 Completed [facility] Influenza Virus Vaccine Quad .5 mL IM 6+ MO 2018-12-20 00:00:00 Completed [facility] Influenza Virus Vaccine Quad .5 mL IM 6+ MO (FLUZONE/FLULAVAL/F LUARIX) Unknown Completed [facility] Vital Signs Vital Name Observation Time Observation Value Comments S ource temperature 2024-05-03 09:00:00 97.2 [degF] Com mon [facility] bmi 2024-05-03 09:00:00 40.92 kg/m2 Comm on [facility] oximetry 2024-05-03 09:00:00 92 % Commo n [facility] respiratory rate 2024-05-03 09:00:00 16 /min [facility] blood pressure systolic 2024-05-03 09:00:00 135 mm[Hg] Common [facility] blood pressure diastolic 2024-05-03 09:00:00 78 mm[Hg] [facility] height 2024-05-03 09:00:00 63 [in_i] Commo n [facility] weight 2024-05-03 09:00:00 231 [lb_av] Comm on [facility] height 2024-03-12 11:00:00 63 [in_i] Commo n [facility] weight 2024-03-12 11:00:00 207 [lb_av] Comm on [facility] bmi 2024-03-12 11:00:00 36.66 kg/m2 Comm on [facility] height 2024-03-12 11:00:00 63 [in_i] Commo n [facility] weight 2024-03-12 11:00:00 207 [lb_av] Comm on [facility] bmi 2024-03-12 11:00:00 36.66 kg/m2 Comm on [facility] Systolic blood pressure 2024-01-31 05:49:00 128 mm[Hg] [facility] Diastolic blood pressure 2024-01-31 05:49:00 94 mm[Hg] [place] [facility] Heart rate 2024-01-31 05:49:00 83 /min [facility] Body temperature 2024-01-31 05:49:00 36.89 [place] [facility] Respiratory rate 2024-01-31 05:49:00 20 /min [facility] Oxygen saturation in Arterial blood by Pulse oximetry 2024-01-31 05:49:00 97 /min [facility] Body height 2024-01-31 02:25:00 157.5 cm [facility] Body weight 2024-01-31 02:25:00 99.791 kg [facility] BMI 2024-01-31 02:25:00 40.24 kg/m2 [facility] height 2023-11-27 13:00:00 63 [in_i] Commo n [facility] weight 2023-11-27 13:00:00 207 [lb_av] Comm on [facility] temperature 2023-11-27 13:00:00 97.4 [degF] Com [facility] bmi 2023-11-27 13:00:00 36.66 kg/m2 Comm on [facility] oximetry 2023-11-27 13:00:00 98 % Commo n [facility] respiratory rate 2023-11-27 13:00:00 16 /min [facility] blood pressure systolic 2023-11-27 13:00:00 120 mm[Hg] [facility] blood pressure diastolic 2023-11-27 13:00:00 74 mm[Hg] [facility] height 2023-11-27 13:00:00 63 [in_i] Commo n [facility] weight 2023-11-27 13:00:00 207 [lb_av] Comm on [facility] temperature 2023-11-27 13:00:00 97.4 [degF] Com [facility] bmi 2023-11-27 13:00:00 36.66 kg/m2 Comm on [facility] oximetry 2023-11-27 13:00:00 98 % Commo n [facility] respiratory rate 2023-11-27 13:00:00 16 /min [facility] blood pressure systolic 2023-11-27 13:00:00 120 mm[Hg] [facility] blood pressure diastolic 2023-11-27 13:00:00 74 mm[Hg] [facility] height 2023-10-09 14:20:00 63 [in_i] Commo n [facility] weight 2023-10-09 14:20:00 189 [lb_av] Comm on [facility] temperature 2023-10-09 14:20:00 97.4 [degF] Com mon [facility] bmi 2023-10-09 14:20:00 33.48 kg/m2 Comm on [facility] oximetry 2023-10-09 14:20:00 98 % Commo n [facility] respiratory rate 2023-10-09 14:20:00 16 /min [facility] blood pressure systolic 2023-10-09 14:20:00 122 mm[Hg] [facility] blood pressure diastolic 2023-10-09 14:20:00 70 mm[Hg] [facility] height 2023-09-19 15:20:00 63 [in_i] Commo n [facility] weight 2023-09-19 15:20:00 188 [lb_av] Comm on [facility] temperature 2023-09-19 15:20:00 97.3 [degF] Com mon [facility] bmi 2023-09-19 15:20:00 33.3 kg/m2 Commo n [facility] oximetry 2023-09-19 15:20:00 99 % Commo n [facility] respiratory rate 2023-09-19 15:20:00 16 /min [facility] blood pressure systolic 2023-09-19 15:20:00 126 mm[Hg] [facility] blood pressure diastolic 2023-09-19 15:20:00 72 mm[Hg] [facility] Heart rate 2023-04-28 06:45:00 79 /min [facility] Oxygen saturation in Arterial blood by Pulse oximetry 2023-04-28 06:45:00 97 /min [facility] Systolic blood pressure 2023-04-28 06:00:00 136 mm[Hg] [facility] Diastolic blood pressure 2023-04-28 06:00:00 88 mm[Hg] [facility] Respiratory rate 2023-04-28 06:00:00 16 /min [facility] Body temperature 2023-04-28 02:51:00 36.89 [place] [facility] Body height 2023-04-28 02:51:00 157.5 cm [facility] Body weight 2023-04-28 02:51:00 92.987 kg [facility] BMI 2023-04-28 02:51:00 37.49 kg/m2 [facility] Systolic blood pressure 2022-08-24 09:00:00 121 mm[Hg] [facility] Diastolic blood pressure 2022-08-24 09:00:00 81 mm[Hg] [facility] Heart rate 2022-08-24 09:00:00 72 /min [facility] Respiratory rate 2022-08-24 09:00:00 10 /min [facility] Oxygen saturation in Arterial blood by Pulse oximetry 2022-08-24 09:00:00 97 /min [facility] Body temperature 2022-08-24 02:50:00 36.72 [place] [facility] Body height 2022-08-24 02:50:00 157.5 cm [facility] Body weight 2022-08-24 02:50:00 88.451 kg [facility] BMI 2022-08-24 02:50:00 35.67 kg/m2 [facility] Procedures Procedure Date / Time Performed Performing Clinicia n Source POCT TEST 2024-01-31 03:51:00 Alpesh Archuleta [facility] BASIC METABOLIC PANEL (NA, K, CL, CO2, GLUCOSE, BUN, CREATININE, CA) 2024-01-31 03:50:00 Jocelyn Archuleta [facility] CBC WITH DIFF 2024-01-31 03:50:00 Jocelyn Archuleta [facility] URINALYSIS 2024-01-31 03:50:00 Jocelyn [facility]uleta [facility] CONSENT/REFUSAL FOR DIAGNOSIS AND TREATMENT 2023-04-28 02:38:26 Doctor Unassigned, [place] [facility] URINALYSIS 2022-08-24 08:12:00 Bruce Jordan [facility] TROPONIN I 2022-08-24 08:06:00 Bruce Jordan [facility] LIPASE 2022-08-24 05:10:00 Jackson Diamond [facility] TEST, SERUM 2022-08-24 05:10:00 Tony Diamond [facility] TROPONIN I 2022-08-24 05:10:00 Jackson Diamond [facility] COMP. METABOLIC PANEL ([id number]) 2022-08-24 05:10:00 Jackson Diamond [facility] CBC WITH DIFF 2022-08-24 05:10:00 Jackson Diamond [facility] COVID-19 (ID NOW RAPID TESTING) 2022-08-24 05:10:00 Jackson Diamond [facility] EKG-12 LEAD 2022-08-24 05:01:48 Jackson Diamond [facility] XR CHEST 2 VW 2022-08-24 04:29:00 Jackson Diamond [facility] NOTICE OF PRIVACY PRACTICES 2022-08-24 02:49:52 Doctor Unassigned, [place] [facility] CONSENT/REFUSAL FOR DIAGNOSIS AND TREATMENT 2022-08-24 02:48:59 Doctor Unassigned, [place] [facility] Encounters Start Date/Time End Date/Time Encounter Type Admission Type Attending [facility] Care Facility Care Department Encounter ID Source 2023-10-05 09:32:01 Outpatient AguirreSamina [facility] [id number] [facility] 2023-09-19 14:25:02 Outpatient Samina Aguirre [facility] [id number] [facility] 2024-06-03 00:00:00 2024-06-03 00:00:00 (TEL) [facility] [id number] [facility] 2024-05-06 00:00:00 2024-05-06 00:00:00 (TEL) [facility]C [facility] [id number] [facility] 2024-05-03 00:00:00 2024-05-03 00:00:00 (WELLNESS) Wellness Visit [facility] [id number] [facility] 2024-05-02 00:00:00 2024-05-02 00:00:00 (TEL) [facility]LMLC [facility] [id number] [facility] 2024-03-12 00:00:00 2024-03-12 00:00:00 OFFICE VISIT ESTAB PT LEVEL 4 [facility] ST[facility] [id number] [facility] 2024-03-11 00:00:00 2024-03-11 00:00:00 (TEL) [facility]LMLC ST[facility] [id number] [facility] 2024-03-04 00:00:00 2024-03-04 00:00:00 (TEL) [facility]C [facility] [id number] [facility] 2024-01-30 20:29:00 2024-01-30 23:53:00 Emergency X JOCELYN ARCHULETA [facility] ERT [id number] [facility] 2024-01-30 20:29:00 2024-01-30 23:53:00 Emergency Jocelyn Archuleta [facility] [id number] [id number] [id number] [facility] 2024-01-12 00:00:00 2024-01-12 00:00:00 (TEL) STLMLC ST[facility]C [id number] [facility] 2023-11-29 00:00:00 2023-11-29 00:00:00 (TEL) STLMLC [facility] [id number] [facility] 2023-11-27 00:00:00 2023-11-27 00:00:00 OFFICE VISIT ESTAB PT LEVEL 4 [facility] ST[facility] [id number] [facility] 2023-10-09 00:00:00 2023-10-09 00:00:00 OFFICE VISIT ESTAB PT LEVEL 4 [facility] [id number] [facility] 2023-09-19 00:00:00 2023-09-19 00:00:00 OFFICE VISIT NEW PT LEVEL 4 [facility] [id number] [facility] 2023-04-27 20:54:00 2023-04-28 00:49:00 Emergency X ROBBY PATEL [facility] ERT [id number] [facility] 2023-04-27 20:54:00 2023-04-28 00:49:00 Emergency Robby Patel [facility] [id number] [id number] 4.2.7.2.686 [id number] [facility] 2022-12-05 14:30:00 2022-12-05 14:30:00 Outpatient R PÉREZ SNYDER [facility] [id number] [facility] 2022-11-20 17:28:00 2022-11-20 19:18:00 Emergency X ADONIS REYES [facility] ERT [id number] [facility] 2022-10-13 09:15:00 2022-10-13 09:15:00 Outpatient R PÉREZ SNYDER [facility] [id number] [facility] 2022-10-12 11:44:04 2022-10-12 11:44:04 Outpatient SFA [facility] [id number] Jass Marie 2022-08-23 22:04:00 2022-08-24 04:55:00 Emergency BRUCE VILLATORO [facility] ERT [id number] [facility] 2022-08-23 22:04:00 2022-08-24 04:55:00 Emergency Jackson Diamond Bruce Jordan [facility] 1.840.114 350.1.13.10 4.2.7.2.686 [id number] [facility] 2022-08-23 00:00:00 2022-08-23 00:00:00 Orders Only Doctor Unassigned, [place] [facility] 1.0.114 350.1.13.10 4.2.7.2.686 [id number] [facility] 2020-05-14 00:00:00 2020-05-14 00:00:00 Patient Outreach Bran Shukla [facility] 1..114 350.1.13.10 [id number] [id number] 2019-12-26 15:30:00 2019-12-26 15:30:00 Outpatient R [facility] [id number] [facility] 2019-11-25 12:45:00 2019-11-25 12:45:00 Outpatient R LILLIAN, PÉREZ [facility] [id number] [facility] 2019-11-20 12:45:00 2019-11-20 12:45:00 Outpatient R AKINSIPE, PÉREZ [facility] [id number] [facility] 2019-10-03 15:41:00 2019-10-03 16:02:48 Nurse Visit Visit, Rylan-Rmchp Nurse [facility] 1.2.114 350.1.13.10 [id number] [id number] 2019-10-03 15:30:00 2019-10-03 15:30:00 Outpatient R [facility] [id number] [facility] 2019-07-11 15:28:40 2019-07-11 16:15:25 Nurse Visit Visit, Ang-Rmchp Nurse [facility] [id number] 350.1.13.10 4.2.7.2.686 [id number] 2019-07-11 15:30:00 2019-07-11 15:30:00 Outpatient R PÉREZ SNYDER [facility] [id number] [facility] 2019-05-20 14:00:00 2019-05-20 14:00:00 Outpatient R TANISHA LONG [facility] [id number] [facility] 2019-05-20 12:50:40 2019-05-20 13:05:40 Telemedici ne Visit Care, Provider 6 Adult Urgent [facility] [id number] 350.1.13.10 4.2.7.2.686 [id number] 2019-04-30 06:26:00 2019-04-30 23:59:00 Hospital Encounter Eric Monique [facility] [id number] 350.1.13.10 4.2.7.2.686 [id number] 2019-04-30 00:00:00 2019-04-30 00:00:00 Outpatient R ERIC MONIQUE [facility] [id number] [facility] 2019-04-18 15:20:28 2019-04-18 16:14:26 Office Visit Nallely Bravo [facility] [id number] 350.1.13.10 4.2.7.2.686 [id number] Results Test Description Test Time Test Comments Results Result Co mments Source COMPREHENSIVE METABOLIC [id number] 00:00:00* Test Item Value Reference Range Interpretation Comme nts FREE T4 (THYROXINE) (test code = 3024-7) 0.97 NG/DL See_Comment [Automated message] The system which generated this result transmitted reference range: 0.80-1.90 NG/DL. The reference range was not used to interpret this result as normal/abnormal. TSH, THIRD GENERATION (test code = 54759-3) 20.000 UIU/ML See_Comment H [Automated message] The system which generated this result transmitted reference range: 0.400-4.100 UIU/ML. The reference range was not used to interpret this result as normal/abnormal. CALC % IRON SAT (test code = 2502-3) 32 % See_Comment [Automated messa ge] The system which generated this result transmitted reference range: 20-50 %. The reference range was not used to interpret this result as normal/abnormal. CALC TOTAL IBC (test code = 58149-4) 320 UG/DL See_Comment [Automated messa ge] The system which generated this result transmitted reference range: 250-450 UG/DL. The reference range was not used to interpret this result as normal/abnormal. IRON, SERUM (test code = 2498-4) 103 UG/DL See_Comment [Automated messa ge] The system which generated this result transmitted reference range: 37-145 UG/DL. The reference range was not used to interpret this result as normal/abnormal. UNSATURATED IBC (test code = 2501-5) 217 UG/DL See_Comment [Automated messa ge] The system which generated this result transmitted reference range: 112-347 UG/DL. The reference range was not used to interpret this result as normal/abnormal. NUCLEATED RBCS (test code = 18185-3) 0.0 /100 WBC'S See_Comment [Automated message] The system which generated this result transmitted reference range: 0.0 /100 WBC'S. The reference range was not used to interpret this result as normal/abnormal. ABSOLUTE EOSINOPHILS (test code = 53428-9) 0.11 K/UL See_Comment [Automated message] The system which generated this result transmitted reference range: 0.00-0.50 K/UL. The reference range was not used to interpret this result as normal/abnormal. ABSOLUTE LYMPHOCYTES (test code = 11651-2) 3.18 K/UL See_Comment [Automated message] The system which generated this result transmitted reference range: 1.00-4.00 K/UL. The reference range was not used to interpret this result as normal/abnormal. ABSOLUTE MONOCYTES (test code = 24990-5) 0.85 K/UL See_Comment [Automated message] The system which generated this result transmitted reference range: 0.20-1.00 K/UL. The reference range was not used to interpret this result as normal/abnormal. ABSOLUTE NEUTROPHILS (test code = 14680-3) 5.15 K/UL See_Comment [Automated message] The system which generated this result transmitted reference range: 1.50-7.50 K/UL. The reference range was not used to interpret this result as normal/abnormal. BASOPHILS (test code = 76438-3) 0.3 % EOSINOPHILS (test code = 20573-7) 1.2 % HEMATOCRIT (test code = 39634-4) 38.7 % See_Comment [Automated messa ge] The system which generated this result transmitted reference range: 34.0-45.0 %. The reference range was not used to interpret this result as normal/abnormal. HEMOGLOBIN (test code = 718-7) 13.0 G/DL See_Comment [Automated messa ge] The system which generated this result transmitted reference range: 11.5-15.5 G/DL. The reference range was not used to interpret this result as normal/abnormal. LYMPHOCYTES (test code = 41840-1) 34.0 % MCH (test code = 86351-0) 32.3 PG See_Comment [Automated [employer] ge] The system which generated this result transmitted reference range: 25.0-33.0 PG. The reference range was not used to interpret this result as normal/abnormal. MCHC (test code = 08042-7) 33.6 G/DL See_Comment [Automated messa ge] The system which generated this result transmitted reference range: 31.0-36.0 G/DL. The reference range was not used to interpret this result as normal/abnormal. MCV (test code = 32061-9) 96.3 fL See_Comment [Automated messa ge] The system which generated this result transmitted reference range: 80.0-99.0 fL. The reference range was not used to interpret this result as normal/abnormal. MONOCYTES (test code = 14267-8) 9.1 % NEUTROPHILS (test code = 66398-4) 55.1 % PLATELET COUNT (test code = 78724-9) 456 K/UL See_Comment H [Automated messa ge] The system which generated this result transmitted reference range: 130-400 K/UL. The reference range was not used to interpret this result as normal/abnormal. RBC (test code = 09111-2) 4.02 M/UL See_Comment [Automated messa ge] The system which generated this result transmitted reference range: 3.80-5.40 M/UL. The reference range was not used to interpret this result as normal/abnormal. RDW (test code = 12736-1) 12.8 % See_Comment [Automated messa ge] The system which generated this result transmitted reference range: 11.5-15.0 %. The reference range was not used to interpret this result as normal/abnormal. WBC (test code = 55589-4) 9.4 K/UL See_Comment [Automated messa ge] The system which generated this result transmitted reference range: 3.5-11.0 K/UL. The reference range was not used to interpret this result as normal/abnormal. FERRITIN (test code = 64229-3) 71 NG/ML See_Comment [Automated messa ge] The system which generated this result transmitted reference range: 13-200 NG/ML. The reference range was not used to interpret this result as normal/abnormal. CALC LDL CHOL (test code = 13046-3) 148 MG/DL See_Comment H [Automated messa ge] The system which generated this result transmitted reference range: <100 MG/DL. The reference range was not used to interpret this result as normal/abnormal. CHOLESTEROL (test code = 2093-3) 221 MG/DL See_Comment H [Automated messa ge] The system which generated this result transmitted reference range: <200 MG/DL. The reference range was not used to interpret this result as normal/abnormal. HDL CHOLESTEROL (test code = 2085-9) 42 MG/DL See_Comment [Automated messa ge] The system which generated this result transmitted reference range: >39 MG/DL. The reference range was not used to interpret this result as normal/abnormal. RISK RATIO LDL/HDL (test code = 98550-6) 3.52 RATIO See_Comment H [Automated message] The system which generated this result transmitted reference range: <3.22 RATIO. The reference range was not used to interpret this result as normal/abnormal. TRIGLYCERIDES (test code = 2571-8) 178 MG/DL See_Comment H [Automated messa ge] The system which generated this result transmitted reference range: <150 MG/DL. The reference range was not used to interpret this result as normal/abnormal. ALBUMIN (test code = 1751-7) 4.3 G/DL See_Comment [Automated messa ge] The system which generated this result transmitted reference range: 3.5-5.2 G/DL. The reference range was not used to interpret this result as normal/abnormal. ALKALINE PHOSPHATASE (test code = 6768-6) 56 U/L See_Comment [Automated message] The system which generated this result transmitted reference range: 40-123 U/L. The reference range was not used to interpret this result as normal/abnormal. BILIRUBIN, TOTAL (test code = 1975-2) 0.3 MG/DL See_Comment [Automated messa ge] The system which generated this result transmitted reference range: <=1.2 MG/DL. The reference range was not used to interpret this result as normal/abnormal. BUN (test code = 3094-0) 11 MG/DL See_Comment [Automated messa ge] The system which generated this result transmitted reference range: 6-20 MG/DL. The reference range was not used to interpret this result as normal/abnormal. CALCIUM (test code = 90021-1) 9.5 MG/DL See_Comment [Automated messa ge] The system which generated this result transmitted reference range: 8.5-10.5 MG/DL. The reference range was not used to interpret this result as normal/abnormal. CALC A/G RATIO (test code = 1759-0) 1.5 RATIO See_Comment [Automated messa ge] The system which generated this result transmitted reference range: 1.0-2.6 RATIO. The reference range was not used to interpret this result as normal/abnormal. CALC BUN/CREAT (test code = 3097-3) 14 RATIO See_Comment [Automated messa ge] The system which generated this result transmitted reference range: 6-28 RATIO. The reference range was not used to interpret this result as normal/abnormal. CALC GLOBULIN (test code = 35770-4) 2.9 G/DL See_Comment [Automated messa ge] The system which generated this result transmitted reference range: 1.9-3.7 G/DL. The reference range was not used to interpret this result as normal/abnormal. CARBON DIOXIDE (test code = 1962-8) 24 MEQ/L See_Comment [Automated messa ge] The system which generated this result transmitted reference range: 19-31 MEQ/L. The reference range was not used to interpret this result as normal/abnormal. CHLORIDE (test code = 5-0) 101 MEQ/L See_Comment [Automated messa ge] The system which generated this result transmitted reference range: 95-107 MEQ/L. The reference range was not used to interpret this result as normal/abnormal. CREATININE (test code = 2160-0) 0.78 MG/DL See_Comment [Automated messa ge] The system which generated this result transmitted reference range: 0.60-1.30 MG/DL. The reference range was not used to interpret this result as normal/abnormal. eGFR (2020 CKD-EPI) (test code = 30319-5) 94 ML/MIN/1.73 See_Comment [Automated message] The system which generated this result transmitted reference range: >60 ML/MIN/1.73. The reference range was not used to interpret this result as normal/abnormal. GLUCOSE (test code = 1558-6) 91 MG/DL See_Comment [Automated messa ge] The system which generated this result transmitted reference range: 70-99 MG/DL. The reference range was not used to interpret this result as normal/abnormal. POTASSIUM (test code = 2823-3) 4.3 MEQ/L See_Comment [Automated messa ge] The system which generated this result transmitted reference range: 3.5-5.4 MEQ/L. The reference range was not used to interpret this result as normal/abnormal. PROTEIN, TOTAL (test code = 2885-2) 7.2 G/DL See_Comment [Automated messa ge] The system which generated this result transmitted reference range: 6.1-8.3 G/DL. The reference range was not used to interpret this result as normal/abnormal. AST (test code = 1920-8) 11 U/L See_Comment [Automated messa ge] The system which generated this result transmitted reference range: 9-40 U/L. The reference range was not used to interpret this result as normal/abnormal. ALT (test code = 1742-6) 11 U/L See_Comment [Automated [email or web address]] The system which generated this result transmitted reference range: 5-40 U/L. The reference range was not used to interpret this result as normal/abnormal. SODIUM (test code = 2951-2) 137 MEQ/L See_Comment [Automated [email or web address]] The system which generated this result transmitted reference range: 133-146 MEQ/L. The reference range was not used to interpret this result as normal/abnormal. Basic Metabolic Panel (NA, K, CL, CO2, GLUCOSE, BUN, CREATININE, CA)2024-01-31 04:22:25* Test Item Value Reference Range Interpretation Comme nts NA (test code = 0303732843) 138 mmol/L 135-145 K (test code = 4805652290) 3.8 mmol/L 3.5-5.0 CL (test code = 6825597353) 105 mmol/L 98-108 CO2 TOTAL (test code = 6741918852) 27 mmol/L 23-31 AGAP (test code = 8498148459) 6 2-16 BUN (test code = 7715978385) 14 mg/dL 7-23 GLUCOSE (test code = 1335869024) 91 mg/dL 70-110 CREATININE (test code = 2160-0) 0.81 mg/dL 0.50-1.04 CALCIUM (test code = 1642572438) 9.3 mg/dL 8.6-10.6 eGFR (test code = 55456-3) 89.7 mL/min/1.73m2 [facility] [id number] 04:09:38* Test Item Value Reference Range Interpretation [...] 33.4 g/dL 31.6-35.1 RDW-SD (test code = 24525-9) 48.1 fL 39.0-49.9 RDW-CV (test code = 788-0) 13.2 % 12.0-15.5 PLT (test code = 777-3) 365 166-358 H MPV (test code = 21409-3) 8.9 fL 9.5-12.9 L NRBC/100 WBC (test code = 8863456434) 0.0 0.0-10.0 NRBC x10^3 (test code = 7515305646) See_Comment [Automated messa ge] The system which generated this result transmitted reference range: 10*3/?L. The reference range was not used to interpret this result as normal/abnormal. GRAN MAT (NEUT) % (test code = 770-8) 58.9 % IMM GRAN % (test code = 1901316908) 0.40 % LYMPH % (test code = 736-9) 28.2 % MONO % (test code = 5905-5) 8.8 % EOS % (test code = 713-8) 3.3 % BASO % (test code = 706-2) 0.4 % GRAN MAT x10^3(ANC) (test code = 6645547783) 5.92 10*3/uL 1.88-7.09 IMM GRAN x10^3 (test code = 2258888043) 0.04 10*3/uL 0.00-0.06 LYMPH x10^3 (test code = 731-0) 2.84 10*3/uL 1.32-3.29 MONO x10^3 (test code = 742-7) 0.89 10*3/uL 0.33-0.92 EOS x10^3 (test code = 711-2) 0.33 10*3/uL 0.03-0.39 BASO x10^3 (test code = 704-7) 0.04 10*3/uL 0.01-0.07 Lab Interpretation (test code = 58789-5) Abnormal [facility] [id number] 03:51:00* Test Item Value Reference Range Interpretation Comme nts POCT PREG (test code = 1605) Negative On board controls acceptable with C Line (test code = 3574) No POCT PREG LOT # (test code = 3575) [id number] POCT PREG TEST DATE ( test code = 3576) [id number] Lab Interpretation (test cod e = 29216-8) [facility] T4 [id number] 00:00:00* Test Item Value Reference Range Interpretation Comme nts FREE T4 (THYROXINE) (test code = 3024-7) 1.10 NG/DL See_Comment [Automated message] The system which generated this result transmitted reference range: 0.80-1.90 NG/DL. The reference range was not used to interpret this result as normal/abnormal. TSH, THIRD GENERATION (test code = 01572-5) 19.800 UIU/ML See_Comment H [Automated messa ge] The system which generated this result transmitted reference range: 0.400-4.100 UIU/ML. The reference range was not used to interpret this result as normal/abnormal. CBC W/AUTO [id number] 00:00:00* Test Item Value Reference Range Interpretation Comme nts NUCLEATED RBCS (test code = 16196-6) 0.0 /100 WBC'S See_Comment [Automated messa ge] The system which generated this result transmitted reference range: 0.0 /100 WBC'S. The reference range was not used to interpret this result as normal/abnormal. ABSOLUTE EOSINOPHILS (test code = 39944-4) 0.23 K/UL See_Comment [Automated messa ge] The system which generated this result transmitted reference range: 0.00-0.50 K/UL. The reference range was not used to interpret this result as normal/abnormal. ABSOLUTE LYMPHOCYTES (test code = 40365-2) 2.50 K/UL See_Comment [Automated messa ge] The system which generated this result transmitted reference range: 1.00-4.00 K/UL. The reference range was not used to interpret this result as normal/abnormal. ABSOLUTE MONOCYTES (test code = 52202-7) 0.72 K/UL See_Comment [Automated messa ge] The system which generated this result transmitted reference range: 0.20-1.00 K/UL. The reference range was not used to interpret this result as normal/abnormal. ABSOLUTE NEUTROPHILS (test code = 25855-4) 6.29 K/UL See_Comment [Automated messa ge] The system which generated this result transmitted reference range: 1.50-7.50 K/UL. The reference range was not used to interpret this result as normal/abnormal. BASOPHILS (test code = 41338-8) 0.4 % EOSINOPHILS (test code = 27881-7) 2.3 % HEMATOCRIT (test code = 92253-4) 33.2 % See_Comment L [Automated messa ge] [...] result as normal/abnormal. LYMPHOCYTES (test code = 61374-8) 25.4 % MCH (test code = 61936-2) 29.7 PG See_Comment [Automated messa ge] The system which generated this result transmitted reference range: 25.0-33.0 PG. The reference range was not used to interpret this result as normal/abnormal. MCHC (test code = 47577-0) 32.2 G/DL See_Comment [Automated messa ge] The system which generated this result transmitted reference range: 31.0-36.0 G/DL. The reference range was not used to interpret this result as normal/abnormal. MCV (test code = 73024-6) 92.2 fL See_Comment [Automated messa ge] The system which generated this result transmitted reference range: 80.0-99.0 fL. The reference range was not used to interpret this result as normal/abnormal. MONOCYTES (test code = 77600-6) 7.3 % NEUTROPHILS (test code = 28048-5) 64.1 % PLATELET COUNT (test code = 73750-2) 602 K/UL See_Comment H [Automated messa ge] The system which generated this result transmitted reference range: 130-400 K/UL. The reference range was not used to interpret this result as normal/abnormal. RBC (test code = 81841-5) 3.60 M/UL See_Comment L [Automated [email or web address]] The system which generated this result transmitted reference range: 3.80-5.40 M/UL. The reference range was not used to interpret this result as normal/abnormal. RDW (test code = 92230-7) 14.5 % See_Comment [Automated [email or web address]] The system which generated this result transmitted reference range: 11.5-15.0 %. The reference range was not used to interpret this result as normal/abnormal. WBC (test code = 81132-7) 9.8 K/UL See_Comment [Automated [email or web address]] The system which generated this result transmitted reference range: 3.5-11.0 K/UL. The reference range was not used to interpret this result as normal/abnormal. TROPONIN [id number] 09:14:23* Test Item Value Reference Range Interpretation Comme nts TROPONIN I (test code = 0785866242) 0.001 ng/mL <=0.034 MC (test code = [...] of biotin. Lab Interpretation (test code = 99242-7) [facility] [id number] 06:03:40* Test Item Value Reference Range Interpretation Comme nts TROPONIN I (test code = 3269580848) 0.000 ng/mL <=0.034 MC (test code = [...] of biotin. Lab Interpretation (test code = 70162-1) Normal [facility]. METABOLIC PANEL (15664)2022-08-24 05:52:39* Test Item Value Reference Range Interpretation Comme nts NA (test code = 1173991978) 136 mmol/L 135-145 K (test code = 7724972618) 3.9 mmol/L 3.5-5.0 CL (test code = 9556064617) 102 mmol/L 98-108 CO2 TOTAL (test code = 2299236648) 25 mmol/L 23-31 AGAP (test code = 3794958985) 9 2-16 BUN (test code = 2441041883) 5 mg/dL 7-23 L GLUCOSE (test code = 3783029382) 91 mg/dL 70-110 CREATININE (test code = 5638159639) 0.54 mg/dL 0.50-1.04 TOTAL BILI (test code = 1601527830) 0.8 mg/dL 0.1-1.1 CALCIUM (test code = 0574683158) 9.5 mg/dL 8.6-10.6 T PROTEIN (test code = 8587550548) 7.7 g/dL 6.3-8.2 ALBUMIN (test code = 5824406822) 4.5 g/dL 3.5-5.0 ALK PHOS (test code = 8878700191) 52 U/L 34-122 ALTv (test code = 1742-6) 12 U/L 5-35 AST(SGOT) (test code = 8931804743) 21 U/L 13-40 eGFR (test code = 1193599826) 121.5 mL/min/1.73m2 MC (test code = MC) [...] imaging tests). Lab Interpretation (test code = 58126-8) [facility]normal [facility] 05:52:18* Test Item Value Reference Range Interpretation Comme nts LIPASE (test code = 7513785240) 25 U/L 0-220 Lab Interpretation (test cod e = 86571-5) Normal [facility], [id number] 05:50:02* Test Item Value Reference Range Interpretation Comme nts PREG SERUM (test code = 5188389018) Negative MC (test code = MC) Less than 10 IU/L. ?If low titer or ectopic is suspected, resubmit specimen in 48-72 hours. [facility] HospitalCBC WITH [id number] 05:38:57* Test Item Value Reference Range Interpretation [...] 34.7 g/dL 31.6-35.1 RDW-SD (test code = 12563-8) 46.4 fL 39.0-49.9 RDW-CV (test code = 788-0) 13.2 % 12.0-15.5 PLT (test code = 777-3) 449 See_Comment H [Automated message] The system which generated this result transmitted reference range: 166 - 358 10*3/?L. The reference range was not used to interpret this result as normal/abnormal. MPV (test code = 94733-5) 9.2 fL 9.5-12.9 L NRBC/100 WBC (test code = 0790908475) 0.0 See_Comment [Automated message] The system which generated this result transmitted reference range: 0.0 - 10.0 /100 WBCs. The reference range was not used to interpret this result as normal/abnormal. NRBC x10^3 (test code = 6487147982) See_Comment [Automated message] The system which generated this result transmitted reference range: 10*3/?L. The reference range was not used to interpret this result as normal/abnormal. GRAN MAT (NEUT) % (test code = 770-8) 73.0 % IMM GRAN % (test code = 6078956048) 0.30 % LYMPH % (test code = 736-9) 17.9 % MONO % (test code = 5905-5) 7.6 % EOS % (test code = 713-8) 0.8 % BASO % (test code = 706-2) 0.4 % GRAN MAT x10^3(ANC) (test code = 5351366970) 11.94 10*3/uL 1.88-7.09 H IMM GRAN x10^3 (test code = 2122882675) 0.05 10*3/uL 0.00-0.06 LYMPH x10^3 (test code = 731-0) 2.93 10*3/uL 1.32-3.29 MONO x10^3 (test code = 742-7) 1.24 10*3/uL 0.33-0.92 H EOS x10^3 (test code = 711-2) 0.13 10*3/uL 0.03-0.39 BASO x10^3 (test code = 704-7) 0.07 10*3/uL 0.01-0.07 Lab Interpretation (test code = 75650-7) Abnormal [facility] Notes Date/Time Note Provider Source 2024-01-30 23:51:47 Pt given printed and verbal discharge instructions regarding acute midline low back pain, vaginal bleeding, and dysfunctional uterine bleeding. Prescriptions provided. Discussed Tylenol # 3 side affects and to avoid driving/operating machinery/or engaging in activities requiring alertness while taking. Pt verbalized understanding of instructions, pt awake alert oriented, resp reg unlabored, skin w/d, color appropriate for race, moves all ext well, pt encouraged to follow up with pcp. Advised to seek medical attention for new/prolonged/worsening of symptoms. No adverse reaction to meds given in ER noted upon discharge. PIV d'cd, dressing to site, catheter in tact. Awake, alert oriented, resp reg unlabored, skin w/d, pt leaving amb with steady gait, in no apparent distress. TECHNICIAN Latesha Sweet RN [facility] 2024-01-30 23:07:06 Report received from RICKY Hayward TECHNICIAN [facility] 2024-01-30 20:22:44 C/o left leg pain x1 month. Starts at hip/pelvis and radiates down left leg. Denies injury She also states she has been menstruating for 1 full month with "heavy bleeding" Takes synthroid, xanax, and FE daily E Vuong RN [facility] 2023-04-28 00:48:16 Pt given printed and verbal discharge instructions regarding headache disorder. Encouraged hydration, Prescriptions provided:ESGIC Discussed ibuprofen and to take with food to avoid GI distress. Discussed tramadol/phenergan/Tylenol # 3 side affects and to avoid driving/operating machinery/or engaging in activities requiring alertness while taking. Pt verbalized understanding of instructions, pt awake alert oriented, resp reg unlabored, skin w/d, color appropriate for race, moves all ext well,pt encouraged to follow up with pcp. Advised to seek medical attention for new/prolonged/worsening of symptoms, Symptoms IMPROVED No adverse reaction to meds given in ER noted upon discharge PIV d'cd, dressing to site, catheter in tact. Awake, alert oriented, resp reg unlabored, skin w/d, pt leaving amb with steady gait, in no apparent distress, accompanied by SIGNIFICANT OTHER. E Schultz RN [facility] 2023-04-27 23:29:22 Pt ambulatory to bathroom and back to room steady gait. Significant other at bedside. [facility] 2023-04-27 20:55:23 Pt given urine cup and placed in the lobby, pt advice to notify nurse with any other concerns or if symptoms worsen. [facility] 2023-04-27 20:50:22 C/O headache for 1 wk and nausea. Pt states she has tried tylenol and motrin has not given any relief. TECHNICIAN Tabatha Parish RN [facility] 2023-04-27 20:38:00 [facility] Emergency Department Note Patient Name: Essence Kim Date of : 1975 47 year old female Treatment Room: [place] [address] Primary Care Physician: PATIENT DOES NOT HAVE A PCP Patient Escorted by: Family [5] Mode of Arrival: Personal means [1] EMS Treatment Prior to ED Arrival: WATER QUALITY TECHNICIAN treatment: None Travel and Exposure Screening: Symptoms Does patient have any of these symptoms?: (not recorded) Exposure Screening Has patient had contact with someone with a communicable disease in the last month?: (not recorded) Diseases exposed to:: (not recorded) Is Patient ?: (not recorded) Exposure Date: (not recorded) Chief Complaint: Chief Complaint Patient presents with Headache Nausea History of Present Illness: Essence Kim is a 47 year old female with hx of Migraine who presents to the ED for evaluation of a headache that is consistent with her usual migrainous episodes/attacks. No trauma. No fever or chills. No neck pain.. No rash. No focal weakness. HUERTA is same in quality and character as her usual migrainous episodes History provided by: Medical records, patient and significant other bi architect used: No Headache Pain location: Frontal and occipital Radiates to: Does not radiate Severity currently: 9/10 Severity at highest: 9/10 Onset quality: Gradual Duration: 1 week Timing: Sporadic Progression: Unchanged Chronicity: Chronic Similar to prior headaches: yes Context: bright light and loud noise Relieved by: Nothing Worsened by: Nothing Ineffective treatments: NSAIDs and acetaminophen Associated symptoms: nausea, photophobia and vomiting Associated symptoms: no back pain, no blurred vision, [...] no URI, no visual change and no weakness Past Medical History/Immunizations: Past Medical History: Diagnosis Date Abnormal uterine bleeding Anxiety 2017 on medication, managed by PCP Breast disorder pain in breast Depression 2017 not on medication, managed by PCP, no si/hi Tetanus received in last 5 years: Unknown Childhood immunizations: Up-to-date Allergies: Allergies Allergen Reactions Nsaids (Non-Steroidal Anti-Inflammatory Drug) Swelling Past Social History: Tobacco Use Every Day; Cigarettes: Started 12/20/2018; 1.00 packs/day Smokeless Tobacco: Never used smokeless tobacco. Alcohol Use Not Currently. Drug Use Not Currently. Sexual Activity Sexually active; Partners: Male; Control/Protection: Surgical, Pill. Comments: last sexual intercourse 12/16/2018 Past Surgical History: Past Surgical History: Procedure Laterality Date SECTION CHOLECYSTECTOMY 1997 TUBAL LIGATION 1999 Review of Systems: Review of Systems Constitutional: Negative. Negative for chills, diaphoresis, fatigue and fever. HENT: Negative. Negative for congestion, ear pain, hearing loss, postnasal drip, sinus pressure and sore throat. Eyes: Positive for photophobia. Negative for blurred vision. Respiratory: Negative. Negative for cough. Breasts: Negative. Cardiovascular: Negative. Negative for syncope and near-syncope. Gastrointestinal: Positive for nausea and vomiting. Genitourinary: Negative. Musculoskeletal: Negative. Negative for back pain, neck pain and neck stiffness. Skin: Negative. Neurological: Positive for headaches. Negative for dizziness, focal weakness, seizures, weakness, numbness, paresthesias and loss of balance. Psychiatric/Behavioral: Negative. All other systems reviewed and are negative. Endocrine: Endocrine negative Physical Exam: ED Triage Vitals [04/27/232050] Weight 93 kg (205 lb) Actual or estimated Height 1.575 m (5' 2") BP (!) 162/102 Pulse 94 Resp 18 Temp 36.9 ?C (98.4 ?F) Temp source Oral SpO2 98 % Measured on Room air Physical Exam Vitals and nursing note reviewed. Constitutional: General: She is not in acute distress. Appearance: Normal appearance. She is well-developed and normal weight. She is not ill-appearing or toxic-appearing. HENT: Head: Normocephalic and atraumatic. Left Ear: Ear canal and external ear normal. Nose: Nose normal. No congestion or rhinorrhea. Mouth/Throat: Mouth: Mucous membranes are moist. Pharynx: Oropharynx is clear. No oropharyngeal exudate or posterior oropharyngeal erythema. Eyes: General: No scleral icterus. Right eye: No discharge. Left eye: No discharge. Extraocular Movements: Extraocular movements intact. Conjunctiva/sclera: Conjunctivae normal. Pupils: Pupils are equal, round, and reactive to light. Neck: Thyroid: No thyromegaly. Cardiovascular: Rate and Rhythm: Normal rate and regular rhythm. Pulses: Normal pulses. Heart sounds: Normal heart sounds. No murmur heard. Pulmonary: Effort: Pulmonary effort is normal. No respiratory distress. Breath sounds: Normal breath sounds. No stridor. No wheezing, rhonchi or rales. Chest: Chest wall: No tenderness. Abdominal: General: Bowel sounds are normal. There is no distension. Palpations: Abdomen is soft. There is no mass. Tenderness: There is no abdominal tenderness. There is no right CVA tenderness, left CVA tenderness, guarding or rebound. Hernia: No hernia is present. Musculoskeletal: General: No swelling, tenderness, deformity or signs of injury. Normal range of motion. Cervical back: Normal range of motion and neck supple. No rigidity or tenderness. Right lower leg: No edema. Left lower leg: No edema. Lymphadenopathy: Cervical: No cervical adenopathy. Skin: General: Skin is warm and dry. Capillary Refill: Capillary refill takes less than 2 seconds. Coloration: Skin is not jaundiced or pale. Findings: No bruising, erythema, lesion or rash. Neurological: General: No focal deficit present. Mental Status: She is alert and oriented to person, place, and time. Cranial Nerves: No cranial nerve deficit. Sensory: No sensory deficit. Motor: No weakness or abnormal muscle tone. Coordination: Coordination normal. Gait: Gait normal. Deep Tendon Reflexes: Reflexes normal. Psychiatric: Behavior: Behavior normal. Thought Content: Thought content normal. Judgment: Judgment normal. Radiology: No orders to display Lab Results: Lab Results - No data to display Orders and Treatments: No orders of the defined types were placed in this encounter. Orders Placed This Encounter Medications cxgvmnfflr-xytimpryvktyk-vgil (ESGIC) 50-325-40 mg tablet 2 tablet NaCl 0.9% (NS) IV infusion 1,000 mL metoclopramide HCl (REGLAN) injection 10 mg diphenhydrAMINE (BENADRYL) injection 25 mg ketorolac (TORADOL) injection 30 mg owwppapxsh-cujrdxmhmusme-zjzx 50-325-40 mg tablet First Provider Eval: ED Events None ED COURSE Diagnosis/Impression as of 04/28/2345 Headache disorder Procedures: Procedures MDM: Medical Decision Making Essence Kim is a 47 year old female who presents to the ED with a headache Problems Addressed: Headache disorder: acute illness or injury Risk OTC drugs. Prescription drug management. Risk Details: Will refer to PCP/Neurology for further evaluation and management Flowsheet Documentation: Scoring Tools: No data recorded Disposition/Condition: ED Disposition ED Disposition Disch - Home Condition Stable Comment -- Discharge Medications: Patient's Medications START taking these medications PZGXUIDXAC-NPXFFNBOBRXIZ-VMAB 50-325-40 MG TABLET Take 1 tablet by mouth every 6 (six) hours as needed (Headache). CONTINUE taking these medications which have NOT CHANGED ALPRAZOLAM 2 MG TABLET Take 2 mg by mouth at bedtime as needed for Sleep. DICYCLOMINE 20 MG TABLET Take 1 tablet by mouth 4 (four) times daily. ONDANSETRON 4 MG DISINTEGRATING TABLET Take 1 tablet by mouth every 4 (four) hours as needed for Nausea and Vomiting (N/V). START taking Modified Medications as Prescribed No medications on file STOP taking these medications No medications on file Follow-up: Contact information for follow-up Yannick Powell MD Specialty: PN-NEUROLOGY [facility] [address] [place] [id number] Electronically signed by: Robby Patel MD 04/28/2345 [facility]
[2024-10-14] MEDS ORDERED: ONDANSETRON 4 MG (ODT) TAB ONE (20:14)
[2024-10-14] MEDS ORDERED: HYDROCODONE/APAP 7.5/325 MG TAB ONE (20:15)
[2024-10-14] MEDS ORDERED: LIDOCAINE HCL JELLY 2% 6 ML SYRINGE TOP ONE (20:15)
--- NOTE | 2024-10-14 20:19 | ER ---
Nurse's Notes [facility] Name: Jessica Kim Age: 48 yrs Sex: Female : 1975 Arrival Date: 10/14/2024 Time: 19:10 Bed 10 Private MD: Diagnosis: Other hemorrhoids Presentation: 10/14 19:21 Chief complaint: Patient states: HAS HEMORRHOIDS X 2 WEEKS AND IT'S GETTING WORSE. jj7 Coronavirus screen: At this time, the client does not indicate any symptoms associated with coronavirus-19. Ebola Screen: No symptoms or risks identified at this time. Initial Sepsis Screen: Does the patient meet any 2 criteria? No. Patient's initial sepsis screen is negative. Does the patient have a suspected source of infection? No. Patient's initial sepsis screen is negative. Risk Assessment: Do you want to hurt yourself or someone else? Patient reports no desire to harm self or others. Note CREAMS. 19:21 Method Of Arrival: Ambulatory [facility] 19:21 Acuity: HOWARD 4 j7 20:41 Onset of symptoms was September 27, 2024. kj2 Triage Assessment: 19:27 General: Appears in no apparent distress. comfortable, Behavior is calm, cooperative, jj7 appropriate for age. Pain: Complains of pain in buttocks. GI: Reports hemorrhoids. 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 - Infectious Disease History:: Denies. - Social history:: Smoking status: Patient reports the use of cigarette tobacco products, smokes one pack cigarettes per day. Patient/guardian denies using alcohol, street drugs, IV drugs. Screenin:40 [facility] ED Fall Risk Assessment (Adult) History of falling in the last 3 months, kj2 including since admission No falls in past 3 months (0 pts) Confusion or Disorientation No (0 pts) Intoxicated or Sedated No (0 pts) Impaired Gait No (0 pts) Mobility Assist Device Used No (0 pt) Altered Elimination No (0 pt) Score/Fall Risk Level 0 - 2 = Low Risk Maintained a safe environment, Hourly rounding (assess needs \T\ fall precautionary measures) done. Abuse screen: Denies threats or abuse. Denies injuries from another. Nutritional screening: No deficits noted. Tuberculosis screening: No symptoms or risk factors identified. Assessment: 19:40 General: Appears in no apparent distress. Behavior is calm, cooperative. Pain: kj2 Complains of pain in buttocks Pain currently is 6 out of 10 on a pain scale. Neuro: Level of Consciousness is awake, alert, obeys commands, Oriented to person, place, time, situation. Cardiovascular: Patient's skin is warm and dry. Respiratory: Airway is patent Respiratory effort is unlabored. GI: No signs and/or symptoms were reported involving the gastrointestinal system. : No signs and/or symptoms were reported regarding the genitourinary system. 20:39 Reassessment: Patient appears in no apparent distress at this time. Patient and/or kj2 family updated on plan of care and expected duration. Pain level reassessed. Patient is alert, oriented x 3, equal unlabored respirations, skin warm/dry/pink. Vital Signs: 19:21 BP 141 / 112; Pulse 108; Resp 20; Temp 97.9; Pulse Ox 98% ; jj7 20:40 BP 140 / 88; Pulse 100; Resp 20; Temp 98; Pulse Ox 100% ; kj2 ED Course: 19:11 Patient arrived in ED. jj6 19:15 Lazara Fair [facility]C [facility] kb 19:15 Thomas Emery MD is Attending Physician. kb 19:25 Triage completed. jj7 19:27 Arm band placed on. jj7 19:40 Patient has correct armband on for positive identification. Bed in low position. Call kj2 light in reach. Adult w/ patient. Provided Education on: call light. 20:04 Reny Prakash, RICKY is Primary Nurse. kj2 20:41 No provider procedures requiring assistance completed. Patient did not have IV access kj2 during this emergency room visit. Administered Medications: 20:25 Drug: Hydrocodone-Acetaminophen PO (7.5 mg-325 mg) 1 tabs PO once Route: PO; kj2 20:42 Follow up: Response: No adverse reaction kj2 20:25 Drug: Lidocaine Mucous Membrane Gel 2 % 1 application Mucous Membrane once Route: kj2 Mucous Membrane; 20:42 Follow up: Response: No adverse reaction kj2 20:25 Drug: Ondansetron Oral Disintegrating Tablet Oral Disintegrating Tablet 4 mg PO once kj2 Route: PO; 20:42 Follow up: Response: No adverse reaction kj2 Medication: 20:42 VIS not applicable for this client. kj2 Outcome: 20:18 Discharge ordered by MD. de paz 20:42 Discharged to home ambulatory, with friend, kj2 20:42 Condition: stable 20:42 Discharge instructions given to patient, Instructed on discharge instructions, follow up and referral plans. Demonstrated understanding of instructions, follow-up care, 20:47 Patient left the ED. kj2 Signatures: Lazara Fair FNP-C ANA CRISTINA-Guillermina Kim jj6 Lyla Munson RN RN jj7 Reny Prakash, RN RN kj2
--- NOTE | 2024-10-14 20:19 | EDPHYS ---
Physician Documentation [facility] Name: Jessica Kim Age: 48 yrs Sex: Female : 1975 Arrival Date: 10/14/2024 Time: 19:10 Bed 10 Private MD: ED Physician Thomas Emery HPI: 10/14 20:32 This 48 yrs old Female presents to ER via Ambulatory with complaints of Hemorrhoids. kb 20:32 Pt is a 48-year-old female who presents for hemorrhoids. States they have been painful kb for 2 weeks, no relief with halv-dle-ohruojb treatments. Denies bleeding. Denies fever.. 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 - Infectious Disease History:: Denies. - Social history:: Smoking status: Patient reports the use of cigarette tobacco products, smokes one pack cigarettes per day. Patient/guardian denies using alcohol, street drugs, IV drugs. ROS: 20:25 Constitutional: As per HPI kb Exam: 20:25 Constitutional: This is a well developed, well nourished patient who is awake, alert, kb and in no acute distress. Head/Face: Normocephalic, atraumatic. ENT: Moist Mucous membranes Cardiovascular: Regular rate Respiratory: Respirations even and unlabored. No increased work of breathing. Talking in full sentences Abdomen/GI: Soft, non-tender. No distention Skin: Warm, dry with normal turgor. Normal color. MS/ Extremity: Pulses equal, no cyanosis. Neurovascular intact. Full, normal range of motion. Neuro: Awake and alert, GCS 15, oriented to person, place, time, and situation. 20:25 Abdomen/GI: Rectal exam: hemorrhoid(s), external, with pain, tenderness, that is moderate, Vital Signs: 19:21 BP 141 / 112; Pulse 108; Resp 20; Temp 97.9; Pulse Ox 98% ; jj7 20:40 BP 140 / 88; Pulse 100; Resp 20; Temp 98; Pulse Ox 100% ; kj2 MDM: 19:15 Medical Screening Exam initiated kb 20:26 Differential diagnosis: hemorrhoids, abscess, fissure. Data reviewed: vital signs, kb nurses notes. Historians other than the Patient: Spouse/Significant Other: spouse. Counseling: I had a detailed discussion with the patient and/or guardian regarding the historical points, exam findings, and any diagnostic results supporting the discharge/admit diagnosis, the need for outpatient follow up, a general surgeon, to return to the emergency department if symptoms worsen or persist or if there are any questions or concerns that arise at home. 10/14 19:29 Order name: [facility]. Order: please place pt in gown; Complete Time: 20:25 kb Administered Medications: 20:25 Drug: Hydrocodone-Acetaminophen PO (7.5 mg-325 mg) 1 tabs PO once Route: PO; kj2 20:42 Follow up: Response: No adverse reaction kj2 20:25 Drug: Lidocaine Mucous Membrane Gel 2 % 1 application Mucous Membrane once Route: kj2 Mucous Membrane; 20:42 Follow up: Response: No adverse reaction kj2 20:25 Drug: Ondansetron Oral Disintegrating Tablet Oral Disintegrating Tablet 4 mg PO once kj2 Route: PO; 20:42 Follow up: Response: No adverse reaction kj2 Disposition: 10/15 05:25 Co-signature as Attending Physician, Thomas Emery MD I agree with the assessment sp4 and plan of care. I reviewed the patient's care provided by the Advanced Practice Provider and agree with the diagnosis and treatment plan. Disposition Summary: 10/14/24 20:18 Discharge Ordered Notes: Location: Home Condition: Stable kb Diagnosis - Other hemorrhoids kb Followup: kb - With: Emergency Department - When: As needed - Reason: Worsening of condition Followup: kb - With: Private Physician - When: 2 - 3 days - Reason: Recheck today's complaints, Continuance of care, Re-evaluation by your physician Discharge Instructions: - Discharge Summary Sheet kb - High-Fiber Eating Plan kb - Hemorrhoids, Sste-oq-Rvvq kb - Surgical Procedures for Hemorrhoids kb - Nonsurgical Procedures for Hemorrhoids kb Forms: - Medication Reconciliation Form kb - Antibiotic Education kb - Prescription Opioid Use kb - Patient Portal Instructions kb - Leadership Thank You Letter kb Prescriptions: - Anusol-HC 2.5 % Topical cream with perineal applicator - apply 1 application RECTAL route 1 to 2 times per day as needed for pain; 1 kb Unspecified; Refills: 0, Product Selection Permitted - ondansetron 4 mg Oral Tablet,disintegrating - take 1 tablet ORAL route every 6 hours as needed for nausea and vomiting; 12 kb tablet; Refills: 0, Product Selection Permitted Signatures: Lazara Fair, ANA CRISTINA-C [employer]W OPERATOR VERTICAL-Lyla Reich, RN RN jj7 Thomas Emery MD MD sp4 Reny Prakash RN RN kj2
[2024-10-15 03:29] VITALS: BP 140/88; TEMP 98; O2SAT 100
== END 2024-10-14 20:47 | disposition home or self-care (01) ==
LOC: ER 19:10
DX: K64.8 Other hemorrhoids (principal)
CPT/HCPCS: 99283; Q0162